=== PATIENT | female | born 1980 | race Caucasian/White ===

== ENCOUNTER → 2017-10-12 10:27 | Outpatient (CLI) | payer BC, SELFPAY ==
[2017-10-12 12:49] LABS: Hematocrit 32.7 % (37-47); Hemoglobin 10.9 g/dl (12.0-15.0); Mean Corp Hgb Conc 33.3 g/gl (32-36); Mean Corpuscular Hgb 30.9 pg (27.0-32.0); Mean Corpuscular Volume 92.6 fL (81-99); Mean Platelet Vol. 9.4 fl (6.2-12.0); Platelet Count 295 K/mm3 (150-450); RBC Distribution Width CV 12.6 % (11.6-14.6); RBC Distribution Width SD 42.6 fl (35.1-43.9); Red Blood Count 3.53 M/mm3 (4.2-5.4); White Blood Count 10.9 K/mm3 (4.4-11.0)
[2017-10-12 12:52] LABS: Glucose Challenge Gest 1H 50g 160 mg/dL (70-140); Scan Indicated on CBC? Y/N NO
== END ==
PROVIDERS: Family Provider Internal Medicine; PCP Internal Medicine; Visit Provider Obstetrics & Gynecology
DX: Z34.82 Encounter for supervision of other normal pregnancy, second trimester (principal)
CPT/HCPCS: 36415; 82950; 85027

== ENCOUNTER → 2017-10-19 07:07 | Outpatient (CLI) | payer BC, SELFPAY ==
[2017-10-19 08:14] LABS: Glucose GTT-Gestation. Fasting 89 mg/dL (<105)
[2017-10-19 09:41] LABS: Glucose GTT-Gestational 2 Hr 153 mg/dL (<165)
[2017-10-19 09:44] LABS: Glucose GTT-Gestational 1 Hr 179 mg/dL (<190)
[2017-10-19 11:38] LABS: Glucose GTT-Gestational 3 Hr 99 L (<145)
== END ==
PROVIDERS: Family Provider Internal Medicine; PCP Internal Medicine; Visit Provider Obstetrics & Gynecology
DX: R73.09 Other abnormal glucose (principal)
CPT/HCPCS: 36415; 82951; 82952

== ENCOUNTER → 2017-11-21 09:54 | Outpatient (CLI) | payer BC, SELFPAY ==
[2017-11-21 10:54] LABS: Hematocrit 35.9 % (37-47); Mean Corp Hgb Conc 33.4 g/gl (32-36); Mean Corpuscular Hgb 31.2 pg (27.0-32.0); Mean Corpuscular Volume 93.2 fL (81-99); Mean Platelet Vol. 10.1 fl (6.2-12.0); Platelet Count 225 K/mm3 (150-450); RBC Distribution Width CV 14.2 % (11.6-14.6); RBC Distribution Width SD 48.1 fl (35.1-43.9); Red Blood Count 3.85 M/mm3 (4.2-5.4); White Blood Count 9.2 K/mm3 (4.4-11.0)
[2017-11-21 10:55] LABS: Scan Indicated on CBC? Y/N NO
[2017-11-21 11:01] LABS: Partial Thromboplast Time 29.5 Seconds (24.1-36.2)
[2017-11-21 11:06] LABS: Prothrombin Time (Protime)PT. 13.2 SECONDS (11.7-14.9)
[2017-11-21 11:27] LABS: AST(SGOT) 23 U/L (15-37); Alanine Aminotransfer ALT/SGPT 22 U/L (13-56); Creatinine, Serum 0.85 mg/dL (0.55-1.02); EST Glomerular Filtration Rate 80 mL/min (>60); Est Glom Filt Rate - Afr Amer 96 mL/min (>60); Uric Acid 5.6 mg/dL (2.6-6.0)
== END ==
PROVIDERS: Visit Provider Obstetrics & Gynecology
DX: Z34.83 Encounter for supervision of other normal pregnancy, third trimester (principal); O26.893 Other specified pregnancy related conditions, third trimester; O16.3 Unspecified maternal hypertension, third trimester; Z3A.00 Weeks of gestation of pregnancy not specified
CPT/HCPCS: 36415; 82565; 84450; 84460; 84550; 85027; 85610; 85730

== ENCOUNTER → 2017-11-22 11:28 | Outpatient (CLI) | payer BC, SELFPAY ==
[2017-11-22 11:52] LABS: 24 Hour Urine Protein 396.6 mg/24HR (<150 MG/24HR); 24HR. UA Prot. Total Volume 1925 mL; Urine Protein (24 Hour) 20.6 mg/dL (<11.9)
== END ==
PROVIDERS: Visit Provider Obstetrics & Gynecology
DX: Z34.83 Encounter for supervision of other normal pregnancy, third trimester (principal); O26.893 Other specified pregnancy related conditions, third trimester; O16.3 Unspecified maternal hypertension, third trimester; Z3A.00 Weeks of gestation of pregnancy not specified
CPT/HCPCS: 84156

== ENCOUNTER 2017-11-28 16:08 | Outpatient (CLI) | payer BC, SELFPAY ==
[2017-11-28 17:03] VITALS: BMI 37.2
[2017-11-28] MEDS: Betamethasone/Betamethasone 30 MG/5 ML Vial 12 MG IM (17:13)
[2017-11-28 17:29] LABS: AST(SGOT) 25 U/L (15-37); Alanine Aminotransfer ALT/SGPT 25 U/L (13-56); EST Glomerular Filtration Rate 85 mL/min (>60); Est Glom Filt Rate - Afr Amer 103 mL/min (>60); Estimated Creatinine Clearance 82.33 ml/min; Uric Acid 4.8 mg/dL (2.6-6.0)
[2017-11-28 17:55] LABS: Hematocrit 37.3 % (37-47); Hemoglobin 12.7 g/dl (12.0-15.0); International Normalized Ratio 0.9; Mean Corpuscular Hgb 31.7 pg (27.0-32.0); Mean Platelet Vol. 10.6 fl (6.2-12.0); Platelet Count 250 K/mm3 (150-450); Prothrombin Time (Protime)PT. 12.5 SECONDS (11.7-14.9); RBC Distribution Width CV 13.8 % (11.6-14.6); RBC Distribution Width SD 45.8 fl (35.1-43.9); Red Blood Count 4.01 M/mm3 (4.2-5.4); White Blood Count 11.1 K/mm3 (4.4-11.0)
[2017-11-28 17:56] LABS: Partial Thromboplast Time 27.5 Seconds (24.1-36.2)
[2017-11-28 18:01] LABS: Scan Indicated on CBC? Y/N NO
--- NOTE | 2017-11-30 13:39 | OB.TRI.NOTE ---
History of Present Illness Date of Service: 11/29/17 Was patient seen by the physician?: Yes Reason For Visit: PIH Date of Service: 11/29/17 Final ARIANA: 01/06/18 Gestational age: 34 Weeks and 5 Days History of Present Illness: 37 yo [id number] female with known preeclampsia, on bedrest at home but not strict re this. Brought in for overnight observation and sequential BP checks to help determine severity of current BPs. S/P Betamethasone on 11/28 and 11/29 x two doses Denies any PETTIT, RUQ pain. 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 No UCs. + FM. No vaginal bleeding or ROM. Home Medications Medication Instructions Recorded Hydrocodone Bitart/Apap 5-325 1 - 2 tablet PO Q4H PRN PRN #10 06/11/16 [[place] 5MG-325MG] tablet Vits [Prenatabs FA] 1 tablet PO DAILY 06/11/16 Aspirin 11/29/17 Allergies No Known Allergies Allergy (Verified 11/29/17 18:08) Physical Exam General: Alert, Oriented x3, Cooperative, No apparent distress Abdomen: Soft, Non Tender, Gravid Estimated gestational size: Appropriate for gestational size Presentation: Cephalic Cervix Dilation (cm): 0 - VTX Station: -3 Effacement (%): 0 NST - FHR Rate Baby A Baseline: 130-140 avg variability. Accels Variability:: Moderate Accelerations:: 15 x 15 Decelerations:: None NST Reactive:: Yes, Appropriate for gestational age FHR Category:: Category I Uterine Activity:: irregular UCs noted Impression/Plan 34 5/7 wk [id number] female. Preeclampsia. Bedrest and outpt overnight observation planned to assess BPs If BPs severe PIH range, deliver If mild continue bedrest and will sent home after observation.
--- NOTE | 2017-11-30 13:45 | OB.TRI.HP_ITS ---
History of Present Illness Date of Service: 11/29/17 Was patient seen by the physician?: Yes Reason For Visit: PIH Date of Service: 11/29/17 Final ARIANA: 01/06/18 Gestational age: 34 Weeks and 5 Days History of Present Illness: 37 yo [id number] female with known preeclampsia, on bedrest at home but not strict re this. Brought in for overnight observation and sequential BP checks to help determine severity of current BPs. S/P Betamethasone on 11/28 and 11/29 x two doses Denies any PETTIT, RUQ pain. 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 No UCs. + FM. No vaginal bleeding or ROM. Home Medications Medication Instructions Recorded Hydrocodone Bitart/Apap 5-325 1 - 2 tablet PO Q4H PRN PRN #10 06/11/16 [[place] 5MG-325MG] tablet Vits [Prenatabs FA] 1 tablet PO DAILY 06/11/16 Aspirin 11/29/17 Allergies No Known Allergies Allergy (Verified 11/29/17 18:08) Physical Exam General: Alert, Oriented x3, Cooperative, No apparent distress Abdomen: Soft, Non Tender, Gravid Estimated gestational size: Appropriate for gestational size Presentation: Cephalic Cervix Dilation (cm): 0 - VTX Station: -3 Effacement (%): 0 NST - FHR Rate Baby A Baseline: 130-140 avg variability. Accels Variability:: Moderate Accelerations:: 15 x 15 Decelerations:: None NST Reactive:: Yes, Appropriate for gestational age FHR Category:: Category I Uterine Activity:: irregular UCs noted Impression/Plan 34 5/7 wk [id number] female. Preeclampsia. Bedrest and outpt overnight observation planned to assess BPs If BPs severe PIH range, deliver If mild continue bedrest and will sent home after observation.
== END 2017-11-28 17:20 | disposition home or self-care (01) ==
LOC: LAB 16:10 → WPOUT 16:50 → WP 16:50
PROVIDERS: Visit Provider Obstetrics & Gynecology
DX: O14.93 Unspecified pre-eclampsia, third trimester (principal); Z3A.34 34 weeks gestation of pregnancy
CPT/HCPCS: 36415; 82565; 84450; 84460; 84550; 85027; 85610; 85730; 96372; 99218; G0378; J0702

== ENCOUNTER → 2017-11-29 17:23 | Outpatient (CLI) | payer BC, SELFPAY ==
[2017-11-29 19:19] LABS: 24 Hour Urine Protein 784.8 mg/24HR (<150 MG/24HR); 24HR. UA Prot. Total Volume 3600 mL; Urine Protein (24 Hour) 21.8 mg/dL (<11.9)
== END ==
PROVIDERS: Visit Provider Obstetrics & Gynecology
DX: O13.9 Gestational [pregnancy-induced] hypertension without significant proteinuria, unspecified trimester (principal); Z3A.00 Weeks of gestation of pregnancy not specified
CPT/HCPCS: 81050; 84156

== ENCOUNTER 2017-11-29 17:38 | Outpatient (CLI) | payer BC, SELFPAY ==
[2017-11-29] MEDS: Betamethasone/Betamethasone 30 MG/5 ML Vial 12 MG IM (18:04)
--- NOTE | 2017-11-29 22:08 | PCM.PROGNOTE ---
Subjective: Discussed plan of care with patient. Plan for bedrest with monitoring of BPs. GBS done Cervix: L/Th/Cl/ high A/P: 34 5/7 wk with preeclampsia. Watch BPs and will assess re delivery options prn. discuss with MFM prior to final decision re delivery , unless severe by BP criteria on bedrest. - Physical Exam General: Alert, Oriented x3, Cooperative, No apparent distress HEENT: Atraumatic Neck: Supple Abdomen: Soft, Non Tender - VTX, Gravid Extremities: Edema - tr edema. Neurological: Cranial nerves II-XII grossly intact Psych/Mental Status: Normal Affect Medical Necessity - Tobacco Use Smoking Status: Never smoker Assessment/Plan 34 57 wk preeclampsia. Observe BPs overnight, bedrest with BRP S/P Betamethasone earlier today, and yesterday. Plan of care reviewed with pt and spouse. Consult with MFM prior to final decision re earlier than 37 wk delivery unless indicated by persistent severe BP / worsening preeclampsia.
[2017-11-29 22:28] VITALS: BMI 37.0
[2017-11-29 23:36] LABS: Group B Strep DNA By PCR Negative (Negative); Internal Control PASS; Probe Check PASS; Specimen Processing Control PASS
--- NOTE | 2017-11-30 07:34 | OB.TRI.PN ---
Progress Notes Date of Service: 11/30/17 Progress Note: PROGRESS NOTE. HD#2 Little sleep overnight, but no PETTIT and no PIH sx. AFEB. BPs initially 173/99 166/93 159 / 98 Then with pt at rest, lying in bed (BR with BRP): BPs mostly in 130-140 / 67-87 EFM: category I tracing. 130-140s avg variability. Accels. UCs noted last pm, irregular A/P: 34 wk EGA . PIH, mild preeclampsia Appears stable with bedrest. Advised to continue bedrest. Will f/u closely in ofc. return if PETTIT, RUQ pain, inc edema, malaise. Goal to deliver / induce by 37 wks. S/P Betamethasone 12 mg IM on 11/28 and 11/29. D/C home.
--- NOTE | 2017-11-30 07:39 | OB.TRI.PN_ITS ---
Progress Notes Date of Service: 11/30/17 Progress Note: PROGRESS NOTE. HD#2 Little sleep overnight, but no PETTIT and no PIH sx. AFEB. BPs initially 173/99 166/93 159 / 98 Then with pt at rest, lying in bed (BR with BRP): BPs mostly in 130-140 / 67- 87 EFM: category I tracing. 130-140s avg variability. Accels. UCs noted last pm , irregular A/P: 34 wk EGA . PIH, mild preeclampsia Appears stable with bedrest. Advised to continue bedrest. Will f/u closely in ofc. return if PETTIT , RUQ pain, inc edema, malaise. Goal to deliver / induce by 37 wks. S/P Betamethasone 12 mg IM on 11/28 and 11/29. D/C home.
== END 2017-11-30 07:50 | disposition home or self-care (01) ==
LOC: WPOUT 17:40 → WP 17:42
PROVIDERS: Visit Provider Obstetrics & Gynecology
DX: O14.03 Mild to moderate pre-eclampsia, third trimester (principal); Z3A.34 34 weeks gestation of pregnancy
CPT/HCPCS: 59025; 59050; 87081; 87653; 96372; 99218; G0378; J0702

== ENCOUNTER 2017-12-02 01:45 | Inpatient (IN) | payer BC, SELFPAY ==
[2017-12-02] MEDS: Lactated Ringers 1,000 ML 50 ML IV ×2 (02:31→21:45)
[2017-12-02 02:54] VITALS: BMI 36.8
[2017-12-02 03:05] LABS: Hematocrit 35.6 % (37-47); Hemoglobin 11.8 g/dl (12.0-15.0); Mean Corp Hgb Conc 33.1 g/gl (32-36); Mean Corpuscular Volume 93.4 fL (81-99); Mean Platelet Vol. 10.5 fl (6.2-12.0); Platelet Count 252 K/mm3 (150-450); RBC Distribution Width CV 14.5 % (11.6-14.6); RBC Distribution Width SD 48.9 fl (35.1-43.9); Red Blood Count 3.81 M/mm3 (4.2-5.4); White Blood Count 11.1 K/mm3 (4.4-11.0)
[2017-12-02 03:07] LABS: Scan Indicated on CBC? Y/N NO
[2017-12-02 03:37] LABS: ALB/GLOB Ratio 0.5 RATIO (0.9-2.4); AST(SGOT) 24 U/L (15-37); Alanine Aminotransfer ALT/SGPT 26 U/L (13-56); Albumin, Serum 2.3 g/dL (3.2-5.0); Alkaline Phosphatase 144 U/L (45-117); Anion Gap 10 (5-15); BUN 21 mg/dL (7-18); BUN/Creat Ratio 22.9 RATIO (10-20); Chloride 110 mmol/L (98-107); Creatinine, Serum 0.92 mg/dL (0.55-1.02); EST Glomerular Filtration Rate 73 mL/min (>60); Est Glom Filt Rate - Afr Amer 88 mL/min (>60); Globulin 4.2 g/dL (2.2-4.2); Glucose 75 mg/dL (74-106); Potassium 4.3 mmol/L (3.5-5.1); Protein, Total 6.5 g/dL (6.4-8.2); Sodium Level 142 mmol/L (136-145); Total Bilirubin < 0.10 mg/dL (0.20-1.00); Uric Acid 5.8 mg/dL (2.6-6.0)
[2017-12-02] MEDS: miSOPROStol 25 MCG TABLET PO ×3 (03:38→11:24)
[2017-12-02] MEDS: Labetalol 100 MG/20 ML Vial 10 MG IV ×2 (04:04→04:36)
[2017-12-02] MEDS: Labetalol 200 MG Tablet PO ×2 (04:21→13:15)
[2017-12-02] MEDS: Magnesium Sulfate 20 GM/500 ML BAG IV ×2 (04:58→15:01)
--- NOTE | 2017-12-02 07:45 | PCM.PN.BLA ---
Progress Note LABOR PROGRESS NOTE Preeclampsia. On Magnesium Sulfate for labor. Cytotec induction. On labetolol 200 mg po bid Presented with SROM at 12:45 am. Feeling tightening only. Denies PETTIT, RUQ pain. No PIH sx. Afeb BPs labile, inc with movement. Improved with rest. EFM: 130-140s avg variability. accels Category I Irregular UCs with UCs at times q 5-6 mins CX: deferred. Was dimple, thick, high at initial check with SROM A/P: 35 1/7 wk preeclampsia. SROM On magnesium sulfate. Fluid restriction to 100 cc / hr (in addition to antibiotics and Magnesium) Second dose of cytotec being given. Continue labor. GBS negative. -- reg diet for breakfast and will change to clears with onset of more active labor. -- del toro planned if urine output dec (retention 2/2 magnesium sulfate possible) or with placement of epidural -- Labetolol 200 mg po bid to continue for now. Watch BPs closely.
--- NOTE | 2017-12-02 12:57 | PCM.PN.BLA ---
Progress Note LABOR PROGRESS NOTE Multiple visitors in room and all eating lunch. Denies PIH sx. No PETTIT, No RUQ pain. notes some tightening, nothing very painful on Cytotec for induction of labor after SROM 12:45 am. Afeb. BPs trending up. EFM 130-140s avg variability. Category I tracing, with accels UCs very irreg q 3-9+ mins CX: deferred 2/2 SROM A/P: preeclampsia 35 1/7 wk EGA. Induction after SROM at 12:45 this am. Cytotec. D/C Cytotec and begin pitocin induction as next step. Watch progress. Plts Ok for epidural if requested BPs trending up. Suspect due to visitors, excitement though at BR with BRP. Inc labetolol to 200 mg PO tid, dose due in approx 1 hr. continue induction
[2017-12-02] MEDS: Oxytocin 30 units/NS 500 ml 30 UNITS/500 ML IV.SOLN IV (15:20)
--- NOTE | 2017-12-02 17:43 | PCM.PN.BLA ---
Progress Note NOTHING IN THIS NOTE [employer] NOT WORKING AT THE TIME
--- NOTE | 2017-12-02 18:04 | PN_ITS ---
Progress Note NOTHING IN THIS NOTE [employer] NOT WORKING AT THE TIME
--- NOTE | 2017-12-02 20:06 | PCM.PN.BLA ---
Progress Note LABOR PROGRESS NOTE LATE ENTRY D/T [employer] not working at 1715 Feeling a little more cramping and pressure, but not painful enough that she wants an epidural. Concerned about getting epidural too soon. Advised ok to wait May chose at any point. Afeb BPs remain labile Occasional in 160's/ 90's most in 130-140 / 80-90s EFM 130-140 avg variability and accels. reassuring. Category I tracing UCs irregular CX; /mod consistency / -3 VTX A/P: 35 08/21 wk SROM at 12:45 this am. continued clear fluid leaking. continued prodromal . induction of labor cytotec to pitocin. Continue pitocin with inc per protocol. Watch continued progress. Preeclampsia: continue Magnesium sulfate. Labetolol 200 mg po tid. watch I/O. del toro to be placed if dec UC noted, suspect urinary retention, or with placement of epidural.
--- NOTE | 2017-12-02 20:10 | PN_ITS ---
Progress Note LABOR PROGRESS NOTE LATE ENTRY D/T [employer] not working at 1715 Feeling a little more cramping and pressure, but not painful enough that she wants an epidural. Concerned about getting epidural too soon. Advised ok to wait May chose at any point. Afeb BPs remain labile Occasional in 160's/ 90's most in 130-140 / 80-90s EFM 130-140 avg variability and accels. reassuring. Category I tracing UCs irregular CX; /mod consistency / -3 VTX A/P: 35 08/21 wk SROM at 12:45 this am. continued clear fluid leaking. continued prodromal . induction of labor cytotec to pitocin. Continue pitocin with inc per protocol. Watch continued progress. Preeclampsia: continue Magnesium sulfate. Labetolol 200 mg po tid. watch I/ O. del toro to be placed if dec UC noted, suspect urinary retention, or with placement of epidural.
--- NOTE | 2017-12-02 20:27 | PCM.PN.BLA ---
Progress Note LABOR PROGRESS NOTE Considering epidural More painful UCs now. AVSS Pitocin at 16 mIu/min BPs in 130-140/80-90 for most part. Occasional higher CX: FT/80/-2 Vtx with sl descent EFM reassuring Category I tracing UCs approx q 3 mins. A/P: 35 1/7 wk Preeclampsia. SROM . Induction of labor Cytotec to Pitocin. Continue pitocin. OK for epidural when desired. Ampicillin for GBS prophylaxis delivery, and for prolonged SROM. Labetolol po to continue for now. May discontinue as epidural takes effect, prn as BPs improve. Will plan to continue magnesium sulfate until 24 hr post delivery.
[2017-12-02] MEDS: fentaNYL-bupivacaine (epidural) 100 ML BAG EPIDURAL (21:11)
[2017-12-03] VITALS (9 sets, daily range): BP systolic 111–153; BP diastolic 62–85; PULSE 82–88; RESP 16–18; TEMP 36.9–37.7; O2SAT 95–100
--- NOTE | 2017-12-03 00:22 | PCM.PN.BLA ---
Progress Note LABOR PROGRESS NOTE Epidural in place Pitocin at 20 mIU/min AFEB BPs much lower in 105/53 to 120/59 EFM 130-140s periods of dec variability, then with small accels and avg variability. Occasional late UC by IUPC q 4-7 mins CX /-1 at approx 0001 RN check A/P: 35 1/7 wk preeclampsia, on Magnesium sulfate. Cytotec to Pitocin induction after SROM at 00:45 yesterday am. Ampicillin prophylaxis for and prolonged SROM Continue labor induction and watch for tolerance of continued labor as well as continued progress. -- D/C'd labetalol tid 2/2 BPs low -- turn down Magnesium sulfate to 1 gm IV / hr.
[2017-12-03] MEDS: Magnesium Sulfate 20 GM/500 ML BAG IV ×3 (04:05→21:04)
[2017-12-03] MEDS: fentaNYL-bupivacaine (epidural) 100 ML BAG EPIDURAL (04:07)
[2017-12-03] MEDS: Labetalol 200 MG Tablet PO ×2 (05:49→15:20)
--- NOTE | 2017-12-03 06:10 | PCM.PN.BLA ---
Progress Note LABOR PROGRESS NOTE Epidural in place. Per RN , pt feeling a little more Afeb BPs 140's - 150's / 70-80 Pitocin at 20 mIU/min. Magnesium at 1 gm IV/hr Labetolol held (but will give am dose) EFM 130-140 category I tracing. Accels. UCs irregular: q 2-5 mostly. Some q 7 mins CX: 6 cm per RN last check A/P: 35 2/7 wk SROM on 12/02/17 at 0045. Cytotec induction to pitocin induction. Ampicillin IV for GBS prophylaxis, prolonged SROM. Preeclampsia. On magnesium sulfate at 1 g/hr . Repeat PIH labs this am. If worsening noted, inc magnesium sulfate. Assessing need for UCs and tolerance of labor, vs potential need for increased Magnesium. Labetolol 200 mg to be given this am for BP. Re pain: may need to inc epidural to cover which would dec BP also. Continue induction. May consider inc of pitocin beyond 20 mIU/min Pt at higher risk of hemorrhage given magnesium, high dose pitocin, prolonged ROM. Plan to have prophylactic meds in room for immediate dosing after delivery. Cytotec 1000 mcg, and / or hemabate
[2017-12-03 06:48] LABS: Absolute Lymphocyte Count 1.07 X10^3/ul (0.83-4.51); Absolute Neutrophil Count 13.5 X10^3/uL (2.0-7.7); Basophil# 0.01 X10^3/uL; Basophil% 0.1 % (0-1); Eosinophil# 0.04 X10^3/uL; Eosinophils% 0.3 % (0-5); Hematocrit 35.4 % (37-47); Lymphocyte # 1.07 X10^3/ul (4.0); Lymphocyte % 6.9 % (19-41); Mean Corp Hgb Conc 33.9 g/gl (32-36); Mean Corpuscular Hgb 31.7 pg (27.0-32.0); Mean Corpuscular Volume 93.4 fL (81-99); Mean Platelet Vol. 10.1 fl (6.2-12.0); Monocyte# 0.87 X10^3/uL; Monocyte% 5.6 % (0-10); Neutrophil # 13.46 X10^3/uL (2.7-7.7); Neutrophil % 86.8 % (47-70); Platelet Count 263 K/mm3 (150-450); RBC Distribution Width CV 14.7 % (11.6-14.6); Red Blood Count 3.79 M/mm3 (4.2-5.4); White Blood Count 15.5 K/mm3 (4.4-11.0)
[2017-12-03 06:49] LABS: POSITIVE COUNT NO; POSITIVE DIFFERENTIAL NO; POSITIVE MORPHOLOGY NO
[2017-12-03 07:13] LABS: ALB/GLOB Ratio 0.5 RATIO (0.9-2.4); AST(SGOT) 22 U/L (15-37); Alanine Aminotransfer ALT/SGPT 22 U/L (13-56); Albumin, Serum 2.2 g/dL (3.2-5.0); Alkaline Phosphatase 148 U/L (45-117); Anion Gap 11 (5-15); BUN 20 mg/dL (7-18); BUN/Creat Ratio 20.9 RATIO (10-20); Chloride 103 mmol/L (98-107); Creatinine, Serum 0.96 mg/dL (0.55-1.02); EST Glomerular Filtration Rate 69 mL/min (>60); Est Glom Filt Rate - Afr Amer 84 mL/min (>60); Estimated Creatinine Clearance 68.61 ml/min; Globulin 4.2 g/dL (2.2-4.2); Glucose 84 mg/dL (74-106); Potassium 3.9 mmol/L (3.5-5.1); Protein, Total 6.4 g/dL (6.4-8.2); Sodium Level 134 mmol/L (136-145)
--- NOTE | 2017-12-03 08:25 | PCM.PN.BLA ---
Progress Note INDUCTION OF LABOR 35 2/7 wk SROM at 0045 12/02/17 Preeclampsia Comfortable. Epidural redosed Afeb. BPs low , NL after epidural inc. Also received Labetalol . Pitocin 20 mIU/min. Ampicillin for GBS prophylaxis and for prolonged SROM. EFM: 130-140s avg variability and accels Category I tracing UCs very irregular CX: 8 cm / 90 / -1 A/P: 35 2/7 wk induction after SROM. Pitocin at 20 mIU/min. Will inc to up to 30 mIU/min per protocol to bring UCs a little closer together. BPs. WNL at present and EFM category I tracing. Repeat PIH labs stable. Cr sl inc but plts stable. CMP stable. Magnesium at 1 gm/hr at present. Continue induction of labor. Cytotec 1000 mcg VT after delivery as prophylactic measure against hemorrhage d/t multiple risk factors present. (Magnesium SO4, prolonged SROM, High dose Pitocin for induction) Continue care.
[2017-12-03] MEDS: Ondansetron 4 MG/2 ML Vial IV (08:30)
--- NOTE | 2017-12-03 08:31 | PN_ITS ---
Progress Note INDUCTION OF LABOR 35 2/7 wk SROM at 0045 12/02/17 Preeclampsia Comfortable. Epidural redosed Afeb. BPs low , NL after epidural inc. Also received Labetalol . Pitocin 20 mIU/min. Ampicillin for GBS prophylaxis and for prolonged SROM. EFM: 130-140s avg variability and accels Category I tracing UCs very irregular CX: 8 cm / 90 / -1 A/P: 35 2/7 wk induction after SROM. Pitocin at 20 mIU/min. Will inc to up to 30 mIU/min per protocol to bring UCs a little closer together. BPs. WNL at present and EFM category I tracing. Repeat PIH labs stable. Cr sl inc but plts stable. CMP stable. Magnesium at 1 gm/hr at present. Continue induction of labor. Cytotec 1000 mcg AR after delivery as prophylactic measure against hemorrhage d/t multiple risk factors present. (Magnesium SO4, prolonged SROM, High dose Pitocin for induction) Continue care.
[2017-12-03] MEDS: Lactated Ringers 1,000 ML 50 ML IV (09:20)
[2017-12-03] MEDS: Oxytocin 30 units/NS 500 ml 30 UNITS/500 ML IV.SOLN 334 UNITS IV (12:29)
[2017-12-03] MEDS: miSOPROStol 200 MCG Tablet 1000 MCG RECTAL (12:38)
--- NOTE | 2017-12-03 12:45 | PCM.OB.VAG ---
Vaginal Delivery Maternal Presentation: Medically Indicated Induction 35 1/2 wk SROM, unfavorable cervix. Preeclampsia Method of Induction: Pitocin, Cytotec Medical Reason for Induction: Preeclampsia, eclampsia Amniotic Membrane Rupture Type: Spontaneous at home Rupture of Membrane time: 4412/02/17 Amniotic Fluid Description: Clear Final ARIANA: 01/05/18 Final ARIANA Source: US <20 weeks Gestational age: 35 Weeks and 1 Days [place] doctor who attended delivery (if requested by OB): Azeb Anderson Date of Procedure: 12/03/17 Pre-Operative Diagnosis: 35 1/7 wk EGA Post-Operative Diagnosis: 35 2/7 wk EGA Surgery/ Procedure Performed: Spontaneous Vaginal Delivery Anesthesiologist: Nicole Owens Type of Anesthesia: Epidural Description of Procedure: of a ramsey viable male over intact perineum to lacerations. Head [id number] OA. OP and nares bulb suctioned after delivery of shoulders. Infant to maternal abdomen. Spont cry and vigorous, good tone. Delayed cord clamping, Cord clamped x two and cut. Routine cord gases collected and sent. Dr. Anderson present for delivery and tending to baby along with nursery nurse Ap 04/23. Weight pending. PP exam: Bilateral anterior labial lacerations, hemostatic. Arias cath intact 2nd deg posterior perineal to vaginal laceration at midline. Repaired this to hemostatic and intact with 3-0 Vicryl under epidural] Placenta delivered by spont expulsion, expression. 3V cord, normal appearing and intact with trailing membranes EBL 400 cc Prophylactic dose of Cytotec 1000 mcg MS x one given due to pt with multiple risk factors for hemorrhage. Pt and tolerated delivery well. to recovery , stable condition [employer] counts correct x two. Presentation: Vertex, OFE Placental Delivery Description: Spontaneous, Expressed Placenta Disposition: [facility] Cord Vessel Description: 3 Vessels Cord Gases drawn per routine: ABG, VBG Cord Entanglement: None Drain: Arias to straight drain Estimated Blood Loss: 400 Infant A gender: Male (1 minute): 9 (5 minute): 9 Episiotomy Description: None Laceration: Midline, Perineal Extension/lac, Vaginal Extension/lac, 2nd degree - and bilateral anterior labial first degree lacerations Medications given after delivery: IV Pitocin, - - Cytotec 1000 mcg MS x one given prophylactically Complications: None
--- NOTE | 2017-12-03 12:52 | OP.PCM_ITS ---
Vaginal Delivery Maternal Presentation: Medically Indicated Induction 35 1/2 wk SROM, unfavorable cervix. Preeclampsia Method of Induction: Pitocin, Cytotec Medical Reason for Induction: Preeclampsia, eclampsia Amniotic Membrane Rupture Type: Spontaneous at home Rupture of Membrane time: 4412/02/17 Amniotic Fluid Description: Clear Final ARIANA: 01/05/18 Final ARIANA Source: US <20 weeks Gestational age: 35 Weeks and 1 Days [place] doctor who attended delivery (if requested by OB): Azeb Anderson Date of Procedure: 12/03/17 Pre-Operative Diagnosis: 35 1/7 wk EGA Post-Operative Diagnosis: 35 2/7 wk EGA Surgery/ Procedure Performed: Spontaneous Vaginal Delivery Anesthesiologist: Nicole Owens Type of Anesthesia: Epidural Description of Procedure: of a ramsey viable male over intact perineum to lacerations. Head [id number] OA. OP and nares bulb suctioned after delivery of shoulders. Infant to maternal abdomen. Spont cry and vigorous, good tone. Delayed cord clamping, Cord clamped x two and cut. Routine cord gases collected and sent. Dr. Anderson present for delivery and tending to baby along with nursery nurse Ap 04/23. Weight pending. PP exam: Bilateral anterior labial lacerations, hemostatic. Arias cath intact 2nd deg posterior perineal to vaginal laceration at midline. Repaired this to hemostatic and intact with 3-0 Vicryl under epidural] Placenta delivered by spont expulsion, expression. 3V cord, normal appearing and intact with trailing membranes EBL 400 cc Prophylactic dose of Cytotec 1000 mcg MD x one given due to pt with multiple risk factors for hemorrhage. Pt and tolerated delivery well. to recovery , stable condition [employer] counts correct x two. Presentation: Vertex, OFE Placental Delivery Description: Spontaneous, Expressed Placenta Disposition: [facility] Cord Vessel Description: 3 Vessels Cord Gases drawn per routine: ABG, VBG Cord Entanglement: None Drain: Arias to straight drain Estimated Blood Loss: 400 Infant A gender: Male (1 minute): 9 (5 minute): 9 Episiotomy Description: None Laceration: Midline, Perineal Extension/lac, Vaginal Extension/lac, 2nd degree - and bilateral anterior labial first degree lacerations Medications given after delivery: IV Pitocin, - - Cytotec 1000 mcg MD x one given prophylactically Complications: None
--- NOTE | 2017-12-03 13:00 | PCM.DCVAG ---
Discharge Diet: No Restrictions Discharge Activity: May Shower, May Take a Tub Bath Return to work on:: 01/16/18 May resume sexual activity in: 4-6 weeks Additional Activity Instructions:: Nothing in the vagina for 4-6 weeks. You may return to work/school in 6 weeks. Additional Instructions: If you experience any of the following, contact your healthcare provider. Bleeding that soaks a pad every hour for 2 hours Fever 100.4 or higher Unrelieved abdominal pain Problems urinating (including inability to urinate or burning while urinating). Visual changes Severe headache Flu-like symptoms Pain or redness in one of both of your breasts Pain, warmth, tenderness or swelling in your legs, especially the calf area Frequent nausea and vomiting Symptoms of depression or anxiety If you experience any of the following, call 911 or go to the nearest Emergency Room. Chest pain Problems breathing Seizure activity Partial or complete paralysis of a body part, slurred speech, weakness or drooping of the face, or a sudden inability to walk or hold your balance Allergies/Adverse Reactions: Allergies No Known Allergies Allergy (Verified 11/29/17 18:08) Medications to take at Discharge Vits [Prenatabs FA ] 1 tablet PO DAILY 06/11/16 Calcium/Magnesium/Vitamin D3 [Manpreet-Mag Complex 300-150 mg Tab] 1 each PO DAILY 12/02/17 Acetaminophen [Tylenol Tablet] 325 - 650 mg PO Q4H PRN PRN tablet 12/03/17 Labetalol [Trandate (Beta Jalil)] 200 mg PO TID #90 tab 12/03/17 The following prescriptions were given: Labetalol [Trandate (Beta Jalil)] 200 mg PO TID #90 tab Orders to be completed after discharge: Electric breast pump Time Frame: 1 Year, Location: None Selected Please Follow Up With: Esther Lopez MD - [phone] When: Call to make an appointment with your doctor in 6 weeks. You will need to be seen in 1 week for follow up blood pressure. Primary Care Physician: Care Physician,No Primary [Primary Care Provider] - Proposed Discharge Date: 12/05/17
--- NOTE | 2017-12-03 13:03 | DCINST_ITS ---
Discharge Diet: No Restrictions Discharge Activity: May Shower, May Take a Tub Bath Return to work on:: 01/16/18 May resume sexual activity in: 4-6 weeks Additional Activity Instructions:: Nothing in the vagina for 4-6 weeks. You may return to work/school in 6 weeks. Additional Instructions: If you experience any of the following, contact your healthcare provider. * Bleeding that soaks a pad every hour for 2 hours * Fever 100.4 or higher * Unrelieved abdominal pain * Problems urinating (including inability to urinate or burning while urinating) . * Visual changes * Severe headache * Flu-like symptoms * Pain or redness in one of both of your breasts * Pain, warmth, tenderness or swelling in your legs, especially the calf area * Frequent nausea and vomiting * Symptoms of depression or anxiety If you experience any of the following, call 911 or go to the nearest Emergency Room. * Chest pain * Problems breathing * Seizure activity * Partial or complete paralysis of a body part, slurred speech, weakness or drooping of the face, or a sudden inability to walk or hold your balance Allergies/Adverse Reactions: Allergies No Known Allergies Allergy (Verified 11/29/17 18:08) Medications to take at Discharge Vits [Prenatabs FA ] 1 tablet PO DAILY 06/11/16 Calcium/Magnesium/Vitamin D3 [Manpreet-Mag Complex 300-150 mg Tab] 1 each PO DAILY Acetaminophen [Tylenol Tablet] 325 - 650 mg PO Q4H PRN PRN tablet 12/03/17 Labetalol [Trandate (Beta Jalil)] 200 mg PO TID #90 tab 12/03/17 The following prescriptions were given: Labetalol [Trandate (Beta Jalil)] 200 mg PO TID #90 tab Orders to be completed after discharge: Electric breast pump Time Frame: 1 Year, Location: None Selected Please Follow Up With: Esther Lopez MD - [phone] When: Call to make an appointment with your doctor in 6 weeks. You will need to be seen in 1 week for follow up blood pressure. Primary Care Physician: Care Physician,No Primary [Primary Care Provider] - Proposed Discharge Date: 12/05/17
[2017-12-03] MEDS: Lactated Ringers 1,000 ML 75 ML IV ×2 (14:00→22:14)
[2017-12-03] MEDS: Oxytocin 30 units/NS 500 ml 30 UNITS/500 ML IV.SOLN 167 UNITS IV (14:00)
[2017-12-03] MEDS: Naproxen 250 MG Tablet PO (20:05)
--- NOTE | 2017-12-03 21:54 | NURSING ---
bp 116/69, updated regarding this bp and the order to give trandate 200mg po at 2200, she stated to hold this med for now.
[2017-12-03] MEDS: Acetaminophen 500 MG Tablet 1000 MG PO (23:15)
[2017-12-04] VITALS (17 sets, daily range): BP systolic 130–169; BP diastolic 68–94; PULSE 71–95; RESP 16–20; TEMP 36.3–37.4; O2SAT 95–98
[2017-12-04] MEDS: Naproxen 250 MG Tablet PO ×2 (05:07→13:09)
[2017-12-04 07:18] LABS: Hematocrit 31.5 % (37-47); Hemoglobin 10.5 g/dl (12.0-15.0); Mean Corp Hgb Conc 33.3 g/gl (32-36); Mean Corpuscular Hgb 31.3 pg (27.0-32.0); Mean Platelet Vol. 9.8 fl (6.2-12.0); Platelet Count 242 K/mm3 (150-450); RBC Distribution Width CV 14.8 % (11.6-14.6); Red Blood Count 3.35 M/mm3 (4.2-5.4); White Blood Count 18.5 K/mm3 (4.4-11.0)
--- NOTE | 2017-12-04 07:32 | PCM.PN.OB ---
Subjective: PPD#1 Preeclampsia, 35 2/7 wk SROM induction doing well. Nursing , Baby is sleepy. Slight cramping with nursing but is taking NSAID prn for this and effective. cannot wait to get off Magnesium sulfate as makes her feel funny / drunk. Objective: Sitting up in bed, holding baby. [place] with clear, pale yellow urine. - Physical Exam General: Alert, Oriented x3, Cooperative, No apparent distress Neck: Supple Abdomen: Soft, Non Tender Extremities: Edema - minimal . SCDs on Neurological: Cranial nerves II-XII grossly intact Psych/Mental Status: Normal Affect Vital Signs Temp Pulse Resp BP Pulse Ox 98.6 F 80 16 148/84 H 96 12/04/17 06:30 12/04/17 06:30 12/04/17 06:30 12/04/17 06:30 12/04/17 06:30 Oxygen Delivery Method Room Air Weight: 97.5 kg Body Mass Index (BMI) 36.8 Intake and Output for Last 24 Hours 12/02/17 12/03/17 12/04/17 23:59 23:59 23:59 Intake Total 834.4 / 834.4 6911 / 6911 2105 / 2105 Output Total 1575 / 1575 5378 / 5378 1400 / 1400 Balance -740.6 / -740.6 1533 / 1533 705 / 705 Microbiology Past 72 Hours 12/02/17 03:00 Group B Streptococcus Culture - Preliminary Genital vaginal Laboratory Tests Past 24 Hrs 12/04/17 07:00 WBC Pending RBC Pending Hgb Pending Hct Pending MCV Pending MCH Pending MCHC Pending RDW Pending RDW Differential Pending Plt Count Pending Medical Necessity - Tobacco Use Smoking Status: Former smoker Assessment/Plan PPD#1 35 2/7 wk SROM induction. Preeclampsia Stable post delivery. BPs slightly labile, but most in 130-140 / 70-80s. Continue Labetolol 100 mg po bid ordered for now with inc prn Magnesium sulfate and del [place]o catheter to continue until approx 24 hr post delivery Continue care.
[2017-12-04 07:36] LABS: Scan Indicated on CBC? Y/N NO
[2017-12-04] MEDS: Magnesium Sulfate 20 GM/500 ML BAG IV (07:59)
[2017-12-04] MEDS: Labetalol 100 MG Tablet PO ×2 (09:42→22:40)
[2017-12-04] MEDS: Prenatal Vits Tablet 1 TABLET PO (12:24)
[2017-12-04] MEDS: 0.9% Saline Lock 10 ML Syringe IV (12:25)
[2017-12-05 01:45] VITALS: BP 149/65; PULSE 81; RESP 18; TEMP 36.7; O2SAT 96
--- NOTE | 2017-12-05 07:51 | PCM.PN.OB ---
Subjective: PPD#2 Preeclampsia, s/p magnesium sulfate Feeling much better. Ready to go home. Breast feeding. Baby doing well. Objective: Moving around room well. NAD - Physical Exam General: Alert, Oriented x3, Cooperative, No apparent distress HEENT: Atraumatic Neck: Supple Abdomen: Soft - Fundus firm NT at 2 cm inferior to umblicus Extremities: Edema - tr edema Psych/Mental Status: Normal Affect Vital Signs Temp Pulse Resp BP Pulse Ox 98.0 F 81 18 149/65 H 96 12/05/17 01:45 12/05/17 01:45 12/05/17 01:45 12/05/17 01:45 12/05/17 01:45 Oxygen Delivery Method Room Air Weight: 97.5 kg Body Mass Index (BMI) 36.8 Intake and Output for Last 24 Hours 12/03/17 12/04/17 12/05/17 23:59 23:59 23:59 Intake Total 6911 / 6911 4747.9 / 4747.9 Output Total 5378 / 5378 4350 / 4350 Balance 1533 / 1533 397.9 / 397.9 Microbiology Past 72 Hours 12/02/17 03:00 Group B Streptococcus Culture - Preliminary Genital vaginal Group B Beta Streptococcus is not isolated. Medical Necessity - Tobacco Use Smoking Status: Former smoker Assessment/Plan PPD#2 35 2/7 wk SROM induction. Preeclampsia Stable post delivery. BPs improving. most in 130-140 / 70-80s. Continue Labetolol 100 mg po bid for now with inc prn D/C home today. RTO in 2 wk for BP check.
--- NOTE | 2017-12-05 07:54 | PCM.DC.SUM ---
Discharge Date and Diagnosis Date of Admission: 12/02/17 - preeclampsia. 35 1/7 wk SROM Date of Discharge: 12/05/17 - Induction. [facility] Hospital Course and Treatment Operations: - - Induction of labor. Spont vaginal delivery. Summary of Care Provided: The patient is a 37 year old AB 2 female with known dx of preeclampsia, on bedrest at home and s/p two doses of betmethasone given earlier in the week . Present with SROM. Confirmed by ROM + testing. Admitted with unfavorable cervix for induction of labor. Cytotec to pitocin , resulted in eventual vaginal delivery. Pt on Magnesium sulfate throughout labor and for approx 24 hr after delivery. On Labetalol throughout labor also for HTN. Also on ampicillin during labor for GBS prophylaxis, ... and for prolonged SROM course uneventful. BPs improved but still slightly labile. remains on Labetalol 100 mg po bid Dischg home on PPD#2 to f/u in ofc in 2 wk for BP check, prn sooner. Discharge Diet: No Restrictions Discharge Activity: May Shower, May Take a Tub Bath Return to work on:: 01/16/18 May resume sexual activity in: 4-6 weeks Additional Activity Instructions:: Nothing in the vagina for 4-6 weeks. You may return to work/school in 6 weeks. Home Medications: Medications to take at Discharge Vits [Prenatabs FA ] 1 tablet PO DAILY 06/11/16 Calcium/Magnesium/Vitamin D3 [Manpreet-Mag Complex 300-150 mg Tab] 1 each PO DAILY 12/02/17 Acetaminophen [Tylenol Tablet] 325 - 650 mg PO Q4H PRN PRN tablet 12/03/17 Labetalol [Trandate (Beta Jalil)] 200 mg PO TID #90 tab 12/03/17 Labetalol [Trandate (Beta Jalil)] 100 mg PO BID #60 tab 12/05/17 Following Prescrptions Were Given to Patient: Labetalol [Trandate (Beta Jalil)] 100 mg PO BID #60 tab Labetalol [Trandate (Beta Jalil)] 200 mg PO TID #90 tab Other Amb Orders: Electric breast pump Time Frame: 1 Year, Location: None Selected Primary Care Physician: Care Physician,No Primary [Primary Care Provider] - Please Follow Up With: Esther Lopez MD - [phone] Medical Necessity - Tobacco Use Smoking Status: Former smoker Meaningful Use Info Meaningful Use Diagnoses (Choose all that apply): None applicable
--- NOTE | 2017-12-05 07:59 | DS.PCM_ITS ---
Discharge Date and Diagnosis Date of Admission: 12/02/17 - preeclampsia. 35 1/7 wk SROM Date of Discharge: 12/05/17 - Induction. [facility] Hospital Course and Treatment Operations: - - Induction of labor. Spont vaginal delivery. Summary of Care Provided: The patient is a 37 year old AB 2 female with known dx of preeclampsia, on bedrest at home and s/p two doses of betmethasone given earlier in the week . Present with SROM. Confirmed by ROM + testing. Admitted with unfavorable cervix for induction of labor. Cytotec to pitocin , resulted in eventual vaginal delivery. Pt on Magnesium sulfate throughout labor and for approx 24 hr after delivery. On Labetalol throughout labor also for HTN. Also on ampicillin during labor for GBS prophylaxis, ... and for prolonged SROM course uneventful. BPs improved but still slightly labile. remains on Labetalol 100 mg po bid Dischg home on PPD#2 to f/u in ofc in 2 wk for BP check, prn sooner. Discharge Diet: No Restrictions Discharge Activity: May Shower, May Take a Tub Bath Return to work on:: 01/16/18 May resume sexual activity in: 4-6 weeks Additional Activity Instructions:: Nothing in the vagina for 4-6 weeks. You may return to work/school in 6 weeks. Home Medications: Medications to take at Discharge Vits [Prenatabs FA ] 1 tablet PO DAILY 06/11/16 Calcium/Magnesium/Vitamin D3 [Manpreet-Mag Complex 300-150 mg Tab] 1 each PO DAILY Acetaminophen [Tylenol Tablet] 325 - 650 mg PO Q4H PRN PRN tablet 12/03/17 Labetalol [Trandate (Beta Jalil)] 200 mg PO TID #90 tab 12/03/17 Labetalol [Trandate (Beta Jalil)] 100 mg PO BID #60 tab 12/05/17 Following Prescrptions Were Given to Patient: Labetalol [Trandate (Beta Jalil)] 100 mg PO BID #60 tab Labetalol [Trandate (Beta Jalil)] 200 mg PO TID #90 tab Other Amb Orders: Electric breast pump Time Frame: 1 Year, Location: None Selected Primary Care Physician: Care Physician,No Primary [Primary Care Provider] - Please Follow Up With: Esther Lopez MD - [phone] Medical Necessity - Tobacco Use Smoking Status: Former smoker Meaningful Use Info Meaningful Use Diagnoses (Choose all that apply): None applicable
[2017-12-05 08:25] VITALS: BP 137/68; PULSE 77; RESP 18; TEMP 37.1; O2SAT 97
[2017-12-05] MEDS: Prenatal Vits Tablet 1 TABLET PO (09:25)
[2017-12-05] MEDS: Labetalol 100 MG Tablet PO (09:28)
[2017-12-05 13:50] VITALS: BP 150/75; PULSE 80; RESP 18; TEMP 36.7; O2SAT 97
[2017-12-05 15:00] VITALS: BP 144/77
== END 2017-12-05 17:40 | disposition home or self-care (01) | DRG 775 ==
PROVIDERS: Obstetrics & Gynecology; Admitting Provider Obstetrics & Gynecology; Visit Provider Obstetrics & Gynecology
DX: O14.14 Severe pre-eclampsia complicating childbirth (principal); Z37.0 Single live birth; Z3A.35 35 weeks gestation of pregnancy; O70.0 First degree perineal laceration during delivery; O99.824 Streptococcus B carrier state complicating childbirth; Z87.891 Personal history of nicotine dependence; O70.1 Second degree perineal laceration during delivery
CPT/HCPCS: 59025; 59050; 76815; 80053; 84550; 85025; 85027; 86850; 86900; 87081; 99218; J7120; A4216; G0378; J0290; J2405

== ENCOUNTER 2017-12-23 19:50 | Emergency (ER) | payer BC, SELFPAY ==
[2017-12-23 19:52] VITALS: BP 154/105; PULSE 87; RESP 20; TEMP 36.9; O2SAT 100; BMI 32.8
[2017-12-23 20:48] LABS: Absolute Lymphocyte Count 1.18 X10^3/ul (0.83-4.51); Absolute Neutrophil Count 10.6 X10^3/uL (2.0-7.7); Basophil# 0.01 X10^3/uL; Basophil% 0.1 % (0-1); Eosinophil# 0.21 X10^3/uL; Eosinophils% 1.7 % (0-5); Hematocrit 37.2 % (37-47); Hemoglobin 12.1 g/dl (12.0-15.0); Lymphocyte # 1.18 X10^3/ul (4.0); Lymphocyte % 9.5 % (19-41); Mean Corp Hgb Conc 32.5 g/gl (32-36); Mean Corpuscular Hgb 30.6 pg (27.0-32.0); Mean Corpuscular Volume 94.2 fL (81-99); Mean Platelet Vol. 8.7 fl (6.2-12.0); Monocyte# 0.45 X10^3/uL; Monocyte% 3.6 % (0-10); Neutrophil # 10.59 X10^3/uL (2.7-7.7); Neutrophil % 84.8 % (47-70); Platelet Count 388 K/mm3 (150-450); RBC Distribution Width CV 13.6 % (11.6-14.6); RBC Distribution Width SD 45.6 fl (35.1-43.9); Red Blood Count 3.95 M/mm3 (4.2-5.4); White Blood Count 12.5 K/mm3 (4.4-11.0)
[2017-12-23 20:58] LABS: POSITIVE COUNT NO; POSITIVE DIFFERENTIAL NO; POSITIVE MORPHOLOGY NO
[2017-12-23 21:16] LABS: AST(SGOT) 37 U/L (15-37); Alanine Aminotransfer ALT/SGPT 37 U/L (13-56); Albumin, Serum 3.3 g/dL (3.2-5.0); Alkaline Phosphatase 150 U/L (45-117); Anion Gap 11 (5-15); BUN 24 mg/dL (7-18); BUN/Creat Ratio 24.9 RATIO (10-20); Bilirubin, Direct 0.09 mg/dL (0.00-0.30); Calcium,Total 9.1 mg/dL (8.5-10.1); Chloride 109 mmol/L (98-107); Creatinine, Serum 0.96 mg/dL (0.55-1.02); EST Glomerular Filtration Rate 69 mL/min (>60); Est Glom Filt Rate - Afr Amer 83 mL/min (>60); Estimated Creatinine Clearance 68.61 ml/min; Globulin 4.1 g/dL (2.2-4.2); Glucose 97 mg/dL (74-106); Lipase 222 U/L (73-393); Potassium 4.4 mmol/L (3.5-5.1); Protein, Total 7.4 g/dL (6.4-8.2); Sodium Level 143 mmol/L (136-145)
--- NOTE | 2017-12-23 21:25 | US_ITS ---
STUDY: ABDOMINAL ULTRASOUND - RIGHT UPPER QUADRANT REASON FOR VISIT: Female, 37 years old. Right upper quadrant pain TECHNIQUE: Ultrasound evaluation of the right upper quadrant was performed with real-time and static madison-scale imaging. TECHNICAL QUALITY: Adequate. COMPARISON: None. FINDINGS: Liver: The liver measures 14.1 cm. There is normal echogenicity of the liver. The bile ducts are within normal limits. There is hepatic color flow. The direction of portal flow is hepatopetal. There is no demonstrated mass lesion. Gallbladder: Diffusely distended gallbladder. The gallbladder wall measures 3 mm. There is a positive sonographic Fraser's sign. There is no pericholecystic fluid. There are multiple gallstones. Common Bile Duct (C.B.D.): The common bile duct measures 6 mm. Pancreas: Normal size of the head, body and tail of the pancreas. There is normal echogenicity of the pancreas. There is no demonstrated pancreatic mass or cyst. Right Kidney: Normal size of the right kidney. The right kidney measures 11.4 x 5.3 x 4.1 cm. Normal renal cortex. The right cortex measures 1.5 cm. There is no demonstrated renal mass or cyst. There is no right hydronephrosis. US/Gallbladder IMPRESSION: Diffusely distended gallbladder with stones and positive Fraser's sign which may be consistent with acute cholecystitis. HIDA scan would be helpful for further evaluation if clinically warranted Common bile duct within upper limits normal in size without definitive evidence for intraductal stone Electronically Signed: Rivas Hernandez MD at 22:19 EDT , Service support ,
[2017-12-23] MEDS: Ondansetron 4 MG/2 ML Vial IV (21:32)
[2017-12-23] MEDS: 0.9% Normal Saline 1,000 ML 1000 ML IV (21:32)
[2017-12-23] MEDS: morphine 8 MG/ML Syringe 6 MG IV (21:32)
--- NOTE | 2017-12-23 21:50 | RAD_ITS ---
STUDY: X-RAY CHEST REASON FOR EXAM: Female, 37 years old. Upper abdominal pain TECHNIQUE: PA COMPARISON: None. FINDINGS: The lungs are clear and expanded. There is no demonstrated pleural abnormality. Normal size heart. Normal mediastinum and mary jo. Normal visualized pulmonary arteries. Normal visualized aortic arch and descending thoracic aorta. Normal visualized thoracic spine. Normal visualized ribs, clavicles, and shoulders. There is no demonstrated abnormality of the visualized soft tissue structures of the upper abdomen. RAD/Chest 1 View (Portable) IMPRESSION: Normal x-ray examination of the chest. Electronically Signed: Rivas Hernandez MD at 22:31 EDT , Service support ,
--- NOTE | 2017-12-23 22:33 | ED.VISSUMM ---
- ER Visit Summary Date of Service: 12/23/17 Chief Complaint: Epigastric and right upper quadrant abdominal pain History of Present Illness: The patient is a 37 F status post 20 days ago. Patient states around 5 PM she had epigastric right upper quadrant abdominal pain radiating her back. Associated nausea vomiting. No diarrhea. No fever. No hematemesis. No melena. No prior history. No prior abdominal surgeries. She did have -induced hypertension. Currently is on labetalol for blood pressure. Physical Examination: Blood pressure 154/105 otherwise vital signs stable afebrile pulse ox are percent on room air no signs of hypoxia. H EENT exam unremarkable. Neck nontender no JVD no lymphadenopathy. Lungs clear to auscultation bilaterally. Heart regular rhythm rate about 90 no murmur. Abdomen soft epigastric right upper quadrant tenderness. No rebound. Nondistended normal bowel sounds no peritoneal signs. No hernias or masses. No signs of obstruction. Moving all 4 extremities. Calves nontender. Neurologically she is awake and alert. Test Results: CBC shows a white count 12.5. H&H normal. BMP unremarkable. Gap of 11. Normal creatinine. Liver enzymes normal other than alk phos of 150. Lipase normal. Ultrasound right upper quadrant shows multiple gallstones distended gallbladder. Common bile duct upper limits of normal at 6 mm but no common bile duct stone. This x-ray shows no acute abnormality and a normal cardiac silhouette and mediastinum. This was done due to her back and her having -induced hypertension. Emergency Department Course and Treatment: Repeat exam patient is feeling much better after dose of Zofran and morphine. She also received IV fluids. Currently her abdomen is benign. She is holding her on her chest. She denied discussed all of her test results with her at bedside. Treatment Plan: She feels comfortable and clinically looks well be discharged home. She will follow-up with either Dr. Ramírez or Dr. Burgess for further evaluation of possible cholecystectomy secondary to gallstones. Her and her know to return if she has increasing pain, intractable vomiting or fever. Disposition: Discharge Impression: Acute abdominal pain secondary to biliary colic. Gallstones on ultrasound. Status This note was generated with [employer] dictation software. It may contain incorrect words, spelling, and punctuation that were not noted in review of the chart prior to signing ED Disposition - Plan for ED Patient: Chief Complaint: Abd Pain Referrals: Care Physician,No Primary [Primary Care Provider] -
--- NOTE | 2017-12-23 22:38 | ED.DEP ---
ED Disposition - Plan for ED Patient: Disposition: Home or Assisted Living Chief Complaint: Abd Pain Instructions: ED Abdominal Pain Gallstone Poss Prescriptions: Ondansetron [Zofran Odt] 4 mg PO Q4H PRN PRN #10 tab.rapdis PRN Reason: Nausea Referrals: Bob Burgess MD [STAFF PHYSICIAN] - As soon as possible Additional Instructions: Abdominal pain secondary to gallstones. [place] diet and increase as tolerated. Tylenol and/or Motrin for pain. Call and follow-up with Dr. Burgess or Dr. Contreras for further evaluation to have your gallbladder removed.
--- NOTE | 2017-12-23 22:41 | DCINST.ED_ITS ---
ED Disposition - Plan for ED Patient: Disposition: Home or Assisted Living Chief Complaint: Abd Pain Instructions: ED Abdominal Pain Gallstone Poss Prescriptions: Ondansetron [Zofran Odt] 4 mg PO Q4H PRN PRN #10 tab.rapdis PRN Reason: Nausea Referrals: Bob Burgess MD [STAFF PHYSICIAN] - As soon as possible Additional Instructions: Abdominal pain secondary to gallstones. Fate diet and increase as tolerated. Tylenol and/or Motrin for pain. Call and follow-up with Dr. Burgess or Dr. Contreras for further evaluation to have your gallbladder removed.
[2017-12-23 22:56] VITALS: BP 131/89; PULSE 98; RESP 18; O2SAT 95
== END 2017-12-23 22:56 | disposition home or self-care (01) ==
PROVIDERS: Emergency Provider Emergency Medicine
DX: O99.63 Diseases of the digestive system complicating the puerperium (principal); K80.50 Calculus of bile duct without cholangitis or cholecystitis without obstruction; R10.13 Epigastric pain; O13.5 Gestational [pregnancy-induced] hypertension without significant proteinuria, complicating the puerperium; Z79.82 Long term (current) use of aspirin; Z79.899 Other long term (current) drug therapy
CPT/HCPCS: 71045; 76705; 80048; 80076; 83690; 85025; 96361; 96374; 96375; 99282; A4216; J2405

== ENCOUNTER 2017-12-28 16:46 | Observation (INO) | payer BC, SELFPAY ==
[2017-12-28 15:58] LABS: Hematocrit 37.7 % (37-47); Hemoglobin 12.2 g/dl (12.0-15.0); Mean Corp Hgb Conc 32.4 g/gl (32-36); Mean Corpuscular Hgb 29.8 pg (27.0-32.0); Mean Platelet Vol. 8.7 fl (6.2-12.0); Platelet Count 371 K/mm3 (150-450); RBC Distribution Width CV 13.8 % (11.6-14.6); RBC Distribution Width SD 46.6 fl (35.1-43.9); White Blood Count 12.1 K/mm3 (4.4-11.0)
[2017-12-28 16:02] LABS: Scan Indicated on CBC? Y/N NO
[2017-12-28 16:41] LABS: ALB/GLOB Ratio 0.7 RATIO (0.9-2.4); AST(SGOT) 78 U/L (15-37); Alanine Aminotransfer ALT/SGPT 56 U/L (13-56); Albumin, Serum 3.3 g/dL (3.2-5.0); Alkaline Phosphatase 198 U/L (45-117); Amylase 25 U/L (25-115); Anion Gap 10 (5-15); BUN 21 mg/dL (7-18); BUN/Creat Ratio 23.1 RATIO (10-20); Calcium,Total 8.6 mg/dL (8.5-10.1); Chloride 107 mmol/L (98-107); Creatinine, Serum 0.91 mg/dL (0.55-1.02); EST Glomerular Filtration Rate 73 mL/min (>60); Est Glom Filt Rate - Afr Amer 89 mL/min (>60); Globulin 4.5 g/dL (2.2-4.2); Glucose 85 mg/dL (74-106); Lipase 260 U/L (73-393); Potassium 4.1 mmol/L (3.5-5.1); Protein, Total 7.8 g/dL (6.4-8.2); Sodium Level 138 mmol/L (136-145)
[2017-12-28 17:11] VITALS: BP 140/85; PULSE 92; RESP 18; TEMP 36.9; O2SAT 98
[2017-12-28 17:13] VITALS: BMI 32.5
[2017-12-28 17:19] VITALS: BMI 32.5
[2017-12-28] MEDS: Dextrose 5%-Lactated Ringers 1,000 ML 70 ML IV (18:34)
[2017-12-28 20:05] VITALS: BP 145/86; PULSE 94; RESP 18; TEMP 36.7; O2SAT 98
--- NOTE | 2017-12-28 20:18 | NURSING ---
This RN called and spoke with Lisa in pharmacy about the patient being on Zosyn and breast feeding. Lisa stated there were no contraindications that she could find to still breast feeding and being on Zosyn, but did not feel comfortable with saying it was for sure OK. This RN then spoke with the patient and she agreed to pump and dump and stated she had some breast milk already bottled up that she could use for her baby.
[2017-12-28 23:29] VITALS: BP 136/96; PULSE 70; RESP 16; TEMP 36.4; O2SAT 100
[2017-12-28] MEDS: Piperacil/Tazobactam 3.375 GM/50 ML ML IV (23:40)
[2017-12-28] MEDS: 0.9% NaCl Peripheral Flush Adult/Peds IV (23:40)
[2017-12-28] MEDS: Labetalol 100 MG Tablet PO (23:40)
[2017-12-29] VITALS (13 sets, daily range): BP systolic 118–184; BP diastolic 61–103; PULSE 61–89; RESP 16; TEMP 36.6–37.1; O2SAT 94–100; BMI 32.4
--- NOTE | 2017-12-29 | GALL_PTH ---
PATIENT: JESSE WESTON LOC: MS2 U#:[id number] AGE/SX: 37/F [place] [facility] [place] RE12/28/[address]: Dr. Bob Burgess MD : [id number] BED: 1 DIS: 12/30/2017 SPEC #: [id number] RECD: 12/29/17 14:59 STATUS: DERIC PETROS #: [id number] JORDAN: 12/29/17 00:[address]: Bob Burgess DEPT: SURGICAL PATHOLOGY RECD BY: Regino Contreras ENTERED: 12/29/17 14:59 SP TYPE: NEYDA WALLS DR: No Primary Care Phys Tissues: Gallbladder, NOS Procedures: Surgery Specimen Level III HEADER OPERATION: Laparoscopic cholecystectomy PRE-OP DIAGNOSIS: Calculus of gallbladder with acute cholecystitis without obstruction TISSUE SUBMITTED: Gallbladder and contents MICROSCOPIC DIAGNOSIS Gallbladder and contents: Chronic cholecystitis, cholelithiasis and cholesterolosis. SJ:chintan 5/18/18 MICROSCOPIC DESCRIPTION Slides are reviewed. GROSS DESCRIPTION Received is one container labeled with the patient's name and designated gallbladder. The specimen consists of a gallbladder measuring 8 cm in length and 3.5 cm in diameter. The external surface is pink-lazo, smooth and glistening for the most part. Focally it is granular, hemorrhagic and contains cautery artifact. The gallbladder contains green-yellow mucoid bile and multiple yellow mulberry stones measuring in aggregate 1 x 1 x 0.4 cm and 0.2 to 0.4 cm in greatest dimension. The mucosa is bile-stained and without any mass lesions. The gallbladder wall measures 0.2 cm in thickness. The mucosa also shows several yellowish streaks consistent with cholesterolosis. Jr. Systems Administrator sections from the gallbladder and the cystic duct are submitted in one cassette. / SJ:chintan 12/29/17 TC:5 CPT: 50422
--- NOTE | 2017-12-29 04:19 | EKG12_ITS ---
Test Reason : AM EKG Blood Pressure : / mmHG Vent. Rate : 080 BPM Atrial Rate : 080 BPM P-R Int : 170 ms QRS Dur : 080 ms QT Int : 390 ms P-R-T Axes : 033 019 024 degrees QTc Int : 449 ms Normal sinus rhythm Normal ECG Confirmed by FARNAZ ADORNO, DIANE ([id number]), editor book JOAQUIN GARDNER ([id number]) on 01/11/2018 3:25:10 PM Referred By: Bob Burgess Confirmed By:DIANE OSEI MD
[2017-12-29] MEDS: Piperacil/Tazobactam 3.375 GM/50 ML ML IV ×3 (06:08→22:09)
[2017-12-29] MEDS: Labetalol 100 MG Tablet PO ×2 (08:14→22:09)
[2017-12-29] MEDS: Dextrose 5%-Lactated Ringers 1,000 ML 70 ML IV (08:15)
[2017-12-29] MEDS: Bupivacaine Mpf 0.5% 30 ML VIAL (12:21)
--- NOTE | 2017-12-29 13:05 | OP.PCM_ITS ---
Problem List (1) Acute calculous cholecystitis Status: Acute Report of Operation Date of Procedure: 12/29/17 Pre-Operative Diagnosis: Acute cholecystitis Post-Operative Diagnosis: Same Surgery/Procedure Performed:: Laparoscopic cholecystectomy Type of Anesthesia:: General - Anesthesia who is Anesthesiologist: Nicole Owens Description of Procedure: Patient was brought into the operating room and placed in the supine position. Under excellent general endotracheal intubation the abdomen was sterilely prepped and draped in the usual fashion. Local was injected infraumbilically curvilinear incision was made dissection was carried down to the fascia the fascia grasped with a Meherrin. Varies needle was placed inside the abdomen the abdomen was insufflated 15 torr. A 10/12 trocar was placed without difficulty. A subxiphoid #5 trocar was placed, another #5 trocar was placed inferior to this, and laterally a #5 trocar was placed. All of these under direct visualization without injury to underlying structures. Patient was noted to have acute cholecystitis with a distended gallbladder. I aspirated out the fluid it was more of a hydrops color. I grab the fundus of the gallbladder and retracted in a cephalad direction I dissected down grab the infundibulum and retracted it laterally. Patient had an extremely short cystic duct was going to try to shoot a cholangiogram but I was just all the way down near the hepatic duct and I did not feel that it was appropriate for fear of injuring the hepatic duct so I opted to put hemoclips proximally and a Hemoclip distally and ligated the duct identified the cystic artery place hemoclips proximally distally ligated the artery deliver the gallbladder from the gallbladder bed with use of electrocautery had excellent hemostasis. A specimen specimen bag delivered through the umbilical port without difficulty. I reinspected the right upper quadrant I am concerned that the common bile duct seems to be a little bit dilated. I am going to keep her tonight obtain liver function tests in the morning to make sure that we do not have a retained stone if this is negative then I will let her go then. Remove the trochars under direct visitation good hemostasis was noted. Close the fascia the umbilical port with a figure 8 stitch of 0 Vicryl making sure not to incorporate any intestine underneath. Skin incisions were closed with subcu stitches of 4-0 Monocryl. Steri-Strips were applied. Sterile dressings were applied. The patient tolerated the procedure well. - Admit VTE Documentation VTE Present on Admission: No VTE Mechan Device Prophylaxis: SCD's VTE Pharm Prophylaxis ordered?: No Reason prophylaxis not ordered:: Treatment Not Indicated
--- NOTE | 2017-12-29 13:06 | PCA ---
pt off floor
--- NOTE | 2017-12-29 15:29 | PCA ---
pt off floor
[2017-12-29] MEDS: Ibuprofen 400 MG Tablet 800 MG PO (16:12)
[2017-12-30] MEDS: Ibuprofen 400 MG Tablet 800 MG PO ×2 (00:23→08:16)
[2017-12-30 02:40] VITALS: BP 138/78; PULSE 80; RESP 16; TEMP 36.6; O2SAT 97
[2017-12-30] MEDS: Dextrose 5%-Lactated Ringers 1,000 ML 70 ML IV (02:49)
[2017-12-30] MEDS: Piperacil/Tazobactam 3.375 GM/50 ML ML IV (05:06)
[2017-12-30 06:16] LABS: ALB/GLOB Ratio 0.8 RATIO (0.9-2.4); AST(SGOT) 51 U/L (15-37); Alanine Aminotransfer ALT/SGPT 94 U/L (13-56); Alkaline Phosphatase 180 U/L (45-117); Anion Gap 8 (5-15); BUN 10 mg/dL (7-18); BUN/Creat Ratio 10.5 RATIO (10-20); Calcium,Total 8.4 mg/dL (8.5-10.1); Chloride 109 mmol/L (98-107); Creatinine, Serum 0.95 mg/dL (0.55-1.02); EST Glomerular Filtration Rate 70 mL/min (>60); Est Glom Filt Rate - Afr Amer 84 mL/min (>60); Estimated Creatinine Clearance 69.33 ml/min; Globulin 3.9 g/dL (2.2-4.2); Glucose 116 mg/dL (74-106); Potassium 4.1 mmol/L (3.5-5.1); Protein, Total 6.9 g/dL (6.4-8.2); Sodium Level 141 mmol/L (136-145)
--- NOTE | 2017-12-30 06:32 | DCINST_ITS ---
Discharge Diet: Light diet - advance as tolerated Discharge Activity: May Not Drive - for 2-3 days or while taking narcotic pain medications., - - Do not drive, work heavy equipment or sign legal documents for 24 hours. May shower in (days): 1 - with the bandage in place. Additional Activity Instructions:: Pain medication may cause nausea. You should typically eat light foods as you take your pain medications. Pain medication may also cause constipation. If this is a problem for you, please discuss with your doctor. Call your doctor if your incision/area has: Continuous Slow Oozing, Sudden Increased Bleeding, Increased Pain/ Swelling, Increased Redness, Foul Smelling Discharge Call your doctor if you observe: Fever of 101 or Higher Suture Line Care: Avoid Pulling/Pushing, Avoid Pinching/Bending Additional Dressing/Incision Instructions:: Leave operative bandaids on for 2 days. When you remove dressing, leave Steri-Strips on until your follow-up appointment, or until the Steri-Strips fall off on their own. Allergies/Adverse Reactions: Allergies No Known Allergies Allergy (Verified 12/28/17 15:56) Medications to take at Discharge Vits [Prenatabs FA ] 1 tab PO DAILY 06/11/16 Labetalol [Trandate (Beta Jalil)] 100 mg PO BID #60 tab 12/05/17 Aspirin [Aspirin, Baby] 81 mg PO DAILY@0800 12/23/17 Oxycodone HCl/Acetaminophen [Percocet 5/325] 1 - 2 tab PO Q4H PRN PRN 4 Days # 30 tab 12/29/17 The following prescriptions were given: Oxycodone HCl/Acetaminophen [Percocet 5/325] 1 - 2 tab PO Q4H PRN PRN 4 Days # 30 tab PRN Reason: Pain Primary Care Physician: Care Physician,No Primary [Primary Care Provider] - Please Follow Up With: Bob Burgess MD - Please call [phone] to schedule an appointment. When: 7 days after your surgery.
--- NOTE | 2017-12-30 06:32 | PCM.PN.SRG ---
Patient Problems: Active and Suspected Problems (Last Reviewed 12/28/17 @ 16:31 by Bob Burgess MD) Acute calculous cholecystitis (Acute) Subjective: elbert po well no n/v Objective: dressing dry abd soft - Physical Exam Vital Signs Temp Pulse Resp BP Pulse Ox 97.8 F 80 16 138/78 H 97 12/30/17 02:40 12/30/17 02:40 12/30/17 02:40 12/30/17 02:40 12/30/17 02:40 Oxygen Flow Rate (L/min) 2 Oxygen Delivery Method Room Air Weight: 189 lb 15.91 oz Body Mass Index (BMI) 32.4 Intake and Output for Last 24 Hours 12/28/17 12/29/17 12/30/17 23:59 23:59 23:59 Intake Total 2608.5 / 2608.5 1806 / 1806 Output Total 3725 / 3725 1100 / 1100 Balance -1116.5 / -1116.5 706 / 706 Laboratory Tests Past 24 Hrs 12/30/17 05:25 Sodium 141 Potassium 4.1 Chloride 109 H Carbon Dioxide 24.0 Anion Gap 8 BUN 10 Creatinine 0.95 Estim Creat Clear Calc 69.33 Est GFR (MDRD) Af Amer 84 Est GFR (MDRD) Non-Af 70 BUN/Creatinine Ratio 10.5 Glucose 116 H Calcium 8.4 L Total Bilirubin 0.30 AST 51 H ALT 94 H Alkaline Phosphatase 180 H Total Protein 6.9 Albumin 3.0 L Globulin 3.9 Albumin/Globulin Ratio 0.8 L Medical Necessity - Tobacco Use Smoking Status: Never smoker Assessment/Plan Active and Suspected Problems (Last Reviewed 12/28/17 @ 16:31 by Bob Burgess MD) Acute calculous cholecystitis (Acute) POD #1 ok to dc home
[2017-12-30 08:15] VITALS: BP 120/82; PULSE 71; RESP 18; TEMP 36.9; O2SAT 100
[2017-12-30] MEDS: Labetalol 100 MG Tablet PO (08:16)
== END 2017-12-30 09:51 | disposition home or self-care (01) ==
LOC: MS2 16:47
PROVIDERS: Admitting Provider Surgery; Visit Provider Surgery
PROC: (CPT 47562; principal; 2017-12-29 12:50)
DX: K80.12 Calculus of gallbladder with acute and chronic cholecystitis without obstruction (principal); Z79.82 Long term (current) use of aspirin; Z87.891 Personal history of nicotine dependence
CPT/HCPCS: 47562; 36415; 80053; 82150; 83690; 85027; 88304; 93005; 96365; 96366; 99218; A4216; G0378; G0379

== ENCOUNTER 2018-01-03 18:30 | Outpatient (CLI) | payer BC, SELFPAY | END 2018-01-03 19:30 | disposition home or self-care (01) | LOC: WPOUT 18:35 → WP 18:36 | PROVIDERS: Visit Provider Obstetrics & Gynecology | DX: Z39.1 Encounter for care and examination of lactating mother (principal) | CPT/HCPCS: 96152 ==

== ENCOUNTER → 2018-07-12 15:28 | Outpatient (CLI) | payer BC, SELFPAY ==
[2018-07-17 14:47] LABS: HPV Reflexed? NOT INDICATED
--- OUTSIDE RECORDS SUMMARY | 2018-09-07 01:48 | XMS RPT_ITS ---
:1980 Author Organization OHIP Support Name Relationship Address Phone [employer] Unavailable [address] + [place] [address] EVELIA WESTON Unavailable [address] + [place] [address] [employer] Unavailable [address] + [place] [address] EVELIA WESTON Unavailable [address] + [place] [address] [employer] Unavailable [address] + [place] [address] EVELIA WESTON Unavailable [address] + [place] [address] [employer] Unavailable [address] + [place] [address] EVELIA WESTON Unavailable [address] + [place] [address] [employer] Unavailable [address] + [place] [address] EVELIA WESTON Unavailable [address] + [place] [address] [employer] Unavailable [address] + [place] [address] EVELIA WESTON Unavailable [address] + [place] [address] [employer] Unavailable [address] + [place] [address] EVELIA WESTON Unavailable [address] + [place] [address] [employer] Unavailable [address] + [place] [address] EVELIA WESTON Unavailable [address] + [place] [address] [employer] Unavailable [address] + [place] [address] EVELIA WESTON Unavailable [address] + [place] [address] [employer] Unavailable [address] + [place] [address] EVELIA WESTON Unavailable [address] + [place] [address] [employer] Unavailable [address] + [place] [address] EVELIA WESTON Unavailable [address] + [place] [address] [employer] Unavailable [address] + [place] [address] EVELIA WESTON Unavailable [address] + [place] [address] [employer] Unavailable [address] + [place] [address] EVELIA WESTON Unavailable [address] + [place] [address] [employer] Unavailable [address] + [place] [address] EVELIA WESTON Unavailable [address] + [place] [address] [employer] Unavailable [address] + [place] [address] EVELIA WESTON Unavailable [address] + [place] [address] [employer] Unavailable [address] + [place] [address] EVELIA WESTON Unavailable [address] + [place] [address] [employer] Unavailable [address] + [place] [address] EVELIA WESTON Unavailable [address] + [place] [address] [employer] Unavailable [address] + [place] [address] EVELIA WESTON Unavailable [address] + [place] [address] Care Team Providers Name Role Phone Benekos, Esther Attending Unavailable Mamie, Viry Primary Care Unavailable Benekos, Esther Attending Unavailable Benekos, Esther Referring Unavailable Mamie, Viry Primary Care Unavailable Benekos, Esther Attending Unavailable Benekos, Esther Attending Unavailable Benekos, Esther Attending Unavailable Benekos, Esther Referring Unavailable Primay Care Physicia, No Primary Care Unavailable Benekos, Esther Admitting Unavailable Benekos, Esther Attending Unavailable Benekos, Esther Referring Unavailable Primay Care Physicia, No Primary Care Unavailable Benekos, Esther Attending Unavailable Primay Care Physicia, No Primary Care Unavailable Benekos, Esther Attending Unavailable Benekos, Esther Referring Unavailable Primay Care Physicia, No Primary Care Unavailable Primay Care Physicia, No Primary Care Unavailable Andrew Birchrey Attending Unavailable Aditya, Bob Attending Unavailable Eyal Rivas Referring Unavailable Primay Care Physicia, No Primary Care Unavailable Aditya, Bob Attending Unavailable Aditya, Bob Referring Unavailable Primay Care Physicia, No Primary Care Unavailable Aditya, Bob Admitting Unavailable Aditya, Bob Attending Unavailable Primay Care Physicia, No Referring Unavailable Primay Care Physicia, No Primary Care Unavailable Aditya, Bob Attending Unavailable Primay Care Physicia, No Primary Care Unavailable Aditya, Bob Admitting Unavailable Aditya, Bob Attending Unavailable Adiyta, Bob Referring Unavailable Primay Care Physicia, No Primary Care Unavailable [place]ville, Bob Consulting Unavailable Benekos, Esther Attending Unavailable Primay Care Physicia, No Primary Care Unavailable Laurie DESOUZA-C, Payton Attending Unavailable Primay Care Physicia, No Referring Unavailable Primay Care Physicia, No Primary Care Unavailable Misha Osei Attending Unavailable Aditya, Bob Referring Unavailable Benekos, Esther Attending Unavailable Benekos, Esther Referring Unavailable Primay Care Physicia, No Primary Care Unavailable PROBLEMS PROBLEMS DATE TYPE CONDITION / CODE ATTENDING STATUS SOURCE 07/12/2018 Unknown Z12.4 - Encounter Esther Lopez Active [facility] for screening for Community malignant neoplasm [facility] / Repository Z12.4(ICD-10) 01/05/2018 Unknown K80.00 - Calculus of Laurie PA-C, Active [facility] gallbladder with Payton [facility] acute cholecystitis [facility] without obstruction Repository / K80.00(ICD-10) 02/17/2018 Unknown Z01.810 - Encounter Misha Osei Active [facility] for preprocedural [facility] Hospital examination / Repository Z01.810(ICD-10) 12/30/2017 Unknown R10.9 - Unspecified Bob Burgess Active [facility] abdominal pain / Community R10.9(ICD-10) Hospital Repository 12/30/2017 Unknown K80.01 - Calculus of Bob Burgess Active [facility] gallbladder with [facility] acute cholecystitis Hospital with obstruction / Repository K80.01(ICD-10) 11/22/2017 Unknown Z34.83 - Encounter Esther Lopez Active [facility] for supervision of [facility] other normal Hospital , third Repository trimester / Z34.83(ICD-10) 11/22/2017 Unknown O26.899 - Other Esther Lopez Active [facility] specified Community related conditions, Hospital unspecified Repository trimester / O26.899(ICD-10) PROCEDURES PROCEDURES No Procedure Records FoundRESULTS RESULTS PAP I-G W/RFX HRHPV Collected: 07/12/2018 Status: F Source: [place] 10:30 AM [facility] REPOSITORY Order Comment: CYTOLOGY INFORMATION: - CLINICAL INFORMATION: - DATE LMP/MENOPAUSE: 06/29/18 LMP - COLLECTION VIAL: Thin Prep Vial - 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 of containers..01 ThinPrep Vial TYPE CODE TESTS RESULT OUT OF RANGE REFERENCE UNITS LAB L7400.0800 . Normal DIAGN Comment Result Comment: NEGATIVE FOR INTRAEPITHELIAL LESION AND MALIGNANCY. LAB L7400.0900 . Normal ADEQ Comment Result Comment: Satisfactory for evaluation. Endocervical and/or squamous metaplastic cells (endocervical component) are present. LAB L7400.1400 . Normal PERFORM Comment Result Comment: Shira Adair, Physical Therapist Clinic Director (ASCP) LAB L7400.2575 . Normal Test not TEST METHOD performed Result Comment: The [employer](R) Batterboard Setter was unable to read this specimen. Therefore a manual review was performed. LAB L7400.2600 . Normal . COMM LAB L7400.2700 . Normal PAPSMR Comment Result Comment: The Pap smear is a screening test designed to aid in the detection of premalignant and malignant conditions of the uterine cervix. It is not a diagnostic procedure and should not be used as the sole means of detecting cervical cancer. Both false-positive and false-negative reports do occur. LAB L7400.2800 . Normal HPV RFLX Comment Result Comment: The HPV DNA reflex criteria were not met with this specimen result therefore, no HPV testing was performed. Performed at: - [facility] [place], [place] [id number] Press Tender Incendiary Grenade: Daiana Aceves MD, Phone: [phone] Performed By: #### L7400.0350 #### [facility] (refer to report for specific site) refer to report for address and phone number 12 LEAD ELECTROCARDIOGRAM Observed: 01/11/2018 Status: F Source: [place] 3:25 PM [facility] REPOSITORY [facility] Cardiovascular Services [address] [place] [address] 12 Lead EKG 12/29/17517 MR#: [id number] Acct: [id number] Name: TANNA WESTON Rep #: [id number] : 1980 37 From: Misha Osei MD Attending Dr: Bob Burgess MD Status: DIS MAKENNA Ordering Dr: Jeffrey Gonzalez MD Date: 12/29/17 Location: [facility] Sex: F C Admitted: 12/28/17 Test Reason : AM EKG Blood Pressure : / mmHG Vent. Rate : 080 BPM Atrial Rate : 080 BPM P-R Int : 170 ms QRS Dur : 080 ms QT Int : 390 ms P-R-T Axes : 033 019 024 degrees QTc Int : 449 ms Normal sinus rhythm Normal ECG Confirmed by FARNAZ ADORNO, MISHA ([id number]), purchasing expeditor JOAQUIN GARDNER ([id number]) on 01/11/2018 3:25:10 PM Referred By: Bob Burgess Confirmed By:MISHA OSEI MD 01/11/18 1525 Date Misha Osei MD CC: No Primary Care Physician; Bob Burgess MD; Jeffrey Gonzalez MD Signed SURGERY VISIT REPORT Observed: 01/05/2018 Status: F Source: [place] 10:43 AM [facility] REPOSITORY [facility] [address] [place] [address] OFFICE VISIT Date of Service: 01/05/18 MR#: [id number] Acct: [id number] Name: TANNA WESTON Rep #: [id number] : 1980 Provider: Payton Sullivan PA-C Age/Sex: 37/F Location: [facility] Status: Signed Intake Intake Visit Reasons: F/U [place] SURGERY 12/29/2017 DP Chief Complaint: acute berlin Rheostat Assembler Required: No Is patient in pain?: No Allergies No Known Allergies Allergy (Verified 01/05/18 10:32) Medications Vits [Prenatabs FA ] 1 tab PO DAILY 06/11/16 [History Confirmed 01/05/18] Labetalol [Trandate (Beta Jalil)] 100 mg PO BID #60 tab 12/05/17 [Rx Confirmed 01/05/18] Aspirin [Aspirin, Baby] 81 mg PO DAILY@0800 12/23/17 [History Confirmed 01/05/18] PFSH Medical History Hemorrhoid (Acute) GERD (gastroesophageal reflux disease) (Acute) Anxiety (Acute) Surgical History S/P cholecystectomy (Acute) S/P dilation and curettage (Acute) S/P wisdom tooth extraction (Acute) Family History Mother Breast cancer Cancer skin Father Diabetes CAD (coronary artery disease) Hypertension Social History Smoking Status: Never smoker HPI HPI HPI: TANNA WESTON, is a 37 F I am following for acute cholecystitis. Dr. Burgess performed a laparoscopic cholecystectomy on 12/29/17. Patient tolerated the procedure well. Patient notes minimal amount of incisional discomfort. She denies nausea, vomiting. Pathology demonstrated chronic cholecystitis, cholelithiasis and cholesterolosis. Exam Const General: cooperative, healthy appearing, comfortable, no acute distress GI Inspection: normal to inspection, incision (c/d/i. No erythema or infection noted. Minimal amount of ecchymosis) Palpation: soft Auscultation: normal bowel sounds Assessment AND Plan Problems 1. Acute calculous cholecystitis K80.00 Plan - Follow-up as needed Coding Level of Care Code Global Post Op Diagnoses Acute calculous cholecystitis K80.00 01/05/18 1043 <Electronically signed by Payton Sullivan PA-C> Date Payton Sullivan PA-C Cosigner Signature: Date (if applicable) CC: OPERATIVE REPORT Observed: 12/30/2017 Status: F Source: [place] 1:57 PM [facility] REPOSITORY [facility] Medical Records Department [address] [place] [address] Operative Report 12/29/17 1303 MR#: [id number] Acct: [id number] Name: TANNA WESTON Rep #: [id number] : 1980 37 From: Bob Burgess MD PCP: Care Physician, No Primary Status: DIS MAKENNA Y Location: [place] [id number] Problem List (1) Acute calculous cholecystitis Status: Acute Report of Operation Date of Procedure: 12/29/17 Pre-Operative Diagnosis: Acute cholecystitis Post-Operative Diagnosis: Same Surgery/Procedure Performed:: Laparoscopic cholecystectomy Type of Anesthesia:: General - Anesthesia who is Anesthesiologist: Nicole Owens Description of Procedure: Patient was brought into the operating room and placed in the supine position. Under excellent general endotracheal intubation the abdomen was sterilely prepped and draped in the usual fashion. Local was injected infraumbilically curvilinear incision was made dissection was carried down to the fascia the fascia grasped with a [place]. Varies needle was placed inside the abdomen the abdomen was insufflated 15 torr. A 10/12 trocar was placed without difficulty. A subxiphoid #5 trocar was placed, another #5 trocar was placed inferior to this, and laterally a #5 trocar was placed. All of these under direct visualization without injury to underlying structures. Patient was noted to have acute cholecystitis with a distended gallbladder. I aspirated out the fluid it was more of a hydrops color. I grab the fundus of the gallbladder and retracted in a cephalad direction I dissected down grab the infundibulum and retracted it laterally. Patient had an extremely short cystic duct was going to try to shoot a cholangiogram but I was just all the way down near the hepatic duct and I did not feel that it was appropriate for fear of injuring the hepatic duct so I opted to put hemoclips proximally and a Hemoclip distally and ligated the duct identified the cystic artery place hemoclips proximally distally ligated the artery deliver the gallbladder from the gallbladder bed with use of electrocautery had excellent hemostasis. A specimen specimen bag delivered through the umbilical port without difficulty. I reinspected the right upper quadrant I am concerned that the common bile duct seems to be a little bit dilated. I am going to keep her tonight obtain liver function tests in the morning to make sure that we do not have a retained stone if this is negative then I will let her go then. Remove the trochars under direct visitation good hemostasis was noted. Close the fascia the umbilical port with a figure 8 stitch of 0 Vicryl making sure not to incorporate any intestine underneath. Skin incisions were closed with subcu stitches of 4-0 Monocryl. Steri-Strips were applied. Sterile dressings were applied. The patient tolerated the procedure well. - Admit VTE Documentation VTE Present on Admission: No VTE Mechan Device Prophylaxis: SCD's VTE Pharm Prophylaxis ordered?: No Reason prophylaxis not ordered:: Treatment Not Indicated 12/30/17 1357 <Electronically signed by Bob Burgess MD> Date Bob Burgess MD CC: No Primary Care Physician; Bob Burgess MD Signed SURGERY VISIT REPORT Observed: 12/30/2017 Status: F Source: [place] 9:[address] [facility] Surgical [place] [address] [place] [address] OFFICE VISIT Date of Service: 12/28/17 MR#: [id number] Acct: [id number] Name: TANNA WESTON Rep #: [id number] : 1980 Provider: Bob Burgess MD Age/Sex: 37/F Location: [facility] Status: Signed Intake Vital Signs12/28/17 Height 5 ft 4 in 12/28/17 Weight: 188 lb 2 oz 12/28/17 Body Mass Index (BMI) 32.3 12/28/17 Blood Pressure 133/84 Intake Visit Reasons: worsening abd pain Chief Complaint: worsening abd pain Rheostat Assembler Required: No Is patient in pain?: Yes Pain scale (1-10): 7 Allergies No Known Allergies Allergy (Verified 12/28/17 15:56) Medications Vits [Prenatabs FA ] 1 tab PO DAILY 06/11/16 [History Confirmed 12/28/17] Labetalol [Trandate (Beta Jalil)] 100 mg PO BID #60 tab 12/05/17 [Rx Confirmed 12/28/17] Aspirin [Aspirin, Baby] 81 mg PO DAILY@0800 12/23/17 [History Confirmed 12/28/17] Oxycodone HCl/Acetaminophen [Percocet 5/325] 1 - 2 tab PO Q4H PRN PRN 4 Days #30 tab 12/29/17 [Rx] Is last menstrual period known: No Post menopausal: No Patient : No PFSH Medical History Anxiety (Acute) GERD (gastroesophageal reflux disease) (Acute) Hemorrhoid (Acute) Surgical History S/P dilation and curettage (Acute) S/P wisdom tooth extraction (Acute) Family History Mother Breast cancer Cancer skin Father Diabetes CAD (coronary artery disease) Hypertension Social History Smoking Status: Never smoker HPI HPI HPI: TANNA WESTON, is a 37 F who presents to the office today for evaluation of symptomatic cholelithiasis. Patient was seen in the emergency department at [facility] on 12/23/2017. She was 20 days . She stated that around 5 PM she had epigastric pain that radiated into her back. There was associated nausea and vomiting. There is no diarrhea there was no fevers there is no hematemesis there is no signs of any melena. Her workup included a white count of 12.5 alkaline phosphatase which was slightly elevated 150 but otherwise liver function tests were normal. Lipase was normal. Ultrasound of the right upper quadrant showed multiple gallstones and a distended gallbladder. Common bile duct was at the upper limits of normal of 6 mm but no common bile duct stones were identified. Patient received IV fluids IV Zofran and morphine significantly improved. I saw her in the office on the of this month her pain was gone. She presents to my office today with worsening right upper quadrant abdominal pain that developed about 1:00 this afternoon doubled her over and pain going straight into her back she has not been having any fevers or chills she has had some nausea. I sent her to the lab but the labs are pending at this time. Her white count is back and it is above 12. ROS General General: No weight change, appetite, fatigue, colon cancer, breast cancer or weakness HEENT HEENT: No difficulty swallowing, eye injury, eye surgery, swollen glands or hoarseness Endo Endocrine: No thyroid disease, diabetes mellitus, thyroid cancer, Hair loss, heat intolerance or cold intolerance Cardio Cardiovascular: No murmur, pacemaker, heart disease, atrial fibrillation, high blood pressure, heart attack, heart stent, palpitations, shortness of breat with exertion or chest pain Resp Respiratory: No shortness of breath, No sleep apnea, No cough, No COPD, No asthma, No emphysema, No wheezing Gastro Gastrointestinal: No abdominal pain, No nausea or vomiting, No diarrhea, Yes constipation, No blood in stool, Yes acid reflux, Yes hemorrhoids, No ulcers, Yes gallbladder problem, No black,tarry stools Randy Hematologic: No blood thinners, No blood disorders, No bleeding, No anemia, No blood clots Neuro Neurologic: No weakness Exam Const General: well developed, no acute distress, well hydrated Orientation: oriented to person, oriented to place, oriented to time Other: Patient is hunched over complaining of abdominal pain in the right upper quadrant. [facility] Head: normocephalic, atraumatic Ears: external ears normal Mouth: moist mucous membranes Eyes Sclera: sclerae normal Pupils: normal by confrontation Neck Neck: no lymphadenopathy noted Neck mass: No Thyroid: symmetrical, thyroid normal Chest Chest palpation AND inspection: normal inspection of the chest Resp Effort AND Inspection: normal respiratory effort Auscultation: clear to auscultation bilaterally Percussion: percussion normal Cardio Rate: regular rate Rhythm: regular rhythm Heart Sounds: no murmurs GI Palpation: soft, tender in the RLQ, no masses, no hepatosplenomegaly Auscultation: normal bowel sounds Rectal Exam: other Other: Rectal exam deferred. Extrem General: no clubbing, cyanosis or edema, normal to inspection Assessment AND Plan Problems 1. Acute cholecystitis due to biliary calculus K80.00 Plan I believe the patient needs to be admitted to the hospital tonight and undergo a laparoscopic cholecystectomy tomorrow. I am going to have to wait until I get all of her labs back to see if she has a common duct stone. If the labs are suspicious for a common duct stone and I am going to recommend she undergo an ERCP prior to her laparoscopic cholecystectomy. Reviewed the anatomy with the patient and discussed the procedure: laparoscopic cholecystectomy with possible cholangiograms, possible open. Review risks including but not limited to bleeding, infection, hernia, bile leak, retained gallstones requiring another procedure ERCP- Endoscopic Retrograde Cholangiopancreatography, injury to another organ (bile ducts, common bile duct, small bowel, etc.) and conversion to an open procedure. All questions were answered. Coding Level of Care Code Off vis,est,level 3 Diagnoses Acute cholecystitis due to biliary calculus K80.00 12/30/17 0914 <Electronically signed by Bob Burgess MD> Date Bob Burgess MD Cosigner Signature: Date (if applicable) CC: DISCHARGE INSTRUCTION Observed: 12/30/2017 Status: F Source: [place] 6:32 AM [facility] REPOSITORY [facility] Medical Records Department [address] [place] [address] Instructions for Home/Discharge Instructions 12/30/17 0631 MR#: [id number] Acct: [id number] Name: TANNA WESTON Rep #: [id number] : 1980 37 From: Bob Burgess MD PCP: Care Physician, No Primary Status: ADM MAKENNA Discharge Diet: Light diet - advance as tolerated Discharge Activity: May Not Drive - for 2-3 days or while taking narcotic pain medications., - - Do not drive, work heavy equipment or sign legal documents for 24 hours. May shower in (days): 1 - with the bandage in place. Additional Activity Instructions:: Pain medication may cause nausea. You should typically eat light foods as you take your pain medications. Pain medication may also cause constipation. If this is a problem for you, please discuss with your doctor. Call your doctor if your incision/area has: Continuous Slow Oozing, Sudden Increased Bleeding, Increased Pain/ Swelling, Increased Redness, Foul Smelling Discharge Call your doctor if you observe: Fever of 101 or Higher Suture Line Care: Avoid Pulling/Pushing, Avoid Pinching/Bending Additional Dressing/Incision Instructions:: Leave operative bandaids on for 2 days. When you remove dressing, leave Steri-Strips on until your follow-up appointment, or until the Steri-Strips fall off on their own. Allergies/Adverse Reactions: Allergies No Known Allergies Allergy (Verified 12/28/17 15:56) Medications to take at Discharge Vits [Prenatabs FA ] 1 tab PO DAILY 06/11/16 Labetalol [Trandate (Beta Jalil)] 100 mg PO BID #60 tab 12/05/17 Aspirin [Aspirin, Baby] 81 mg PO DAILY@0800 12/23/17 Oxycodone HCl/Acetaminophen [Percocet 5/325] 1 - 2 tab PO Q4H PRN PRN 4 Days #30 tab 12/29/17 The following prescriptions were given: Oxycodone HCl/Acetaminophen [Percocet 5/325] 1 - 2 tab PO Q4H PRN PRN 4 Days #30 tab PRN Reason: Pain Primary Care Physician: Care Physician,No Primary [Primary Care Provider] - Please Follow Up With: Bob Burgess MD - Please call [phone] to schedule an appointment. When: 7 days after your surgery. 12/30/17 0632 <Electronically signed by Bob Burgess MD> Date Bob Burgess MD CC: No Primary Care Physician COMPREHENSIVE METABOLIC Collected: 12/30/2017 Status: F Source: [place] 5:25 AM [facility] REPOSITORY TYPE CODE TESTS RESULT OUT OF RANGE REFERENCE UNITS LAB L501.0100 74-106 mg/dL High GLU 116 Result Comment: Fasting Glucose result from 100 to 125 mg/dL suggests IMPAIRED HOMEOSTASIS per A.D.A. criteria. Please note revised GLUCOSE reference range effective 2017. LAB L501.1000 7-18 mg/dL Normal BUN 10 LAB L501.1100 0.55-1.02 mg/dL Normal CREAT,SERUM 0.95 Result Comment: The validity of the calculated GFR AND GFRAA in patients over 70 years has not been determined. Clinical correlation is essential. LAB L501.1110 >60 mL/min Normal EST GFR 70 Result Comment: Non- GFR Calc LAB L501.1115 >60 mL/min Normal EST GFR - AA 84 Result Comment: GFR Calc LAB L501.1255 ml/min Normal Estimated CRCL 69.33 LAB L501.1300 10-20 RATIO Normal BUN/CRE 10.5 LAB L501.1500 6.4-8. g/dL Normal 2 T PROT 6.9 LAB L501.1800 3.2-5. g/dL Low 0 ALB 3.0 LAB L501.1950 2.2-4. g/dL Normal 2 GLOB 3.9 LAB L501.2000 0.9-2. RATIO Low 4 A/G 0.8 LAB L501.2200 8.5-10 mg/dL Low .1 CA 8.4 LAB L501.4100 15-37 U/L High AST 51 LAB L501.4305 45-117 U/L High ALK P 180 LAB L501.4405 13-56 U/L High ALT 94 LAB L501.4600 0.20-1 mg/dL Normal .00 T BILI 0.30 LAB L501.5300 136-14 mmol/L Normal 5 NA 141 LAB L501.5600 3.5-5. mmol/L Normal 1 K 4.1 LAB L501.5900 98-107 mmol/L High CL 109 LAB L501.6100 21.0-3 mmol/L Normal 2.0 CO2 24.0 LAB L501.6200 5-15 Normal GAP 8 Performed By: #### L500.4050 #### [facility] [address] [place], [address] GALLBLADDER Observed: 12/29/2017 Status: F Source: [place] 12:00 AM [facility] REPOSITORY Patient: TANNA WESTON : 1980 (37/F) Acct Num: [id number] Phys: Aditya ADORNO,Bob Unit Num: [id number] Loc: MS2 LL831-7 Specimen: Received: 12/29/171458 Spec Type: GALLBLADDE TISSUES TISSUES: Gallbladder, NOS GROSS DESCRIPTION Received is one container labeled with the patient's name and designated gallbladder. The specimen consists of a gallbladder measuring 8 cm in length and 3.5 cm in diameter. The external surface is pink-lazo, smooth and glistening for the most part. Focally it is granular, hemorrhagic and contains cautery artifact. The gallbladder contains green-yellow mucoid bile and multiple yellow mulberry stones measuring in aggregate 1 x 1 x 0.4 cm and 0.2 to 0.4 cm in greatest dimension. The mucosa is bile-stained and without any mass lesions. The gallbladder wall measures 0.2 cm in thickness. The mucosa also shows several yellowish streaks consistent with cholesterolosis. Crm Manager sections from the gallbladder and the cystic duct are submitted in one cassette. / ANDRÉS:chintan 12/29/17 TC:5 CPT: 76993 HEADER OPERATION: Laparoscopic cholecystectomy PRE-OP DIAGNOSIS: Calculus of gallbladder with acute cholecystitis without obstruction TISSUE SUBMITTED: Gallbladder and contents MICROSCOPIC DESCRIPTION Slides are reviewed. MICROSCOPIC DIAGNOSIS Gallbladder and contents: Chronic cholecystitis, cholelithiasis and cholesterolosis. ANDRÉS:chintan 12/30/17 Signed Kurt Armstrong 12/30/17 <signature on file> Performed By: #### PGALL #### [facility] [address] [place], [place], [address] CBC-COMPLETE BLOOD CNT Collected: 12/28/2017 Status: F Source: [place] NO DIFF 3:29 PM [facility] REPOSITORY TYPE CODE TESTS RESULT OUT OF RANGE REFERENCE UNITS LAB L100.1000 4.4-11.0 K/mm3 High WBC 12.1 LAB L100.1200 4.2-5.4 M/mm3 Low RBC 4.10 LAB L100.1300 12.0-15.0 g/dl Normal HGB 12.2 LAB L100.1400 37-47 % Normal HCT 37.7 LAB L100.1500 81-99 fL Normal MCV 92.0 LAB L100.1600 27.0-32.0 pg Normal MCH 29.8 LAB L100.1700 32-36 g/gl Normal MCHC 32.4 LAB L100.1810 11.6-14.6 % Normal RDW CV 13.8 LAB L100.1820 35.1-43.9 fl High RDW SD 46.6 LAB L100.1900 150-450 K/mm3 Normal PLT 371 LAB L100.2000 6.2-12.0 fl Normal MPV 8.7 Performed By: #### L100.0500 #### [facility] [address] [place], [address] COMPREHENSIVE METABOLIC Collected: 12/28/2017 Status: F Source: [place] PROFIL 3:29 PM [facility] REPOSITORY TYPE CODE TESTS RESULT OUT OF RANGE REFERENCE UNITS LAB L501.0100 74-106 mg/dL Normal GLU 85 Result Comment: Please note revised GLUCOSE reference range effective 2017. LAB L501.1000 7-18 mg/dL High BUN 21 LAB L501.1100 0.55-1.02 mg/dL Normal CREAT,SERUM 0.91 Result Comment: The validity of the calculated GFR AND GFRAA in patients over 70 years has not been determined. Clinical correlation is essential. LAB L501.1110 >60 mL/min Normal EST GFR 73 Result Comment: Non- GFR Calc LAB L501.1115 >60 mL/min Normal EST GFR - AA 89 Result Comment: GFR Calc LAB L501.1300 10-20 RATIO High BUN/CRE 23.1 LAB L501.1500 6.4-8.2 g/dL T Normal PROT 7.8 LAB L501.1800 3.2-5.0 g/dL Normal ALB 3.3 LAB L501.1950 2.2-4.2 g/dL High GLOB 4.5 LAB L501.2000 0.9-2.4 RATIO Low A/G 0.7 LAB L501.2200 8.5-10.1 mg/dL CA Normal 8.6 LAB L501.4100 15-37 U/L High AST 78 LAB L501.4305 45-117 U/L High ALK P 198 LAB L501.4405 13-56 U/L Normal ALT 56 LAB L501.4600 0.20-1.00 mg/dL T Normal BILI 0.40 LAB L501.5300 136-145 mmol/L NA Normal 138 LAB L501.5600 3.5-5.1 mmol/L K Normal 4.1 LAB L501.5900 98-107 mmol/L CL Normal 107 LAB L501.6100 21.0-32.0 mmol/L Normal CO2 21.0 LAB L501.6200 5-15 Normal GAP 10 Performed By: #### L500.4050, L501.2400, L501.2450 #### [facility] [address] [facility] [place], [place], [id number] AMYLASE Collected: 12/28/2017 Status: F Source: [place] 3:29 PM [facility] REPOSITORY TYPE CODE TESTS RESULT OUT OF RANGE REFERENCE UNITS LAB L501.2400 25-115 U/L Normal COLIN 25 Performed By: #### L500.4050, L501.2400, L501.2450 #### [facility] [address] [place], [address] LIPASE Collected: 12/28/2017 Status: F Source: [place] 3:29 PM [facility] REPOSITORY TYPE CODE TESTS RESULT OUT OF RANGE REFERENCE UNITS LAB L501.2450 73-393 U/L Normal LIPASE 260 Performed By: #### L500.4050, L501.2400, L501.2450 #### [facility] [address] [place], [place], [id number] SURGERY VISIT REPORT Observed: 12/27/2017 Status: F Source: [place] 3:15 PM [facility] REPOSITORY [facility] [address] [place], [place] [address] OFFICE VISIT Date of Service: 12/27/17 MR#: [id number] Acct: [id number] Name: TANNA WESTON Rep #: [id number] : 1980 Provider: Bob Burgess MD Age/Sex: 37/F Location: [facility] Status: Signed Intake Vital Signs12/27/17 Height 5 ft 4 in 12/27/17 Weight: 188 lb 2 oz 12/27/17 Body Mass Index (BMI) 32.3 12/27/17 Blood Pressure 115/81 Intake Visit Reasons: [facility] ER FU 12/24 GALL STONES U/S Chief Complaint: ER f/u gallstones Rheostat Assembler Required: No Is patient in pain?: No Allergies No Known Allergies Allergy (Verified 12/27/17 14:06) Medications Vits [Prenatabs FA ] 1 tab PO DAILY 06/11/16 [History Confirmed 12/27/17] Labetalol [Trandate (Beta Jalil)] 100 mg PO BID #60 tab 12/05/17 [Rx Confirmed 12/27/17] Aspirin [Aspirin, Baby] 81 mg PO DAILY@0800 12/23/17 [History Confirmed 12/27/17] Is last menstrual period known: No Post menopausal: No Patient : No PFSH Medical History Anxiety (Acute) GERD (gastroesophageal reflux disease) (Acute) Hemorrhoid (Acute) Surgical History S/P dilation and curettage (Acute) S/P wisdom tooth extraction (Acute) Family History Mother Breast cancer Cancer skin Father Diabetes CAD (coronary artery disease) Hypertension Social History Smoking Status: Former smoker HPI HPI HPI: TANNA WESTON, is a 37 F who presents to the office today for evaluation of symptomatic cholelithiasis. Patient was seen in the emergency department at [facility] on 12/23/2017. She was 20 days . She stated that around 5 PM she had epigastric pain that radiated into her back. There was associated nausea and vomiting. There is no diarrhea there was no fevers there is no hematemesis there is no signs of any melena. Her workup included a white count of 12.5 alkaline phosphatase which was slightly elevated 150 but otherwise liver function tests were normal. Lipase was normal. Ultrasound of the right upper quadrant showed multiple gallstones and a distended gallbladder. Common bile duct was at the upper limits of normal of 6 mm but no common bile duct stones were identified. Patient received IV fluids IV Zofran and morphine significantly improved and subsequent he presented to my office today for further evaluation and treatment. ROS General General: No weight change, appetite, fatigue, colon cancer, breast cancer or weakness HEENT HEENT: No difficulty swallowing, eye injury, eye surgery, swollen glands or hoarseness Endo Endocrine: No thyroid disease, diabetes mellitus, thyroid cancer, Hair loss, heat intolerance or cold intolerance Skin Skin: No rash or changing moles Breast Breast: No left breast lump, right breast lump, nipple discharge, breast pain, abnormal mammogram, abnormal US or breast enlargement Musc Musculoskeletal: No back problems, arthritis, rheumatoid arthritis, gout or joint pain Cardio Cardiovascular: No murmur, pacemaker, heart disease, atrial fibrillation, high blood pressure, heart attack, heart stent, palpitations, shortness of breat with exertion or chest pain Psych Psychiatric: Yes anxiety; no depression or hearing voices Resp Respiratory: No shortness of breath, No sleep apnea, No cough, No COPD, No asthma, No emphysema, No wheezing Gastro Gastrointestinal: No abdominal pain, No nausea or vomiting, No diarrhea, Yes constipation, No blood in stool, Yes acid reflux, Yes hemorrhoids, No ulcers, Yes gallbladder problem, No black,tarry stools Randy Hematologic: No blood thinners, No blood disorders, No bleeding, No anemia, No blood clots Neuro Neurologic: No system reviewed and no additional complaints, except as docu, No as per HPI, No abnormal walking, No abnormal hearing, No abnormal movements, No abnormal speech, No behavioral changes, No burning sensations, No confusion, No seizure-like activity, No unsteadiness, No dizziness, No localized weakness, No frequent falls, No headache(s), No lack of coordination, No loss of vision, No memory loss, No numbness, No other visual disturbances, No radiating pain, No restless legs, No sensory deficit, No fainting, No tingling, No tremor(s), No weakness, No other Exam Const General: well developed, no acute distress, well hydrated Orientation: oriented to person, oriented to place, oriented to time [facility] Head: normocephalic, atraumatic Ears: external ears normal Mouth: moist mucous membranes Eyes Sclera: sclerae normal Pupils: normal by confrontation Neck Neck: no lymphadenopathy noted Neck mass: No Thyroid: symmetrical, thyroid normal Chest Chest palpation AND inspection: normal inspection of the chest Breast Palpation: No nipple discharge Resp Effort AND Inspection: normal respiratory effort Auscultation: clear to auscultation bilaterally Percussion: percussion normal Cardio Rate: regular rate Rhythm: regular rhythm Heart Sounds: no murmurs GI Palpation: soft, tender, no masses, no hepatosplenomegaly Auscultation: normal bowel sounds Rectal Exam: other Other: Rectal exam deferred. Extrem General: no clubbing, cyanosis or edema, normal to inspection Assessment AND Plan Problems 1. Calculus of gallbladder with acute cholecystitis without obstruction K80.00 Plan Reviewed the anatomy with the patient and discussed the procedure: laparoscopic cholecystectomy with possible cholangiograms, possible open. Review risks including but not limited to bleeding, infection, hernia, bile leak, retained gallstones requiring another procedure ERCP- Endoscopic Retrograde Cholangiopancreatography, injury to another organ (bile ducts, common bile duct, small bowel, etc.) and conversion to an open procedure. All questions were answered. Coding Level of Care Code Off vis,new,level 3 Diagnoses Calculus of gallbladder with acute cholecystitis without obstruction K80.00 Cholelithiasis location: gallbladder Cholecystitis acuity: acute 12/27/17 2735 <Electronically signed by Bob Burgess MD> Date Bob Burgess MD Cosigner Signature: Date (if applicable) CC: Rivas Birch MD EMERGENCY DEPARTMENT Observed: 12/24/2017 Status: F Source: [place] SUMMARY 12:12 AM [facility] REPOSITORY [facility] Medical Records Department [address] [place] [address] Emergency Department Summary 12/23/17 2233 MR#: [id number] Acct: [id number] Name: TANNA WESTON Rep #: [id number] : 1980 37 From: Rivas Birch MD PCP: Care Physician, No Primary Status: DEP ER - ER Visit Summary Date of Service: 12/23/17 Chief Complaint: Epigastric and right upper quadrant abdominal pain History of Present Illness: The patient is a 37 F status post 20 days ago. Patient states around 5 PM she had epigastric right upper quadrant abdominal pain radiating her back. Associated nausea vomiting. No diarrhea. No fever. No hematemesis. No melena. No prior history. No prior abdominal surgeries. She did have - induced hypertension. Currently is on labetalol for blood pressure. Physical Examination: Blood pressure 154/105 otherwise vital signs stable afebrile pulse ox are percent on room air no signs of hypoxia. H EENT exam unremarkable. Neck nontender no JVD no lymphadenopathy. Lungs clear to auscultation bilaterally. Heart regular rhythm rate about 90 no murmur. Abdomen soft epigastric right upper quadrant tenderness. No rebound. Nondistended normal bowel sounds no peritoneal signs. No hernias or masses. No signs of obstruction. Moving all 4 extremities. Calves nontender. Neurologically she is awake and alert. Test Results: CBC shows a white count 12.5. H AND H normal. BMP unremarkable. Gap of 11. Normal creatinine. Liver enzymes normal other than alk phos of 150. Lipase normal. Ultrasound right upper quadrant shows multiple gallstones distended gallbladder. Common bile duct upper limits of normal at 6 mm but no common bile duct stone. This x-ray shows no acute abnormality and a normal cardiac silhouette and mediastinum. This was done due to her back and her having -induced hypertension. Emergency Department Course and Treatment: Repeat exam patient is feeling much better after dose of Zofran and morphine. She also received IV fluids. Currently her abdomen is benign. She is holding her on her chest. She denied discussed all of her test results with her at bedside. Treatment Plan: She feels comfortable and clinically looks well be discharged home. She will follow-up with either Dr. Ramírez or Dr. Burgess for further evaluation of possible cholecystectomy secondary to gallstones. Her and her know to return if she has increasing pain, intractable vomiting or fever. Disposition: Discharge Impression: Acute abdominal pain secondary to biliary colic. Gallstones on ultrasound. Status This note was generated with Pyreos dictation software. It may contain incorrect words, spelling, and punctuation that were not noted in review of the chart prior to signing ED Disposition - Plan for ED Patient: Chief Complaint: Abd Pain Referrals: Care Physician,No Primary [Primary Care Provider] - What to do if you have Problems For any increased pain, shortness of breath, bleeding, nausea or vomiting, chest pain, or any unexpected problems, contact your Primary Care Provider. Call [employer] [facility] ([phone]) or report to the closest Emergency Room. Call 911 if necessary. 12/24/17 0012 <Electronically signed by Rivas Birch MD> Date Rivas Birch MD Cosigner Signature (If Indicated): Date CC: No Primary Care Physician DISCHARGE INSTRUCTION Observed: 12/24/2017 Status: F Source: [place] 12:12 AM [facility] REPOSITORY [facility] Medical Records Department [address] [place] [address] Discharge Instruction 12/23/17 2238 MR#: [id number] Acct: [id number] Name: TANNA WESTON Edwina Rep #: [id number] : 1980 37 From: Rivas Birch MD PCP: Care Physician, No Primary Status: DEP ER ED Disposition - Plan for ED Patient: Disposition: Home or Assisted Living Chief Complaint: Abd Pain Instructions: ED Abdominal Pain Gallstone Poss Prescriptions: Ondansetron [Zofran Odt] 4 mg PO Q4H PRN PRN #10 tab.rapdis PRN Reason: Nausea Referrals: Bob Burgess MD [STAFF PHYSICIAN] - As soon as possible Additional Instructions: Abdominal pain secondary to gallstones. Granby diet and increase as tolerated. Tylenol and/or Motrin for pain. Call and follow-up with Dr. Burgess or Dr. Contreras for further evaluation to have your gallbladder removed. What to do if you have Problems For any increased pain, shortness of breath, bleeding, nausea or vomiting, chest pain, or any unexpected problems, contact your Primary Care Provider. Call [facility] ([phone]) or report to the closest Emergency Room. Call 911 if necessary. 12/24/17 0012 <Electronically signed by Rivas Birch MD> Date Rivas Birch MD Cosigner Signature (If Indicated): Date CC: No Primary Care Physician GALLBLADDER Observed: 12/23/2017 Status: F Source: [place] 9:26 PM [facility] REPOSITORY [facility] Imaging Services [address] [place] [address] [place] [address] Gallbladder MR#: [id number] Acct: [id number] Name: ENRICOTANNA L Rep #: [id number] : 1980 F 37 From: Rivas Hernandez MD PCP: Care Physician, No Primary Status: REG ER Study: Gallbladder Date of Exam: 12/23/17 Exam# [id number] Ordering Dr: Rivas Birch MD STUDY: ABDOMINAL ULTRASOUND - RIGHT UPPER QUADRANT REASON FOR VISIT: Female, 37 years old. Right upper quadrant pain TECHNIQUE: Ultrasound evaluation of the right upper quadrant was performed with real-time and static madison-scale imaging. TECHNICAL QUALITY: Adequate. COMPARISON: None. FINDINGS: Liver: The liver measures 14.1 cm. There is normal echogenicity of the liver. The bile ducts are within normal limits. There is hepatic color flow. The direction of portal flow is hepatopetal. There is no demonstrated mass lesion. Gallbladder: Diffusely distended gallbladder. The gallbladder wall measures 3 mm. There is a positive sonographic Fraser's sign. There is no pericholecystic fluid. There are multiple gallstones. Common Bile Duct (C.B.D.): The common bile duct measures 6 mm. Pancreas: Normal size of the head, body and tail of the pancreas. There is normal echogenicity of the pancreas. There is no demonstrated pancreatic mass or cyst. Right Kidney: Normal size of the right kidney. The right kidney measures 11.4 x 5.3 x 4.1 cm. Normal renal cortex. The right cortex measures 1.5 cm. There is no demonstrated renal mass or cyst. There is no right hydronephrosis. US/Gallbladder IMPRESSION: Diffusely distended gallbladder with stones and positive Fraser's sign which may be consistent with acute cholecystitis. HIDA scan would be helpful for further evaluation if clinically warranted Common bile duct within upper limits normal in size without definitive evidence for intraductal stone Electronically Signed: Rivas Hernandez MD at 22:19 EDT , Service support , CC: No Primary Care Physician; Rivas Birch MD Cat Hooker: Signed CHEST 1 VIEW Observed: 12/23/2017 Status: F Source: [place] (PORTABLE) 9:26 PM [facility] REPOSITORY [facility] Imaging Services [address] [place] [address] Chest 1 View (Portable) MR#: [id number] Acct: [id number] Name: TANNA WESTON Rep #: [id number] : 1980 F 37 From: Rivas Hernandez MD PCP: Care Physician, No Primary Status: REG ER Study: Chest 1 View (Portable) Date of Exam: 12/23/17 Exam# [id number] Ordering Dr: Rivas Birch MD STUDY: X-RAY CHEST REASON FOR EXAM: Female, 37 years old. Upper abdominal pain TECHNIQUE: PA COMPARISON: None. FINDINGS: The lungs are clear and expanded. There is no demonstrated pleural abnormality. Normal size heart. Normal mediastinum and mary jo. Normal visualized pulmonary arteries. Normal visualized aortic arch and descending thoracic aorta. Normal visualized thoracic spine. Normal visualized ribs, clavicles, and shoulders. There is no demonstrated abnormality of the visualized soft tissue structures of the upper abdomen. RAD/Chest 1 View (Portable) IMPRESSION: Normal x-ray examination of the chest. Electronically Signed: Rivas Hernandez MD at 22:31 EDT , Service support , CC: No Primary Care Physician; Rivas Birch MD Cat Hooker: Signed CBC W/DIFF, AUTOMATED Collected: 12/23/2017 Status: F Source: [place] 8:21 PM [facility] REPOSITORY TYPE CODE TESTS RESULT OUT OF RANGE REFERENCE UNITS LAB L100.1000 4.4-11.0 K/mm3 High WBC 12.5 LAB L100.1200 4.2-5.4 M/mm3 Low RBC 3.95 LAB L100.1300 12.0-15.0 g/dl Normal HGB 12.1 LAB L100.1400 37-47 % Normal HCT 37.2 LAB L100.1500 81-99 fL Normal MCV 94.2 LAB L100.1600 27.0-32.0 pg Normal MCH 30.6 LAB L100.1700 32-36 g/gl Normal MCHC 32.5 LAB L100.1810 11.6-14.6 % Normal RDW CV 13.6 LAB L100.1820 35.1-43.9 fl High RDW SD 45.6 LAB L100.1900 150-450 K/mm3 Normal PLT 388 LAB L100.2000 6.2-12.0 fl Normal MPV 8.7 LAB L100.2100 47-70 % High NEUT% 84.8 LAB L100.2200 19-41 % Low LY% 9.5 LAB L100.2300 0-10 % Normal MONO% 3.6 LAB L100.2400 0-5 % Normal EO% 1.7 LAB L100.2500 0-1 % Normal BASO% 0.1 LAB L100.2550 0.0-0.9 % Normal IM GRAN % 0.300 Result Comment: IG% - Immature Granulocytes (promyelocytes, myelocytes and metamyelocytes) > 1% indicates that a LEFT SHIFT is Present. LAB L100.2620 2.0-7.7 X10 3/uL High Absolute Neut 10.6 LAB L100.2720 0.83-4.51 X10 3/ul Normal Absolute Lymph 1.18 Performed By: #### L100.0100 #### [facility] [address] [place], [address] BASIC METABOLIC Collected: 12/23/2017 Status: F Source: [place] PROFILE (BMP) 8:21 PM [facility] REPOSITORY TYPE CODE TESTS RESULT OUT OF RANGE REFERENCE UNITS LAB L501.0100 74-106 mg/dL Normal GLU 97 Result Comment: Please note revised GLUCOSE reference range effective 2017. LAB L501.1000 7-18 mg/dL High BUN 24 LAB L501.1100 0.55-1.02 mg/dL Normal CREAT,SERUM 0.96 Result Comment: The validity of the calculated GFR AND GFRAA in patients over 70 years has not been determined. Clinical correlation is essential. LAB L501.1110 >60 mL/min Normal EST GFR 69 Result Comment: Non- GFR Calc LAB L501.1115 >60 mL/min Normal EST GFR - AA 83 Result Comment: GFR Calc LAB L501.1255 ml/min Normal Estimated CRCL 68.61 LAB L501.1300 10-20 RATIO High BUN/CRE 24.9 LAB L501.2200 8.5-10 mg/dL Normal .1 CA 9.1 LAB L501.5300 136-14 mmol/L Normal 5 NA 143 LAB L501.5600 3.5-5. mmol/L Normal 1 K 4.4 LAB L501.5900 98-107 mmol/L High CL 109 LAB L501.6100 21.0-3 mmol/L Normal 2.0 CO2 23.0 LAB L501.6200 5-15 Normal GAP 11 Performed By: #### L500.2500, L500.3400, L501.2450 #### [facility] [address] [place], [address] LIVER PROFILE Collected: 12/23/2017 Status: F Source: [place] 8:21 PM [facility] REPOSITORY TYPE CODE TESTS RESULT OUT OF RANGE REFERENCE UNITS LAB L501.1500 6.4-8.2 g/dL Normal T PROT 7.4 LAB L501.1800 3.2-5.0 g/dL Normal ALB 3.3 LAB L501.1950 2.2-4.2 g/dL Normal GLOB 4.1 LAB L501.4100 15-37 U/L Normal AST 37 LAB L501.4305 45-117 U/L High ALK P 150 LAB L501.4405 13-56 U/L Normal ALT 37 LAB L501.4600 0.20-1.00 mg/dL Normal T BILI 0.20 LAB L501.4700 0.00-0.30 mg/dL Normal D BILI 0.09 Performed By: #### L500.2500, L500.3400, L501.2450 #### [facility] [address] [place], [address] LIPASE Collected: 12/23/2017 Status: F Source: [place] 8:21 PM [facility] REPOSITORY TYPE CODE TESTS RESULT OUT OF RANGE REFERENCE UNITS LAB L501.2450 73-393 U/L Normal LIPASE 222 Performed By: #### L500.2500, L500.3400, L501.2450 #### [facility] [address] [place], [address] DISCHARGE SUMMARY Observed: 12/05/2017 Status: F Source: [place] 7:59 AM [facility] REPOSITORY [facility] Medical Records Department [address] [place] [address] Discharge Summary 12/05/17 0754 MR#: [id number] Acct: [id number] Name: TANNA WESTON Rep #: [id number] : 1980 37 From: Esther Lopez MD PCP: Care Physician, No Primary Status: ADM IN Y Location: [place] [address]-1 Discharge Date and Diagnosis Date of Admission: 12/02/17 - preeclampsia. 35 1/7 wk SROM Date of Discharge: 12/05/17 - Induction. Hospital Course and Treatment Operations: - - Induction of labor. Spont vaginal delivery. Summary of Care Provided: The patient is a 37 year old AB 2 female with known dx of preeclampsia, on bedrest at home and s/p two doses of betmethasone given earlier in the week . Present with SROM. Confirmed by ROM + testing. Admitted with unfavorable cervix for induction of labor. Cytotec to pitocin , resulted in eventual vaginal delivery. Pt on Magnesium sulfate throughout labor and for approx 24 hr after delivery. On Labetalol throughout labor also for HTN. Also on ampicillin during labor for GBS prophylaxis, infant... and for prolonged SROM course uneventful. BPs improved but still slightly labile. remains on Labetalol 100 mg po bid Dischg home on PPD#2 to f/u in ofc in 2 wk for BP check, prn sooner. Discharge Diet: No Restrictions Discharge Activity: May Shower, May Take a Tub Bath Return to work on:: 01/16/18 May resume sexual activity in: 4-6 weeks Additional Activity Instructions:: Nothing in the vagina for 4-6 weeks. You may return to work/school in 6 weeks. Home Medications: Medications to take at Discharge Vits [Prenatabs FA ] 1 tablet PO DAILY 06/11/16 Calcium/Magnesium/Vitamin D3 [Manpreet-Mag Complex 300-150 mg Tab] 1 each PO DAILY 12/02/17 Acetaminophen [Tylenol Tablet] 325 - 650 mg PO Q4H PRN PRN tablet 12/03/17 Labetalol [Trandate (Beta Jalil)] 200 mg PO TID #90 tab 12/03/17 Labetalol [Trandate (Beta Jalil)] 100 mg PO BID #60 tab 12/05/17 Following Prescrptions Were Given to Patient: Labetalol [Trandate (Beta Jalil)] 100 mg PO BID #60 tab Labetalol [Trandate (Beta Jalil)] 200 mg PO TID #90 tab Other Amb Orders: Electric breast pump Time Frame: 1 Year, Location: None Selected Primary Care Physician: Care Physician,No Primary [Primary Care Provider] - Please Follow Up With: Esther Lopez MD - [phone] Medical Necessity - Tobacco Use Smoking Status: Former smoker Meaningful Use Info Meaningful Use Diagnoses (Choose all that apply): None applicable 12/05/17 0759 <Electronically signed by Esther Lopez MD> Date Esther Lopez MD Cosigner Signature (if applicable): Date CC: No Primary Care Physician; Esther Lopez MD Signed CBC-COMPLETE BLOOD CNT Collected: 12/04/2017 Status: F Source: LIN[facility] NO DIFF 7:00 AM [facility] REPOSITORY Order Comment: Reason for Laboratory Test Day #1 TYPE CODE TESTS RESULT OUT OF RANGE REFERENCE UNITS LAB L100.1000 4.4-11.0 K/mm3 High WBC 18.5 LAB L100.1200 4.2-5.4 M/mm3 Low RBC 3.35 LAB L100.1300 12.0-15.0 g/dl Low HGB 10.5 LAB L100.1400 37-47 % Low HCT 31.5 LAB L100.1500 81-99 fL Normal MCV 94.0 LAB L100.1600 27.0-32.0 pg Normal MCH 31.3 LAB L100.1700 32-36 g/gl Normal MCHC 33.3 LAB L100.1810 11.6-14.6 % High RDW CV 14.8 LAB L100.1820 35.1-43.9 fl High RDW SD 51.0 LAB L100.1900 150-450 K/mm3 Normal PLT 242 LAB L100.2000 6.2-12.0 fl Normal MPV 9.8 Performed By: #### L100.0500 #### [facility] [address] [place], [address] DISCHARGE INSTRUCTION Observed: 12/03/2017 Status: F Source: LINH 1:03 PM [facility] REPOSITORY [facility] Medical Records Department [address] [place] [address] Instructions for Home/Discharge Instructions 12/03/17 1300 MR#: [id number] Acct: [id number] Name: TANNA WESTON Rep #: [id number] : 1980 37 From: Esther Lopez MD PCP: Care Physician, No Primary Status: ADM IN Discharge Diet: No Restrictions Discharge Activity: May Shower, May Take a Tub Bath Return to work on:: 01/16/18 May resume sexual activity in: 4-6 weeks Additional Activity Instructions:: Nothing in the vagina for 4-6 weeks. You may return to work/school in 6 weeks. Additional Instructions: If you experience any of the following, contact your healthcare provider. * Bleeding that soaks a pad every hour for 2 hours * Fever 100.4 or higher * Unrelieved abdominal pain * Problems urinating (including inability to urinate or burning while urinating). * Visual changes * Severe headache * Flu-like symptoms * Pain or redness in one of both of your breasts * Pain, warmth, tenderness or swelling in your legs, especially the calf area * Frequent nausea and vomiting * Symptoms of depression or anxiety If you experience any of the following, call 911 or go to the nearest Emergency Room. * Chest pain * Problems breathing * Seizure activity * Partial or complete paralysis of a body part, slurred speech, weakness or drooping of the face, or a sudden inability to walk or hold your balance Allergies/Adverse Reactions: Allergies No Known Allergies Allergy (Verified 11/29/17 18:08) Medications to take at Discharge Vits [Prenatabs FA ] 1 tablet PO DAILY 06/11/16 Calcium/Magnesium/Vitamin D3 [Manpreet-Mag Complex 300-150 mg Tab] 1 each PO DAILY 12/02/17 Acetaminophen [Tylenol Tablet] 325 - 650 mg PO Q4H PRN PRN tablet 12/03/17 Labetalol [Trandate (Beta Jalil)] 200 mg PO TID #90 tab 12/03/17 The following prescriptions were given: Labetalol [Trandate (Beta Jalil)] 200 mg PO TID #90 tab Orders to be completed after discharge: Electric breast pump Time Frame: 1 Year, Location: None Selected Please Follow Up With: Esther Lopez MD - [phone] When: Call to make an appointment with your doctor in 6 weeks. You will need to be seen in 1 week for follow up blood pressure. Primary Care Physician: Care Physician,No Primary [Primary Care Provider] - Proposed Discharge Date: 12/05/17 12/03/17 1303 <Electronically signed by Esther Lopez MD> Date Esther Lopez MD CC: No Primary Care Physician OPERATIVE REPORT Observed: 12/03/2017 Status: F Source: [place] 12:52 PM [facility] REPOSITORY [facility] Medical Records Department [address] [place] [address] Operative Report 12/03/17 1245 MR#: [id number] Acct: [id number] Name: TANNA WESTON Rep #: [id number] : 1980 37 From: Esther Lopez MD PCP: [place] Physician, No Primary Status: ADM IN Location: [place] [address] Vaginal Delivery Maternal Presentation: Medically Indicated Induction 35 1/2 wk SROM, unfavorable cervix. Preeclampsia Method of Induction: Pitocin, Cytotec Medical Reason for Induction: Preeclampsia, eclampsia Amniotic Membrane Rupture Type: Spontaneous at home Rupture of Membrane time: 4412/02/17 Amniotic Fluid Description: Clear Final ARIANA: 01/05/18 Final ARIANA Source: US <20 weeks Gestational age: 35 Weeks and 1 Days doctor who attended delivery (if requested by OB): Azeb Anderson Date of Procedure: 12/03/17 Pre-Operative Diagnosis: 35 1/7 wk EGA Post-Operative Diagnosis: 35 2/7 wk EGA Surgery/ Procedure Performed: Spontaneous Vaginal Delivery Anesthesiologist: Nicole Owens Type of Anesthesia: Epidural Description of Procedure: of a ramsey viable male over intact perineum to lacerations. Head [id number] OA. OP and nares bulb suctioned after delivery of shoulders. Infant to maternal abdomen. Spont cry and vigorous, good tone. Delayed cord clamping, Cord clamped x two and cut. Routine cord gases collected and sent. Dr. Anderson present for delivery and tending to baby along with nursery nurse Ap 04/23. Weight pending. PP exam: Bilateral anterior labial lacerations, hemostatic. Arias cath intact 2nd deg posterior perineal to vaginal laceration at midline. Repaired this to hemostatic and intact with 3-0 Vicryl under epidural] Placenta delivered by spont expulsion, expression. 3V cord, normal appearing and intact with trailing membranes EBL 400 cc Prophylactic dose of Cytotec 1000 mcg LA x one given due to pt with multiple risk factors for hemorrhage. Pt and tolerated delivery well. to recovery , stable condition RayTec counts correct x two. Presentation: Vertex, OFE Placental Delivery Description: Spontaneous, Expressed Placenta Disposition: [facility] Cord Vessel Description: 3 Vessels Cord Gases drawn per routine: ABG, VBG Cord Entanglement: None Drain: Arias to straight drain Estimated Blood Loss: 400 A gender: Male (1 minute): 9 (5 minute): 9 Episiotomy Description: None Laceration: Midline, Perineal Extension/lac, Vaginal Extension/lac, 2nd degree - and bilateral anterior labial first degree lacerations Medications given after delivery: IV Pitocin, - - Cytotec 1000 mcg LA x one given prophylactically Complications: None 12/03/17 1252 <Electronically signed by Esther Lopez MD> Date Esther Lopez MD CC: No Primary Care Physician; Esther Lopez MD Signed CBC W/DIFF, AUTOMATED Collected: 12/03/2017 Status: F Source: [place] 6:30 AM [facility] REPOSITORY TYPE CODE TESTS RESULT OUT OF RANGE REFERENCE UNITS LAB L100.1000 4.4-11.0 K/mm3 High WBC 15.5 LAB L100.1200 4.2-5.4 M/mm3 Low RBC 3.79 LAB L100.1300 12.0-15.0 g/dl Normal HGB 12.0 LAB L100.1400 37-47 % Low HCT 35.4 LAB L100.1500 81-99 fL Normal MCV 93.4 LAB L100.1600 27.0-32.0 pg Normal MCH 31.7 LAB L100.1700 32-36 g/gl Normal MCHC 33.9 LAB L100.1810 11.6-14.6 % High RDW CV 14.7 LAB L100.1820 35.1-43.9 fl High RDW SD 50.0 LAB L100.1900 150-450 K/mm3 Normal PLT 263 LAB L100.2000 6.2-12.0 fl Normal MPV 10.1 LAB L100.2100 47-70 % High NEUT% 86.8 LAB L100.2200 19-41 % Low LY% 6.9 LAB L100.2300 0-10 % Normal MONO% 5.6 LAB L100.2400 0-5 % Normal EO% 0.3 LAB L100.2500 0-1 % Normal BASO% 0.1 LAB L100.2550 0.0-0.9 % Normal IM GRAN % 0.300 Result Comment: IG% - Immature Granulocytes (promyelocytes, myelocytes and metamyelocytes) > 1% indicates that a LEFT SHIFT is Present. LAB L100.2620 2.0-7.7 X10 3/uL High Absolute Neut 13.5 LAB L100.2720 0.83-4.51 X10 3/ul Normal Absolute Lymph 1.07 Performed By: #### L100.0100, L500.4050 #### [facility] [address] [place], [address] COMPREHENSIVE METABOLIC Collected: 12/03/2017 Status: F Source: [facility] 6:30 AM [facility] REPOSITORY TYPE CODE TESTS RESULT OUT OF RANGE REFERENCE UNITS LAB L501.0100 74-106 mg/dL Normal GLU 84 Result Comment: Please note revised GLUCOSE reference range effective 2017. LAB L501.1000 7-18 mg/dL High BUN 20 LAB L501.1100 0.55-1.02 mg/dL Normal CREAT,SERUM 0.96 Result Comment: The validity of the calculated GFR AND GFRAA in patients over 70 years has not been determined. Clinical correlation is essential. LAB L501.1110 >60 mL/min Normal EST GFR 69 Result Comment: Non- GFR Calc LAB L501.1115 >60 mL/min Normal EST GFR - AA 84 Result Comment: GFR Calc LAB L501.1255 ml/min Normal Estimated CRCL 68.61 LAB L501.1300 10-20 RATIO High BUN/CRE 20.9 LAB L501.1500 6.4-8. g/dL Normal 2 T PROT 6.4 LAB L501.1800 3.2-5. g/dL Low 0 ALB 2.2 LAB L501.1950 2.2-4. g/dL Normal 2 GLOB 4.2 LAB L501.2000 0.9-2. RATIO Low 4 A/G 0.5 LAB L501.2200 8.5-10 mg/dL Low .1 CA 7.0 LAB L501.4100 15-37 U/L Normal AST 22 LAB L501.4305 45-117 U/L High ALK P 148 LAB L501.4405 13-56 U/L Normal ALT 22 LAB L501.4600 0.20-1 mg/dL Normal .00 T BILI 0.50 LAB L501.5300 136-14 mmol/L Low 5 NA 134 LAB L501.5600 3.5-5. mmol/L Normal 1 K 3.9 LAB L501.5900 98-107 mmol/L Normal CL 103 LAB L501.6100 21.0-3 mmol/L Low 2.0 CO2 20.0 LAB L501.6200 5-15 Normal GAP 11 Performed By: #### L100.0100, L500.4050 #### [facility] [address] [facility] [place], [place], [address] Observed: 12/02/2017 Status: F Source: LINH CULTURE, GROUP B 3:00 AM [facility] STREPTOCOCCUS REPOSITORY ALEXANDRU Culture Group B Beta Streptococcus is not isolated. Performed By: #### M100.1800 #### [facility] [address] [facility] [place], [place], [address] CBC-COMPLETE BLOOD CNT Collected: 12/02/2017 Status: F Source: LIN[facility] NO DIFF 2:31 AM [facility] REPOSITORY TYPE CODE TESTS RESULT OUT OF RANGE REFERENCE UNITS LAB L100.1000 4.4-11.0 K/mm3 High WBC 11.1 LAB L100.1200 4.2-5.4 M/mm3 Low RBC 3.81 LAB L100.1300 12.0-15.0 g/dl Low HGB 11.8 LAB L100.1400 37-47 % Low HCT 35.6 LAB L100.1500 81-99 fL Normal MCV 93.4 LAB L100.1600 27.0-32.0 pg Normal MCH 31.0 LAB L100.1700 32-36 g/gl Normal MCHC 33.1 LAB L100.1810 11.6-14.6 % Normal RDW CV 14.5 LAB L100.1820 35.1-43.9 fl High RDW SD 48.9 LAB L100.1900 150-450 K/mm3 Normal PLT 252 LAB L100.2000 6.2-12.0 fl Normal MPV 10.5 Performed By: #### L100.0500 #### [facility] [address] [place], [address] COMPREHENSIVE METABOLIC Collected: 12/02/2017 Status: F Source: [facility] [place] 2:31 AM [facility] REPOSITORY TYPE CODE TESTS RESULT OUT OF RANGE REFERENCE UNITS LAB L501.0100 74-106 mg/dL Normal GLU 75 Result Comment: Please note revised GLUCOSE reference range effective 2017. LAB L501.1000 7-18 mg/dL High BUN 21 LAB L501.1100 0.55-1.02 mg/dL Normal CREAT,SERUM 0.92 Result Comment: The validity of the calculated GFR AND GFRAA in patients over 70 years has not been determined. Clinical correlation is essential. LAB L501.1110 >60 mL/min Normal EST GFR 73 Result Comment: Non- GFR Calc LAB L501.1115 >60 mL/min Normal EST GFR - AA 88 Result Comment: GFR Calc LAB L501.1255 ml/min Normal Estimated CRCL 71.60 LAB L501.1300 10-20 RATIO High BUN/CRE 22.9 LAB L501.1500 6.4-8. g/dL Normal 2 T PROT 6.5 LAB L501.1800 3.2-5. g/dL Low 0 ALB 2.3 LAB L501.1950 2.2-4. g/dL Normal 2 GLOB 4.2 LAB L501.2000 0.9-2. RATIO Low 4 A/G 0.5 LAB L501.2200 8.5-10 mg/dL Normal .1 CA 9.0 LAB L501.4100 15-37 U/L Normal AST 24 LAB L501.4305 45-117 U/L High ALK P 144 LAB L501.4405 13-56 U/L Normal ALT 26 LAB L501.4600 0.20-1 mg/dL Low .00 T BILI < 0.10 LAB L501.5300 136-14 mmol/L Normal 5 NA 142 LAB L501.5600 3.5-5. mmol/L Normal 1 K 4.3 LAB L501.5900 98-107 mmol/L High CL 110 LAB L501.6100 21.0-3 mmol/L Normal 2.0 CO2 22.0 LAB L501.6200 5-15 Normal GAP 10 Performed By: #### L500.4050, L501.1400 #### [facility] [address] [facility] [place], [place], [address] URIC ACID Collected: 12/02/2017 Status: F Source: [place] 2:31 AM [facility] REPOSITORY TYPE CODE TESTS RESULT OUT OF RANGE REFERENCE UNITS LAB L501.1400 2.6-6.0 mg/dL Normal URIC 5.8 Result Comment: The drugs N-Acetylcysteine and Metamizole may falsely depress this assay. Performed By: #### L500.4050, L501.1400 #### [facility] [address] [place], [place], [address] TYPE AND SCREEN Collected: 12/02/2017 Status: F Source: [place] 2:31 AM [facility] REPOSITORY Order Comment: Reason for Type AND Screen/Red Cells: TYPE CODE TESTS RESULT OUT OF RANGE REFERENCE UNITS LAB B10.0800 A Normal BLOOD TYPE GEL POSITIVE LAB B100.4000 Normal Antibody NEGATIVE Screen Performed By: #### B101.7450 #### [facility] [address] [facility] [place], [place], [address] GROUP B STREP DNA Collected: 11/29/2017 Status: F Source: LIN[facility] BY PCR 10:00 PM [facility] REPOSITORY Order Comment: Order Date: 11/29/17 Has pt arrived? Y Comments: GBS TYPE CODE TESTS RESULT OUT OF RANGE REFERENCE UNITS LAB L8200.0100 Negative Normal GBS TEST Negative RESULT Performed By: #### L8200.0000 #### [facility] [address] [place], [address] PROTEIN, URINE 24HR Collected: 11/29/2017 Status: F Source: [facility] 5:15 PM [facility] REPOSITORY TYPE CODE TESTS RESULT OUT OF RANGE REFERENCE UNITS LAB L501.1850 24.0 HOURS Normal UR COLLECT 24.0 TIME LAB L501.1875 mL Normal UR TOTAL 3600 VOLUME LAB L501.1900 <11.9 mg/dL High URINE PROTEIN 21.8 LAB L501.1925 <150 MG/24HR mg/24HR High 24hr UR 784.8 PROTEIN Performed By: #### L500.9000 #### [facility] [address] [place], [address] Observed: 11/29/2017 Status: F Source: [facility] CULTURE, GROUP B 12:00 AM [facility] STREPTOCOCCUS REPOSITORY ALEXANDRU Culture Group B Beta Streptococcus is not isolated. Performed By: #### M100.1800 #### [facility] [address] [place], [address] SERUM CREATININE AND Collected: 11/28/2017 Status: F Source: [facility] GFR 4:13 PM [facility] REPOSITORY TYPE CODE TESTS RESULT OUT OF RANGE REFERENCE UNITS LAB L501.1100 0.55-1.02 mg/dL Normal 0.80 CREAT,SERUM Result Comment: The validity of the calculated GFR AND GFRAA in patients over 70 years has not been determined. Clinical correlation is essential. LAB L501.1110 >60 mL/min Normal EST GFR 85 Result Comment: Non- GFR Calc LAB L501.1115 >60 mL/min Normal EST GFR - AA 103 Result Comment: GFR Calc LAB L501.1255 ml/min Normal Estimated CRCL 82.33 Performed By: #### L501.1105, L501.1400, L501.4100, L501.4405 #### [facility] [address] [place], [address] URIC ACID Collected: 11/28/2017 Status: F Source: [place] 4:13 PM [facility] REPOSITORY TYPE CODE TESTS RESULT OUT OF RANGE REFERENCE UNITS LAB L501.1400 2.6-6.0 mg/dL Normal URIC 4.8 Result Comment: The drugs N-Acetylcysteine and Metamizole may falsely depress this assay. Performed By: #### L501.1105, L501.1400, L501.4100, L501.4405 #### [facility] [address] [facility] [place], [address] AST(SGOT) Collected: 11/28/2017 Status: F Source: [facility] 4:13 PM [facility] REPOSITORY TYPE CODE TESTS RESULT OUT OF RANGE REFERENCE UNITS LAB L501.4100 15-37 U/L Normal AST 25 Performed By: #### L501.1105, L501.1400, L501.4100, L501.4405 #### [facility] [address] [place], [address] ALANINE AMINOTRANSFERAS Collected: 11/28/2017 Status: F Source: [facility] (SGPT) 4:13 PM [facility] REPOSITORY TYPE CODE TESTS RESULT OUT OF RANGE REFERENCE UNITS LAB L501.4405 13-56 U/L Normal ALT 25 Performed By: #### L501.1105, L501.1400, L501.4100, L501.4405 #### [facility] [address] [place], [address] CBC-COMPLETE BLOOD CNT Collected: 11/28/2017 Status: F Source: [place] NO DIFF 4:13 PM [facility] REPOSITORY TYPE CODE TESTS RESULT OUT OF RANGE REFERENCE UNITS LAB L100.1000 4.4-11.0 K/mm3 High WBC 11.1 LAB L100.1200 4.2-5.4 M/mm3 Low RBC 4.01 LAB L100.1300 12.0-15.0 g/dl Normal HGB 12.7 LAB L100.1400 37-47 % Normal HCT 37.3 LAB L100.1500 81-99 fL Normal MCV 93.0 LAB L100.1600 27.0-32.0 pg Normal MCH 31.7 LAB L100.1700 32-36 g/gl Normal MCHC 34.0 LAB L100.1810 11.6-14.6 % Normal RDW CV 13.8 LAB L100.1820 35.1-43.9 fl High RDW SD 45.8 LAB L100.1900 150-450 K/mm3 Normal PLT 250 LAB L100.2000 6.2-12.0 fl Normal MPV 10.6 Performed By: #### L100.0500 #### [facility] [address] [place], [address] PROTHROMBIN TIME W/INR Collected: 11/28/2017 Status: F Source: [place] 4:13 PM [facility] REPOSITORY TYPE CODE TESTS RESULT OUT OF RANGE REFERENCE UNITS LAB L300.4150 11.7-14.9 SECONDS Normal PROTIME 12.5 LAB L300.4200 Normal INR 0.9 Performed By: #### L300.3900, L300.4310 #### [facility] [address] [place], [address] PARTIAL THROMBOPLAST Collected: 11/28/2017 Status: F Source: [place] TIME 4:13 PM [facility] REPOSITORY TYPE CODE TESTS RESULT OUT OF RANGE REFERENCE UNITS LAB L300.4310 24.1-36.2 Seconds Normal PTT 27.5 Performed By: #### L300.3900, L300.4310 #### [facility] [address] [facility] [place], [address] PROTEIN, URINE 24HR Collected: 11/22/2017 Status: F Source: [facility] 11:00 AM [facility] REPOSITORY TYPE CODE TESTS RESULT OUT OF RANGE REFERENCE UNITS LAB L501.1850 24.0 HOURS Normal UR COLLECT 24.0 TIME LAB L501.1875 mL Normal UR TOTAL 1925 VOLUME LAB L501.1900 <11.9 mg/dL High URINE PROTEIN 20.6 LAB L501.1925 <150 MG/24HR mg/24HR High 24hr UR 396.6 PROTEIN Performed By: #### L500.9000 #### [facility] [address] [place], [place], [id number] CBC-COMPLETE BLOOD CNT Collected: 11/21/2017 Status: F Source: [facility] NO DIFF 10:12 AM [facility] REPOSITORY TYPE CODE TESTS RESULT OUT OF RANGE REFERENCE UNITS LAB L100.1000 4.4-11.0 K/mm3 Normal WBC 9.2 LAB L100.1200 4.2-5.4 M/mm3 Low RBC 3.85 LAB L100.1300 12.0-15.0 g/dl Normal HGB 12.0 LAB L100.1400 37-47 % Low HCT 35.9 LAB L100.1500 81-99 fL Normal MCV 93.2 LAB L100.1600 27.0-32.0 pg Normal MCH 31.2 LAB L100.1700 32-36 g/gl Normal MCHC 33.4 LAB L100.1810 11.6-14.6 % Normal RDW CV 14.2 LAB L100.1820 35.1-43.9 fl High RDW SD 48.1 LAB L100.1900 150-450 K/mm3 Normal PLT 225 LAB L100.2000 6.2-12.0 fl Normal MPV 10.1 Performed By: #### L100.0500 #### [facility] [place], [place], [id number] PROTHROMBIN TIME W/INR Collected: 11/21/2017 Status: F Source: [facility] 10:12 AM [facility] REPOSITORY TYPE CODE TESTS RESULT OUT OF RANGE REFERENCE UNITS LAB L300.4150 11.7-14.9 SECONDS Normal PROTIME 13.2 LAB L300.4200 Normal INR 1.0 Performed By: #### L300.3900, L300.4310 #### [facility] [place], [place], [id number] PARTIAL THROMBOPLAST Collected: 11/21/2017 Status: F Source: [facility] TIME 10:12 AM [facility] REPOSITORY TYPE CODE TESTS RESULT OUT OF RANGE REFERENCE UNITS LAB L300.4310 24.1-36.2 Seconds Normal PTT 29.5 Performed By: #### L300.3900, L300.4310 #### [facility] [address] [place], [address] SERUM CREATININE AND Collected: 11/21/2017 Status: F Source: [place] GFR 10:12 AM [facility] REPOSITORY TYPE CODE TESTS RESULT OUT OF RANGE REFERENCE UNITS LAB L501.1100 0.55-1.02 mg/dL Normal 0.85 CREAT,SERUM Result Comment: The validity of the calculated GFR AND GFRAA in patients over 70 years has not been determined. Clinical correlation is essential. LAB L501.1110 >60 mL/min Normal EST GFR 80 Result Comment: Non- GFR Calc LAB L501.1115 >60 mL/min Normal EST GFR - AA 96 Result Comment: GFR Calc Performed By: #### L501.1105, L501.1400, L501.4100, L501.4405 #### [facility] [address] [place], [address] URIC ACID Collected: 11/21/2017 Status: F Source: [place] 10:12 AM [facility] REPOSITORY TYPE CODE TESTS RESULT OUT OF RANGE REFERENCE UNITS LAB L501.1400 2.6-6.0 mg/dL Normal URIC 5.6 Result Comment: The drugs N-Acetylcysteine and Metamizole may falsely depress this assay. Performed By: #### L501.1105, L501.1400, L501.4100, L501.4405 #### [facility] [address] [place], [address] AST(SGOT) Collected: 11/21/2017 Status: F Source: [place] 10:12 AM [facility] REPOSITORY TYPE CODE TESTS RESULT OUT OF RANGE REFERENCE UNITS LAB L501.4100 15-37 U/L Normal AST 23 Performed By: #### L501.1105, L501.1400, L501.4100, L501.4405 #### [facility] [address] [place], [address] ALANINE AMINOTRANSFERAS Collected: 11/21/2017 Status: F Source: [facility] (SGPT) 10:12 AM [facility] REPOSITORY TYPE CODE TESTS RESULT OUT OF RANGE REFERENCE UNITS LAB L501.4405 13-56 U/L Normal ALT 22 Result Comment: Please note revised ALT reference range effective 2017. Performed By: #### L501.1105, L501.1400, L501.4100, L501.4405 #### [facility] [address] [place], [address] GESTATIONAL GTT 3HR Collected: 10/19/2017 Status: F Source: [facility] 100G 7:20 AM [facility] REPOSITORY Order Comment: Is Patient Fasting? Y TYPE CODE TESTS RESULT OUT OF RANGE REFERENCE UNITS LAB L501.0650 <105 mg/dL Normal GLU 89 GTT-FASTING Result Comment: GLUCOSE TOLERANCE TEST FOR Reference Interval GESTATIONAL DIABETES Fasting <105 mg/dL 1 hour <190 mg/dl 2 hour <165 mg/dl 3 hour <145 mg/dl LAB L501.0670 <165 mg/dL Normal GLU GTT- 2HR 153 LAB L501.0660 <190 mg/dL Normal GLU GTT- 1HR 179 LAB L501.0680 <145 L Normal GLU GTT- 3HR 99 Performed By: #### L500.4710 #### [facility] [address] [place], [address] GLUCOSE CHALLENGE GEST Collected: 10/12/2017 Status: F Source: LIN[facility] 1H 50G 10:18 AM [facility] REPOSITORY TYPE CODE TESTS RESULT OUT OF RANGE REFERENCE UNITS LAB L501.0250 70-140 mg/dL High GLU GEST 160 50g 1H Performed By: #### L501.0250 #### [facility] [address] [place], [address] CBC-COMPLETE BLOOD CNT Collected: 10/12/2017 Status: F Source: [facility] NO DIFF 10:18 AM [facility] REPOSITORY TYPE CODE TESTS RESULT OUT OF RANGE REFERENCE UNITS LAB L100.1000 4.4-11.0 K/mm3 Normal WBC 10.9 LAB L100.1200 4.2-5.4 M/mm3 Low RBC 3.53 LAB L100.1300 12.0-15.0 g/dl Low HGB 10.9 LAB L100.1400 37-47 % Low HCT 32.7 LAB L100.1500 81-99 fL Normal MCV 92.6 LAB L100.1600 27.0-32.0 pg Normal MCH 30.9 LAB L100.1700 32-36 g/gl Normal MCHC 33.3 LAB L100.1810 11.6-14.6 % Normal RDW CV 12.6 LAB L100.1820 35.1-43.9 fl Normal RDW SD 42.6 LAB L100.1900 150-450 K/mm3 Normal PLT 295 LAB L100.2000 6.2-12.0 fl Normal MPV 9.4 Performed By: #### L100.0500 #### [facility] [address] [place], [address] ALLERGIES ALLERGIES DATE TYPE / CODE NAME / CODE REACTION SEVERITY SOURCE 01/05/2018 Drug No Known Unknown [facility] Allergy/4160 Allergies/F00 Hospital 10535(SNOMED [id number](RXNOR Repository CT) M) ENCOUNTERS ENCOUNTERS ADMIT/DISCHARGE ACCOUNT ADMITTING ENCOUNTER LOCATION SOURCE NUMBER CLASS 07/12/2018 [id number] Ambulatory [facility] F[facility] 4 [facility] ing:LABSPEC Repository 01/05/2018/ [id number] Ambulatory BMSBuilding:B [facility] 8 1 [facility] Repository 01/03/2018/ [id number] Ambulatory [place] Lin[place] 8 4 [facility] ing:WPOUT Repository 12/29/2017 [id number] Ambulatory [place] Fost[facility] 9 [facility] ing:SDC Repository 12/29/2017/ [id number] Ambulatory BMSBuilding:W [place] 8 5 [facility] Repository 12/28/2017/ [id number] Aditya, Ambulatory Linh Linh 8 3 [facility] ing:TS4Tdzv: Repository HO270Snr: 1 12/28/2017 [id number] Aditya, Ambulatory BMSBuilding:B Linh 4 Bob MS.[facility] Repository 12/28/2017/05/16 [id number] Ambulatory BMSBuilding:B [place] 8 3 [facility] Repository 12/27/2017/ [id number] Ambulatory BMSBuilding:B Linh 8 7 [facility] Repository 12/23/2017/ [id number] Emergency Linh Fosters 8 7 [facility] ing:ED Repository 12/02/2017/ [id number] Jessica, Inpatient [facility] Fosters 8 2 Esther Encounter [facility] ing:WPRoom: Repository RI448Dyc: 1 11/29/2017/ [id number] Ambulatory Linh [place] 8 0 [facility] ing:WPOUTRoom Repository : WP011 11/29/2017 [id number] Ambulatory [facility] Fosters 7 [facility] ing:LABSPEC Repository 11/28/2017/ [id number] Ambulatory Linh [place] 8 4 [facility] ing:WPOUTRoom Repository : WP012 11/22/2017 [id number] Ambulatory [place] Linh 3 [facility] ing:LABSPEC Repository 11/21/2017 [id number] Ambulatory [place] [facility] 5 [facility] ing:WOBLAB Repository 10/19/2017 [id number] Ambulatory Linh Linh 5 [facility] ing:LAB Repository 10/12/2017 [id number] Ambulatory [place] Fost[place] 9 [facility] ing:WOBLAB Repository PAYERS PAYERS ENCOUNTER GUARANTOR PAYER SUBSCRIBER SOURCE 07/12/2018 TANNA GIBBSB: Linh [id number] [address] Insurance[id number] Number[place] [facility] [address]Nhr: (873) [id number] Repository [phone] () Date:6214-37-51ZS [address] [address]TL: 07/12/2018 Secondary NOT GIVENUNK Linh Insurance:SELF PAY [facility] Number: Effective Repository Date:2018-07-12 01/05/2018 TANNA WESTONDOB: Fosters [id number] [address] Insurance:ANTHEMPolic [id number] [place]: [facility] [address]Ddt: (330) [id number] Repository [phone] (HP) Date:6485-34-80TV [address]OZB, [place] [address]JG: 01/05/2018 Secondary NOT GIVENUNK Linh Insurance:SELF PAY [facility]: Effective Repository Date:2018-01-05 01/03/2018 TANNA Bland Primary EVELIA WESTONDOB: Fosters [id number] [address] Insurance:ANTHEMPolic [id number] [facility] [place] Number: [facility] [id number]: (330) [id number] Repository [phone] (HP) Date:7369-57-09VE [address]OFCD, [place] [address]XS: 01/03/2018 Secondary NOT GIVENUNK [place] Insurance:SELF PAY [facility] Number: Effective Repository Date:2018-01-03 12/29/2017 TANNA WESTONDOB: Fosters [id number] [address] Insurance:ANTHEMPolic [id number] [facility] [place] Number: Hospital [address]Zpp: (330) [id number] Repository [phone] (HP) Date:5133-76-41JK [address], [place] [address]VH: 12/29/2017 Secondary NOT GIVENUNK [place] Insurance:SELF PAY [facility] Number: Effective Repository Date:2017-12-27 12/29/2017 TANNA Bland Primary EVELIA WESTONDOB: Linh [id number] [address] Insurance:ANTHEMPolic [id number] [facility] [place] Number: [facility] [address]Dzk: (330) [id number] Repository [phone] (HP) Date:9445-05-58KU [address]TOBY[address], [place] [address]WC: 12/29/2017 Secondary NOT GIVENUNK [place] Insurance:SELF PAY [facility] Number: Effective Repository Date:2017-12-29 12/28/2017 TANNA WESTONDOB: Linh [id number] [address] Insurance:ANTHEMPolic [id number] [place]: Hospital [address]Dis: (330) [id number] Repository [phone] (HP) Date:6285-27-51WN [address]GCY[place] [address]AL: 12/28/2017 Secondary NOT GIVENUNK Linh Insurance:SELF PAY [facility] Number: Effective Repository Date:2017-12-28 12/28/2017 TANNA WESTONDOB: Linh [id number] [address] Insurance:ANTHEMPolic [id number] [facility] [place] Number: Hospital [address]Fng: (330) [id number] Repository [phone] (HP) Date:3018-59-89NR [address]EUAOMCQ, [place] [address]CU: 12/28/2017 Secondary NOT GIVENUNK Linh Insurance:SELF PAY [facility] Number: Effective Repository Date:2017-12-28 12/28/2017 TANNA WESTONDOB: Fosters [id number] [address] Insurance:ANTHEMPolic [id number] [facility] [place] Number: Hospital [address]Sau: (330) [id number] Repository [phone] (HP) Date:0629-03-19RI [address] [place] [address] [place] [address]DH: 12/28/2017 Secondary NOT GIVENUNK Linh Insurance:SELF PAY [facility] Number: Effective Repository Date:2017-12-28 12/27/2017 TANNA WESTONDOB: Linh [id number] [address] Insurance:ANTHEMPolic [id number] [facility] [place] Number: Hospital [address]Rfa: (330) [id number] Repository [phone] (HP) Date:5710-51-73EQ [address] [place] [address]ZG: 12/27/2017 Secondary NOT GIVENUNK Fosters Insurance:SELF PAY [facility] Number: Effective Repository Date:2017-12-26 12/23/2017 Tanna GIBBSB: Linh [id number] [address] Insurance:ANTHEMPolic [id number] [place] Hospital [address]Yvp: (330) [id number] Repository [phone] (HP) Date:1012-33-06SI [address] [place] [address]MI: 12/23/2017 Secondary NOT GIVENUNK [place] Insurance:SELF PAY [facility] Number: Effective Repository Date:2017-12-23 12/02/2017 Tanna GIBBSB: Fosters [id number] Insurance:ANTHEMPolic [id number] [facility] [place] Number: Hospital [address]Ljw: (330) [id number] Repository [phone] (HP) Date:5130-30-29BK [address] [place] [address]PA: 12/02/2017 Secondary NOT GIVENUNK [place] Insurance:SELF PAY [facility] Number: Effective Repository Date:2017-11-28 11/29/2017 Tanna BUTTS Linh [id number] [place] Hospital [address]Efx: (330) [id number] Repository [phone] (HP) Date:9441-33-74YO [address]LTKFDGV, [place] [address]RX: 11/29/2017 Secondary NOT GIVENUNK Linh Insurance:SELF PAY [facility] Number: Effective Repository Date:2017-11-29 11/29/2017 Tanna Mijaresoster [id number] [address] [place] Hospital [address]Bve: (330) [id number] Repository [phone] (HP) Date:4651-15-57ZU [address]BR, [place] [address]UF: 11/29/2017 Secondary NOT GIVENUNK Linh Insurance:SELF PAY [facility] Number: Effective Repository Date:2017-11-29 11/28/2017 Tanna Melton [id number] [address] [place] Hospital [address]Zrl: (330) [id number] Repository [phone] (HP) Date:9670-49-57QR [address], [place] [address]HI: 11/28/2017 Secondary NOT GIVENUNK Linh Insurance:SELF PAY [facility] Number: Effective Repository Date:2017-11-28 11/22/2017 Tanna Melton [id number] [address] [place] Hospital [address]Oky: (330) [id number] Repository [phone] () Date:0540-51-19YT [address]VRCTLPM, [place] [address]JX: 11/22/2017 Secondary NOT GIVENUNK Linh Insurance:SELF PAY [facility] Number: Effective Repository Date:2017-11-22 11/21/2017 Tanna Melton [id number] [address] [place] Hospital [address]Abf: (330) [id number] Repository [phone] (HP) Date:1453-43-75JD [address]OZEMQBP, [place] [address]HK: 11/21/2017 Secondary NOT GIVENUNK Linh Insurance:SELF PAY [facility] Number: Effective Repository Date:2017-11-21 10/19/2017 Tanna Mel[place] [id number] [address] [place] Hospital [address]Jcm: (330) [id number] Repository [phone] (HP) Date:8808-28-78WG [address]AUBHFRV, [place] [address]OX: 10/19/2017 Secondary NOT GIVENUNK Linh Insurance:SELF PAY [facility] Effective Repository Date:2017-10-12 10/12/2017 Tanna Bland Primary EVELIA BENJAMÍN [place] [id number] [address] Insurance:[facility] [place] Number: [facility] [id number]: ([phone]) [id number] Repository [phone] () Date:6385-11-36CM [address]JZFQKCX, [place] [address]YK: 10/12/2017 Secondary NOT GIVENUNK Linh Insurance:SELF PAY [facility] Number: Effective Repository Date:2017-10-12
== END ==
PROVIDERS: Referring Provider Obstetrics & Gynecology; Visit Provider Obstetrics & Gynecology
DX: Z12.4 Encounter for screening for malignant neoplasm of cervix (principal)
CPT/HCPCS: 88175; G0145

== ENCOUNTER → 2018-12-06 | Outpatient (CLI) | payer OTHER, SELFPAY ==
[2018-12-06 08:20] VITALS: BMI 30.5
== END | disposition home or self-care (01) ==
LOC: LABSPEC 09:20
PROVIDERS: Referring Provider Surgery; Visit Provider Surgery
DX: L02.412 Cutaneous abscess of left axilla (principal)
CPT/HCPCS: 87070; 87075; 87077; 87186; 87205

== ENCOUNTER → 2018-12-28 | Outpatient (CLI) | payer OTHER, SELFPAY ==
[2018-12-28 10:09] VITALS: BMI 30.5
== END | disposition home or self-care (01) ==
LOC: LABSPEC 14:23
PROVIDERS: Referring Provider Physician Assistant; Visit Provider Physician Assistant
DX: J02.9 Acute pharyngitis, unspecified (principal)
CPT/HCPCS: 87081

== ENCOUNTER → 2019-01-19 | Outpatient (CLI) | payer OTHER, SELFPAY ==
[2018-12-28 10:09] VITALS: BMI 30.5
== END | disposition home or self-care (01) ==
LOC: LAB 11:54
PROVIDERS: Referring Provider Internal Medicine Infectious Disease; Visit Provider Internal Medicine Infectious Disease
DX: R19.7 Diarrhea, unspecified (principal)
CPT/HCPCS: 87493

== ENCOUNTER → 2019-11-30 12:05 | Outpatient (CLI) | payer OTHER, SELFPAY ==
[2019-08-10 14:16] VITALS: BMI 30.5
[2019-11-30 12:58] LABS: Progesterone Level 4.39 ng/mL (See Comment)
[2019-12-03 16:56] LABS: Thyroid Stim Hormone (TSH) 1.64 uIU/mL (0.358-3.74)
== END ==
PROVIDERS: Referring Provider Obstetrics & Gynecology; Visit Provider Obstetrics & Gynecology
DX: N92.4 Excessive bleeding in the premenopausal period (principal); F43.22 Adjustment disorder with anxiety; N97.0 Female infertility associated with anovulation
CPT/HCPCS: 36415; 84144; 84443

== ENCOUNTER → 2019-12-24 11:34 | Outpatient (CLI) | payer OTHER, SELFPAY ==
[2019-08-10 14:16] VITALS: BMI 30.5
[2019-12-24 12:39] LABS: Progesterone Level 4.95 ng/mL (See Comment)
== END ==
PROVIDERS: Referring Provider Obstetrics & Gynecology; Visit Provider Obstetrics & Gynecology
DX: N97.0 Female infertility associated with anovulation (principal)
CPT/HCPCS: 36415; 84144

== ENCOUNTER → 2020-03-18 15:08 | Outpatient (CLI) | payer OTHER, SELFPAY ==
[2020-03-18 14:45] VITALS: BMI 30.5
[2020-03-18 17:01] LABS: Absolute Lymphocyte Count 2.33 X10^3/uL (0.83-4.51); Absolute Neutrophil Count 4.8 X10^3/uL (2.0-7.7); Basophil# 0.03 X10^3/uL; Basophil% 0.4 % (0-1); Eosinophil# 0.13 X10^3/uL; Eosinophils% 1.7 % (0-5); Hematocrit 40.5 % (37-47); Lymphocyte # 2.33 X10^3/ul (4.0); Lymphocyte % 30.3 % (19-41); Mean Corp Hgb Conc 32.1 g/dL (32-36); Mean Corpuscular Hgb 30.4 pg (27.0-32.0); Mean Corpuscular Volume 94.8 fL (81-99); Mean Platelet Vol. 9.4 fl (6.2-12.0); Monocyte# 0.38 X10^3/uL; Monocyte% 4.9 % (0-10); NRBC Flagged by Analyzer 0 % (0-5); Neutrophil # 4.79 X10^3/uL (2.7-7.7); Neutrophil % 62.4 % (47-70); Platelet Count 357 K/mm3 (150-450); RBC Distribution Width CV 12.2 % (11.6-14.6); RBC Distribution Width SD 42.2 fl (35.1-43.9); Red Blood Count 4.27 M/mm3 (4.2-5.4); White Blood Count 7.7 K/mm3 (4.4-11.0)
[2020-03-18 17:14] LABS: ALB/GLOB Ratio 0.9 RATIO (0.9-2.4); AST(SGOT) 14 U/L (15-37); Alanine Aminotransfer ALT/SGPT 26 U/L (13-56); Albumin, Serum 3.9 g/dL (3.2-5.0); Alkaline Phosphatase 92 U/L (45-117); Anion Gap 6 (5-15); BUN 10 mg/dL (7-18); BUN/Creat Ratio 12.4 RATIO (10-20); Chloride 107 mmol/L (98-107); Creatinine, Serum 0.81 mg/dL (0.55-1.02); EST Glomerular Filtration Rate 83 mL/min (>60); Est Glom Filt Rate - Afr Amer 101 mL/min (>60); Globulin 4.2 g/dL (2.2-4.2); Glucose 84 mg/dL (74-106); Potassium 3.8 mmol/L (3.5-5.1); Protein, Total 8.1 g/dL (6.4-8.2); Rheumatoid Factor < 10.0 IU/mL (<15); Sodium Level 139 mmol/L (136-145)
== END ==
PROVIDERS: PCP Internal Medicine; Referring Provider Internal Medicine; Visit Provider Internal Medicine
DX: F41.9 Anxiety disorder, unspecified (principal); M19.90 Unspecified osteoarthritis, unspecified site
CPT/HCPCS: 36415; 80053; 85025; 86431

== ENCOUNTER → 2020-06-16 08:45 | Outpatient (CLI) | payer OTHER, SELFPAY ==
[2020-04-23 09:41] VITALS: BMI 30.5
[2020-06-16 11:25] LABS: Progesterone Level 17.76 ng/mL (See Comment)
== END ==
PROVIDERS: PCP Internal Medicine; Visit Provider Student in an Organized Health Care Education/Training Program
DX: N97.0 Female infertility associated with anovulation (principal)
CPT/HCPCS: 36415; 84144

== ENCOUNTER → 2020-08-12 10:36 | Outpatient (CLI) | payer OTHER, SELFPAY | PROVIDERS: PCP Internal Medicine; Visit Provider Student in an Organized Health Care Education/Training Program | DX: N97.0 Female infertility associated with anovulation (principal) | CPT/HCPCS: 36415; 84144 ==

== ENCOUNTER → 2020-09-18 07:40 | Outpatient (CLI) | payer OTHER, SELFPAY ==
--- NOTE | 2020-09-18 07:08 | BI_ITS ---
MAMMOGRAPHY - BILATERAL SCREENING REASON FOR EXAM: Female, 40 years old. Routine annual screening examination. PERTINENT HISTORY: Mother with breast cancer. TECHNIQUE: Digital bilateral breast navarro (3D mammographic acquisition) in the CC and MLO projections. 2-D mediolateral oblique (MLO) and craniocaudad (CC) views of both breasts were obtained. CAD: Full Field Digital Mammography with Computer Added Detection was performed. COMPARISON: None. Baseline examination. FINDINGS: Breast Composition: The breasts are heterogeneously dense, which may obscure small masses. There are no dominant masses or suspicious calcifications. Benign-appearing bilateral axillary lymph nodes. No other significant abnormalities are identified. BI/SCRN MAMM (CAD)W/NAVARRO BILAT IMPRESSION: Negative screening mammogram. Yearly followup mammogram recommended. (A) ASSESSMENT CATEGORY: BIRADS Category 2: Benign. A letter regarding these results will be sent to the patient by the facility within 30 days. Approximately 10% of breast cancers are not detected by mammography. A normal mammogram should not delay biopsy of a clinically suspicious abnormality. [id number] Electronically Signed: Waldo Salinas MD at 8:32 EST , Service support ,
== END ==
PROVIDERS: PCP Internal Medicine; Referring Provider Student in an Organized Health Care Education/Training Program; Visit Provider Student in an Organized Health Care Education/Training Program
DX: Z12.31 Encounter for screening mammogram for malignant neoplasm of breast (principal)
CPT/HCPCS: 77063; 77067

== ENCOUNTER → 2020-10-02 09:20 | Outpatient (CLI) | payer OTHER, SELFPAY ==
[2020-10-02 14:14] LABS: Progesterone Level 20.75 ng/mL (See Comment)
== END ==
PROVIDERS: PCP Internal Medicine; Visit Provider Student in an Organized Health Care Education/Training Program
DX: N97.9 Female infertility, unspecified (principal)
CPT/HCPCS: 36415; 84144

== ENCOUNTER → 2020-11-28 13:07 | Outpatient (CLI) | payer OTHER, SELFPAY ==
[2020-11-28 15:14] LABS: Progesterone Level 19.96 ng/mL (See Comment)
== END ==
PROVIDERS: PCP Internal Medicine; Visit Provider Student in an Organized Health Care Education/Training Program
DX: N97.0 Female infertility associated with anovulation (principal)
CPT/HCPCS: 36415; 84144

== ENCOUNTER → 2020-12-15 10:43 | Outpatient (CLI) | payer OTHER, SELFPAY ==
--- NOTE | 2020-12-15 10:49 | RAD_ITS ---
STUDY: HYSTEROSALPINGOGRAM. REASON FOR EXAM: Female, 40 years old. INFERTILITY FLUOROSCOPY TIME (if supplied): ( 42 seconds ) minutes/seconds. 3 images were obtained. TECHNIQUE: A hysterosalpingogram was performed by the wind up operator. Imaging was submitted. COMPARISON: None. FINDINGS: The uterus is unremarkable. Both fallopian tubes are widely patent with bilateral spill. RAD/Salpingogram IMPRESSION: The fallopian tubes are patent. Electronically Signed: Waldo Salinas MD at 12:58 EDT , Service support ,
== END ==
PROVIDERS: PCP Internal Medicine; Referring Provider Student in an Organized Health Care Education/Training Program; Visit Provider Student in an Organized Health Care Education/Training Program
DX: N97.9 Female infertility, unspecified (principal)
CPT/HCPCS: 58340; 74740; Q9967

== ENCOUNTER → 2021-01-22 10:36 | Outpatient (CLI) | payer OTHER, SELFPAY ==
[2021-01-22 12:56] LABS: Progesterone Level 24.83 ng/mL (See Comment)
== END ==
PROVIDERS: PCP Internal Medicine; Visit Provider Student in an Organized Health Care Education/Training Program
DX: N97.0 Female infertility associated with anovulation (principal)
CPT/HCPCS: 36415; 84144

== ENCOUNTER → 2021-02-20 14:04 | Outpatient (CLI) | payer OTHER, SELFPAY ==
[2021-02-20 16:15] LABS: Progesterone Level 16.95 ng/mL (See Comment)
== END ==
PROVIDERS: PCP Internal Medicine; Visit Provider Student in an Organized Health Care Education/Training Program
DX: N97.0 Female infertility associated with anovulation (principal)
CPT/HCPCS: 36415; 84144

== ENCOUNTER 2021-03-15 16:53 | Emergency (ER) | payer OTHER, SELFPAY ==
[2021-03-15 16:54] VITALS: BP 152/102; PULSE 111; RESP 18; TEMP 36.9; O2SAT 98; BMI 32.5
[2021-03-15] MEDS: Amox/Clavulanate 875 MG Tablet PO (17:44)
--- NOTE | 2021-03-15 18:10 | RAD_ITS ---
STUDY: X-RAY - LEFT HAND, ATTENTION FIRST FINGER REASON FOR EXAM: Female, 40 years old. wound -- thumb TECHNIQUE: 3 view(s) of the finger were obtained. COMPARISON: None. FINDINGS: No visualized fracture or displaced bony fragment. Normal metacarpal head. Normal metacarpophalangeal joint. Normal proximal phalanx. Normal middle phalanx. Normal distal phalanx. Normal proximal interphalangeal joint. Normal distal interphalangeal joint. RAD/Finger(s) Min 2 Views IMPRESSION: Normal x-ray examination of the finger. Electronically Signed: Elia Yu MD at 19:10 EDT , Service support ,
--- NOTE | 2021-03-15 18:10 | RAD_ITS ---
STUDY: X-RAY - RIGHT RADIUS AND ULNA REASON FOR EXAM: Female, 40 years old. Wound TECHNIQUE: 2 view(s) of the forearm. COMPARISON: None. FINDINGS: Please see the impression. RAD/Forearm 2 Views IMPRESSION: No radiographic evidence of osteomyelitis in the left radius and ulna. MRI may be obtained if clinical suspicion is high. No acute fracture or dislocation. No soft tissue gas. No radiopaque foreign body. Electronically Signed: Rafa Huston MD at 19:15 EDT Tel , Service support ,
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
[2021-03-15 18:44] VITALS: BP 108/74; PULSE 62; RESP 15; O2SAT 99
== END 2021-03-15 18:45 | disposition home or self-care (01) ==
PROVIDERS: Emergency Provider Emergency Medicine; PCP Internal Medicine
DX: S60.372A Other superficial bite of left thumb, initial encounter (principal); S50.871A Other superficial bite of right forearm, initial encounter; W54.0XXA Bitten by dog, initial encounter; Y93.9 Activity, unspecified; Y92.9 Unspecified place or not applicable; F41.9 Anxiety disorder, unspecified; K21.9 Gastro-esophageal reflux disease without esophagitis; E55.9 Vitamin D deficiency, unspecified; M19.90 Unspecified osteoarthritis, unspecified site; Z86.2 Personal history of diseases of the blood and blood-forming organs and certain disorders involving the immune mechanism; Z87.19 Personal history of other diseases of the digestive system; Z87.440 Personal history of urinary (tract) infections; Z79.82 Long term (current) use of aspirin; Z79.899 Other long term (current) drug therapy
CPT/HCPCS: 73090; 73140; 99284

== ENCOUNTER → 2021-05-25 11:33 | Outpatient (CLI) | payer OTHER, SELFPAY | PROVIDERS: PCP Internal Medicine; Visit Provider Obstetrics & Gynecology | DX: O20.0 Threatened abortion (principal); N91.2 Amenorrhea, unspecified; Z3A.00 Weeks of gestation of pregnancy not specified | CPT/HCPCS: 36415; 84702 ==

== ENCOUNTER → 2021-05-28 10:29 | Outpatient (CLI) | payer OTHER, SELFPAY ==
[2021-05-28 11:14] LABS: Color, Urine Yellow (Yellow); Glucose, Dipstick Normal (Normal); Ketone-Dipstick Negative (Negative); Leukocyte Esterase-Dipstick Negative /ul (Negative); Nitrite-Dipstick Negative (Negative); Occult Blood-Urine 50 /ul (Negative); Protein-Dipstick Negative (Negative); Urine Bilirubin Dipstick Negative (Negative); Urine Clarity Clear (Clear); Urine Urobilinogen Normal (Normal)
[2021-05-28 11:15] LABS: Absolute Lymphocyte Count 2.01 X10^3/uL (0.83-4.51); Absolute Neutrophil Count 6.3 X10^3/uL (2.0-7.7); Basophil# 0.03 X10^3/uL; Basophil% 0.3 % (0-1); Eosinophil# 0.11 X10^3/uL; Eosinophils% 1.2 % (0-5); Hematocrit 39.4 % (37-47); Hemoglobin 13.4 g/dL (12.0-15.0); Lymphocyte # 2.01 X10^3/ul (0.83-4.51); Mean Corpuscular Hgb 30.9 pg (27.0-32.0); Mean Corpuscular Volume 90.8 fL (81-99); Mean Platelet Vol. 9.1 fl (6.2-12.0); Monocyte# 0.62 X10^3/uL; Monocyte% 6.8 % (0-10); NRBC Flagged by Analyzer 0 % (0-5); Neutrophil # 6.31 X10^3/uL (2.7-7.7); Neutrophil % 69.3 % (47-70); Platelet Count 324 K/mm3 (150-450); RBC Distribution Width CV 13.1 % (11.6-14.6); RBC Distribution Width SD 43.3 fl (35.1-43.9); Red Blood Count 4.34 M/mm3 (4.2-5.4); White Blood Count 9.1 K/mm3 (4.4-11.0)
[2021-05-28 11:44] LABS: Thyroid Stim Hormone (TSH) 0.99 uIU/mL (0.358-3.74)
[2021-05-28 12:29] LABS: HIV - WCH Non-Reactive (Nonreactive); Hepatitis B Surface Antigen Non-Reactive (Nonreactive); Hepatitis C Antibody Non-Reactive (Nonreactive); Rubella IgG Reactive (Nonreactive); Syphilis Antibodies Non-reactive
[2021-05-29 22:06] LABS: Chlamydia By Nucleic Acid AMP Negative (Negative)
[2021-05-29 22:46] LABS: Gonococcus By Nucleic Acid AMP Negative (Negative)
== END ==
PROVIDERS: PCP Internal Medicine; Visit Provider Obstetrics & Gynecology
DX: Z34.81 Encounter for supervision of other normal pregnancy, first trimester (principal); Z11.3 Encounter for screening for infections with a predominantly sexual mode of transmission
CPT/HCPCS: 36415; 81002; 84443; 85025; 86703; 86762; 86780; 86803; 87086; 87088; 87340; 87491; 87591

== ENCOUNTER 2021-10-01 09:52 | Outpatient (CLI) | payer OTHER, SELFPAY ==
[2021-10-01 11:34] LABS: Hematocrit 34.7 % (37-47); Mean Corp Hgb Conc 34.6 g/dL (32-36); Mean Corpuscular Hgb 32.4 pg (27.0-32.0); Mean Corpuscular Volume 93.8 fL (81-99); Mean Platelet Vol. 9.4 fl (6.2-12.0); Platelet Count 314 K/mm3 (150-450); RBC Distribution Width CV 12.2 % (11.6-14.6); RBC Distribution Width SD 42.4 fl (35.1-43.9); White Blood Count 9.2 K/mm3 (4.4-11.0)
[2021-10-01 11:40] LABS: Glucose Challenge Gest 1H 50g 132 mg/dL (70-140)
== END 2021-10-01 23:59 | disposition home or self-care (01) ==
LOC: WOBLAB 09:57
PROVIDERS: PCP Internal Medicine; Visit Provider Obstetrics & Gynecology
DX: Z34.82 Encounter for supervision of other normal pregnancy, second trimester (principal)
CPT/HCPCS: 36415; 82950; 85027

== ENCOUNTER 2021-11-02 15:06 | Outpatient (CLI) | payer OTHER, SELFPAY ==
[2021-11-02 16:54] LABS: Hematocrit 35.4 % (37-47); Hemoglobin 12.4 g/dL (12.0-15.0); Mean Corpuscular Hgb 32.2 pg (27.0-32.0); Mean Corpuscular Volume 91.9 fL (81-99); Mean Platelet Vol. 9.8 fl (6.2-12.0); Platelet Count 291 K/mm3 (150-450); RBC Distribution Width CV 12.8 % (11.6-14.6); RBC Distribution Width SD 42.2 fl (35.1-43.9); Red Blood Count 3.85 M/mm3 (4.2-5.4); White Blood Count 10.2 K/mm3 (4.4-11.0)
[2021-11-02 17:12] LABS: Protein, Urine (Random) 18.7 mg/dL (<11.9); Protein:Creat Ratio 412 mg/g CRE (0-200)
[2021-11-02 17:20] LABS: ALB/GLOB Ratio 0.6 RATIO (0.9-2.4); AST(SGOT) 18 U/L (15-37); Alanine Aminotransfer ALT/SGPT 17 U/L (13-56); Albumin, Serum 2.7 g/dL (3.2-5.0); Alkaline Phosphatase 120 U/L (45-117); Anion Gap 7 (5-15); BUN 16 mg/dL (7-18); BUN/Creat Ratio 19.4 RATIO (10-20); Calcium,Total 10.5 mg/dL (8.5-10.1); Chloride 107 mmol/L (98-107); Creatinine, Serum 0.82 mg/dL (0.55-1.02); EST Glomerular Filtration Rate 81 mL/min (>60); Est Glom Filt Rate - Afr Amer 98 mL/min (>60); Globulin 4.7 g/dL (2.2-4.2); Glucose 87 mg/dL (74-106); LDH 206 U/L (84-246); Protein, Total 7.4 g/dL (6.4-8.2); Sodium Level 135 mmol/L (136-145)
== END 2021-11-02 23:59 | disposition home or self-care (01) ==
LOC: WOBLAB 15:06
PROVIDERS: PCP Internal Medicine; Visit Provider Student in an Organized Health Care Education/Training Program
DX: O26.899 Other specified pregnancy related conditions, unspecified trimester (principal); R03.0 Elevated blood-pressure reading, without diagnosis of hypertension; Z3A.00 Weeks of gestation of pregnancy not specified
CPT/HCPCS: 36415; 80053; 82570; 83615; 84156; 85027; 87086; 87186

== ENCOUNTER 2021-11-12 14:09 | Outpatient (CLI) | payer OTHER, SELFPAY ==
[2021-11-12 15:31] LABS: Cholesterol 288 mg/dL (200); High Density Lipoprotein 57 mg/dL; Triglycerides 233 mg/dL; Very Low Density Lipoprotein 47 mg/dL (5-40)
== END 2021-11-12 23:59 | disposition home or self-care (01) ==
LOC: BIMLAB 14:09
PROVIDERS: PCP Internal Medicine; Referring Provider Physician Assistant; Visit Provider Physician Assistant
DX: Z13.6 Encounter for screening for cardiovascular disorders (principal); Z13.220 Encounter for screening for lipoid disorders
CPT/HCPCS: 36415; 80061

== ENCOUNTER 2021-12-03 10:55 | Outpatient (CLI) | payer OTHER, SELFPAY ==
[2021-12-03 12:08] LABS: Hematocrit 33.7 % (37-47); Hemoglobin 11.6 g/dL (12.0-15.0); Mean Corp Hgb Conc 34.4 g/dL (32-36); Mean Corpuscular Hgb 30.9 pg (27.0-32.0); Mean Corpuscular Volume 89.9 fL (81-99); Mean Platelet Vol. 10.9 fl (6.2-12.0); Platelet Count 241 K/mm3 (150-450); RBC Distribution Width CV 12.9 % (11.6-14.6); RBC Distribution Width SD 42.2 fl (35.1-43.9); Red Blood Count 3.75 M/mm3 (4.2-5.4); White Blood Count 8.7 K/mm3 (4.4-11.0)
[2021-12-03 12:13] LABS: AST(SGOT) 20 U/L (15-37); Alanine Aminotransfer ALT/SGPT 21 U/L (13-56); Uric Acid 5.9 mg/dL (2.6-6.0)
== END 2021-12-03 23:59 | disposition home or self-care (01) ==
LOC: WOBLAB 10:56
PROVIDERS: PCP Internal Medicine; Visit Provider Obstetrics & Gynecology
DX: O13.9 Gestational [pregnancy-induced] hypertension without significant proteinuria, unspecified trimester (principal); Z3A.00 Weeks of gestation of pregnancy not specified
CPT/HCPCS: 36415; 84450; 84460; 84550; 85027; 87081

== ENCOUNTER 2021-12-10 15:15 | Inpatient (IN) | payer OTHER, SELFPAY ==
[2021-12-10] VITALS (44 sets, daily range): BP systolic 112–183; BP diastolic 63–108; PULSE 85–111; RESP 16; TEMP 35.8–36.8; O2SAT 83–100; BMI 36.8
[2021-12-10] MEDS: Lactated Ringers 1,000 ML 50 ML IV (16:00)
[2021-12-10 16:12] LABS: Absolute Lymphocyte Count 1.88 X10^3/uL (0.83-4.51); Basophil# 0.03 X10^3/uL; Basophil% 0.3 % (0-1); Eosinophil# 0.04 X10^3/uL; Eosinophils% 0.4 % (0-5); Hematocrit 37.2 % (37-47); Hemoglobin 12.4 g/dL (12.0-15.0); Lymphocyte # 1.88 X10^3/ul (0.83-4.51); Lymphocyte % 19.5 % (19-41); Mean Corp Hgb Conc 33.3 g/dL (32-36); Mean Corpuscular Hgb 30.6 pg (27.0-32.0); Mean Corpuscular Volume 91.9 fL (81-99); Mean Platelet Vol. 10.7 fl (6.2-12.0); Monocyte# 0.64 X10^3/uL; Monocyte% 6.6 % (0-10); NRBC Flagged by Analyzer 0 % (0-5); Neutrophil # 6.98 X10^3/uL (2.7-7.7); Neutrophil % 72.4 % (47-70); Platelet Count 264 K/mm3 (150-450); RBC Distribution Width CV 13.2 % (11.6-14.6); RBC Distribution Width SD 43.8 fl (35.1-43.9); Red Blood Count 4.05 M/mm3 (4.2-5.4); White Blood Count 9.7 K/mm3 (4.4-11.0)
[2021-12-10] MEDS: Magnesium Sulfate 4gm/100mL 4 GM/100 ML IV.SOLN. IV (16:38)
[2021-12-10 16:41] LABS: AST(SGOT) 34 U/L (15-37); Alanine Aminotransfer ALT/SGPT 25 U/L (13-56); Creatinine, Serum 0.91 mg/dL (0.55-1.02); EST Glomerular Filtration Rate 72 mL/min (>60); Est Glom Filt Rate - Afr Amer 87 mL/min (>60); Estimated Creatinine Clearance 69.54 ml/min; Uric Acid 5.7 mg/dL (2.6-6.0)
[2021-12-10] MEDS: Labetalol (Prefilled) 20 MG/4 ML IV (16:42)
[2021-12-10] MEDS: Magnesium Sulfate 4gm/100mL 2 GM/50 ML IV.SOLN. IV (16:58)
[2021-12-10 17:03] LABS: Protein, Urine (Random) 44.2 mg/dL (<11.9); Protein:Creat Ratio 362 mg/g CRE (0-200)
[2021-12-10] MEDS: Magnesium Sulfate 20 GM/500 ML BAG IV (17:10)
[2021-12-10] MEDS: miSOPROStol 25 MCG TABLET PO ×2 (17:33→21:39)
[2021-12-10] MEDS: Labetalol 100 MG Tablet PO (19:32)
--- NOTE | 2021-12-10 19:52 | PCM.HP.BLA ---
History and Physical Date of Admission: 12/10/21 Chief complaint: Induction of labor preeclampsia with severe features History of present illness: 41-year-old at 37 weeks and 2 days with ARIANA 12/29/2021 by LMP arrives for induction of labor with preeclampsia with severe features based on severe range blood pressures. Denies headache, visual changes, chest pain, shortness of breath, nausea vomiting, right upper quadrant pain. Patient states good movement. is complicated by AMA negative NIPT Centric history: G1: SAB G2: SAB G3: 35-week male 11/2017 G4: Current Past medical history: None Medications: None Past surgical history: D&C, cystectomy, allergies: No known drug allergies none social history: Denies smoking, alcohol use, drug use Family history: Denies history of VTE or PE Review of systems: Besides above pertinent positives a full review of systems was performed and found to be negative Physical exam: Vital signs: Blood pressure 153/94 pulse 88 respiratory rate 16 SPO2 99% on room air General: Normal-appearing no acute distress none HEENT: Normocephalic atraumatic no cervical of adenopathy Cardiac/respiratory: Nasal accessory muscles, nonlabored breathing Abdomen: Soft, nontender, gravid Extremities: No peripheral edema normal peripheral pulses Psych: Normal affect normal demeanor nonpressured speech Labs: White blood cell count 9.7 hemoglobin 12.4 hematocrit 37.2% platelets 264. Creatinine 0.91. AST 34 ALT 25 Assessment plan: 41-year-old at 37 weeks and 2 days for induction of labor for preeclampsia with severe features Admit labor and delivery CEFM GBS negative Cytotec induction Preeclampsia with severe features based on blood pressures: Labetalol 20 mg IV given. Labetalol 100 mg twice daily started. We will continue to monitor symptoms. Magnesium started and will continue, for mag level to be drawn
[2021-12-11] VITALS (62 sets, daily range): BP systolic 102–161; BP diastolic 53–94; PULSE 76–117; RESP 15–18; TEMP 36.1–37.1; O2SAT 81–100
[2021-12-11] MEDS: miSOPROStol 25 MCG TABLET PO ×3 (01:19→10:05)
[2021-12-11] MEDS: Magnesium Sulfate 20 GM/500 ML BAG IV ×2 (03:15→13:31)
[2021-12-11 04:56] LABS: Magnesium 6.8 mg/dL (1.6-2.6)
--- NOTE | 2021-12-11 06:42 | PN.OBGYN_ITS ---
Subjective Subjective No complaints Objective Data Objective Data Vital Signs: Vital Signs Temp Pulse Resp BP Pulse Ox 97.0 F L 91 18 121/69 H 96 12/11/21 05:41 12/11/21 05:42 12/11/21 05:49 12/11/21 05:42 12/11/21 05:42 Oxygen Delivery Method Room Air Weight: 214 lb 15.211 oz Body Mass Index (BMI) 36.8 Intake & Output: Intake and Output for Last 24 Hours 12/09/21 12/10/21 12/11/21 23:59 23:59 23:59 Intake Total 662.5 / 662.5 1150.00 / 1150.00 Output Total 400 / 400 400 / 400 Balance 262.5 / 262.5 750.00 / 750.00 Lab / Micro Data Result Diagrams: 12/10/21 15:45 12/10/21 15:45 Labs: Laboratory Results - last 24 hr 12/10/21 15:45: WBC 9.7, RBC 4.05 L, Hgb 12.4, Hct 37.2, MCV 91.9, MCH 30.6, MCHC 33.3, RDW Std Deviation 43.8, RDW Coeff of Bety 13.2, Plt Count 264, MPV 10.7, Immature Gran % (Auto) 0.800, Neut % (Auto) 72.4 H, Lymph % (Auto) 19.5, [place] % (Auto) 6.6, Eos % (Auto) 0.4, Baso % (Auto) 0.3, Absolute Neuts (auto) 7.0, Absolute Lymphs (auto) 1.88, Nucleated RBC % 0 12/10/21 15:45: Blood Type A POSITIVE, Antibody Screen NEGATIVE 12/10/21 15:45: Creatinine 0.91, Estim Creat Clear Calc 69.54, Est GFR (MDRD) Af Amer 87, Est GFR (MDRD) Non-Af 72, Uric Acid 5.7, AST 34, ALT 25 12/10/21 16:40: U Random Total Protein 44.2 H, Urine Creatinine 122.00, Protein/Creatinin Ratio 362 H 12/10/21 22:15: Magnesium 6.0 H* 12/11/21 04:15: Magnesium 6.8 H* Micro: Microbiology 04/28/22 15:50 Nasal Secretion SARS-CoV-2 Antigen (Rapid) - Final Physical Exam Const alert, oriented x3, no apparent distress, average body habitus, healthy appearing and well nourished HEENT normocephalic and moist oral mucous membranes Head and Scalp: atraumatic Face and Sinus: normal facial exam Resp normal respiratory effort, no retractions and no use of accessory muscles Extremity normal to inspection and full ROM Psych mental status grossly normal, affect normal, speech normal and activity/motor behavior normal Assessment & Plan (1) : PLAN: Patient seen and examined. Asymptomatic. Blood pressures nonsevere range. Continue Cytotec induction will consider AROM. Continue magnesium
[2021-12-11] MEDS: Labetalol 100 MG Tablet PO ×2 (09:59→21:31)
[2021-12-11 11:19] LABS: Magnesium 7.8 mg/dL (1.6-2.6)
--- NOTE | 2021-12-11 12:29 | PN.OBGYN_ITS ---
Subjective Subjective No complaints Objective Data Objective Data Vital Signs: Vital Signs Temp Pulse Resp BP Pulse Ox 97.4 F L 86 15 147/93 H 100 12/11/21 12:09 12/11/21 12:09 12/11/21 07:15 12/11/21 12:09 12/11/21 12:09 Oxygen Delivery Method Room Air Weight: 214 lb 15.211 oz Body Mass Index (BMI) 36.8 Intake & Output: Intake and Output for Last 24 Hours 12/09/21 12/10/21 12/11/21 23:59 23:59 23:59 Intake Total 662.5 / 662.5 2175.00 / 2175.00 Output Total 400 / 400 1050 / 1050 Balance 262.5 / 262.5 1125.00 / 1125.00 Lab / Micro Data Result Diagrams: 12/10/21 15:45 12/10/21 15:45 Labs: Laboratory Results - last 24 hr 12/10/21 15:45: WBC 9.7, RBC 4.05 L, Hgb 12.4, Hct 37.2, MCV 91.9, MCH 30.6, MCHC 33.3, RDW Std Deviation 43.8, RDW Coeff of Bety 13.2, Plt Count 264, MPV 10.7, Immature Gran % (Auto) 0.800, Neut % (Auto) 72.4 H, Lymph % (Auto) 19.5, [place] % (Auto) 6.6, Eos % (Auto) 0.4, Baso % (Auto) 0.3, Absolute Neuts (auto) 7.0, Absolute Lymphs (auto) 1.88, Nucleated RBC % 0 12/10/21 15:45: Blood Type A POSITIVE, Antibody Screen NEGATIVE 12/10/21 15:45: Creatinine 0.91, Estim Creat Clear Calc 69.54, Est GFR (MDRD) Af Amer 87, Est GFR (MDRD) Non-Af 72, Uric Acid 5.7, AST 34, ALT 25 12/10/21 16:40: U Random Total Protein 44.2 H, Urine Creatinine 122.00, Protein/Creatinin Ratio 362 H 12/10/21 22:15: Magnesium 6.0 H* 12/11/21 04:15: Magnesium 6.8 H* 12/11/21 10:50: Magnesium 7.8 H* Micro: Microbiology 12/10/21 15:50 Nasal Secretion SARS-CoV-2 Antigen (Rapid) - Final Physical Exam Const alert, oriented x3, no apparent distress, average body habitus, healthy appearing and well nourished Exam Limitations: no limitations and altered mental status HEENT normocephalic Resp normal respiratory effort, no retractions and no use of accessory muscles Narrative: Cervical exam /. AROM clear fluid Extremity normal to inspection, full ROM and no clubbing, cyanosis or edema Psych mental status grossly normal, affect normal, speech normal and activity/motor behavior normal Assessment & Plan (1) : PLAN: Patient seen and examined. AROM clear fluid. Will switch to Pitocin induction
[2021-12-11] MEDS: Oxytocin 30 units/NS 500 ml 30 UNITS/500 ML IV.SOLN IV (15:00)
--- NOTE | 2021-12-11 17:07 | PCM.PN.OB ---
Subjective Subjective laying comfortably in bed Objective Data Objective Data Vital Signs: Vital Signs Temp Pulse Resp BP Pulse Ox 97.9 F 99 15 140/80 H 100 12/11/21 17:00 12/11/21 17:01 12/11/21 07:15 12/11/21 17:00 12/11/21 17:01 Oxygen Delivery Method Room Air Weight: 214 lb 15.211 oz Body Mass Index (BMI) 36.8 Intake & Output: Intake and Output for Last 24 Hours 12/09/21 12/10/21 12/11/21 23:59 23:59 23:59 Intake Total 662.5 / 662.5 3115.26 / 3115.26 Output Total 400 / 400 1150 / 1150 Balance 262.5 / 262.5 1965. / 1965. Lab / Micro Data Result Diagrams: 12/10/21 15:45 12/10/21 15:45 Labs: Laboratory Results - last 24 hr 12/10/21 15:45: Blood Type A POSITIVE, Antibody Screen NEGATIVE 12/10/21 22:15: Magnesium 6.0 H* 12/11/21 04:15: Magnesium 6.8 H* 12/11/21 10:50: Magnesium 7.8 H* Micro: Microbiology 12/10/21 15:50 Nasal Secretion SARS-CoV-2 Antigen (Rapid) - Final Physical Exam Const alert, oriented x3, no apparent distress, average body habitus, healthy appearing and well nourished HEENT normocephalic and moist oral mucous membranes Head and Scalp: atraumatic Face and Sinus: normal facial exam Neck full ROM Resp normal respiratory effort, no retractions and no use of accessory muscles Extremity normal to inspection, full ROM and no clubbing, cyanosis or edema Psych mental status grossly normal, affect normal, speech normal and activity/motor behavior normal Assessment & Plan (1) : PLAN: Pt seen and examined. To titrate pitocin
[2021-12-11 17:57] LABS: Magnesium 7.2 mg/dL (1.6-2.6)
[2021-12-11] MEDS: Lactated Ringers 500 ML 999 ML IV (21:30)
[2021-12-11] MEDS: fentaNYL-bupivacaine (epidural) 100 ML BAG EPIDURAL (22:31)
--- NOTE | 2021-12-11 23:28 | NURSING ---
pt epiduralized at this time
[2021-12-12] VITALS (54 sets, daily range): BP systolic 95–136; BP diastolic 52–75; PULSE 78–105; RESP 16–22; TEMP 36.5–37.3; O2SAT 94–100
[2021-12-12 00:51] LABS: Magnesium 6.2 mg/dL (1.6-2.6)
[2021-12-12] MEDS: Ondansetron 4 MG/2 ML Vial IV (01:39)
[2021-12-12] MEDS: Oxytocin 30 units/NS 500 ml 30 UNITS/500 ML IV.SOLN 334 UNITS IV (02:04)
[2021-12-12] MEDS: Carboprost Tromethamine 250 MCG/ML Ampul IM (02:08)
[2021-12-12] MEDS: miSOPROStol 200 MCG Tablet 1000 MCG RC (02:16)
[2021-12-12] MEDS: Lactated Ringers 1,000 ML 999 ML IV (02:26)
--- NOTE | 2021-12-12 02:28 | EX.PCM.OBRPT ---
Vaginal Delivery Findings Description of Procedure: Normal spontaneous vaginal delivery of a viable female , vertex RENETTA. Head and shoulders delivered with ease. Cord cut clamped. Baby handed off to patient. Cord avulsion, manual extraction of placenta. Second-degree midline perineal laceration noted and repaired in typical fashion. EBL 400 cc Apgars 7/8 prophylactic Cytotec 1000 g [place] and Hemabate 0.25 mg IM given
[2021-12-12] MEDS: Ibuprofen 600 MG Tablet PO ×2 (05:47→14:47)
[2021-12-12 06:59] LABS: Magnesium 6.6 mg/dL (1.6-2.6)
--- NOTE | 2021-12-12 07:15 | NURSING ---
bedside report given to Derrick Mcgrath RN who is assuming care of pt at this time
--- NOTE | 2021-12-12 07:43 | PCM.PN.OB ---
Subjective Subjective No complaints Objective Data Objective Data Vital Signs: Vital Signs Temp Pulse Resp BP Pulse Ox 98.9 F 94 20 H 118/69 95 12/12/21 06:24 12/12/21 06:25 12/12/21 06:24 12/12/21 06:25 12/12/21 06:24 Oxygen Delivery Method Room Air Weight: 214 lb 15.211 oz Body Mass Index (BMI) 36.8 Intake & Output: Intake and Output for Last 24 Hours 12/10/21 12/11/21 12/12/21 23:59 23:59 23:59 Intake Total 662.5 / 662.5 4565.85 / 4565.85 2104.34 / 2104.34 Output Total 400 / 400 1375 / 1375 650 / 650 Balance 262.5 / 262.5 3190.85 / 3190.85 1454.34 / 1454.34 Lab / Micro Data Result Diagrams: 12/10/21 15:45 12/10/21 15:45 Labs: Laboratory Results - last 24 hr 12/11/21 10:50: Magnesium 7.8 H* 12/11/21 17:30: Magnesium 7.2 H* 12/12/21 00:14: Magnesium 6.2 H* 12/12/21 06:30: Magnesium 6.6 H* Micro: Microbiology 12/10/21 15:50 Nasal Secretion SARS-CoV-2 Antigen (Rapid) - Final Physical Exam Const alert, oriented x3, no apparent distress, average body habitus, healthy appearing and well nourished HEENT normocephalic and moist oral mucous membranes Head and Scalp: atraumatic Face and Sinus: normal facial exam Neck full ROM Resp normal respiratory effort, no retractions and no use of accessory muscles Extremity normal to inspection, full ROM and no clubbing, cyanosis or edema Psych mental status grossly normal, affect normal, speech normal and activity/motor behavior normal Assessment & Plan (1) : PLAN: day 0. Breast-feeding. Preeclampsia with severe features based on severe range blood pressures on labetalol 100 mg twice daily. We will continue magnesium for 24 hours after delivery. Remains asymptomatic.
[2021-12-12] MEDS: Magnesium Sulfate 20 GM/500 ML BAG IV (08:38)
[2021-12-12] MEDS: Labetalol 100 MG Tablet PO (09:47)
[2021-12-12] MEDS: Acetaminophen 500 MG Tablet 1000 MG PO ×2 (09:55→22:21)
--- NOTE | 2021-12-12 10:21 | CASEMGMT ---
Social Work Assessment, brief Labor and Delivery Unit Date/Time of referral: 12/12/21, 5:15am Referred by: Dr. Alejandro Chand Deniz/Time of Intervention: 12/12/21, 10am Reason for referral: history of anxiety, takes Zoloft History obtained from: MOB and FOB Household composition: MOB, FOB, Son Andrae(age 4), and now daughter Kateryna. MOB and FOB have been together for 16 years Parent guardian status: MOB and FOB are guardians of both children Medical History: MOB: anxiety, pre-eclampsia, advanced maternal age. Baby: Baby Kateryna born 12/12/21 at 1:58am, Apgars 7 and 8 at one and 5 minutes, 3530 grams. Infant had decreased tone at delivery. Field Traffic Investigator: Dr. 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 supplies: They have all needed supplies including car seat, clothing, diapers, bassinet, crib. MOB plans to breast feed. Childcare/caregivers: MOB, FOB, and they will have a military equipment specialist when MOB returns to work. They will be working on getting a new military equipment specialist as their military equipment specialist is about to have a baby herself. Transportation: They have 2 vehicles Programs/Agencies involved: None Children's services/legal issues: None Behavioral Health history: FOB--none. MOB-- has anxiety. She states just started back on Zoloft last month. She always had some anxiety, it got worse after the of their first child. She started Zoloft at that time, stopped during , was able to start back one month ago. She has not been in counseling in the past. MOB explains she gets anxious about something happening to the children. Substance Abuse: no history. No drug screens for MOB or baby Family/Social Stressors: None reported Support Systems: Maternal and Paternal grandparents, aunts, and uncles Depression and anxiety/safe sleeping/shaken baby/Help Me Grow/list of counseling agencies/[facility] Resources: Information given on all topics and reviewed. SW did point out the 24 hour hotline with [facility] if needed. Assessment: MOB and FOB appropriate, answered all questions appropriately. SW did review warning signs of anxiety and depression with MOB and FOB, SW encouraged MOB to seek counseling should she have increased symptoms. MOB states the Zoloft really does help. She states after the of her first child she spoke to someone from her insurance a couple of times and that was helpful. states they have an EAP through his employer they could also use if needed. We reviewed grounding techniques and spoke about the importance of having good coping mechanisms. We also reviewed warning signs of anxiety should it get to be debilitating. MOB and FOB open to the idea of counseling if needed. MOB and FOB both state understanding. No additional social service concerns at this time. Plan: Baby Kateryna home with MOB and FOB when ready for discharge. OLIVIER Norman
[2021-12-12 12:53] LABS: Magnesium 6.4 mg/dL (1.6-2.6)
[2021-12-12 18:42] LABS: Magnesium 6.4 mg/dL (1.6-2.6)
[2021-12-12] MEDS: Sertraline 50 MG Tablet 25 MG PO (21:13)
[2021-12-13] VITALS (10 sets, daily range): BP systolic 113–128; BP diastolic 61–80; PULSE 81–102; RESP 16–21; TEMP 36.6–37.4; O2SAT 95–98
[2021-12-13] MEDS: Ibuprofen 600 MG Tablet PO ×2 (00:33→06:33)
[2021-12-13 01:13] LABS: Magnesium 5.9 mg/dL (1.6-2.6)
[2021-12-13] MEDS: 0.9% Saline Lock 10 ML Syringe IV (01:58)
[2021-12-13] MEDS: Acetaminophen 500 MG Tablet 1000 MG PO (06:33)
--- NOTE | 2021-12-13 07:20 | NURSING ---
bedside report given to Tyler Lozada RN who is assuming care of pt at this time
--- NOTE | 2021-12-13 08:36 | PCM.DC.BLA ---
Discharge Summary Date of Admission: 12/10/21 Date of Discharge: 12/13/21 Summary: Patient arrived on 12/10/2021 for induction of labor with preeclampsia with severe features based on severe range blood pressures given 20 mg IV labetalol. And started on labetalol 100 mg p.o. twice daily. Magnesium was started and ran for 24 hours after delivery. Patient subsequently delivered vaginally on 12/12/2021. Magnesium was continued for 24 hours. Patient remained asymptomatic and blood pressures remained well controlled. Labetalol 100 mg p.o. twice daily was continued. Patient's baby was shipped to [facility] for apneic episodes. Patient desired to be discharged based on baby's condition and location. Risk benefits alternatives were discussed including risk of stroke heart attack and with day 3 today for rise in blood pressures. Patient states will be reliable to take at home blood pressures and follow-up in 1 day for blood pressure check in office. Reasonable, patient discharged home on labetalol 100 mg twice daily p.o. on 12/13/2021 Meaningful Use Info Meaningful Use Diagnoses (Choose all that apply): None applicable Discharge Plan Admission Admit Date/Time: 12/10/21 15:15 Primary Reason for Your Visit: Induction of labor for preeclampsia with severe features Attending Provider: Alejandro Chand Primary Care Provider: Michelle Lombardo Instructions Additional Instructions / Restrictions: Okay for regular diet. Okay for showers. Do not drive for 1 week until blood pressure is well controlled. No intercourse for 4 to 6 weeks. Weightbearing as tolerated. Call if headache, visual changes, chest pain, shortness of breath, right upper quadrant pain, increased vaginal bleeding. Follow-up 1 day for blood pressure check Discharge Orders/Prescriptions Prescriptions: New labetalol 100 mg Tablet 100 mg PO BID Qty: 60 RF: 1 Continued calcium carb-D3-mag [id number] [phone] [id number]-mg tablet 1 tab PO DAILY RF: 0 aspirin 81 mg tablet,delayed release (DR/EC) 81 mg PO DAILY RF: 0 Prenatabs FA 29-1 mg Tablet 1 tab PO DAILY RF: 0 sertraline 25 mg tablet 25 mg PO DAILY RF: 0 Referrals / Follow Up: Michelle Lombardo MD [Primary Care Provider] - Disposition Disposition (needs filled in before D/C Order can be placed): Home, Self Care
--- NOTE | 2021-12-13 08:40 | PCM.PN.OB ---
Subjective Subjective No voiding complaints, denies headache, visual changes, chest pain, shortness of breath, nausea vomiting, right upper quadrant pain. Objective Data Objective Data Vital Signs: Vital Signs Temp Pulse Resp BP Pulse Ox 97.8 F 102 H 16 128/80 H 96 12/13/21 08:04 12/13/21 08:05 12/13/21 08:04 12/13/21 08:04 12/13/21 08:05 Oxygen Delivery Method Room Air Weight: 214 lb 15.211 oz Body Mass Index (BMI) 36.8 Intake & Output: Intake and Output for Last 24 Hours 12/11/21 12/12/21 12/13/21 23:59 23:59 23:59 Intake Total 4565.85 / 4565.85 4431.84 / 4431.84 778.33 / 778.33 Output Total 1375 / 1375 3250 / 3250 Balance 3190.85 / 3190.85 1181.84 / 1181.84 778.33 / 778.33 Lab / Micro Data Result Diagrams: 12/10/21 15:45 12/10/21 15:45 Labs: Laboratory Results - last 24 hr 12/12/21 12:20: Magnesium 6.4 H* 12/12/21 18:15: Magnesium 6.4 H* 12/13/21 00:26: Magnesium 5.9 H* Micro: Microbiology 12/10/21 15:50 Nasal Secretion SARS-CoV-2 Antigen (Rapid) - Final Physical Exam Const alert, oriented x3, no apparent distress, average body habitus, healthy appearing and well nourished HEENT normocephalic and moist oral mucous membranes Head and Scalp: atraumatic Face and Sinus: normal facial exam Eyes PERRL Neck full ROM Resp normal respiratory effort, no retractions and no use of accessory muscles GI GI Narrative: Soft, nontender, uterus firm and below umbilicus Extremity normal to inspection, full ROM and normal capillary refill Psych mental status grossly normal, thought process normal, cooperative and affect normal Assessment & Plan (1) : PLAN: day 1. Breast-feeding. Preeclampsia with severe features based on severe range blood pressures, status post magnesium 24 hours . Currently on labetalol 100 mg twice daily. Asymptomatic. Patient's baby was shipped to [facility] for apneic episodes. Patient desires to be discharged based on baby's condition and location. Risk benefits alternatives were discussed including risk of stroke heart attack and with day 3 today for rise in blood pressures. Understands my recommendation is to stay until day 3 or day for . Patient states understanding. Patient states will be reliable to take at home blood pressures and follow-up in 1 day for blood pressure check in office. Reasonable, patient to discharge home on labetalol 100 mg twice daily p.o. on 12/13/2021
--- NOTE | 2021-12-19 10:17 | NURSING ---
Follow up call done, mother reports they are home now (*D/c from NICU late evening) is going well. Reports having some shoulder problems she thinks from pushing or moving around in bed wrong and said it is getting better though, encouraged her to inform a Dr. Was very satisfied with her care and the care of her labornurse.
== END 2021-12-13 09:28 | disposition home or self-care (01) | DRG 807 ==
PROVIDERS: Obstetrics & Gynecology; Admitting Provider Obstetrics & Gynecology; PCP Internal Medicine; Visit Provider Obstetrics & Gynecology
DX: O14.14 Severe pre-eclampsia complicating childbirth (principal); Z37.0 Single live birth; O99.344 Other mental disorders complicating childbirth; F41.9 Anxiety disorder, unspecified; O70.1 Second degree perineal laceration during delivery; Z3A.37 37 weeks gestation of pregnancy; Z79.899 Other long term (current) drug therapy; Z79.82 Long term (current) use of aspirin; Z87.440 Personal history of urinary (tract) infections
CPT/HCPCS: 36415; 59025; 59050; 82565; 82570; 83735; 84156; 84450; 84460; 84550; 85025; 86850; 86900; 86901; 87426; 99218; J7120; A4216; G0378; J2405

== ENCOUNTER → 2021-12-21 | Outpatient (CLI) | payer OTHER, SELFPAY | END | disposition home or self-care (01) | LOC: LABSPEC 11:20 | PROVIDERS: PCP Internal Medicine; Referring Provider Obstetrics & Gynecology; Visit Provider Obstetrics & Gynecology | DX: R30.0 Dysuria (principal) | CPT/HCPCS: 87077; 87086; 87088; 87186 ==

== ENCOUNTER → 2022-01-21 | Outpatient (CLI) | payer OTHER, SELFPAY ==
[2022-01-25 20:04] LABS: HPV Reflexed? NOT INDICATED
== END | disposition home or self-care (01) ==
PROVIDERS: PCP Internal Medicine; Visit Provider Obstetrics & Gynecology
DX: Z12.4 Encounter for screening for malignant neoplasm of cervix (principal)
CPT/HCPCS: 88175; G0145

== ENCOUNTER 2022-02-03 10:00 | Outpatient (RCR) | payer OTHER, SELFPAY ==
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
--- NOTE | 2022-02-03 10:49 | HP.PTDCSUM_ITS ---
It has been my pleasure to treat JESSE WESTON referred by Dr. Harinder Johnson MD, with the diagnosis of RIGHT SHLD PAIN for a total of 11 visit(s). Discharge Date: 02/03/22 Please see the following information for a summary of their discharge status. Subjective: PATIENT REPORTS SHE IS DOING REALLY GOOD AND WOULD LIKE TO BE DISCHARGED DUE TO THE VERY HIGH GAS PRICES IF THAT IS OK. DENIES PAIN AND REPORTS IT JUST FEELS TIGHT WHEN SHE STRETCHES ALL THE WAY. RIGHT SHLD Pain Intensity (Out of 10): 0 % Improvement: 90 Objective/Function: PATIENT WAS SEEN TODAY FOR RE-ASSESSMENT OF PROGRESS TOWARD THE SET PT GOALS AND THE NEED FOR FURTHER PHYSICAL THERAPY VS READINESS FOR DI SCHARGE. PATIENT IS MAKING GOOD PROGRESS TOWARD ALL PT GOALS AND PATIENT IS APPROPRIATE FOR DISCHARGE. SHE STILL HAS END-RANGE TIGHTNESS INTO ER AND HAS APPROX 10% IR RESTRICTION COMPARED TO UNINVOLVED SIDE BUT THIS IMPROVES WITH STRETCHING. INSTRUCTED PATIENT TO ADD SLEEPER STRETCH TO HEP. ALSO INSTRUCTED IN DOORWAY ER STRETCHING FOR HEP. RIGHT SHLD STRENGTH 5/5 WITH MMT'ING TODAY WITHOUT C/O PAIN. Goal 1:: DECREASE C/O RIGHT UE PAIN Goal Progress: Goal Met Goal 2:: INCREASE RIGHT UE PAINFREE ACTIVE AND PASSIVE ROM TO FULL Goal Progress: Progressing Goal 3:: INCREASE RIGHT UE STRENGTH TO 5/5. Goal Progress: Progressing Goal 4:: PATIENT WILL BE INDEP WITH A HEP FOR CONTINUED IMPROVEMENT ONCE FORMAL PHYSICAL THERAPY CONCLUDES. Goal Progress: Goal Met Plan: D/C TO HEP. PATIENT AGREEABLE. If there are questions or concerns regarding this patient's physical therapy, please feel free to call me at [phone]. Thank you for the referral of this patient. Sincerely, Malorie Concepcion, PT, Cert MDT Balance/Gait/Functional tests - Balance/Special Test Scores Quick DASH Score: 13.6331
== END 2022-02-03 14:36 | disposition home or self-care (01) ==
LOC: PT 10:00
PROVIDERS: PCP Internal Medicine; Referring Provider Obstetrics & Gynecology; Visit Provider Obstetrics & Gynecology
DX: M25.511 Pain in right shoulder (principal)
CPT/HCPCS: 97110; 97161; 97164; 97530

== ENCOUNTER → 2022-12-23 | Outpatient (CLI) | payer OTHER, SELFPAY ==
[2022-12-23 12:21] LABS: Absolute Lymphocyte Count 2.27 X10^3/uL (0.83-4.51); Absolute Neutrophil Count 4.2 X10^3/uL (2.0-7.7); Basophil# 0.03 X10^3/uL; Basophil% 0.4 % (0-1); Eosinophil# 0.12 X10^3/uL; Eosinophils% 1.7 % (0-5); Hematocrit 41.9 % (37-47); Hemoglobin 13.6 g/dL (12.0-15.0); Lymphocyte # 2.27 X10^3/ul (0.83-4.51); Lymphocyte % 32.2 % (19-41); Mean Corp Hgb Conc 32.5 g/dL (32-36); Mean Corpuscular Hgb 29.8 pg (27.0-32.0); Mean Corpuscular Volume 91.9 fL (81-99); Mean Platelet Vol. 9.1 fl (6.2-12.0); Monocyte# 0.42 X10^3/uL; Monocyte% 5.9 % (0-10); NRBC Flagged by Analyzer 0 % (0-5); Neutrophil % 59.5 % (47-70); Platelet Count 348 K/mm3 (150-450); RBC Distribution Width CV 12.1 % (11.6-14.6); RBC Distribution Width SD 40.8 fl (35.1-43.9); Red Blood Count 4.56 M/mm3 (4.2-5.4); White Blood Count 7.1 K/mm3 (4.4-11.0)
[2022-12-23 12:57] LABS: ALB/GLOB Ratio 0.8 RATIO (0.9-2.4); AST(SGOT) 20 U/L (15-37); Alanine Aminotransfer ALT/SGPT 25 U/L (13-56); Albumin, Serum 3.6 g/dL (3.2-5.0); Alkaline Phosphatase 107 U/L (45-117); Anion Gap 7 (5-15); BUN 16 mg/dL (7-18); BUN/Creat Ratio 20.8 RATIO (10-20); Calcium,Total 9.1 mg/dL (8.5-10.1); Chloride 108 mmol/L (98-107); Cholesterol 170 mg/dL (200); Creatinine, Serum 0.77 mg/dL (0.55-1.02); EST Glomerular Filtration Rate 87 mL/min (>60); Est Glom Filt Rate - Afr Amer 105 mL/min (>60); Globulin 4.4 g/dL (2.2-4.2); Glucose 90 mg/dL (74-106); High Density Lipoprotein 59 mg/dL; Potassium 4.5 mmol/L (3.5-5.1); Sodium Level 136 mmol/L (136-145); Thyroid Stim Hormone (TSH) 1.41 uIU/mL (0.358-3.74); Triglycerides 65 mg/dL; Very Low Density Lipoprotein 13 mg/dL (5-40)
== END | disposition home or self-care (01) ==
LOC: BIMLAB 10:05
PROVIDERS: PCP Internal Medicine; Referring Provider Nurse Practitioner Family; Visit Provider Nurse Practitioner Family
DX: Z00.00 Encounter for general adult medical examination without abnormal findings (principal)
CPT/HCPCS: 36415; 80053; 80061; 84443; 85025

== ENCOUNTER → 2023-09-28 | Outpatient (CLI) | payer OTHER, SELFPAY ==
--- OUTSIDE RECORDS SUMMARY | 2023-09-28 12:29 | XMS RPT_ITS | CCD ---
Author Name Unknown Address [address] [place] [address] Organization [facility] Results Test Name Value Interpretation Reference Range Facil ity Summary Purpose Family History No Family History Records Found Advance Directives No Advanced Directives Records Found Additional Source Comments INFORMATION SOURCE (unrecogn ized section and content) FOR RECORDS PERTAINING TO PATIENTS WHO ARE OR HAVE BEEN ENROLLED IN A CHEMICAL DEPENDENCY/SUBSTANCEABUSE PROGRAM, SOME INFORMATION MAY BE OMITTED. This clinical summary was aggregated from multiple sources. Caution should be exercised in using it in the provision of clinical care. This summary normalizes information from multiple sources, and as a consequence, information in this document may materially change the coding, format and clinical context of patient data. In addition, data may be omitted in some cases. CLINICAL DECISIONS SHOULD BE BASED ON THE PRIMARY CLINICAL RECORDS. [employer] provides no warranty or guarantee of the accuracy or completeness of information in this document.
[2023-09-28 15:28] LABS: Absolute Lymphocyte Count 2.32 X10^3/uL (0.83-4.51); Absolute Neutrophil Count 3.9 X10^3/uL (2.0-7.7); Basophil# 0.04 X10^3/uL; Basophil% 0.6 % (0-1); Eosinophil# 0.22 X10^3/uL; Eosinophils% 3.2 % (0-5); Hematocrit 41.3 % (37-47); Hemoglobin 13.1 g/dL (12.0-15.0); Lymphocyte # 2.32 X10^3/ul (0.83-4.51); Lymphocyte % 33.3 % (19-41); Mean Corp Hgb Conc 31.7 g/dL (32-36); Mean Corpuscular Hgb 28.4 pg (27.0-32.0); Mean Corpuscular Volume 89.4 fL (81-99); Mean Platelet Vol. 9.5 fl (6.2-12.0); Monocyte# 0.51 X10^3/uL; Monocyte% 7.3 % (0-10); NRBC Flagged by Analyzer 0 % (0-5); Neutrophil # 3.85 X10^3/uL (2.7-7.7); Neutrophil % 55.3 % (47-70); Platelet Count 342 K/mm3 (150-450); RBC Distribution Width CV 13.2 % (11.6-14.6); RBC Distribution Width SD 43.6 fl (35.1-43.9); Red Blood Count 4.62 M/mm3 (4.2-5.4)
[2023-09-28 16:25] LABS: AST(SGOT) 20 U/L (15-37); Alanine Aminotransfer ALT/SGPT 25 U/L (13-56); Albumin, Serum 3.9 g/dL (3.2-5.0); Alkaline Phosphatase 96 U/L (45-117); Anion Gap 3 (5-15); BUN 14 mg/dL (7-18); BUN/Creat Ratio 20.4 RATIO (10-20); Calcium,Total 9.8 mg/dL (8.5-10.1); Chloride 105 mmol/L (98-107); Cholesterol 180 mg/dL (200); Creatinine, Serum 0.69 mg/dL (0.55-1.02); EST Glomerular Filtration Rate 99 mL/min (>60); Est Glom Filt Rate - Afr Amer 120 mL/min (>60); Globulin 3.9 g/dL (2.2-4.2); Glucose 89 mg/dL (74-106); High Density Lipoprotein 56 mg/dL; Potassium 4.6 mmol/L (3.5-5.1); Protein, Total 7.8 g/dL (6.4-8.2); Sodium Level 137 mmol/L (136-145); Triglycerides 93 mg/dL; Very Low Density Lipoprotein 19 mg/dL (5-40)
== END | disposition home or self-care (01) ==
LOC: BIMLAB 12:11
PROVIDERS: PCP Internal Medicine; Visit Provider Internal Medicine
DX: Z00.00 Encounter for general adult medical examination without abnormal findings (principal)
CPT/HCPCS: 36415; 80053; 80061; 85025

== ENCOUNTER → 2024-05-08 | Outpatient (CLI) | payer OTHER, SELFPAY ==
[2024-05-08 13:36] LABS: Vitamin B12 743 pg/mL (211-911); Vitamin D,25 Hydroxy 23.9 ng/mL
[2024-05-08 14:02] LABS: ALB/GLOB Ratio 0.8 RATIO (0.9-2.4); AST(SGOT) 14 U/L (15-37); Alanine Aminotransfer ALT/SGPT 24 U/L (13-56); Albumin, Serum 3.4 g/dL (3.2-5.0); Alkaline Phosphatase 86 U/L (45-117); Anion Gap 5 (5-15); BUN 18 mg/dL (7-18); BUN/Creat Ratio 24.5 RATIO (10-20); Calcium,Total 9.2 mg/dL (8.5-10.1); Chloride 108 mmol/L (98-107); Creatinine, Serum 0.74 mg/dL (0.55-1.02); EST Glomerular Filtration Rate 91 mL/min (>60); Est Glom Filt Rate - Afr Amer 110 mL/min (>60); Globulin 4.1 g/dL (2.2-4.2); Glucose 93 mg/dL (74-106); Potassium 3.9 mmol/L (3.5-5.1); Protein, Total 7.5 g/dL (6.4-8.2); Sodium Level 137 mmol/L (136-145); T4 Free Direct 0.99 ng/dL (0.76-1.46)
[2024-05-14 11:08] LABS: HPV APTIMA, High Risk Negative (Negative)
== END | disposition home or self-care (01) ==
PROVIDERS: PCP Internal Medicine; Referring Provider Nurse Practitioner Family; Visit Provider Nurse Practitioner Family
DX: N95.1 Menopausal and female climacteric states (principal); Z13.29 Encounter for screening for other suspected endocrine disorder; Z13.21 Encounter for screening for nutritional disorder
CPT/HCPCS: 36415; 80053; 82306; 82607; 84439; 84443; 87624; 88175; G0145

== ENCOUNTER → 2024-05-14 | Outpatient (CLI) | payer OTHER, SELFPAY ==
[2024-05-14 13:41] LABS: Mucous, Urine 0 SEEN /hpf (<or=2+)
[2024-05-14 15:06] LABS: Color, Urine Yellow (Yellow); Glucose, Dipstick Normal (Normal); Ketone-Dipstick Negative (Negative); Leukocyte Esterase-Dipstick 500 /ul (Negative); Nitrite-Dipstick Negative (Negative); Occult Blood-Urine 50 /ul (Negative); Protein-Dipstick Negative (Negative); Specific Gravity, Urine 1.015 (1.002-1.030); Urine Bilirubin Dipstick Negative (Negative); Urine Clarity Sl. Cloudy (Clear); Urine Urobilinogen Normal (Normal); Urine pH 6.5 (5.0 - 8.0)
[2024-05-14 15:15] LABS: Red Blood Cells-Urine 0-5 SEEN /hpf (0-5); Squamous Epithelial Cells - UA 5-10 SEEN /hpf (5-10); White Blood Cells 5-10 SEEN /hpf (0-5)
[2024-05-14 15:16] LABS: Transitional Epithelial - Ur 0-5 SEEN /hpf (0-5)
[2024-05-14 15:19] LABS: Bacteria 2+ /hpf (None Seen)
== END | disposition home or self-care (01) ==
LOC: LABSPEC 13:40
PROVIDERS: PCP Internal Medicine; Referring Provider Internal Medicine; Visit Provider Internal Medicine
DX: R82.90 Unspecified abnormal findings in urine (principal)
CPT/HCPCS: 81001; 87086; 87088

== ENCOUNTER 2024-07-09 08:37 | Day surgery (SDC) | payer OTHER, SELFPAY ==
--- NOTE | 2024-07-09 09:01 | HP.PCM_ITS ---
HPI - General General Date of Admission: 07/09/24 Date of Service: 07/09/24 Chief Complaint: Screening colonoscopy HPI Narrative JESSE WESTON, is a 44 F who presents today for surveillance colonoscopy. She had a colonoscopy 3 years ago. She is on a 3-year recall due to history of adenomatous polyps. She is not having abdominal pain, fever, chest pain or shortness of breath. Overall she is very good health. COUNT INCLUDES THE [facility] Medical History (Updated 07/05/24 @ 10:59 by Doug Yoder) Suprapubic discomfort Personal history of colon polyps, unspecified Abnormal urinalysis Colon cancer screening Preventative health care Encounter for preventative adult health care examination Right shoulder pain MRSA infection History of premature rupture of membranes (PPROM) History of pre-term labor Superficial varicosities Autoimmune disease Vitamin D deficiency GERD (gastroesophageal reflux disease) Hormone deficiency Preeclampsia Hx of migraine headaches History of gallstones H/O emotional problems History of UTI Seasonal allergies Seasonal allergies Incontinence Limb weakness Anemia Arthritis Hemorrhoid Anxiety Home Medications ?Medication ?Instructions ?Recorded ?Last Taken ?Type multivitamin 1 tab PO DAILY 09/28/23 Unknown History collagen powder 1 sc PO DAILY 05/14/24 Unknown History magnesium chloride 64 mg 64 mg PO DAILY 05/14/24 Unknown History (magnesium chloride) tablet omega-3 fatty acids 1,250 mg 1,250 mg PO QDAY 05/15/24 07/04/24 History capsule vitamin C 30 mg-zinc citrate 1.1 1 tab PO QDAY 05/15/24 Unknown History mg-elderberry 25 mg chewable tablet Allergy/AdvReac Type Severity Reaction Status Date / Time adhesive tape Allergy Mild blisters Verified 07/05/24 10:49 Family History Mother Breast cancer Cancer skin Arthritis Anxiety BLOOD TRANSFUSION Myocardial infarction Father Diabetes CAD (coronary artery disease) Hypertension Heart disease Anesthesia complication Myocardial infarction High cholesterol Sister Cancer Skin cancer Surgical History Hx of colonoscopy H/O removal of cyst S/P cholecystectomy S/P dilation and curettage S/P wisdom tooth extraction Social History adopted: No household members: family housing: house number of children: 2 current occupational status: employed current occupation: [employer] pets and animals: Yes pets and animals: cat(s) sexually active: Yes Smoking Status: Former smoker second hand exposure: No alcohol intake: current alcohol intake frequency: holidays/special occasions only substance use type: does not use well-balanced diet: daily or most days caffeine: Yes Type: coffee Number of servings: 10 eating out: 1-3 times/week what type of physical activity do you participate in: none frequency: does not exercise seatbelt use: always do you feel safe at home: Yes additional social history: - [place] - 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 [employer] ROS Review of Systems ROS Unobtainable: other Constitutional Constitutional: Denies fatigue, fever(s), poor appetite, weight gain or weight loss ENT HEENT: Denies mouth lesions Cardiovascular Cardiovascular: Denies abdominal bloating, abdominal edema or abdominal pain Respiratory/Chest Respiratory/Chest: Denies change in mental status, change in phlegm color, chest congestion or chest tightness Gastrointestinal Gastrointestinal: Denies belching, bloating, change in bowel habits, change in stool character, chewing difficulty, coffee ground emesis, constipation, cramping, diarrhea, dyspepsia, dysphagia, early satiety, excessive flatus, fecal incontinence, heartburn, hematemesis, hematochezia, hemorrhoids, loose stools, melena, nausea, odynophagia, rectal bleeding, tenesmus, vomiting or weight changes Genitourinary Genitourinary: Denies abdominal discomfort, burning urination or itching Musculoskeletal Musculoskeletal: Reports as per HPI; Denies muscle weakness or myalgias Integumentary Integumentary: Denies jaundice Neurologic Neurologic: Denies lack of coordination or weakness Psychiatric Psychiatric: Denies confusion, depression, memory loss, mood swings, paranoia or suicidal ideation Endocrine Endocrinology: Denies systems reviewed and no addt'l complaints, except as documented Hematologic/Lymphatic Hematologic/Lymphatic: Denies anemia, easy bleeding, easy bruising or lymphadenopathy Allergic/Immunologic Allergic/Immunologic: Denies systems reviewed and no addt'l complaints, except as documented Physical Exam Const alert, oriented x3, no apparent distress, average body habitus, healthy appearing and well nourished HEENT normocephalic and moist oral mucous membranes Head and Scalp: atraumatic Face and Sinus: normal facial exam Eyes PERRL Neck full ROM Resp normal respiratory effort, no retractions and no use of accessory muscles GI GI Narrative: Soft, nontender, uterus firm and below umbilicus Extremity normal to inspection, full ROM and normal capillary refill Psych mental status grossly normal, thought process normal, cooperative and affect normal Assessment & Plan Assessment/Plan (1) Colon cancer screening: PLAN: She will undergo surveillance colonoscopy. She was explained alternatives, risk, benefits include understanding bleeding, infection, sepsis, perforation, need for more surgery . She will have an ASA of 3.
--- NOTE | 2024-07-09 09:18 | PRE.ANES_ITS ---
ASA Classification* ASA Classification ASA Classification: 2 Assessment & Plan Anesthesia* Anesthesia Assessment Anesthesia Assessment: Discussed sedation and/or anesthesia options, risks, benefits, and alternatives with patient/parents/legal guardian/POA. Questions invited. The patient/parents/legal guardian/POA seems to understand and agrees to proceed with anesthesia plan. Reviewed the physical assessment, medical history, allergy history and patient home medications list prior to surgery/procedure/anesthetic and documented any changes. Performed airway and anesthesia risk assessments. Anesthesia Type Anesthesia Type: MAC Anesthesia Focused Assessment* Airway Assessment Mouth opens: >3 cm Mallampati Score: II Focused Labs Anesthesia Preop lab: CBC WBC 7.0 K/mm3 (4.4-11.0) 09/28/23 12:11 RBC 4.62 M/mm3 (4.2-5.4) 09/28/23 12:11 Hgb 13.1 g/dL (12.0-15.0) 09/28/23 12:11 Hct 41.3 % (37-47) 09/28/23 12:11 Plt Count 342 K/mm3 (150-450) 09/28/23 12:11 CHEMISTRY Potassium 3.9 mmol/L (3.5-5.1) 05/08/24 12:35 Sodium 137 mmol/L (136-145) 05/08/24 12:35 Magnesium 5.9 mg/dL (1.6-2.6) H* 12/13/21 00:26 BUN 18 mg/dL (7-18) 05/08/24 12:35 Creatinine 0.74 mg/dL (0.55-1.02) 05/08/24 12:35 Glucose 93 mg/dL (74-106) 05/08/24 12:35 TSH 1.910 uIU/mL (0.358-3.740) 05/08/24 12:35 COAG PT 12.5 SECONDS (11.7-14.9) 11/28/17 16:13 HCG, Quant 55818 mIU/mL (1-3) H 05/25/21 11:35 Urine Test Pending 07/09/24 07:11 Pre-Assessment Diagnosis/Proposed Procedure Planned Operative Procedure(s): COLONOSCOPY Anesthesia History Anesthesia History - legal consultant: Anesthesia History - legal consultant Hx Hospitalization No 07/05/24 10:51 Any Problems With Anesthesia No 07/05/24 10:51 Cholinesterase deficiency No 07/05/24 10:51 You/Your Family Experience No 07/05/24 10:51 fever (hyperthermia) with Relationship Recent Exposure to Contagious No 09/20/23 13:33 Disease Does patient have nerve No 07/05/24 10:51 stimulator Patient instructed to have device shut off --Does patient have Pacemaker or ICD? When Was Last Pacemaker Check QUESTION #4 FULL TEXT: You/Your Family Experience fever (hyperthermia) with Anesthesia Last Oral Intake Last Oral intake: Last Oral Intake NPO since Meds taken in AM with sips of water? Meds patient instructed to take am of surgery PONV PONV - legal consultant: PONV - legal consultant Female Yes 07/05/24 10:51 HX of Motion Sickness No 07/05/24 10:51 HX of N/V After Surgery No 07/05/24 10:51 Non-Smoker Yes 07/05/24 10:51 Duration of Surgery greater No 07/05/24 10:51 than 60 minutes Number of Risk Factors 2 07/05/24 10:51 PONV Score Moderate Risk 07/05/24 10:51 Height & Weight Height & Weight: Anesthesia: Height & Weight Height 5 ft 4.5 in 05/15/24 11:02 Respiratory Assessment Respiratory Assessment - legal consultant: Respiratory Tract Infection Hx - legal consultant Hx Respiratory Tract Infection No 07/05/24 10:51 STOP Sleep Apnea STOP Sleep Apnea - legal consultant: STOP Sleep Apnea - legal consultant Hx Hypertension No 07/05/24 10:51 Hx Sleep Apnea No 07/05/24 10:51 CPAP No 09/20/23 13:33 BIPAP No 09/20/23 13:33 Do you snore loudly (louder No 07/05/24 10:51 than talking or can be heard Do you often feel tired/ No 07/05/24 10:51 fatigued/ sleepy during daytime? Has anyone observed you stop No 07/05/24 10:51 breathing during sleep? STOP Results Negative 07/05/24 10:51 QUESTION #5 FULL TEXT : Do you snore loudly (louder than talking or can be heard through closed doors)? 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 Specify any problems Hx of Preganancy in last 3 No 07/05/24 10:51 Months Nurse Filling Out Transfusion [email or web address] 07/05/24 10:51 & Questions: Date: 07/05/24 07/05/24 10:51 Time: 10:55 07/05/24 10:51 Patient unable to answer at this time (ie. confused, unrespo /Reproduction History /Reproductive History - legal consultant: /Reproductive Hx- legal consultant Hx Now No 07/05/24 10:51 Gestational Age (in weeks): EDC: Hx Hx Para Hx Section SAB No 07/05/24 10:51 PFSH Medical History Suprapubic discomfort Personal history of colon polyps, unspecified Abnormal urinalysis Colon cancer screening Preventative health care Encounter for preventative adult health care examination Right shoulder pain MRSA infection History of premature rupture of membranes (PPROM) History of pre-term labor Superficial varicosities Autoimmune disease Vitamin D deficiency GERD (gastroesophageal reflux disease) Hormone deficiency Preeclampsia Hx of migraine headaches History of gallstones H/O emotional problems History of UTI Seasonal allergies Seasonal allergies Incontinence Limb weakness Anemia Arthritis Hemorrhoid Anxiety Home Medications ?Medication ?Instructions ?Recorded ?Last Taken ?Type multivitamin 1 tab PO DAILY 09/28/23 Unknown History collagen powder 1 sc PO DAILY 05/14/24 Unknown History magnesium chloride 64 mg 64 mg PO DAILY 05/14/24 Unknown History (magnesium chloride) tablet omega-3 fatty acids 1,250 mg 1,250 mg PO QDAY 05/15/24 07/04/24 History capsule vitamin C 30 mg-zinc citrate 1.1 1 tab PO QDAY 05/15/24 Unknown History mg-elderberry 25 mg chewable tablet Allergy/AdvReac Type Severity Reaction Status Date / Time adhesive tape Allergy Mild blisters Verified 07/05/24 10:49 Family History Mother Breast cancer Cancer skin Arthritis Anxiety BLOOD TRANSFUSION Myocardial infarction Father Diabetes CAD (coronary artery disease) Hypertension Heart disease Anesthesia complication Myocardial infarction High cholesterol Sister Cancer Skin cancer Surgical History Hx of colonoscopy H/O removal of cyst S/P cholecystectomy S/P dilation and curettage S/P wisdom tooth extraction Social History adopted: No household members: family housing: house number of children: 2 current occupational status: employed current occupation: [employer] pets and animals: Yes pets and animals: cat(s) sexually active: Yes Smoking Status: Former smoker second hand exposure: No alcohol intake: current alcohol intake frequency: holidays/special occasions only substance use type: does not use well-balanced diet: daily or most days caffeine: Yes Type: coffee Number of servings: 10 eating out: 1-3 times/week what type of physical activity do you participate in: none frequency: does not exercise seatbelt use: always do you feel safe at home: Yes 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
[2024-07-09 09:20] VITALS: BP 119/83; PULSE 75; RESP 18; TEMP 36.7; O2SAT 100; BMI 33.3
[2024-07-09 09:30] LABS: Internal QC Validated? YES +Cl - CLEAR BKGD; Pregnancy, Urine Negative Negative; Record Kit Lot#,Urine Preg 869294
--- NOTE | 2024-07-09 10:30 | COLBX_PTH ---
PATIENT: JESSE WESTON LOC: EN U#:[id number] AGE/SX: 44/F ROOM: RE07/09/[address]: Dr. Justin Neville DO : 1980 BED: DIS: 07/09/2024 SPEC #: [id number] RECD: 07/09/24 13:06 STATUS: DERIC PETROS #: [id number] JORDAN: 07/09/24 10:[address]: Justin Neville DEPT: SURGICAL PATHOLOGY RECD BY: Jo Diaz ENTERED: 07/09/24 13:45 SP TYPE: COLON BX TITI DR: Dr. Michelle Lombardo MD Tissues: Rectum, NOS Procedures: Surgery Specimen Level IV HEADER OPERATION: Colonoscopy PRE-OP DIAGNOSIS: Colon cancer screening TISSUE SUBMITTED: Rectum polyp biopsy MICROSCOPIC DIAGNOSIS Rectal polyp, biopsy: Hyperplastic polyp. AM.mr 07/10/2024 MICROSCOPIC DESCRIPTION Slides are reviewed. GROSS DESCRIPTION Received in fixative is one container labeled with the patient's name and designated Rectum polyp biopsy. The specimen consists of one irregular fragment of light lazo soft tissue that measures 0.3 x 0.2 x 0.1 cm. The specimen is totally submitted in one cassette. 07/09/2024 TC:5 CPT:86155
[2024-07-09 11:05] VITALS: BP 119/83; BP 123/77; PULSE 74; RESP 16; TEMP 36.3; O2SAT 97
--- NOTE | 2024-07-09 11:06 | OP.CCLET_ITS ---
07/09/2024 Michelle Lombardo MD [address] [place] [address] [place] [address] Re : Colonoscopy procedure for Tanna Frye Dear Dr. Lombardo This procedure was performed on Tuesday, July 09, 2024. My impressions and recommendations are as follows: Impressions : - One 5 mm polyp in the rectum, removed with a jumbo cold forceps. Resected and retrieved. - The examination was otherwise normal on direct and retroflexion views. Recommendations : - Discharge patient to home. - Resume previous diet. - Continue present medications. - Await pathology results. - Repeat colonoscopy in 5 years for surveillance. My findings are described in the full procedure note, which is enclosed. If I can be of further assistance, please feel free to contact me at . Sincerely, Justin Neville, 07/09/2024 11:05:36 AM This report has been signed electronically.
--- NOTE | 2024-07-09 11:06 | OP.COLON_ITS ---
Patient Name: Tanna Frye Procedure Date: 07/09/2024 10:32 AM Date of : 1980 Age: 44 Procedure: Colonoscopy Indications: Screening for colorectal malignant neoplasm Providers: Justin Neville DO Medicines: Monitored Anesthesia Care Patient Profile: This is a 44 year old female. Refer to note in patient chart for documentation of history and physical. Last Colonoscopy: none. The patient's first colonoscopy is today. Complications: No immediate complications. Procedure: Pre-Anesthesia Assessment: - Prior to the procedure, a History and Physical was performed, and patient medications and allergies were reviewed. The patient is competent. The risks and benefits of the procedure and the sedation options and risks were discussed with the patient. All questions were answered and informed consent was obtained. Patient identification and proposed procedure were verified by the physician in the pre-procedure area. Mental Status Examination: alert and oriented. Airway Examination: normal oropharyngeal airway and neck mobility. Respiratory Examination: clear to auscultation. CV Examination: normal. Prophylactic Antibiotics: The patient does not require prophylactic antibiotics. Prior Anticoagulants: The patient has taken no anticoagulant or antiplatelet agents except for NSAID medication. ASA Grade Assessment: II - A patient with mild systemic disease. After reviewing the risks and benefits, the patient was deemed in satisfactory condition to undergo the procedure. The anesthesia plan was to use monitored anesthesia care (MAC). Immediately prior to administration of medications, the patient was re-assessed for adequacy to receive sedatives. The heart rate, respiratory rate, oxygen saturations, blood pressure, adequacy of pulmonary ventilation, and response to care were monitored throughout the procedure. The physical status of the patient was re-assessed after the procedure. After I obtained informed consent, the scope was passed under direct vision. Throughout the procedure, the patient's blood pressure, pulse, and oxygen saturations were monitored continuously. The pediatric colonoscope was introduced through the anus and advanced to the cecum, identified by appendiceal orifice and ileocecal valve. The colonoscopy was performed without difficulty. The patient tolerated the procedure well. The quality of the bowel preparation was adequate. The ileocecal valve, appendiceal orifice, and rectum were photographed. Scope In: 10:43:33 AM Scope Withdrawal Time 0 hours 9 minutes 36 seconds Scope Out: 10:59:02 AM Total Procedure Duration Time 0 hours 15 minutes 29 seconds Findings: The perianal and digital rectal examinations were normal. A 5 mm polyp was found in the rectum. The polyp was sessile. The polyp was removed with a jumbo cold forceps. Resection and retrieval were complete. Verification of patient identification for the specimen was done. Estimated blood loss was minimal. The exam was otherwise without abnormality on direct and retroflexion views. Impression: - One 5 mm polyp in the rectum, removed with a jumbo cold forceps. Resected and retrieved. - The examination was otherwise normal on direct and retroflexion views. Recommendation: - Discharge patient to home. - Resume previous diet. - Continue present medications. - Await pathology results. - Repeat colonoscopy in 5 years for surveillance. Procedure Code(s): --- Professional --- 76839, Colonoscopy, flexible; with biopsy, single or multiple CPT copyright 2021 [employer]. All rights reserved. The codes documented in this report are preliminary and upon manufacturing maintenance technician review may be revised to meet current compliance requirements. Justin Neville DO 07/09/2024 11:05:36 AM This report has been signed electronically. Number of Addenda: 0 Note Initiated On: 07/09/2024 10:32 AM
--- NOTE | 2024-07-09 11:09 | PCM.POST.ANE ---
Anesthesia: Postop Eval I Current Vital Signs Temperature: 97.4 F Pulse Rate: 74 Blood Pressure: 123/77 Respiratory Rate: 16 Pulse Ox: 97 Oxygen Delivery Method: Room Air Assessment Airway patent: Yes Spontaneous unlabored respirations: Yes Mental status: Awake and Calm nausea: No Vomiting: No Anesthesia Complication: No Fluid Hydration Crystalloid volume administer (ml): 40 Total IV fluid infused: 40 Progress Note Anesthesia document: Postop Eval 1 completed: Yes
[2024-07-09 11:10] VITALS: BP 109/79; BP 119/83; BP 123/77; PULSE 72; PULSE 74; RESP 16; TEMP 36.3; O2SAT 97
[2024-07-09 11:15] VITALS: BP 112/77; BP 119/83; PULSE 66; RESP 16; TEMP 36.2; O2SAT 100
[2024-07-09 11:30] VITALS: BP 119/83
--- NOTE | 2024-07-09 11:43 | PCM.POSTANE2 ---
Anesthesia Postop Eval I Sum Postop Eval Completion status Anesthesia document: Postop Eval 1 completed: Yes Anesthesia Postop Eval I Summary Anesthesia Postop Eval I Summary: Anesthesia Postop Eval I: Assessment Summary Airway patent Yes 07/09/24 11:10 [email or web address] Spontaneous unlabored Yes 07/09/24 11:10 [email or web address] respirations Mental status Awake,Calm 07/09/24 11:10 [email or web address] nausea No 07/09/24 11:10 [email or web address] Vomiting No 07/09/24 11:10 [email or web address] Anesthesia Postop Eval I: Fluid Summary Crystalloid volume administer 40 07/09/24 11:10 [email or web address] (ml) Colloids volume administered ( ml) Blood Product volume administered (ml) Total IV fluid infused 40 07/09/24 11:10 [email or web address] Anesthesia Postop Eval I: Summary Notes Anesthesia Complication No 07/09/24 11:10 [email or web address] Anesthesia Complication Comment: Post-operative progress note Anesthesia: Postop Eval II Evaluation Mental status: Awake Pain Level: 0 nausea: No Vomiting: No
== END 2024-07-09 11:56 | disposition home or self-care (01) ==
LOC: EN 08:37 → AC 08:54
PROVIDERS: Anesthesiology; PCP Internal Medicine; Referring Provider Internal Medicine; Visit Provider Internal Medicine Gastroenterology
PROC: 0DJD8ZZ Inspection of Lower Intestinal Tract, Via Natural or Artificial Opening Endoscopic (ICD-10-PCS; CPT 45378; principal; 2024-07-09 10:25)
DX: Z12.11 Encounter for screening for malignant neoplasm of colon (principal); K62.1 Rectal polyp; Z86.0101 Personal history of adenomatous and serrated colon polyps; Z87.891 Personal history of nicotine dependence
CPT/HCPCS: 45380; 81025; 88305; J2405

== ENCOUNTER → 2024-08-13 | Outpatient (CLI) | payer OTHER, SELFPAY ==
--- NOTE | 2024-08-13 10:19 | RAD_ITS ---
STUDY: X-RAY CHEST REASON FOR EXAM: Female, 44 years old. Cough, Chest Pain TECHNIQUE: PA and lateral views of the chest. COMPARISON: 12/23/2017 FINDINGS: The lungs are clear and expanded. There is no demonstrated pleural abnormality. Normal size heart. Normal mediastinum and mary jo. Normal visualized pulmonary arteries. Normal visualized aortic arch and descending thoracic aorta. Normal visualized thoracic spine. Normal visualized ribs, clavicles, and shoulders. There is no demonstrated abnormality of the visualized soft tissue structures of the upper abdomen. RAD/Chest PA and Lateral IMPRESSION: Normal x-ray examination of the chest. Electronically Signed: Lenny Flowers MD at 10:09 [facility] ,
[2024-08-13 12:46] LABS: Absolute Lymphocyte Count 1.81 X10^3/uL (0.83-4.51); Absolute Neutrophil Count 4.7 X10^3/uL (2.0-7.7); Basophil# 0.05 X10^3/uL; Basophil% 0.7 % (0-1); Eosinophil# 0.34 X10^3/uL; Eosinophils% 4.6 % (0-5); Hematocrit 40.9 % (37-47); Hemoglobin 13.2 g/dL (12.0-15.0); Lymphocyte # 1.81 X10^3/ul (0.83-4.51); Lymphocyte % 24.4 % (19-41); Mean Corp Hgb Conc 32.3 g/dL (32-36); Mean Corpuscular Hgb 27.8 pg (27.0-32.0); Mean Corpuscular Volume 86.1 fL (81-99); Mean Platelet Vol. 9.7 fl (6.2-12.0); Monocyte% 6.7 % (0-10); NRBC Flagged by Analyzer 0 % (0-5); Neutrophil % 63.3 % (47-70); Platelet Count 289 K/mm3 (150-450); RBC Distribution Width CV 13.5 % (11.6-14.6); RBC Distribution Width SD 42.4 fl (35.1-43.9); Red Blood Count 4.75 M/mm3 (4.2-5.4); White Blood Count 7.4 K/mm3 (4.4-11.0)
== END | disposition home or self-care (01) ==
PROVIDERS: PCP Internal Medicine; Referring Provider Internal Medicine; Visit Provider Internal Medicine
DX: R05.9 Cough, unspecified (principal); R07.9 Chest pain, unspecified
CPT/HCPCS: 36415; 71046; 85025

== ENCOUNTER → 2025-01-18 | Outpatient (CLI) | payer OTHER, SELFPAY ==
[2025-01-18 12:24] LABS: Absolute Lymphocyte Count 2.01 X10^3/uL (0.83-4.51); Absolute Neutrophil Count 3.7 X10^3/uL (2.0-7.7); Basophil# 0.04 X10^3/uL; Basophil% 0.6 % (0-1); Eosinophils% 3.2 % (0-5); Hematocrit 39.4 % (37-47); Hemoglobin 12.7 g/dL (12.0-15.0); Lymphocyte # 2.01 X10^3/ul (0.83-4.51); Lymphocyte % 31.8 % (19-41); Mean Corp Hgb Conc 32.2 g/dL (32-36); Mean Corpuscular Hgb 28.6 pg (27.0-32.0); Mean Corpuscular Volume 88.7 fL (81-99); Mean Platelet Vol. 9.5 fl (6.2-12.0); Monocyte% 6.3 % (0-10); NRBC Flagged by Analyzer 0 % (0-5); Neutrophil # 3.65 X10^3/uL (2.7-7.7); Neutrophil % 57.6 % (47-70); Platelet Count 379 K/mm3 (150-450); RBC Distribution Width CV 13.8 % (11.6-14.6); RBC Distribution Width SD 44.6 fl (35.1-43.9); Red Blood Count 4.44 M/mm3 (4.2-5.4); White Blood Count 6.3 K/mm3 (4.4-11.0)
[2025-01-18 13:02] LABS: ALB/GLOB Ratio 1.1 RATIO (0.9-2.4); AST(SGOT) 17 U/L (<=31); Alanine Aminotransfer ALT/SGPT 16 U/L (<=34); Albumin, Serum 4.1 g/dL (3.5-5.0); Alkaline Phosphatase 84 U/L (35-104); Anion Gap 11 (5-15); BUN 14 mg/dL (4-19); BUN/Creat Ratio 18.7 RATIO (10-20); Calcium,Total 9.2 mg/dL (7.6-11.0); Carbon Dioxide 20.2 mmol/L (21.0-32.0); Chloride 105 mmol/L (98-108); Cholesterol 172 mg/dL (<=200); Creatinine, Serum 0.74 mg/dL (0.70-1.20); EST Glomerular Filtration Rate 102 (>60); Globulin 3.5 g/dL (2.2-4.2); Glucose 97 mg/dL (70-99); High Density Lipoprotein 51 mg/dL; Low Density Lipoprotein Calc. 106 mg/dL; Potassium 4.8 mmol/L (3.3-5.1); Protein, Total 7.6 g/dL (5.9-8.4); Sodium Level 137 mmol/L (133-145); Total Bilirubin 0.21 mg/dL (0.00-1.30); Triglycerides 77 mg/dL; Very Low Density Lipoprotein 15 mg/dL (5-40); cholesterol:hdl ratio screen 3.38
== END | disposition home or self-care (01) ==
LOC: BIMLAB 08:36
PROVIDERS: PCP Internal Medicine; Referring Provider Internal Medicine; Visit Provider Internal Medicine
DX: Z00.00 Encounter for general adult medical examination without abnormal findings (principal)
CPT/HCPCS: 36415; 80053; 80061; 85025

== ENCOUNTER 2025-07-25 06:41 | Emergency (ER) | payer OTHER, SELFPAY ==
[2025-07-25 06:41] VITALS: BP 174/98; PULSE 98; RESP 18; TEMP 36.7; O2SAT 100; BMI 34.9
--- NOTE | 2025-07-25 07:00 | VDLE_ITS ---
Reason For Study Reason For Study: Pain RIGHT LEFT GSV is normal. CFV is compressible, spontaneous, phasic, competent, CFV is compressible, spontaneous, phasic, competent and demonstrates normal augmentation. and demonstrates normal augmentation. FV is compressible, spontaneous, phasic, competent and demonstrates normal augmentation. POP V is compressible, spontaneous, phasic, competent and demonstrates normal augmentation. T/P Trunk is compressible. PTV is compressible. RT PerV is compressible. Procedure This is a venous duplex using B-mode, color flow and spectral Doppler. Exam performed portable in ED. A preliminary report was called and/or faxed to Iasi Allen DO. VL/Venous Duplex US, Unilateral Interpretation Summary Deep veins of the right lower extremity are patent and compressible segmentally . There is no evidence of right lower extremity deep vein thrombosis. The right great saphenous vein appears patent a nd compressible segmentally. Ordering Physician: Isai Allen Referring Physician: Michelle Lombardo Performed By: Abena Bonner RVT
--- NOTE | 2025-07-25 07:21 | EX.ED.DYSGE1 ---
HPI History of Present Illness Chief Complaint: Lower Extremity Injury Informant: patient Narrative Narrative: Patient is a 45-year-old female with history of varicose veins. She states she was sleeping and when she rolled over her left leg came down on top of her right and she awoke secondary to pain in the right calf. She states that she turned the light on to evaluate the cause of her pain and noticed that her right calf seem swollen compared to the left and there was a small area of redness. She denies any recent trauma to the area. She denies any previous history of DVT or PE. She states she is not on hormones but she does report that she had travel over 6 hours in the last 3 to 4 weeks. She denies any chest pain or pleuritic chest pain or shortness of breath associated with this. However she is concerned that she may have a blood clot secondary to her symptoms and presents for evaluation. [facility] Medical History Atypical chest pain Chest congestion Cough Suprapubic discomfort Personal history of colon polyps, unspecified Abnormal urinalysis Colon cancer screening Preventative health care Encounter for preventative adult health care examination Right shoulder pain MRSA infection History of premature rupture of membranes (PPROM) History of pre-term labor Superficial varicosities Autoimmune disease Vitamin D deficiency GERD (gastroesophageal reflux disease) Hormone deficiency Preeclampsia Hx of migraine headaches History of gallstones H/O emotional problems History of UTI Seasonal allergies Seasonal allergies Incontinence Limb weakness Anemia Arthritis Hemorrhoid Anxiety Home Medications ?Medication ?Instructions ?Recorded ?Last Taken ?Type multivitamin 1 tab PO DAILY 09/28/23 Unknown History collagen powder 1 sc PO DAILY 05/14/24 Unknown History omega-3 fatty acids 1,250 mg 1,250 mg PO QDAY 05/15/24 07/04/24 History capsule vitamin C 30 mg-zinc citrate 1.1 1 tab PO QDAY 05/15/24 Unknown History mg-elderberry 25 mg chewable tablet Allergy/AdvReac Type Severity Reaction Status Date / Time adhesive tape Allergy Mild blisters Verified 07/25/25 06:43 Family History Mother Breast cancer Cancer skin Arthritis Anxiety BLOOD TRANSFUSION Myocardial infarction Father Diabetes CAD (coronary artery disease) Hypertension Heart disease Anesthesia complication Myocardial infarction High cholesterol Sister Cancer Skin cancer Surgical History Hx of colonoscopy H/O removal of cyst S/P cholecystectomy S/P dilation and curettage S/P wisdom tooth extraction Social History adopted: No household members: family housing: house number of children: 2 current occupational status: employed current occupation: [employer] pets and animals: Yes pets and animals: cat(s) sexually active: Yes Smoking Status: Former smoker second hand exposure: No alcohol intake: current alcohol intake frequency: holidays/special occasions only substance use type: does not use well-balanced diet: daily or most days caffeine: Yes Type: coffee Number of servings: 10 eating out: 1-3 times/week what type of physical activity do you participate in: none frequency: does not exercise seatbelt use: always do you feel safe at home: Yes 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[employer] ROS ROS ED Constitutional Constitutional ED: Denies chills or fever(s) Cardiovascular Cardiovascular: Denies chest pain, palpitations or racing heartbeat Respiratory/Chest Respiratory/Chest: Denies cough or dyspnea Gastrointestinal Gastrointestinal: Denies abdominal pain, diarrhea, nausea or vomiting Musculoskeletal Musculoskeletal: Reports other Details: Positive right calf pain with edema Integumentary Reports other Details: Mild redness right calf Neurologic Neurologic: Denies headache(s) Psychiatric Psychiatric: Reports anxiety Hematologic/Lymphatic Hematologic/Lymphatic: Denies easy bleeding or easy bruising Allergic/Immunologic Allergic/Immunologic ED: Denies mouth swelling, tongue swelling or urticaria EXAM Physical Exam Const Vital Signs: 07/25/25 06:41 Temperature 98.1 F Temperature Source Oral Pulse Rate 98 Respiratory Rate 18 Blood Pressure 174/98 H Blood Pressure Mean 123 Pulse Ox 100 Oxygen Delivery Method Room Air Positive well nourished and well developed General Appearance ED: well developed; Negative for pallor HEENT HEENT Narrative: Normocephalic atraumatic No tongue or lip swelling no oral lesions no airway edema or compromise No secondary findings in the posterior pharynx to suggest infection Eyes PERRL and EOMs intact bilaterally General Eye ED: Negative for scleral icterus Neck supple Resp normal respiratory effort and clear to auscultation bilaterally Cardio regular rate and regular rhythm Rate: other Other Details: Heart is regular rate and rhythm without murmurs rubs or gallop Radial and carotid pulses are equal and symmetric Extremity Extremity Narrative: Bilateral lower extremities are neurovascularly intact There is slight asymmetric swelling of the right calf compared to the left There is a small roughly 1 x 1 cm area of faint erythema and warmth along the middle third and medial aspect of her right calf that is tender to palpate. This appears to be more superficial thrombophlebitis. I do not feel this is early cellulitis or abscess formation No lymphangitic streaking or crepitance noted No sign of long bone injury such as bony deformity or joint effusion All compartments are soft and compressible going against compartment syndrome Neuro oriented x3, CN's II-XII intact bilaterally and no sensory deficits noted Sensorium / Orientation: alert Motor Exam: strength 5/5 throughout Psych mental status grossly normal Skin Skin Narrative: Soft tissue changes to the right calf as documented above General Skin Exam: Negative for jaundice or pallor MDM MDM MDM Narrative Medical decision making narrative: Patient arrived to the ER hypertensive but otherwise with stable vitals and is in pain so the hypertension was expected. She reports recent travel over 4 hours but otherwise has no significant risk factors for PE/DVT. In order to assess for superficial thrombophlebitis versus DVT a venous duplex will be obtained. By physical exam her symptoms do not correlate with cellulitis or abscess formation and therefore I feel no need for laboratory studies or incision and drainage. The patient also does not have chest pain or pleuritic chest pain so my concern for PE is low and there is no need for a D-dimer or CTA. The patient's venous duplex report is still pending and therefore the day physician Dr. Lopez. I do feel that even if the venous duplex displays a DVT as she is hemodynamically stable without findings of infection or compartment syndrome, that should be safe for discharge with anticoagulation. History & Record Review Discussion w/independent historian: Patient Discharge Plan Triage Chief Complaint: Lower Extremity Injury ED Provider: Isai Allen Dx/Rx/DC Orders Prescriptions: No Action multivitamin Tablet 1 tab PO DAILY collagen powder 1 sc PO DAILY Rx Instructions: powder that is mixed into drink per pt vit C-zinc citrate-elderberry 30-1.1-25 mg tablet,chewable 1 tab PO QDAY omega-3 fatty acids 1,250 mg capsule 1,250 mg PO QDAY Primary Care Provider: Michelle Lombardo Referrals: Michelle Lombardo MD [Primary Care Provider, Internal Medicine] Print Language: Albanian
--- OUTSIDE RECORDS SUMMARY | 2025-07-25 07:32 | XMS RPT_ITS | CCD ---
Author Organization [facility] Care Team Providers Care Platform Supervisor Name Role Phone Dr. Michelle Lombardo Primary Care Provider [phone] Dr. Michelle Lombardo Referring Provider [phone] Dr. Tony Carreon Attending Provider LYLY Mullen Attending Provider Unavailab Dr. Michelle Martin Primary Care Provider [phone] Dr. Michelle Lombardo Referring Provider [phone] Dr. Michelle Lombardo Primary Care Provider [phone] Dr. Michelle Lombardo Attending Provider [phone] Dr. Michelle Lombardo Referring Provider [phone] Unavailable Primary Care Provider UnavailSHEAN Arango Attending Unavailable RANDALL MACHUCA Referring Unavailable RANDALL MACHUCA Attending Unavailable Dr. Michelle Lombardo MD Primary Care Provider Dr. Michelle Lombardo MD Referring Provider [phone] Ken Wilkerson Attending Provider Dr. Michelle Lombardo MD Attending Provider [phone] Munira Eflivongeverardo Primary Care Unavailable Oleghe, Efewongbe Attending Unavailable Oleghe, Efewongbe Referring Unavailable Friend, Justin Attending Unavailable Oleghe, Efewongbe Referring Unavailable Oleghe, Efewongbe Primary Care Unavailable Oleghe, Efewongbe Attending Unavailable Oleghe, Efewongbe Referring Unavailable Oleghe, Efewongbe Primary Care Unavailable Oleghe, Efewongbe Primary Care Unavailable Oleghe, Efewongbe Attending Unavailable Oleghe, Efewongbe Referring Unavailable Oleghe, Efewongbe Primary Care Unavailable Lucina Astudillo Attending Unavailable Lucina Astudillo Referring Unavailable Oleghe, Efewongbe Attending Unavailable Oleghe, Efewongbe Referring Unavailable Oleghe, Efewongbe Primary Care Unavailable Oleghe, Efewongbe Primary Care Unavailable Lucina Astudillo Attending Unavailable Oleghe, Efewongbe Referring Unavailable Oleghe, Efewongbe Primary Care Unavailable Oleghe, Efewongbe Attending Unavailable Oleghe, Efewongbe Referring Unavailable Iraida Hamilton Attending Unavailable Oleghe, Efewongbe Primary Care Unavailable FriendJustin Consulting Unavailable FriendJustin Attending Unavailable Oleghe, Efewongbe Referring Unavailable Oleghe, Efewongbe Primary Care Unavailable Oleghe, Efewongbe Primary Care Unavailable Oleghe, Efewongbe Attending Unavailable Oleghe, Efewongbe Referring Unavailable Oleghe, Efewongbe Primary Care Unavailable Ken Wilkerson Attending Unavailable Oleghe, Efewongbe Referring Unavailable Oleghe, Efewongbe Attending Unavailable Oleghe, Efewongbe Referring Unavailable Oleghe, Efewongbe Primary Care Unavailable SVEN, RANDALL Referring Unavailable JENKINSSHENA L Referring Unavailable SVEN, RANDALL Referring Unavailable SVEN, RANDALL Referring Unavailable SVEN, RANDALL Referring Unavailable SVEN, RANDALL Referring Unavailable Allergies Allergy Classification Reported Allergen(s) Allergy Type Date of Onset Reaction(s) Facility (11 sources) Adhesive Tape; Translations: [adhesive tape] Allergy to substance 1 isters [facility] (9 sources) Dust; Translations: [DUST] Allergy to substance 5 Other: See Comments [facility] (9 sources) Pollen; Translations: [POLLEN] Propensity to adverse reactions 5 [facility] Work Phone: Medications Current Medications Medication Drug Class(es) Dates Sig (Normalized) Sig (Original) benzonatate 200 mg oral capsule (4 sources) Non-narcotic Antitussive Start: 10-23-2024 take 1 capsule by mouth three times daily as needed for cough Benzonatate 200 mg capsule Active 200 mg PO THREE TIMES A DAY as needed for cough October 23, 2024 12:00am Start: 08-13-2024 End: 10-23-2024 Benzonatate 100 mg capsule D iscontinued 100 mg PO 2 to 3 times per day as needed for cough August 13, 2024 1:00am October 23, 2024 2:06pm Collagen (2 sources) Start: 05-14-2024 collagen powder Active 1 sc PO DAILY May 14, 2024 12:00am powder that is mixed into drink per pt dexamethasone 6 mg oral tablet (2 sources) Corticosteroid Start: 10-23-2024 take 1 tablet by mouth once daily Dexamethasone 6 mg tablet Active 6 mg PO DAILY October 23, 2024 12:00am 21 day ethinyl estradiol 0.869484 mg/hr / etonogestrel 0.005 mg/hr vaginal system (7 sources) Progestin, Estrogen Start: 10-09-2024 Etonogestrel-Ethiny l Estradiol (NUVARING) 0.12-0.015 mg/24 hr vaginal ring Indications: Perimenopausal symptoms 1 Each as directed. INSERT ONE(1) RING VAGINALLY AND LEAVE IN PLACE FOR THREE WEEKS, THEN REMOVE FOR 1 WEEK. 1 Each 10/09/2024 Active Start: 12-25-2008 End: 09-05-2024 etonogestrel/ethinyl estradi ol(NUVARING 0.12 MG -0.015 MG/24 HR VAGINAL) Insert one(1) ring vaginally and leave in place for three weeks, then remove for 1 week. 0 12/25/2008 09/05/2024 Discontinued (Course of therapy completed) Magnesium Chloride (1 source) Start: 09-28-2023 Magnesium Chlo ride Active MG PO September 28, 2023 12:00am Magnesium Chloride 64 mg magnesium tablet (4 sources) Start: 05-14-2024 take 1 tablet by mouth once daily Magnesium Chloride 64 mg magnesium tablet Active 64 mg PO DAILY May 14, 2024 1:01pm powder that dissolves in drink per pt Start: 09-28-2023 End: 05-14-2024 Magnesium Chloride 64 mg mag nesium tablet Discontinued mg PO September 28, 2023 1:00am May 14, 2024 1:03pm Multivitamin preparation (7 sources) Start: 09-28-2023 take 1 tablet by mouth once daily Multivitamin Active 1 TABLET PO DAILY September 28, 2023 12:00am multivitamin (MU LTIPLE VITAMINS DAILY ORAL) Take by mouth. Active Multivitamin tablet (2 sources) Start: 09-28-2023 Multivitamin t ablet Active 1 {tbl} PO DAILY September 28, 2023 1:00am Draper-3 Fatty Acids (2 sources) Start: 05-15-2024 take 1 capsule by mouth once daily Draper-3 Fatty Acids 1,250 mg capsule Active 1250 mg PO daily May 15, 2024 12:00am Vit,Pzfj83-Ctpu-Vpjkc (Prenatabs Fa) 29-1 mg Tablet (7 sources) Start: 12-10-2021 take 1 tablet by mouth once daily Vit,Tzsy21-Ciqw-Lqafe (Prenatabs Fa) 29-1 mg Tablet Active 1 TABLET PO DAILY December 10, 2021 3:57pm Start: 12-10-2021 End: 12-23-2022 Vit,Lxfv55-Ucyj-Qsy ic (Prenatabs Fa) 29-1 mg Tablet Discontinued 1 {tbl} PO DAILY December 10, 2021 12:00am December 23, 2022 9:27am Start: 12-10-2021 End: 12-23-2022 take 1 tablet by mouth once daily Vit,Llpt24-Rzqc-Jjrgx (Prenatab s Fa) 29-1 mg Tablet Discontinued 1 TABLET PO DAILY December 09, 2021 11:00pm December 23, 2022 8:27am Start: 12-10-2021 take 1 tablet by steve th once daily Vit,Yhmm61-Zipt-Ljedn (Prenatab s Fa) 29-1 mg Tablet Active 1 TABLET PO DAILY December 10, 2021 12:00am vit,calc78/iron/fol ic (PRENATABS FA ORAL) (7 sources) Start: 06-11-2016 vit,c alc78/iron/folic (PRENATABS FA ORAL) DAILY 06/11/2016 Active replenex (3 sources) Start: 03-18-2020 replenex Activ e PO March 18, 2020 2:29pm Vit C-Zinc Citrate-Elderberr y 30-1.1-25 mg tablet,chewable (2 sources) Start: 05-15-2024 Vit C-Zinc Cit rate-Elderberry 30-1.1-25 mg tablet,chewable Active 1 {tbl} PO daily May 15, 2024 12:00am Completed/Discontinued Medications Medication Drug Class(es) Dates Sig (Normalized) Sig (Original) acetaminophen 325 mg / oxyCODONE hydrochloride 5 mg oral tablet (10 sources) Opioid Agonist Start: 12-29-2017 End: 01-05-2018 Oxycodone-Acetamino phen 1 TABLET tablet Discontinued 1 - 2 {tbl} PO EVERY 4 HOURS NEEDED as needed for Pain 12 12December 29, 2017 12:00am January 05, 2018 10:32am Start: 12-29-2017 End: 01-05-2018 take 1 tablet by mouth every four hours as needed Oxycodone-Acetaminophen Discontinued 1 - 2 TABLET PO EVERY 4 HOURS NEEDED 12 12December 28, 2017 11:00pm January 05, 2018 9:32am amoxicillin 500 mg oral capsule (2 sources) Penicillin-class Antibacterial Start: 10-11-2023 End: 05-07-2024 take 1 capsule by mouth every twelve hours Amoxicillin 500 mg capsule Discontinued 500 mg PO Q12H October 11, 2023 1:00am May 07, 2024 9:15am amoxicillin 875 mg / clavulanate 125 mg oral tablet (20 sources) Penicillin-class Antibacterial Start: 03-15-2021 End: 11-12-2021 Amoxicillin-Pot Clavulanate (Augmentin) 875-125 mg tablet Discontinued 1 {tbl} PO TWICE A DAY March 15, 2021 12:00am November 12, 2021 1:39pm Start: 08-10-2019 End: 08-20-2019 Amoxicillin-Pot Clavulanate (Augmentin) 875-125 mg tablet Discontinued 1 {tbl} PO Q12H 03 06August 10, 2019 1:00am August 19, 2019 1:00am August 20, 2019 1:08am aspirin 81 mg delayed release oral tablet (20 sources) Platelet Aggregation Inhibitor, Nonsteroidal Anti-inflammatory Drug Start: 01-11-2019 End: 09-28-2023 take 1 tablet by mouth once daily Aspirin 81 mg tablet,delayed release (DR/EC) Discontinued 81 mg PO DAILY January 11, 2019 12:00am September 28, 2023 12:02pm Start: 12-23-2017 End: 12-06-2018 take 1 tablet by mouth once daily Aspirin 81 MG tablet,chewable Discontinued 81 mg PO DAILY@0800 December 23, 2017 12:00am December 06, 2018 8:21am Start: 11-29-2017 End: 12-03-2017 Aspirin 81 MG Tab.Chew Disco ntinued November 29, 2017 12:00am December 03, 2017 1:02pm Start: 11-29-2017 End: 12-03-2017 Aspirin Discontinued November 132017 11:00pm December 03, 2017 12:02pm Calcium (16 sources) Phosphate Binder, Calcium Start: 03-18-2020 End: 09-28-2023 take 1 tablet by mouth once daily Calcium Carb-D3-Mag Tjs70-Sjps Discontinued 1 TABLET PO DAILY March 18, 2020 1:29pm September 28, 2023 11:02am Start: 03-18-2020 take 1 tablet by steve th once daily Calcium Carb-D3-Mag Qme09-Xkmg Active 1 TABLET PO DAILY March 18, 2020 2:29pm Start: 12-06-2018 End: 03-18-2020 take 3 tablets by mouth once daily Calcium Carb-D3-Mag Giv84-Chvg Discontinued 3 TABLET PO DAILY December 06, 2018 8:23am March 18, 2020 2:31pm Start: 12-06-2018 End: 03-18-2020 take 3 tablets by mouth once daily Calcium Carb-D3-Mag Wpa34-Moes Discontinued 3 TABLET PO DAILY December 05, 2018 11:00pm March 18, 2020 1:31pm Start: 12-06-2018 End: 03-18-2020 take 3 tablets by mouth once daily Calcium Carb-D3-Mag Ria11-Fpmu Discontinued 3 TABLET PO DAILY December 06, 2018 12:00am March 18, 2020 2:31pm Calcium Carb-D3-Mag Lcu76-Lh nc [phone] wx-lljk-tx-mg tablet (4 sources) Start: 03-18-2020 End: 09-28-2023 Calcium Carb-D3-Mag Wwx11-Rz nc [phone] fe-qxit-km-mg tablet Discontinued 1 {tbl} PO DAILY March 18, 2020 2:29pm September 28, 2023 12:02pm Start: 12-06-2018 End: 03-18-2020 Calcium Carb-D3-Mag Yvl36-Eq nc [phone] rv-zwie-yj-mg tablet Discontinued 3 {tbl} PO DAILY December 06, 2018 12:00am March 18, 2020 2:31pm calcium carbonate 1500 mg oral tablet (3 sources) Start: 09-28-2023 End: 07-05-2024 take 1 tablet by mouth once daily Calcium Carbonate (Calcium 600) 600 mg calcium (1,500 mg) tablet Discontinued 600 mg PO DAILY September 28, 2023 1:00am July 05, 2024 11:49am calcium polycarbophil 625 mg oral tablet (3 sources) Start: 09-28-2023 End: 05-14-2024 Calcium Polycarbophil (Fiber (Calcium Polycarbophil)) 625 mg tablet Discontinued 1250 mg PO DAILY September 28, 2023 1:00am May 14, 2024 1:01pm cholecalciferol 0.025 mg oral capsule (10 sources) Vitamin D Start: 12-06-2018 End: 12-28-2018 take 1 capsule by mouth once daily Cholecalciferol (Vitamin D3) 1,000 unit capsule Discontinued 1000 U PO DAILY December 06, 2018 12:00am December 28, 2018 10:04am docusate sodium 100 mg oral capsule (10 sources) Start: 12-23-2017 End: 12-27-2017 take 1 capsule by mouth once daily Docusate Sodium 100 MG capsule Discontinued 100 mg PO DAILY December 23, 2017 12:00am December 27, 2017 2:06pm labetalol hydrochloride 100 mg oral tablet (17 sources) beta-Adrenerg ic Jalil Start: 12-13-2021 End: 12-23-2022 take 1 tablet by mouth twice daily Labetalol 100 mg Tablet Discontinued 100 mg PO TWICE A DAY 60 December 13, 2021 12:00am December 23, 2022 9:27am Start: 12-05-2017 End: 12-06-2018 take 1 tablet by mouth twice daily Labetalol 100 MG tablet Discontinued 100 mg PO TWICE A DAY 60 December 05, 2017 12:00am December 06, 2018 8:21am Lactobacillus Combination No.4 (Probiotic) 3 billion cell capsule (10 sources) Start: 12-06-2018 End: 12-28-2018 take 3 capsules by mouth once daily Lactobacillus Combination No.4 (Probiotic) 3 billion cell capsule Discontinued 3000 MMU CELLS PO DAILY December 06, 2018 8:24am December 28, 2018 10:04am Start: 12-06-2018 End: 12-28-2018 take 3 capsules by mouth once daily Lactobacillus Combination No.4 (Probiotic) 3 billion cell capsule Discontinued 3000 NMA PO DAILY December 06, 2018 12:00am December 28, 2018 10:04am Start: 12-06-2018 End: 12-28-2018 take 3 capsules by mouth once daily Lactobacillus Combination No.4 (Probiotic) 3 billion cell capsule Discontinued 3000 MMU CELLS PO DAILY December 05, 2018 11:00pm December 28, 2018 9:04am Start: 12-06-2018 End: 12-28-2018 take 3 capsules by mouth once daily Lactobacillus Combination No.4 (Probiotic) 3 billion cell capsule Discontinued 3000 MMU CELLS PO DAILY December 06, 2018 12:00am December 28, 2018 10:04am letrozole 2.5 mg oral tablet (10 sources) Aromatase Inhibitor Start: 07-16-2020 End: 11-12-2021 take 5 tablets by mouth once daily Letrozole (Femara) 2.5 mg tablet Discontinued 2.5 mg PO DAILY July 16, 2020 1:00am November 12, 2021 2:01pm 5 tabs daily x 5 days of menstral cycle methylPREDNISolone 4 mg oral tablet (10 sources) Corticosteroid Start: 01-14-2020 End: 01-19-2020 take 1 tablet by mouth once Methylprednisolone (Medrol (Chris)) 4 mg tablets,dose pack Discontinued 4 mg PO per package directions 02 01January 14, 2020 12:00am January 18, 2020 12:00am January 19, 2020 12:02am ondansetron 4 mg disintegrating oral tablet (10 sources) Serotonin-3 Receptor Antagonist Start: 12-23-2017 End: 12-27-2017 take 1 tablet by mouth every four hours as needed for nausea Ondansetron 4 MG tablet,disintegrating Discontinued 4 mg PO EVERY 4 HOURS NEEDED as needed for Nausea December 23, 2017 10:40pm December 27, 2017 2:06pm sertraline 25 mg oral tablet (20 sources) Serotonin Reuptake Inhibitor Start: 03-18-2020 End: 12-23-2022 take 1 tablet by mouth once daily Sertraline 25 mg tablet Discontinued 25 mg PO DAILY December 10, 2021 3:59pm December 23, 2022 9:27am Start: 12-06-2018 End: 08-10-2019 take 1 tablet by mouth once daily Sertraline 25 mg tablet Discontinued 25 mg PO DAILY December 06, 2018 12:00am August 10, 2019 3:14pm Problems Active Problems Problem Classification Problem Date Documented Date Episodic/Chronic Abdominal pain (9 sources) Epigastric pain; Translations: [Epigastric pain] Onset: 10-09-2014 10-09-2014 Episodic Anxiety disorders (17 sources) Anxiety; Translations: [Anxiety disorder, unspecified] Chronic Biliary tract disease (10 sources) Acute cholecystitis due to biliary calculus; Translations: [Calculus of gallbladder with acute cholecystitis without obstruction] 12-29-2017 Episodic Disorders of teeth and jaw (10 sources) History of surgical procedure on mouth; Translations: [Other dental procedure status] 01-05-2018 Episodic E Codes: Natural/environment (10 sources) Dog bite - wound; Translations: [Bitten by dog, initial encounter] 03-15-2021 Episodic Esophageal disorders (10 sources) Gastroesophageal reflux disease; Translations: [Gastro-esophageal reflux disease without esophagitis] 03-15-2021 Chronic Essential hypertension (18 sources) Hypertensive disorder; Translations: [Essential (primary) hypertension] Onset: 05-15-2024 Chronic Genitourinary symptoms and ill-defined conditions (12 sources) Female stress incontinence; Translations: [Stress incontinence (female) (male)] Onset: 10-15-2024 09-05-2024 Chronic Headache; including migraine (1 source) Headache; including migraine; Translations: [Headache, unspecified] Onset: 10-23-2024 Hemorrhoids (10 sources) Hemorrhoids; Translations: [Unspecified hemorrhoids] 01-05-2018 Episodic Menopausal disorders (8 sources) Menopause finding; Translations: [Menopausal and female climacteric states] Onset: 05-30-2024 09-05-2024 Chronic Menstrual disorders (3 sources) Menometrorrhagia; Translations: [Excessive and frequent menstruation with irregular cycle] Onset: 10-15-2024 10-09-2024 Chronic Nonspecific chest pain (2 sources) Atypical chest pain; Translations: [Other chest pain] 08-13-2024 Episodic Osteoarthritis (20 sources) Arthritis of joint of toe; Translations: [Primary osteoarthritis, unspecified ankle and foot] 01-14-2020 Chronic Other circulatory disease (2 sources) Pulmonary congestion ; Translations: [Other specified symptoms and signs involving the circulatory and respiratory systems] 08-13-2024 Episodic Other diseases of bladder and urethra (7 sources) Overactive bladder; Translations: [Overactive bladder] Onset: 10-15-2024 09-05-2024 Chronic Other diseases of bladder and urethra (1 source) Overactive bladder; Translations: [OAB (overactive bladder)] Onset: 10-15-2024 Chronic Other lower respiratory disease (2 sources) Cough; Translations: [Cough] 08-13-2024 Episodic Other nervous system disorders (1 source) Impaired cognition; Translations: [Other symptoms and signs involving cognitive functions and awareness] 10-09-2024 Episodic Other non-traumatic joint disorders (3 sources) Pain in right shoulder; Translations: [Right shoulder pain] 12-23-2022 Episodic Other and delivery including normal (11 sources) ; Translations: [Encounter for supervision of normal , unspecified, unspecified trimester] Episodic Other upper respiratory infections (20 sources) Acute sinusitis; Translations: [Acute sinusitis, unspecified] 08-10-2019 Episodic Residual codes; unclassified (10 sources) History of colonoscopy; Translations: [Other specified postprocedural states] 12-06-2018 Episodic Comment on above: polyps q5 y earsDr. Friend Skin and subcutaneous tissue infections (10 sources) Abscess; Translations: [Cutaneous abscess, unspecified] 03-15-2021 Episodic Unclassified (1 source) Cough, unspecified; Translations: [Cough, unspecified] Onset: 09-25-2024 Past or Other Problems Problem Classification Problem Date Documented Da te Episodic/Chronic Genitourinary symptoms and ill-defined conditions (4 sources) Microscopic hematuria; Translations: [Other microscopic hematuria] Onset: 06-06-2024 09-05-2024 Episodic Immunizations and screening for infectious disease (5 sources) Exposure to Streptococcus; Translations: [Contact with and (suspected) exposure to other bacterial communicable diseases] Onset: 10-23-2024 10-11-2023 Episodic Malaise and fatigue (20 sources) Fatigue; Translations: [Other fatigue] Onset: 10-15-2024 03-15-2021 Episodic Mood disorders (2 sources) Disturbance in mood; Translations: [Emotional lability] Onset: 10-15-2024 10-09-2024 Episodic Other gastrointestinal disorders (7 sources) Altered bowel function; Translations: [Change in bowel habit] Onset: 10-09-2014 10-09-2014 Episodic Other nervous system disorders (1 source) Other symptoms and signs involving cognitive functions and awareness; Translations: [Brain fog] Onset: 10-15-2024 Episodic Other screening for suspected conditions (not mental disorders or infectious disease) (6 sources) Patient encounter status; Translations: [Encounter for screening for malignant neoplasm of colon] Onset: 08-05-2024 09-28-2023 Episodic Results Test Name Value Interpretation Reference Range Facility Absolute lymphocyte countOrd ered By: Michelle Lombardo on 01-18-2025 Lymphocytes Auto (Unsp spec) [#/Vol] 2.01 10*3/uL 0.83-4.51 [facility] Absolute neutrophil countOrd ered By: Michelle Lombardo on 01-18-2025 Neutrophils (Bld) [#/Vol] 3.7 10*3/uL 2.0-7.7 [facility] Anion gap in Serum or Plasma Ordered By: Michelle Lombardo on 01-18-2025 Anion gap [Moles/Vol] 11 mmol/L 5-15 [facility] Automated lymphocyte count a s percentage of total leukocytesOrdered By: Michelle Lombardo on 01-18-2025 Lymphocytes/100 WBC Auto (Unsp spec) 31.8 % 19-41 [facility] BUN/creatinine ratioOrdered By: Michelle Lombardo on 01-18-2025 Urea nitrogen/Creatinine [Mass ratio] 18.7 mg/mg 10-20 [facility] Basophil percentageOrdered B y: Michelle Lombardo on 01-18-2025 Basophils/100 WBC (Bld) 0.6 % 0-1 [facility] Bilirubin, totalOrdered By: Michelle Lombardo on 01-18-2025 Bilirubin [Mass/Vol] 0.21 mg/dL 0.00-1.30 [facility] CBC W/Diff, Automatedon 06-0 6-2025 Absolute Lymph 2.01 X10 3/uL Normal 0.83-4.51 [facility] Comment on above: Performed By: #### L 500.4100, L100.0100, L500.4050 ####[facility] [address] [place], [address] Absolute Neut 3.7 X10 3/uL Normal 2.0-7.7 [facility] Comment on above: Performed By: #### L 500.4100, L100.0100, [id number] ####[facility] [address] [place], [address] Basophils/100 WBC (Bld) 0.6 % Normal 0-1 [facility] Comment on above: Performed By: #### L 500.4100, L100.0100, [id number] ####[facility] [address] [place], [address] Eosinophils/100 WBC (Bld) 3.2 % Normal 0-5 [facility] Comment on above: Performed By: #### L 500.4100, L100.0100, [id number] ####[facility] [address] [place], [address] Erythrocyte distribution width (RBC) [Ratio] 13.8 % Normal 11.6-14.6 [facility] Comment on above: Performed By: #### L 500.4100, L100.0100, [id number] ####[facility] [address] [place], [address] Hematocrit (Bld) [Volume fraction] 39.4 % Normal 37-47 [facility] Comment on above: Performed By: #### L 500.4100, L100.0100, [id number] ####[facility] [address] [place], [address] Hemoglobin (Bld) [Mass/Vol] 12.7 g/dL Normal 12.0-15.0 [facility] Comment on above: Performed By: #### L 500.4100, L100.0100, [id number] ####[facility] [address] [place], [address] IG% 0.500 Normal 0.0-0.9 [facility] Comment on above: Result Comment: IG% - Immature Granulocytes (promyelocytes, myelocytes and metamyelocytes) > 1% indicates that a LEFT SHIFT is Present. Performed By: #### L 500.4100, L100.0100, [id number] ####[facility] [address] [place], [address] Lymphocytes/100 WBC (Bld) 31.8 % Normal 19-41 [facility] Comment on above: Performed By: #### L 500.4100, L100.0100, [id number] ####[facility] [address] [place], [address] MCH (RBC) [Entitic mass] 28.6 pg Normal 27.0-32.0 [facility] Comment on above: Performed By: #### L 500.4100, L100.0100, [id number] ####[facility] [address] [place], [address] MCHC (RBC) [Mass/Vol] 32.2 g/dL Normal 32-36 [facility] Comment on above: Performed By: #### L 500.4100, L100.0100, [id number] ####[facility] [address] [place], [address] MCV (RBC) [Entitic vol] 88.7 fL Normal 81-99 [facility] Comment on above: Performed By: #### L 500.4100, L100.0100, [id number] ####[facility] [address] [place], [address] Monocytes/100 WBC (Bld) 6.3 % Normal 0-10 [facility] Comment on above: Performed By: #### L 500.4100, L100.0100, [id number] ####[facility] [address] [place], [address] Neutrophils/100 WBC (Bld) 57.6 % Normal 47-70 [facility] Comment on above: Performed By: #### L 500.4100, L100.0100, [id number] ####[facility] [address] [place], [address] Nucleated RBC (Bld) [#/Vol] 0 10*3/uL Normal 0-5 [facility] Comment on above: Performed By: #### L 500.4100, L100.0100, [id number] ####[facility] [address] [place], [address] Platelet mean volume (Bld) [Entitic vol] 9.5 fL Normal 6.2-12.0 [facility] Comment on above: Performed By: #### L 500.4100, L100.0100, [id number] ####[facility] [address] [place], [address] Platelets (Bld) [#/Vol] 379 10*3/uL Normal 150-450 [facility] Comment on above: Performed By: #### L 500.4100, L100.0100, [id number] ####[facility] [address] [place], [address] RBC (Bld) [#/Vol] 4.44 10*6/uL Normal 4.2-5.4 [facility] Comment on above: Performed By: #### L 500.4100, L100.0100, [id number] ####[facility] [address] [place], [address] RDW SD 44.6 fl High 35.1-43.9 [facility] Comment on above: Performed By: #### L 500.4100, L100.0100, [id number] ####[facility] [address] [place], [address] WBC (Bld) [#/Vol] 6.3 10*3/uL Normal 4.4-11.0 [facility] Comment on above: Performed By: #### L 500.4100, L100.0100, [id number] ####[facility] [address] [place], [address] Calculated very low density lipoprotein (VLDL) cholesterol measurementOrdered By: Michelle Lombardo on 01-18-2025 Calculated very low density lipoprotein (VLDL) cholesterol measurement 15 mg/dL 5-40 [facility] Carbon dioxide, total [Moles /volume] in Central venous bloodOrdered By: Michelle Lombardo on 01-18-2025 CO2 [Moles/Vol] 20.2 mmol/L Low 21.0-32.0 [facility] Chloride assayOrdered By: Elina Lombardo on 01-18-2025 Chloride [Moles/Vol] 105 mmol/L 98-108 [facility] Comprehensive Metabolic Prof ilon 01-18-2025 Albumin [Mass/Vol] 4.1 g/dL Normal 3.5-5.0 [facility] Comment on above: Performed By: #### L 500.4100, L100.0100, L500.4050 ####[facility] [address] [place], [address] Albumin/Globulin [Mass ratio] 1.1 {ratio} Normal 0.9-2.4 [facility] Comment on above: Performed By: #### L 500.4100, L100.0100, L500.4050 ####[facility] [address] [place], [address] ALK PHOS 84 U/L Normal 35-104 [facility] Comment on above: Performed By: #### L 500.4100, L100.0100, L500.4050 ####[facility] [address] [place], [address] ALT [Catalytic activity/Vol] 16 U/L Normal <=34 [facility] Comment on above: Performed By: #### L 500.4100, L100.0100, L500.4050 ####[facility] [address] [place], [address] AST [Catalytic activity/Vol] 17 U/L Normal <=31 [facility] Comment on above: Performed By: #### L 500.4100, L100.0100, L500.4050 ####[facility] [address] [place], [address] Bilirubin [Mass/Vol] 0.21 mg/dL Normal 0.00-1.30 [facility] Comment on above: Performed By: #### L 500.4100, L100.0100, L500.4050 ####[facility] [address] [place], [address] BUN/CRE 18.7 RATIO Normal 10-20 [facility] Comment on above: Performed By: #### L 500.4100, L100.0100, L500.4050 ####[facility] [address] [place], [address] Calcium [Mass/Vol] 9.2 mg/dL Normal 7.6-11.0 [facility] Comment on above: Performed By: #### L 500.4100, L100.0100, L500.4050 ####[facility] [address] [place], [address] Chloride [Moles/Vol] 105 mmol/L Normal 98-108 [facility] Comment on above: Performed By: #### L 500.4100, L100.0100, L500.4050 ####[facility] [address] [place], [address] CO2 [Moles/Vol] 20.2 mmol/L Low 21.0-32.0 [facility] Comment on above: Performed By: #### L 500.4100, L100.0100, L500.4050 ####[facility] [address] [place], [address] Creatinine [Mass/Vol] 0.74 mg/dL Normal 0.70-1.20 [facility] Comment on above: Performed By: #### L 500.4100, L100.0100, L500.4050 ####[facility] [address] [place], [address] GAP 11 Normal 5-15 [facility] Comment on above: Performed By: #### L 500.4100, L100.0100, L500.4050 ####[facility] [address] [place], [address] GFR/1.73 sq M.predicted among non-blacks MDRD (S/P/Bld) [Vol rate/Area] 102 mL/min/{1.73_m2} Normal >60 [facility] Comment on above: Result Comment: mL/m in/1.73m2 CKD-EPI Creatinine Equation (2020) Performed By: #### L 500.4100, L100.0100, L500.4050 ####[facility] [address] [place], [address] Globulin (S) [Mass/Vol] 3.5 g/dL Normal 2.2-4.2 [facility] Comment on above: Performed By: #### L 500.4100, L100.0100, L500.4050 ####[facility] [address] [place], [address] Glucose [Mass/Vol] 97 mg/dL Normal 70-99 [facility] Comment on above: Performed By: #### L 500.4100, L100.0100, L500.4050 ####[facility] [address] [place], [address] Potassium [Moles/Vol] 4.8 mmol/L Normal 3.3-5.1 [facility] Comment on above: Performed By: #### L 500.4100, L100.0100, L500.4050 ####[facility] [address] [place], [address] Sodium [Moles/Vol] 137 mmol/L Normal 133-145 [facility] Comment on above: Performed By: #### L 500.4100, L100.0100, L500.4050 ####[facility] [address] [place], [address] T PROT 7.6 g/dL Normal 5.9-8.4 [facility] Comment on above: Performed By: #### L 500.4100, L100.0100, L500.4050 ####[facility] [address] [place], [address] Urea nitrogen [Mass/Vol] 14 mg/dL Normal 4-19 [facility] Comment on above: Performed By: #### L 500.4100, L100.0100, L500.4050 ####[facility] [address] [place], [address] Eosinophil percentageOrdered By: Michelle Lombardo on 01-18-2025 Eosinophils/100 WBC (Bld) 3.2 % 0-5 [facility] Erythrocyte distribution wid th ratioOrdered By: Michelle Lombardo on 01-18-2025 Erythrocyte distribution width (RBC) [Ratio] 13.8 % 11.6-14.6 [facility] Erythrocyte distribution wid th standard deviationOrdered By: Michelle Lombardo on 01-18-2025 Erythrocyte distribution width (RBC) [Ratio] 44.6 fl High 35.1-43.9 [facility] Glomerular filtration rate ( GFR) estimation/1.73 sq m using serum, plasma, or whole bOrdered By: Michelle Lombardo on 01-18-2025 GFR/1.73 sq M.predicted among non-blacks MDRD (S/P/Bld) [Vol rate/Area] 102 mL/min/{1.73_m2} >60 [facility] Comment on above: mL/min/1.73m2 CKD-EP I Creatinine Equation (2020) Hematocrit Auto (Bld) [Volum e fraction]Ordered By: Michelle Lombardo on 01-18-2025 Hematocrit (Bld) [Volume fraction] 39.4 % 37-47 [facility] Hemoglobin measurementOrdere d By: Michelle Lombardo on 01-18-2025 Hemoglobin (Bld) [Mass/Vol] 12.7 g/dL 12.0-15.0 [facility] Immature granulocytes/100 WB C Auto (Bld)Ordered By: Michelle Lombardo on 01-18-2025 Immature granulocytes/100 WBC (Bld) 0.500 % 0.0-0.9 [facility] Comment on above: IG% - Immature Granu locytes (promyelocytes, myelocytes and metamyelocytes) > 1% indicates that a LEFT SHIFT is Present. LDL calc ser/plasOrdered By: Michelle Lombardo on 01-18-2025 Cholesterol in LDL [Mass/Vol] 106 mg/dL [facility] Comment on above: Fyhwhvrjsw=954-525 m g/dL & Higher Xcqf=250 mg/dL or greater Laboratory - Chemistry and C hemistry - challengeOrdered By: Michelle Lombardo on 01-18-2025 AST [Catalytic activity/Vol] 17 U/L <32 [facility] Lipid Profileon 01-18-2025 CHOL:HDL 3.38 Normal [facility] Comment on above: Performed By: #### L 500.4100, L100.0100, L500.4050 ####[facility] [address] [place], [address] Cholesterol [Mass/Vol] 172 mg/dL Normal <=200 [facility] Comment on above: Result Comment: Chol esterol level, Desirable <200 mg/dL Borderline high cholesterol 200-239 mg/dL High cholesterol >=240 mg/dL Recommendations of the NCEP Adult Treatment Panel for the following risk-cutoff thresholds for the [place] population. Performed By: #### L 500.4100, L100.0100, L500.4050 ####[facility] [address] [place], [address] Cholesterol in HDL [Mass/Vol] 51 mg/dL Normal [facility] Comment on above: Result Comment: [place] onal Cholesterol Education Program (NCEP) guidelines: <40 mg/dL: Low HDL-cholesterol (major risk factor for CHD) >= 60 mg/dL: High HDL-cholesterol (negative risk factor for CHD) HDL-cholesterol is affected by a number of factors, e.g. smoking, exercise, hormones, sex and age. Performed By: #### L 500.4100, L100.0100, L500.4050 ####[facility] [address] [place], [address] Cholesterol in LDL [Mass/Vol] 106 mg/dL Normal [facility] Comment on above: Result Comment: Bord iqnyyp=271-204 mg/dL Higher Ydyz=985 mg/dL or greater Performed By: #### L 500.4100, L100.0100, L500.4050 ####[facility] [address] [place], [address] Cholesterol in VLDL [Mass/Vol] 15 mg/dL Normal 5-40 [facility] Comment on above: Performed By: #### L 500.4100, L100.0100, L500.4050 ####[facility] [address] [place], [address] Triglyceride [Mass/Vol] 77 mg/dL Normal [facility] Comment on above: Result Comment: The drugs N-Acetylcysteine and Metamizole may falsely depress this assay. Normal range: <150 mg/dL Borderline High: 150-199 mg/dL High: 200-499 mg/dL Very High: >500 mg/dL Performed By: #### L 500.4100, L100.0100, L500.4050 ####[facility] [address] [place], [place], [address] MCV (mean corpuscular volume ) determinationOrdered By: Michelle Lombardo on 01-18-2025 MCV (RBC) [Entitic vol] 88.7 fL 81-99 [facility] Mean corpuscular hemoglobin (MCH) determinationOrdered By: Nellyhatcheverardo Lombardo on 01-18-2025 MCH (RBC) [Entitic mass] 28.6 pg 27.0-32.0 [facility] Mean corpuscular hemoglobin concentration (MCHC) determinationOrdered By: elo Lombardo on 01-18-2025 MCHC (RBC) [Mass/Vol] 32.2 g/dL 32-36 [facility] Mean platelet volume determi nationOrdered By: Michelle Lombardo on 01-18-2025 Platelet mean volume (Bld) [Entitic vol] 9.5 fL 6.2-12.0 [facility] Monocyte percentageOrdered B y: Michelle Lombardo on 01-18-2025 Monocytes/100 WBC (Bld) 6.3 % 0-10 [facility] Neutrophil percentageOrdered By: [facility] Lombardo on 01-18-2025 Neutrophils/100 WBC (Bld) 57.6 % 47-70 [facility] Nucleated red blood cell per centageOrdered By: Michelle Lombardo on 01-18-2025 Nucleated RBC/100 WBC (Bld) [Ratio] 0 % 0-5 [facility] Platelet countOrdered By: Elina Lombardo on 01-18-2025 Platelets (Bld) [#/Vol] 379 10*3/uL 150-450 [facility] Potassium measurement (mass/ volume)Ordered By: Michelle Lombardo on 01-18-2025 Potassium (Unsp spec) [Mass/Vol] 4.8 mmol/L 3.3-5.1 [facility] RBC Auto (Bld) [#/Vol]Ordere d By: Michelle Lombardo on 01-18-2025 RBC (Bld) [#/Vol] 4.44 10*6/uL 4.2-5.4 [facility] Screening total cholesterol/ high density lipoprotein (HDL) cholesterol ratioOrdered By: Michelle Lombardo on 01-18-2025 Cholesterol.total/Cholest kiesha in HDL [Mass ratio] 3.38 {ratio} [facility] Serum creatinine measurement (mass/volume)Ordered By: Michelle Lombardo on 01-18-2025 Creatinine [Mass/Vol] 0.74 mg/dL 0.70-1.20 [facility] Serum globulin measurementOr dered By: Michelle Lombardo on 01-18-2025 Globulin (S) [Mass/Vol] 3.5 g/dL 2.2-4.2 [facility] Serum glucose measurement (m ass/volume)Ordered By: Michelle Lombardo on 01-18-2025 Glucose [Mass/Vol] 97 mg/dL 70-99 [facility] Serum or plasma alanine piña otransferase (ALT) measurementOrdered By: Michelle Lmobardo on 01-18-2025 ALT [Catalytic activity/Vol] 16 U/L <35 [facility] Serum or plasma albumin robin urement (mass/volume)Ordered By: Michelle Lombardo on 01-18-2025 Albumin [Mass/Vol] 4.1 g/dL 3.5-5.0 [facility] Serum or plasma albumin/glob ulin mass ratioOrdered By: Michelle Lombardo on 01-18-2025 Albumin/Globulin [Mass ratio] 1.1 {ratio} 0.9-2.4 [facility] Serum or plasma alkaline garry sphatase measurementOrdered By: Michelle Lombardo on 01-18-2025 ALP [Catalytic activity/Vol] 84 U/L 35-104 [facility] Serum or plasma calcium robin urement (mass/volume)Ordered By: Michelle Lombardo on 01-18-2025 Calcium [Mass/Vol] 9.2 mg/dL 7.6-11.0 [facility] Serum or plasma cholesterol in HDL measurement (mass/volume)Ordered By: Michelle Lombardo on 01-18-2025 Cholesterol in HDL [Mass/Vol] 51 mg/dL >40 [facility] Comment on above: National Cholesterol Education Program (NCEP) guidelines:<40 mg/dL: Low HDL-cholesterol (major risk factor for CHD)>= 60 mg/dL: High HDL-cholesterol (negative risk factor for CHD)HDL-cholesterol is affected by a number of factors, e.g. smoking, exercise, hormones, sex and age. Serum or plasma cholesterol measurement (mass/volume)Ordered By: Michelle Lombardo on 01-18-2025 Cholesterol [Mass/Vol] 172 mg/dL <201 [facility] Comment on above: Cholesterol level, D esirable <200 mg/dLBorderline high cholesterol 200-239 mg/dLHigh cholesterol >=240 mg/dLRecommendations of the NCEP Adult Treatment Panel for the following risk-cutoff thresholds for the [place] population. Serum or plasma urea nitroge n measurement (mass/volume)Ordered By: Michelle Lombardo on 01-18-2025 Urea nitrogen [Mass/Vol] 14 mg/dL 4-19 [facility] Sodium levelOrdered By: Nelly Lombardo on 01-18-2025 Sodium [Moles/Vol] 137 mmol/L 133-145 [facility] Total proteinOrdered By: Azael Lombardo on 01-18-2025 Protein [Mass/Vol] 7.6 g/dL 5.9-8.4 [facility] Triglycerides measurementOrd ered By: Michelle Lombardo on 01-18-2025 Triglyceride [Mass/Vol] 77 mg/dL <199 [facility] Comment on above: The drugs N-Acetylcy steine and Metamizole may falsely depress this assay. Normal range: <150 mg/dLBorderline High: 150-199 mg/dLHigh: 200-499 mg/dLVery High: >500 mg/dL White blood cell (WBC) count Ordered By: Michelle Lombardo on 01-18-2025 WBC (Bld) [#/Vol] 6.3 10*3/uL 4.4-11.0 [facility] Internal Medicine Office Vis iton 01-16-2025 Internal Medicine Office Visit [facility] [address] [place] [address] [place] [address] OFFICE VISIT Date of Service: 01/16/25 MR#: [id number] Acct: [id number] Name: TANNA FRYE Rep #: [id number] : 1980 Provider: Dr. Michelle boggs MD Age/Sex: 44/F [place] [facility] Status: Signed Intake Vital Signs 07/16/24 08:48 08/13/24 09:35 01/16/25 15:01 Height 5 ft 4 in 5 ft 4 in 5 ft 4 in Weight: 197 lb 8 oz BMI 33.9 BP 114/78 Blood Pressure Location Lt brachial Position Sitting Respiration 16 Pulse 89 Pulse Source Monitor Temp 97 F L Temp Source Temporal Pulse Oximetry (%) 97 Oxygen Delivery Method room air Intake Visit Reasons: YEARLY Chief Complaint: Yearly/follow-up 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: No Accompanied by: Self Is patient in pain?: No Allergies adhesive tape Allergy (Mild, Verified 01/16/25 14:56) blisters Medications ???Medication ???Instructions ???Recorded ???Confirmed ???Type multivitamin 1 tab PO DAILY 09/28/23 01/16/25 H istory collagen powder 1 sc PO DAILY 05/14/24 01/16/25 Hi story magnesium chloride 64 mg 64 mg PO DAILY 05/14/24 01/16/25 H istory (magnesium chloride) tablet omega-3 fatty acids 1,250 mg 1,250 mg PO QDAY 05/15/24 01/16/25 History capsule vitamin C 30 mg-zinc citrate 1.1 1 tab PO QDAY 05/15/24 01/16/25 Hi story mg-elderberry 25 mg chewable tablet benzonatate 200 mg capsule 200 mg PO TID PRN cough #20 caps 0 10/23/24 01/16/25 Rx dexamethasone 6 mg tablet 6 mg PO DAILY #5 tabs 10/23/2412/07 Rx Have you fallen in the past year?: No PFSH Medical History Atypical chest pain Chest congestion Cough Suprapubic discomfort Personal history of colon polyps, unspecified Abnormal urinalysis Colon cancer screening Preventative health care Encounter for preventative adult health care examination Right shoulder pain MRSA infection History of premature rupture of membranes (PPROM) History of pre-term labor Superficial varicosities Autoimmune disease Vitamin D deficiency GERD (gastroesophageal reflux disease) Hormone deficiency Preeclampsia Hx of migraine headaches History of gallstones H/O emotional problems History of UTI Seasonal allergies Seasonal allergies Incontinence Limb weakness Anemia Arthritis Hemorrhoid Anxiety Surgical History Hx of colonoscopy H/O removal of cyst S/P cholecystectomy S/P dilation and curettage S/P wisdom tooth extraction Family History Mother Breast cancer Cancer skin Arthritis Anxiety BLOOD TRANSFUSION Myocardial infarction Father Diabetes CAD (coronary artery disease) Hypertension Heart disease Anesthesia complication Myocardial infarction High cholesterol Sister Cancer Skin cancer Social History adopted: No household members: family housing: house number of children: 2 current occupational status: employed current occupation: [employer] pets and animals: Yes pets and animals: cat(s) sexually active: Yes Smoking Status: Former smoker second hand exposure: No alcohol intake: current alcohol intake frequency: holidays/special occasions only substance use type: does not use well-balanced diet: daily or most days caffeine: Yes Type: coffee Number of servings: 10 eating out: 1-3 times/week what type of physical activity do you participate in: none frequency: does not exercise seatbelt use: always do you feel safe at home: Yes additional social history: - 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 No acute concerns at this time. No significant personal or family history changes since her last visit. Blood pressure is optimal, history of hypertension. Follows up with [employer]PERATOR. Had a colonoscopy last year. No tobacco or alcohol abuse. Feels well. Stays active. ROS Const Constitutional: No body ache, excessive sweating, fatigue, fever(s), frequent falls, headache(s), snoring, weakness, weight change, sleep problems or change in appetite Eyes Eyes: No blurry vision, change in vision, bulging eyes, floaters, eye pain or Light sensitivity ENT ENT: No abnormal hearing, ear or mastoid pain, tinnitus, balance problems, nosebleed/epistaxis , nasal congestion, headache(s), neck pain or sore throat Resp Respiratory: No cough, excessive phlegm production, hemoptysis, pain on inspiration, shortness of breath, snoring or wheezing Cardio Cardiology: No chest pain at rest, chest pain with exertion, excessive sweati (more content not included)... Normal [facility] CNTHERAPYon 12-17-2024 CNTHERAPY OT/PT/Speech Visit ([facility]) ---- TANNA FRYE ([id number]) 1980 F Date Time Provider Department 12/17/24 1:30 PM KEMAL KOCH [facility] Date Time Provider Department [place] 12/17/2024 1:30 PM [id number], MICHEL*[facility] M Reason for Visit: Physical Therapy [503] PT Discharge [752] Primary Visit Diagnosis:Weakness [R53.1] Other Visit Diagnosis:CHARITO (stress urinary incontinence, female) [N39.3] Allergies As of Date: 12/17/2024 Noted Allergy Reaction DUST 06/03/2015 14 - Other: See Comments POLLEN 07/19/2005 Date Reviewed: 10/09/2024 Reviewed by: Leana Ray MA - Fully Assessed Prescriptions as of 02/25/2025 - multivitamin (MULTIPLE VITAMINS DAILY ORAL) Take by mouth. - Etonogestrel-Ethiny l Estradiol (NUVARING) 0.12-0.015 mg/24 hr vaginal ring 1 Each as directed. INSERT ONE(1) RING VAGINALLY AND LEAVE IN PLACE FOR THREE WEEKS, THEN REMOVE FOR 1 WEEK. - vit,calc78/iron/fol ic (PRENATABS FA ORAL) DAILY Lighting Designer: Addendum Therapy (PT/OT/Speech/Resp) ID: [id number] 12/17/2024 2:11 PM Author: KEMAL KOCH Signed by KEMAL KOCH PT, DPT on 12/17/2024 at 2:11 PM * * * This document replaces document [id number] * * * Document text: Program_ID:[id number] Access Code: [email or web address] URL: [email or web address] m/ Date: 12-17-2024 Prepared By: Kemal Koch Program Notes Exercises - Standing Single Leg Heel Raise - x daily - 2 x weekly - 2 sets - 10 reps - Single Leg Bridge - x daily - 2 x weekly - 2 sets - 10 reps - Single Leg Sit to Stand with Arms Crossed - x daily - 2 x weekly - 2 sets - 10 reps - Sidelying Hip Abduction - x daily - 2 x weekly - 2 sets - 10 reps - Single Leg Stance - x daily - 2 x weekly - 1 sets - 2 reps - Supine ITB Stretch with Strap - x daily - 4 x weekly - 1 sets - 2 reps [facility] THERAPY NTon 12-17-2024 THERAPY NT HNO ID: [id number] Author: KEMAL KOCH, PT, DPT Service: ? Author Type: Physical Therapist Type: Therapy (PT/OT/Speech/Resp) Filed: 12/17/2024 14:11 Note Text: Program_ID:[id number] Access Code: [email or web address] URL: [email or web address] m/ Date: 12-17-2024 Prepared By: Kemal Koch Program Notes Exercises - Standing Single Leg Heel Raise - x daily - 2 x weekly - 2 sets - 10 reps - Single Leg Bridge - x daily - 2 x weekly - 2 sets - 10 reps - Single Leg Sit to Stand with Arms Crossed - x daily - 2 x weekly - 2 sets - 10 reps - Sidelying Hip Abduction - x daily - 2 x weekly - 2 sets - 10 reps - Single Leg Stance - x daily - 2 x weekly - 1 sets - 2 reps - Supine ITB Stretch with Strap - x daily - 4 x weekly - 1 sets - 2 reps [facility] CNTHERAPYon 11-26-2024 CNTHERAPY OT/PT/Speech Visit ([facility]) ---- TANNA FRYE ([id number]) 1980 F Date Time Provider Department 11/26/24 11:00 AM KEMAL KOCH [facility] Date Time Provider Department Center 11/26/2024 11:00 AM [id number], MICHEL*[facility] M Reason for Visit: Physical Therapy [503] Primary Visit Diagnosis:Weakness [R53.1] Other Visit Diagnosis:CHARITO (stress urinary incontinence, female) [N39.3] Allergies As of Date: 11/26/2024 Noted Allergy Reaction DUST 06/03/2015 14 - Other: See Comments POLLEN 07/19/2005 Date Reviewed: 10/09/2024 Reviewed by: Leana Ray MA - Fully Assessed Prescriptions as of 11/26/2024 - multivitamin (MULTIPLE VITAMINS DAILY ORAL) Take by mouth. - Etonogestrel-Ethiny l Estradiol (NUVARING) 0.12-0.015 mg/24 hr vaginal ring 1 Each as directed. INSERT ONE(1) RING VAGINALLY AND LEAVE IN PLACE FOR THREE WEEKS, THEN REMOVE FOR 1 WEEK. - vit,calc78/iron/fol ic (PRENATABS FA ORAL) DAILY Lighting Designer: Therapy (PT/OT/Speech/Resp) ID: [id number] 11/26/2024 11:29 AM Author: KEMAL KOCH Signed by KEMAL KOCH PT, DPT on 11/26/2024 at 11:29 AM Document text: Program_ID:[id number] Access Code: [email or web address] URL: [email or web address] m/ Date: 11-26-2024 Prepared By: Kemal Koch Program Notes Exercises - Supine Figure 4 Piriformis Stretch - x daily - 4 x weekly - 1 sets - 2 reps - Supine Hip Internal and External Rotation - x daily - 4 x weekly - 1 sets - 10 reps - Supine Bridge - x daily - 2 x weekly - 2 sets - 10 reps - Clam with Resistance - x daily - 2 x weekly - 2 sets - 10 reps Patient Education - cc Pelvic Floor - Diaphragmatic Breathing [facility] THERAPY NTon 11-26-2024 THERAPY NT HNO ID: [id number] Author: KEMAL KOCH, PT, DPT Service: ? Author Type: Physical Therapist Type: Therapy (PT/OT/Speech/Resp) Filed: 11/26/2024 11:29 Note Text: Program_ID:[id number] Access Code: [email or web address] URL: [email or web address] m/ Date: 11-26-2024 Prepared By: Kemal Koch Program Notes Exercises - Supine Figure 4 Piriformis Stretch - x daily - 4 x weekly - 1 sets - 2 reps - Supine Hip Internal and External Rotation - x daily - 4 x weekly - 1 sets - 10 reps - Supine Bridge - x daily - 2 x weekly - 2 sets - 10 reps - Clam with Resistance - x daily - 2 x weekly - 2 sets - 10 reps Patient Education - cc Pelvic Floor - Diaphragmatic Breathing Normal [facility] CNTHERAPYon 11-19-2024 CNTHERAPY OT/PT/Speech Visit ([facility]) ---- TANNA FRYE ([id number]) 1980 F Date Time Provider Department 11/19/24 11:00 AM KEMAL KOCH [facility] Date Time Provider Department Center 11/19/2024 11:00 AM [id number], MICHEL*[facility] M Reason for Visit: Physical Therapy [503] Primary Visit Diagnosis:Weakness [R53.1] Other Visit Diagnosis:CHARITO (stress urinary incontinence, female) [N39.3] Allergies As of Date: 11/19/2024 Noted Allergy Reaction DUST 06/03/2015 14 - Other: See Comments POLLEN 07/19/2005 Date Reviewed: 10/09/2024 Reviewed by: Leana Ray MA - Fully Assessed Prescriptions as of 11/19/2024 - multivitamin (MULTIPLE VITAMINS DAILY ORAL) Take by mouth. - Etonogestrel-Ethiny l Estradiol (NUVARING) 0.12-0.015 mg/24 hr vaginal ring 1 Each as directed. INSERT ONE(1) RING VAGINALLY AND LEAVE IN PLACE FOR THREE WEEKS, THEN REMOVE FOR 1 WEEK. - vit,calc78/iron/fol ic (PRENATABS FA ORAL) DAILY Lighting Designer: Addendum Therapy (PT/OT/Speech/Resp) ID: [id number] 11/19/2024 11:56 AM Author: KEMAL KOCH Signed by KEMAL KOCH PT, DPT on 11/19/2024 at 11:56 AM * * * This document replaces document [id number] * * * Document text: Program_ID:[id number] Access Code: [email or web address] URL: [email or web address] m/ Date: 11-19-2024 Prepared By: Kemal Koch Program Notes Exercises - Supine Transversus Abdominis Bracing - Hands on Stomach - 1 x daily - 7 x weekly - 2 sets - 10 reps - Bent Knee Fallouts - x daily - 2 x weekly - 2 sets - 10 reps - Supine March - x daily - 2 x weekly - 2 sets - 10 reps Patient Education - cc Pelvic Floor - Diaphragmatic Breathing [facility] THERAPY NTon 11-19-2024 THERAPY NT HNO ID: [id number] Author: KEMAL KOCH, PT, DPT Service: ? Author Type: Physical Therapist Type: Therapy (PT/OT/Speech/Resp) Filed: 11/19/2024 11:56 Note Text: Program_ID:[id number] Access Code: [email or web address] URL: [email or web address] m/ Date: 11-19-2024 Prepared By: Kemal Koch Program Notes Exercises - Supine Transversus Abdominis Bracing - Hands on Stomach - 1 x daily - 7 x weekly - 2 sets - 10 reps - Bent Knee Fallouts - x daily - 2 x weekly - 2 sets - 10 reps - Supine March - x daily - 2 x weekly - 2 sets - 10 reps Patient Education - cc Pelvic Floor - Diaphragmatic Breathing Normal [facility] CNTHERAPYon 11-12-2024 CNTHERAPY OT/PT/Speech Visit ([facility]) ---- TANNA FRYE ([id number]) 1980 F Date Time Provider Department 11/12/24 11:00 AM KEMAL KOCH [facility] Date Time Provider Department Center 11/12/2024 11:00 AM [id number], MICHEL*[facility] M Reason for Visit: Physical Therapy [503] Primary Visit Diagnosis:Weakness [R53.1] Other Visit Diagnosis:CHARITO (stress urinary incontinence, female) [N39.3] Allergies As of Date: 11/12/2024 Noted Allergy Reaction DUST 06/03/2015 14 - Other: See Comments POLLEN 07/19/2005 Date Reviewed: 10/09/2024 Reviewed by: Leana Ray MA - Fully Assessed Prescriptions as of 11/12/2024 - multivitamin (MULTIPLE VITAMINS DAILY ORAL) Take by mouth. - Etonogestrel-Ethiny l Estradiol (NUVARING) 0.12-0.015 mg/24 hr vaginal ring 1 Each as directed. INSERT ONE(1) RING VAGINALLY AND LEAVE IN PLACE FOR THREE WEEKS, THEN REMOVE FOR 1 WEEK. - vit,calc78/iron/fol ic (PRENATABS FA ORAL) DAILY Normal [facility] Laboratory - Microbiology an d Antimicrobial susceptibilityOrdered By: Ken Key on 10-23-2024 SARS-CoV-2 (COVID-19) RNA ANIVAL+probe Ql (Unsp spec) Detected [facility] No Panel InformationOrdered By: Ken Key on 10-23-2024 Influenza Types A,B Rapid (Clinic) Negative [facility] POC SARS CoV-2 Antigen Positive [facility] Visit Reporton 0 10-23-2024 Urgent Care Visit Report [facility] [address], [address] [place] [address] OFFICE VISIT Date of Service: 10/23/24 MR#: [id number] Acct: [id number] Name: TANNA FRYE Rep #: [id number] : 1980 Provider: LYLY Rubalcava Age/Sex: 44/F Location[facility] Status: Signed Intake Vital Signs 08/13/24 09:35 10/23/24 14:05 Height 5 ft 4 in Weight: 196 lb BMI 33.6 BP 124/78 H Blood Pressure Location Lt brachial Position Sitting Sitting Respiration 16 17 Pulse 107 H 104 H Pulse Source Monitor NIBP Temp 97.1 F L 100.8 F H Temp Source Temporal Oral Pulse Oximetry (%) 97 97 Oxygen Delivery Method room air room air Intake Visit Reasons: COUGH, CONGESTION, FEVER Chief Complaint: PETTIT, BA, joint pain, fever, congestion 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: No Is patient in pain?: Yes Allergies adhesive tape Allergy (Mild, Verified 10/23/24 14:06) blisters Medications ???Medication ???Instructions ???Recorded ???Confirmed ???Type multivitamin 1 tab PO DAILY 09/28/23 08/13/24 H istory collagen powder 1 sc PO DAILY 05/14/24 08/13/24 Hi story magnesium chloride 64 mg 64 mg PO DAILY 05/14/24 08/13/24 H istory (magnesium chloride) tablet omega-3 fatty acids 1,250 mg 1,250 mg PO QDAY 05/15/24 08/13/24 History capsule vitamin C 30 mg-zinc citrate 1.1 1 tab PO QDAY 05/15/24 08/13/24 Hi story mg-elderberry 25 mg chewable tablet benzonatate 200 mg capsule 200 mg PO TID PRN cough #20 caps 0 10/23/24 10/23/24 Rx dexamethasone 6 mg tablet 6 mg PO DAILY #5 tabs 10/23/2407/09 Rx Is last menstrual period known: No Post menopausal: No Patient : No Have you fallen in the past year?: No Nurse's Note: PETTIT, BA, joint pain, fever, congestion x 4-5 hours today. [facility] Medical History (Updated 08/13/24 @ 12:[address] Michelle Lombardo MD) Atypical chest pain Chest congestion Cough Suprapubic discomfort Personal history of colon polyps, unspecified Abnormal urinalysis Colon cancer screening Preventative health care Encounter for preventative adult health care examination Right shoulder pain MRSA infection History of premature rupture of membranes (PPROM) History of pre-term labor Superficial varicosities Autoimmune disease Vitamin D deficiency GERD (gastroesophageal reflux disease) Hormone deficiency Preeclampsia Hx of migraine headaches History of gallstones H/O emotional problems History of UTI Seasonal allergies Seasonal allergies Incontinence Limb weakness Anemia Arthritis Hemorrhoid Anxiety Surgical History Hx of colonoscopy H/O removal of cyst S/P cholecystectomy S/P dilation and curettage S/P wisdom tooth extraction Family History Mother Breast cancer Cancer skin Arthritis Anxiety BLOOD TRANSFUSION Myocardial infarction Father Diabetes CAD (coronary artery disease) Hypertension Heart disease Anesthesia complication Myocardial infarction High cholesterol Sister Cancer Skin cancer Social History adopted: No household members: family housing: house number of children: 2 current occupational status: employed current occupation: [employer] pets and animals: Yes pets and animals: cat(s) sexually active: Yes Smoking Status: Former smoker second hand exposure: No alcohol intake: current alcohol intake frequency: holidays/special occasions only substance use type: does not use well-balanced diet: daily or most days caffeine: Yes Type: coffee Number of servings: 10 eating out: 1-3 times/week what type of physical activity do you participate in: none frequency: does not exercise seatbelt use: always do you feel safe at home: Yes additional social history: - 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 No complaints of chest pain or shortness of breath or dyspnea on exertion. No jozl-rlu-qrxnayk products taken to assist. Several close contacts with similar URI complaints, including son and daughter. No other associated symptoms and no alleviating/aggrava ting factors. ROS Const Constitutional: No other (as above) Exam Const General: cooperative, healthy appearing and no acute distress Nutritional Appearance: average body habitus Orientation: alert, awake and oriented x3 HENMT Head: normal to inspection Ears: heari (more content not included)... Normal [facility] 25(OH)D3 SerPl-ncon 2024 25-hydroxyvitamin D3 [Mass/Vol] 30.2 ng/mL Normal 30.0-100.0 [facility] Comment on above: Order Comment: Sohail vázquez Type: BLOOD SPECIMEN Ordering Facility: [facility] Address: [address] [place] [address] Result Comment: Defi ciency\X09\Less than 20 ng/mL Insufficiency\X09\20 - Less than 30 ng/mL Sufficiency\X09\30 - 100 ng/mL Performed By: #### 1 989-3 #### [facility] CLIA [id number] [address] [place] [address] [place] CBC panel Auto (Bld)on 10-15 Erythrocyte distribution width (RBC) [Ratio] 13.6 % Normal 11.5-15.0 [facility] Comment on above: Order Comment: Sohail vázquez Type: BLOOD SPECIMEN Ordering Facility: [facility] Address: [address] [place] [address] Performed By: #### 5 8410-2 #### [facility] CLIA [id number] [address] [place], [place] [address] [place] Hematocrit (Bld) [Volume fraction] 39.3 % Normal 36.0-46.0 [facility] Comment on above: Order Comment: Sohail vázquez Type: BLOOD SPECIMEN Ordering Facility: [facility] Address: [address] [place] [address] Performed By: #### 5 8410-2 #### [facility] CLIA [id number] Critical access hospital[address] [place] [id number] [place] Hemoglobin (Bld) [Mass/Vol] 13.4 g/dL Normal 11.5-15.5 [facility] Comment on above: Order Comment: Speci men Type: BLOOD SPECIMEN Ordering Facility: [facility] Address: [address] [place] [address] Performed By: #### 5 8410-2 #### [facility] CLIA [id number] [address] [place] [address] [place] MCH (RBC) [Entitic mass] 29.1 pg Normal 26.0-34.0 [facility] Comment on above: Order Comment: Speci men Type: BLOOD SPECIMEN Ordering Facility: [facility] Address: [address] [place] [address] Performed By: #### 5 8410-2 #### [facility] CLIA [id number] [address] [place] [address] [place] MCHC (RBC) [Mass/Vol] 34.1 g/dL Normal 30.5-36.0 [facility] Comment on above: Order Comment: Speci men Type: BLOOD SPECIMEN Ordering Facility: [facility] Address: [address] [place] [address] Performed By: #### 5 8410-2 #### [facility] CLIA [id number] [address] [place] [address] [place] MCV (RBC) [Entitic vol] 85.2 fL Normal 80.0-100.0 [facility] Comment on above: Order Comment: Speci men Type: BLOOD SPECIMEN Ordering Facility: [facility] Address: [address] [place] [address] Performed By: #### 5 8410-2 #### [facility] CLIA [id number] [address] [place] [address] [place] Platelet mean volume (Bld) [Entitic vol] 8.7 fL Low 9.0-12.7 [facility] Comment on above: Order Comment: Speci men Type: BLOOD SPECIMEN Ordering Facility: [facility] Address: [address] [place] [address] Performed By: #### 5 8410-2 #### [facility] CLIA [id number] [address] Platelets (Bld) [#/Vol] 374 10*3/uL Normal 150-400 [facility] Comment on above: Order Comment: Speci men Type: BLOOD SPECIMEN Ordering Facility: [facility] Address: [address] [place] [address] Performed By: #### 5 8410-2 #### [facility] CLIA [id number] [address] [place] RBC (Bld) [#/Vol] 4.61 10*6/uL Normal 3.90-5.20 [facility] Comment on above: Order Comment: Speci men Type: BLOOD SPECIMEN Ordering Facility: [facility] Address: [address] [place] [address] Performed By: #### 5 8410-2 #### [facility] CLIA [id number] [address] OF [facility] WBC (Bld) [#/Vol] 8.75 10*3/uL Normal 3.70-11.00 [facility] Comment on above: Order Comment: Speci men Type: BLOOD SPECIMEN Ordering Facility: [facility] Address: [address] [place] [address] Performed By: #### 5 8410-2 #### [facility] CLIA [id number] [address] CNTHERAPYon 10-15-2024 CNTHERAPY OT/PT/Speech Visit ([facility]) ---- TANNA FRYE ([id number]) 1980 F Date Time Provider Department 10/15/24 11:45 AM VONRAMIROMISHELKEMAL [facility] Date Time Provider Department [place] 10/15/2024 11:45 AM [id number], MICHEL*[facility] M Reason for Visit: PT Eval [747] Primary Visit Diagnosis:Weakness [R53.1] Other Visit Diagnoses:CHARITO (stress urinary incontinence, female) [N39.3] OAB (overactive bladder) [N32.81] Allergies As of Date: 10/15/2024 Noted Allergy Reaction DUST 06/03/2015 14 - Other: See Comments POLLEN 07/19/2005 Date Reviewed: 10/09/2024 Reviewed by: Leana Ray MA - Fully Assessed Prescriptions as of 10/15/2024 - multivitamin (MULTIPLE VITAMINS DAILY ORAL) Take by mouth. - Etonogestrel-Ethiny l Estradiol (NUVARING) 0.12-0.015 mg/24 hr vaginal ring 1 Each as directed. INSERT ONE(1) RING VAGINALLY AND LEAVE IN PLACE FOR THREE WEEKS, THEN REMOVE FOR 1 WEEK. - vit,calc78/iron/fol ic (PRENATABS FA ORAL) DAILY Lighting Designer: Addendum Therapy (PT/OT/Speech/Resp) ID: [id number] 10/15/2024 12:26 PM Author: KEMAL KOCH Signed by KEMAL KOCH PT, DPT on 10/15/2024 at 12:26 PM * * * This document replaces document [id number] * * * Document text: Program_ID:[id number] Access Code: [email or web address] URL: [email or web address] Date: 10-15-2024 Prepared By: Kemal Koch Program Notes Exercises - Long Sitting Plantar Fascia Stretch with Towel - 1 x daily - 7 x weekly - 2 sets - 30 reps - Long Sitting Calf Stretch with Strap - 1 x daily - 7 x weekly - 2 sets - 30 reps - Soleus Stretch on Wall - 1 x daily - 7 x weekly - 2 sets - 30 reps Normal [facility] THERAPY NTon 10-15-2024 THERAPY NT HNO ID: [id number] Author: KEMAL KCOH, PT, DPT Service: ? Author Type: Physical Therapist Type: Therapy (PT/OT/Speech/Resp) Filed: 10/15/2024 12:26 Note Text: Program_ID:[id number] Access Code: [email or web address] URL: [email or web address] Date: 10-15-2024 Prepared By: Kemal Koch Program Notes Exercises - Long Sitting Plantar Fascia Stretch with Towel - 1 x daily - 7 x weekly - 2 sets - 30 reps - Long Sitting Calf Stretch with Strap - 1 x daily - 7 x weekly - 2 sets - 30 reps - Soleus Stretch on Wall - 1 x daily - 7 x weekly - 2 sets - 30 reps Normal [facility] TSH SerPl-aCncon 10-15-2024 TSH Qn 1.581 m[IU]/L Normal 0.358-3.740 [facility] Comment on above: Order Comment: Speci men Type: BLOOD SPECIMEN Ordering Facility: [facility] Address: [address] [place], [place] [id number] Result Comment: 3rd generation ultra sensitive TSH. Performed By: #### 2 132-9, 3016-3 #### [facility] CLIA [id number] [address] [place], [place] [address] [place] VITAMIN B6/PYRIDOXINon 10-15 VITAMIN B6 117.8 nmol/L Normal 20.0-125.0 [facility] Comment on above: Order Comment: Speci men Type: BLOOD SPECIMEN Ordering Facility: [facility] Address: [address] [place] [address] Result Comment: INTE RPRETIVE INFORMATION: Vitamin B6 (Pyridoxal 5-Phosphate) Pyridoxal 5'-phosphate measured in a specimen collected following an 8-hour or overnight fast accurately indicates vitamin B6 nutritional status. Non-fasting specimen concentration reflects recent vitamin intake. This test was developed and its performance characteristics determined by [facility] ([facility] It has not been cleared or approved by the US Food and Drug Administration. This test was performed in a CLIA certified laboratory and is intended for clinical purposes. Performed By: [facility]) [address] [place] [address] Cloth Sponger: Casimiro Lara MD, PhD CLIA Number: [id number] Performed By: #### V ITB6 #### [facility] CLIA [id number] [address] [place] [address] Vit B12 [facility] 025 Cobalamin (Vitamin B12) [Mass/Vol] 756 pg/mL Normal 193-986 [facility] Comment on above: Order Comment: Speci men Type: BLOOD SPECIMEN Ordering Facility: [facility] Address: [address] [place] [address] Performed By: #### 2 132-9, 3016-3 #### [facility] CLIA [id number] [address] [place] [address] OF [place] CNOVon 10-09-2024 CNOV Office Visit (GYURWP) ---- TANNA FRYE ([id number]) 1980 F Date Time Provider Department 10/09/24 9:30 AM SHENA JENKINS During your visit today, we recorded the following information about you: Blood pressure Weight Height Last Period 124/78 89.4 kg 1.626 m 09/28/24 Shena Jenkins, PERFORATOR OPERATOR OIL WELL.SAMPLE STEAMER 10/09/2024 10:04 AM Signed OGI MENOPAUSE CONSULT Tanna Frye is an 44 year old here to discuss debo-menopause. HPI: States mom went through menopause early as well as sisters. Menses every 2-3 weeks, heavy flow, clotting. Lasting 4-8 days, using pads, changing every 1-2 hours on heavy days. 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 No control. Sexually active. Reports brain fog is horrible. C/o rage and son has been telling her she is yelling a lot lately. C/o headaches as well and has had menstrual headaches in the past. Still nursing 3 year old daughter but it is infrequent and just for daughter's comfort. Last pap: 04/2024- normal per patient Last mammo:07/2022-loni l per patient HORMONAL HEALTH QUESTIONNAIRE SYMPTOMS Any sxs (even if mild): VMS; mood concerns; sexual concerns; alopecia; weight gain; new or change of PETTIT; AUB; UI; urinary frequency; Brain fog/memory concerns Bothersome sxs: weight gain; new or change of PETTIT; AUB; UI; Brain fog/memory concerns Symptom duration: <1 yr Sexual health hx: dyspareunia; decreased libido Are sexual symptoms bothersome? A little Sexual symptom duration: >5 yrs Potential contributing factors: dyspareunia; depression or anxiety; relationship with partner; life stress; fatigue; menopausal symptoms Sxs improve on vacation? No Previously tried/offered: vitamins and supplements HORMONAL HISTORY Uterus in situ? Yes Cervix in situ? Yes Ovaries in situ? Yes LMP: Within the last year, about once monthly; 09/28/24 Regular menses in past? Yes Age of menarche: [age] G 5 P 2 FLB: Yes; Age: 37 Infertility hx or tx? Yes Current hormone use: No Past hormone use: Yes; transdermal cream/gel Duration of exogenous hormone use: 1-5 years Tolerated? Well Unintended acceptable? No Chance of unintended : No RISK ASSESSMENT (see link for full ROS) Relevant PMH: active gallbladder problems; HTN Relevant Fam Hx: [place]; breast cancer; dementia Prior BMD: Never Prior breast biopsy: No Current tobacco use: No Alcohol use per week: Doesn't drink Substance use: Denies use of narcotics, cannabis, or illicit drugs Other hormonal concerns? Perimenopause *NOTE - Questionnaire responses within the last 30 days are represented in black ink; Responses between 31-365 days are represented in blue ink. The ASCVD Risk score (Ana FUNES, et al., 2019) failed to calculate for the following reasons: Cannot find a previous HDL lab Cannot find a previous total cholesterol lab Last 14 BP Last 14 Encounter BP Readings: Date: BP: 09/05/2024 126/78 02/22/2016 122/78 06/03/2015 132/98 10/10/2014 128/78 10/03/2014 128/90 07/30/2013 118/80 07/19/2013 120/78 11/08/2012 120/96 01/16/2012 122/80 08/31/2011 128/80 12/25/2008 114/84 07/22/2006 84/56 PAST MEDICAL HISTORY Diagnosis Date Generalized anxiety disorder PP NEGATIVE MEDICAL HISTORY PAST SURGICAL HISTORY Procedure Laterality Date COLONOSCOPY FLX DX W/COLLJ SPEC WHEN PFRMD 10/30/2014 repeat in 3 years EGD TRANSORAL BIOPSY SINGLE/MULTIPLE 10/30/2014 REMOVAL GALLBLADDER Review of Systems: Urinary: No burning with urination, blood in urine or incontinence and No change in vaginal discharge, burning, dryness or itching Bowel: No blood in stool, pain with BM, tarry stool, persistent diarrhea or constipation Breast: No breast lumps, nipple d/c, overlying skin changes, redness or skin retraction OBJECTIVE: General Appearance:pleasant , alert, and in no acute distress. Skin: Normal color Neck: Full range of motion Lungs:Unlabored on RA ASSESSMENT: 1. Perimenopausal symptoms (Primary) - Discussed menopause vs debo-menopause. - Discussed treatment/managemen t options for symptoms, including CHC vs SSRI/SNRI. - Etonogestrel-Ethiny l Estradiol (NUVARING) 0.12-0.015 mg/24 hr vaginal ring; 1 Each as directed. INSERT ONE(1) RING VAGINALLY AND LEAVE IN PLACE FOR THREE WEEKS, THEN REMOVE FOR 1 WEEK. Dispense: 1 Each; Refill: 11 2. Menometrorrhagia - Discussed possible causes of abnormal bleeding. - Recommend pelvic ultrasound to further evaluate. - US FEMALE PELVIS TRANSVAG; Future - THYROID STIMULATING HORMONE; Future - COMPLETE BLOOD COUNT; Future 3. Brain fog - VITAMIN D 25 HYDROXY; Future - VITAMIN B6/PYRIDOXIN; Future - VITAMIN B12; Future 4. Mood changes - VITAMIN D 25 HYDROXY; Future - VITAMIN B6/PYRIDOXIN; Future - VITAMIN B12; Future I spent a total of 30 minutes on the date of the service which included preparing to see the patient, jermaine (more content not included)... Normal [facility] CNOVon 09-05-2024 CNOV Office Visit (GYURWP) ---- TANNA FRYE ([id number]) 1980 F Date Time Provider Department 09/05/24 10:30 AM RANDALL MACHUCA During your visit today, we recorded the following information about you: Blood pressure Weight Height Last Period 126/78 89.4 kg 1.626 m 09/04/24 Randall Machuca APRN.SAMPLE STEAMER 09/05/2024 11:26 AM Addendum Female Pelvic Medicine AND Reconstructive Surgery Consult CHIEF COMPLAINT: Tanna Frye is a 44 year old female who presents for consultation requested by Dr. wilkinson for an opinion regarding Hematuria. HISTORY OF PRESENT ILLNESS: Pt has concerns with hematuria. Pt also has concerns with urge and stress incontinence. Patient presents today with symptoms of stress urinary incontinence. Patient reports she leaks with exercise when she lifts something heavy. cough laugh sneeze. She has not had a sling procedure in the past. She has done kegels exercises for this problem. She does wear pads for this problem. Her symptoms have been going on since the of her children.. She is here for an evaluation and to discuss her options. Her pcp just mentioned it to her she's had it for 7 years. She works at a [email or web address]. Getting worse. Leaks cough, laugh, sneeze running picking up heavy things. She also reports frequency, at least every hour. Also feel she doesn't fully empty doesn't always feel relieved Leaks with urge sometimes She is up 1 to 2-3 times at night. Stress urinary incontinence is way more bothersome than the urinary frequency, urgency. She states she has always has overactive bladder symptoms her whole life. Has 2 young kids; drinks caffeine several cups of coffee daily. She also expresses interest in discussing perimenopause with a provider. She is starting to have symptoms. States her mother and sister went through menopause early. Patient presents with microscopic hematuria. Her risk factors are as follows: >35 years of age? Yes History of smoking? No Prior gross Hematuria? Yes Occupational exposure to benzenes? No Occupational exposure to aromatic amines? No History of heavy non-narcotic analgesic use? No History of urologic disease (I.e. kidney disease)? No History of recurrent uti? No History of pelvic radiation? No Prior use of alkylating agents ex. Cyclophosphamide? No Prior use of aristolochoic acid (ex. Herbal medicines)? No History of indwelling foreign body ex. Arias? 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 LMP: 09/04/2024; Menopause no: Menstrual history: Spotting/bleeding between periods; Deliveries: normal vaginal History of third or fourth degree laceration: No Weight of largest baby: 7lbs 12oz Sexual function Sexually active: Sexual dysfunction: pain PFDI-20 Do you: Usually experience pressure in the lower abdomen? Yes, somewhat bothersome (2) Usually experience heaviness or dullness in the pelvic area? Yes, somewhat bothersome (2) Usually have a bulge or something falling out that you can see or feel in your vaginal area? No (0) Ever have to push on the vagina or around the rectum to have or complete a bowel movement? Yes, not at all bothersome (1) Usually experience a feeling of incomplete bladder emptying? Yes, moderately bothersome (3) Ever have to push up on a bulge in the vaginal area with your fingers to start or complete urination? No (0) Feel you need to strain too hard to have a bowel movement? Yes, somewhat bothersome (2) Feel you have not completely emptied your bowels at the end of a bowel movement? Yes, not at all bothersome (1) Usually lose stool beyond your control if your stool is well formed? No (0) Usually lose stool beyond your control if your stool is loose? No (0) Usually lose gas from the rectum beyond your control? Yes, somewhat bothersome (2) Usually have pain when you pass your stool? Yes, somewhat bothersome (2) Experience a strong sense of urgency and have to martinez to the bathroom to have a bowel movement? Yes, somewhat bothersome (2) Does part of your bowel ever pass through the rectum and bulge outside during or after a bowel movement? No (0) Usually experience frequent urination? Yes, quite a bit bothersome (4) Usually experience urine leakage associated with a feeling of urgency, that is, a strong sensation of needing to go to the bathroom? Yes, quite a bit bothersome (4) Usually experience urine leakage related to coughing, sneezing or laughing? Yes, quite a bit bothersome (4) Usually experience small amounts of urine leakage (that is, drops)? Yes, quite a bit bothersome (4) Usually experience difficulty emptying your bladder? Yes, quite a bit bothersome (4) Usually experience pain or discomfort in the lower abdomen or genital region? Yes, not at all bothersome (1) (more content not included)... Normal [facility] UA DIP, URINE (POC)on 2024 BILIRUBIN UA (POCT) Negative Negative Matt [facility] CLARITY UA (POCT) Clear [facility] COLOR UA (POCT) Yellow [facility] GLUCOSE UA (POCT) Negative Negative mg/dL [facility] Hemoglobin Ql (U) Large Abnormal Negative [facility] Interpretation and review of laboratory results Abnormal [facility] KETONE UA (POCT) Negative Negative mg/dL [facility] LEUKOCYTES UA (POCT) Negative Negative [facility] NITRITE UA (POCT) Negative Negative [facility] PH UA (POCT) 7.0 4.5 - 8.0 [facility] Protein Ql (U) Negative Negative mg/dL [facility] SPECIFIC GRAVITY UA (POCT) 1.015 1.005 - 1.030 [facility] UROBILINOGEN UA (POCT) 0.2 Loni l E.U./dL [facility] Location:[facility] UROGYNECOLOGY, [address], [place], [address] [facility] POINT OF CARE [facility] Urinalysis complete panel (U )on 09-05-2024 Bacteria LM.HPF (Urine sed) [#/Area] Negative Normal Negative [facility] Comment on above: Order Comment: Speci men Type: URINE SPECIMEN Ordering Facility: [facility] Address: [address] [place] [address] Performed By: #### 2 4356-8 #### [facility] CLIA [id number] [address] [place] [address] [place] Bilirubin Ql (U) Negative Normal Negative [facility] Comment on above: Order Comment: Speci men Type: URINE SPECIMEN Ordering Facility: [facility] Address: [address] [place] [address] Performed By: #### 2 4356-8 #### [facility] CLIA [id number] [address] [place] [address] [place] Clarity (Unsp spec) Clear Normal Clear [facility] Comment on above: Order Comment: Speci men Type: URINE SPECIMEN Ordering Facility: [facility] Address: [address] [place] [address] Performed By: #### 2 4356-8 #### [facility] CLIA [id number] [address] [place] [address] [place] Color (U) Yellow Normal Yellow [facility] Comment on above: Order Comment: Speci men Type: URINE SPECIMEN Ordering Facility: [facility] Address: [address] [place] [address] Performed By: #### 2 4356-8 #### [facility] CLIA [id number] [address] [place] [address] [place] Epithelial cells LM.HPF (Urine sed) [#/Area] None Seen Normal [facility] Comment on above: Order Comment: Speci men Type: URINE SPECIMEN Ordering Facility: [facility] Address: [address] [place] [address] Performed By: #### 2 4356-8 #### [facility] CLIA [id number] [address] [place] [address] [place] Glucose Test strip (U) [Mass/Vol] Negative Normal Negative [facility] Comment on above: Order Comment: Speci men Type: URINE SPECIMEN Ordering Facility: [facility] Address: [address] [place] [address] Performed By: #### 2 4356-8 #### [facility] CLIA [id number] [address] [place] [address] [place] Hemoglobin Ql (U) Negative Normal Negative [facility] Comment on above: Order Comment: Speci men Type: URINE SPECIMEN Ordering Facility: [facility] Address: [address] [place] [address] Performed By: #### 2 4356-8 #### [facility] CLIA [id number] [address] [place] [address] [place] Hyaline casts (Urine sed) [#/Area] 0 /[LPF] Normal 0 /LPF [facility] Comment on above: Order Comment: Speci men Type: URINE SPECIMEN Ordering Facility: [facility] Address: [address] [place] [address] Performed By: #### 2 4356-8 #### [facility] CLIA [id number] [address] [place] [address] [place] Ketones Ql (U) Negative Normal Negative [facility] Comment on above: Order Comment: Speci men Type: URINE SPECIMEN Ordering Facility: [facility] Address: [address] [place] [address] Performed By: #### 2 4356-8 #### [facility] CLIA [id number] [address] [place] [address] [place] Leukocyte esterase Test strip Ql (U) Negative Normal Negative [facility] Comment on above: Order Comment: Speci men Type: URINE SPECIMEN Ordering Facility: [facility] Address: [address] [place] [address] Performed By: #### 2 4356-8 #### [facility] CLIA [id number] [address] [place] [address] [place] Nitrite Ql (U) Negative Normal Negative [facility] Comment on above: Order Comment: Speci men Type: URINE SPECIMEN Ordering Facility: [facility] Address: [address] [place] [address] Performed By: #### 2 4356-8 #### [facility] CLIA [id number] [address] [place] [address] [place] pH (U) 6.5 [pH] Normal <8.5 [facility] Comment on above: Order Comment: Speci men Type: URINE SPECIMEN Ordering Facility: [facility] Address: [address] [place] [address] Performed By: #### 2 4356-8 #### [facility] CLIA [id number] [address] [place] [address] [place] Protein (U) [Mass/Vol] Negative Normal Negative [facility] Comment on above: Order Comment: Speci men Type: URINE SPECIMEN Ordering Facility: [facility] Address: [address] [place] [address] Performed By: #### 2 4356-8 #### [facility] CLIA [id number] [address] [place] [address] [place] RBC LM.HPF (Urine sed) [#/Area] 0-2 /HPF Normal 0-2 /HPF [facility] Comment on above: Order Comment: Speci men Type: URINE SPECIMEN Ordering Facility: [facility] Address: [address] [place] [address] Performed By: #### 2 4356-8 #### [facility] CLIA [id number] [address] [place] [address] [place] Specific gravity (U) [Rel density] 1.009 Normal 1.005-1.030 [facility] Comment on above: Order Comment: Speci men Type: URINE SPECIMEN Ordering Facility: [facility] Address: [address] [place] [address] Performed By: #### 2 4356-8 #### [facility] CLIA [id number] [address] [place] [address] [place] Urobilinogen Ql (U) 0.2 EU/dL Normal 0.2-1.0 EU/dL [facility] Comment on above: Order Comment: Speci men Type: URINE SPECIMEN Ordering Facility: [facility] Address: [address] [place] [address] Performed By: #### 2 4356-8 #### [facility] CLIA [id number] [address] [place] [address] [place] WBC LM.HPF (Urine sed) [#/Area] 0-5 /HPF Normal 0-5 /HPF [facility] Comment on above: Order Comment: Speci men Type: URINE SPECIMEN Ordering Facility: [facility] Address: [address] [place] [address] Performed By: #### 2 4356-8 #### [facility] CLIA [id number] [address] [place] [address] [place] CBC W/Diff, Automatedon 12-3 0-2024 Absolute Lymph 1.81 X10 3/uL Normal 0.83-4.51 [facility] Comment on above: Performed By: #### L 100.0100 #### [facility] [address] [place], [address] Absolute Neut 4.7 X10 3/uL Normal 2.0-7.7 [facility] Comment on above: Performed By: #### L 100.0100 #### [facility] [address] [place], [address] Basophils/100 WBC (Bld) 0.7 % Normal 0-1 [facility] Comment on above: Performed By: #### L 100.0100 #### [facility] [address] [place], [address] Eosinophils/100 WBC (Bld) 4.6 % Normal 0-5 [facility] Comment on above: Performed By: #### L 100.0100 #### [facility] [address] [place], [address] Erythrocyte distribution width (RBC) [Ratio] 13.5 % Normal 11.6-14.6 [facility] Comment on above: Performed By: #### L 100.0100 #### [facility] [address] [place], [address] Hematocrit (Bld) [Volume fraction] 40.9 % Normal 37-47 [facility] Comment on above: Performed By: #### L 100.0100 #### [facility] [address] [place], [address] Hemoglobin (Bld) [Mass/Vol] 13.2 g/dL Normal 12.0-15.0 [facility] Comment on above: Performed By: #### L 100.0100 #### [facility] [address] [place], [address] IG% 0.300 Normal 0.0-0.9 [facility] Comment on above: Result Comment: IG% - Immature Granulocytes (promyelocytes, myelocytes and metamyelocytes) > 1% indicates that a LEFT SHIFT is Present. Performed By: #### L 100.0100 #### [facility] [address] [place], [address] Lymphocytes/100 WBC (Bld) 24.4 % Normal 19-41 [facility] Comment on above: Performed By: #### L 100.0100 #### [facility] [address] [place], [address] MCH (RBC) [Entitic mass] 27.8 pg Normal 27.0-32.0 [facility] Comment on above: Performed By: #### L 100.0100 #### [facility] [address] [place], [address] MCHC (RBC) [Mass/Vol] 32.3 g/dL Normal 32-36 [facility] Comment on above: Performed By: #### L 100.0100 #### [facility] [address] [place], [address] MCV (RBC) [Entitic vol] 86.1 fL Normal 81-99 [facility] Comment on above: Performed By: #### L 100.0100 #### [facility] [address] [place], [address] Monocytes/100 WBC (Bld) 6.7 % Normal 0-10 [facility] Comment on above: Performed By: #### L 100.0100 #### [facility] [address] [place], [address] Neutrophils/100 WBC (Bld) 63.3 % Normal 47-70 [facility] Comment on above: Performed By: #### L 100.0100 #### [facility] [address] [place], [address] Nucleated RBC (Bld) [#/Vol] 0 10*3/uL Normal 0-5 [facility] Comment on above: Performed By: #### L 100.0100 #### [facility] [address] [place], [address] Platelet mean volume (Bld) [Entitic vol] 9.7 fL Normal 6.2-12.0 [facility] Comment on above: Performed By: #### L 100.0100 #### [facility] [address] [place], [address] Platelets (Bld) [#/Vol] 289 10*3/uL Normal 150-450 [facility] Comment on above: Performed By: #### L 100.0100 #### [facility] [address] [place], [address] RBC (Bld) [#/Vol] 4.75 10*6/uL Normal 4.2-5.4 [facility] Comment on above: Performed By: #### L 100.0100 #### [facility] [address] [place], [address] RDW SD 42.4 fl Normal 35.1-43.9 [facility] Comment on above: Performed By: #### L 100.0100 #### [facility] [address] [place], [address] WBC (Bld) [#/Vol] 7.4 10*3/uL Normal 4.4-11.0 [facility] Comment on above: Performed By: #### L 100.0100 #### [facility] [address] [place], [address] Chest PA and Lateralon 08-13 Chest PA and Lateral [facility] Imaging Services [address] [place] [address] Chest PA and Lateral MR#: [id number] Acct: [id number] Name: TANNA FRYE Rep #: [id number] : 1980 F 44 From: Lenny Flowers MD PCP: [facility] Michelle Lombardo [facility] and Lateral Date of Exam: 08/13/24 Exam# [id number] Ordering Dr: Michelle Lombardo MD -[id number] STUDY: X-RAY CHEST REASON FOR EXAM: Female, 44 years old. Cough, Chest Pain TECHNIQUE: PA and lateral views of the chest. COMPARISON: 12/23/2017 FINDINGS: The lungs are clear and expanded. There is no demonstrated pleural abnormality. Normal size heart. Normal mediastinum and mary jo. Normal visualized pulmonary arteries. Normal visualized aortic arch and descending thoracic aorta. Normal visualized thoracic spine. Normal visualized ribs, clavicles, and shoulders. There is no demonstrated abnormality of the visualized soft tissue structures of the upper abdomen. RAD/Chest PA and Lateral IMPRESSION: Normal x-ray examination of the chest. Electronically Signed: Lenny Flowers MD at 10:09 EST , CC: Dr. Michelle Lombardo MD [employer]: Signed Normal [facility] Internal Medicine Office Vis [facility] 08-13-2024 Internal Medicine Office Visit [facility] [address] [place] [address] [place] [address] OFFICE VISIT Date of Service: 08/13/24 MR#: [id number] Acct: [id number] Name: TANNA FRYE Rep #: [id number] : 1980 Provider: Dr. 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 Accompanied by: Self Is patient in pain?: No Allergies adhesive tape Allergy (Mild, Verified 08/13/24 09:30) blisters Medications ???Medication ???Instructions ???Recorded ???Confirmed ???Type multivitamin 1 tab PO DAILY 09/28/23 08/13/24 History collagen powder 1 sc PO DAILY 05/14/24 08/13/24 History magnesium chloride 64 mg 64 mg PO DAILY 05/14/24 08/13/24 History (magnesium chloride) tablet omega-3 fatty acids 1,250 mg 1,250 mg PO QDAY 05/15/24 08/13/24 History capsule vitamin C 30 mg-zinc citrate 1.1 1 tab PO QDAY 05/15/24 08/13/24 History mg-elderberry 25 mg chewable tablet benzonatate 100 mg capsule 100 mg PO BID-TID PRN cough #90 08/13/24 08/13/24 Rx caps Nurse's Note: pt states x 3-4 days having sx of productive cough, sinus pressure, Sore throat, lung burning. [facility] Medical History (Updated 08/13/24 @ 12:[address] Michelle Lombardo MD) Atypical chest pain Chest congestion Cough Suprapubic discomfort Personal history of colon polyps, unspecified Abnormal urinalysis Colon cancer screening Preventative health care Encounter for preventative adult health care examination Right shoulder pain MRSA infection History of premature rupture of membranes (PPROM) History of pre-term labor Superficial varicosities Autoimmune disease Vitamin D deficiency GERD (gastroesophageal reflux disease) Hormone deficiency Preeclampsia Hx of migraine headaches History of gallstones H/O emotional problems History of UTI Seasonal allergies Seasonal allergies Incontinence Limb weakness Anemia Arthritis Hemorrhoid Anxiety Surgical History Hx of colonoscopy H/O removal of cyst S/P cholecystectomy S/P dilation and curettage S/P wisdom tooth extraction Family History Mother Breast cancer Cancer skin Arthritis Anxiety BLOOD TRANSFUSION Myocardial infarction Father Diabetes CAD (coronary artery disease) Hypertension Heart disease Anesthesia complication Myocardial infarction High cholesterol Sister Cancer Skin cancer Social History adopted: No household members: family housing: house number of children: 2 current occupational status: employed current occupation: [employer] pets and animals: Yes pets and animals: cat(s) sexually active: Yes Smoking Status: Former smoker second hand exposure: No alcohol intake: current alcohol intake frequency: holidays/special occasions only substance use type: does not use well-balanced diet: daily or most days caffeine: Yes Type: coffee Number of servings: 10 eating out: 1-3 times/week what type of physical activity do you participate in: none frequency: does not exercise seatbelt use: always do you feel safe at home: Yes 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 Reports cough, chest pain and congestion which has been ongoing for 3 to 4 days. History of sick contacts. No chills or recorded fever. Also denies any change in bowel habit, nausea or vomiting. No home testing has been done by the patient or sick contacts. ROS Const Constitutional: Positive for fatigue and headache(s); No body ache, chills, excessive sweating, fever(s), frequent falls, snoring, weakness or change in appetite Eyes Eyes: No blurry vision, change in vision, bulging eyes, floaters, visual disturbances, eye pain or Light sensitivity ENT ENT: Positive for nasal congestion, headache(s) and sore throat; No abnormal hearing, ear or mastoid pain, tinnitus, balance problems, nosebleed/epistaxis or neck pain Resp Respiratory: Positive for cough, change in phlegm color, chest congestion, excessive phlegm production, shortness of breath and pain with cough; (more content not included)... Normal [facility] Internal Medicine Office Vis ezio 07-16-2024 Internal Medicine Office Visit [facility] [address] [place] [address] [place] [address] OFFICE VISIT Date of Service: 07/16/24 MR#: [id number] Acct: [id number] Name: TANNA FRYE Rep #: [id number] : 1980 Provider: Dr. 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 Is patient in pain?: No Allergies adhesive tape Allergy (Mild, Verified 07/16/24 08:42) blisters Medications ???Medication ???Instructions ???Recorded ???Confirmed ???Type multivitamin 1 tab PO DAILY 09/28/23 07/16/24 History collagen powder 1 sc PO DAILY 05/14/24 07/16/24 History magnesium chloride 64 mg 64 mg PO DAILY 05/14/24 07/16/24 History (magnesium chloride) tablet omega-3 fatty acids 1,250 mg 1,250 mg PO QDAY 05/15/24 07/16/24 History capsule vitamin C 30 mg-zinc citrate 1.1 1 tab PO QDAY 05/15/24 07/16/24 History mg-elderberry 25 mg chewable tablet Nurse's Note: Flu vaccine declined. [facility] Medical History Suprapubic discomfort Personal history of colon polyps, unspecified Abnormal urinalysis Colon cancer screening Preventative health care Encounter for preventative adult health care examination Right shoulder pain MRSA infection History of premature rupture of membranes (PPROM) History of pre-term labor Superficial varicosities Autoimmune disease Vitamin D deficiency GERD (gastroesophageal reflux disease) Hormone deficiency Preeclampsia Hx of migraine headaches History of gallstones H/O emotional problems History of UTI Seasonal allergies Seasonal allergies Incontinence Limb weakness Anemia Arthritis Hemorrhoid Anxiety Surgical History (Updated 07/16/24 @ 08:47 by Caroline Griffin MA) Hx of colonoscopy H/O removal of cyst S/P cholecystectomy S/P dilation and curettage S/P wisdom tooth extraction Family History Mother Breast cancer Cancer skin Arthritis Anxiety BLOOD TRANSFUSION Myocardial infarction Father Diabetes CAD (coronary artery disease) Hypertension Heart disease Anesthesia complication Myocardial infarction High cholesterol Sister Cancer Skin cancer Social History adopted: No household members: family housing: house number of children: 2 current occupational status: employed current occupation: [employer] pets and animals: Yes pets and animals: cat(s) sexually active: Yes Smoking Status: Former smoker second hand exposure: No alcohol intake: current alcohol intake frequency: holidays/special occasions only substance use type: does not use well-balanced diet: daily or most days caffeine: Yes Type: coffee Number of servings: 10 eating out: 1-3 times/week what type of physical activity do you participate in: none frequency: does not exercise seatbelt use: always do you feel safe at home: Yes 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 Also has some concerns. Blood pressure today at 124/82. She reports mostly similar readings at home stating that her systolic is never higher than 130 and diastolic on average in the 80s. A few readings in the 90s but on recheck, this typically drops. Currently not on any medication. No chest pain, palpitation or shortness of breath. She also reports a history of anxiety. Over the holiday season, has noted intermittent episodes of. In the past, had been on Zoloft and did well on it. She does not think she needs it now but anticipates that she may need something through the holiday season. ROS Const Constitutional: No body ache, chills, excessive sweating, fatigue, fever(s), frequent falls, headache(s), snoring, weakness, sleep problems or change in appetite Eyes Eyes: No blurry vision, change in vision, bulging eyes, floaters, visual disturbances, eye pain or Light sensitivity ENT ENT: No abnormal hearing, ear or mastoid pain, tinnitus, balance problems, nosebleed/epistaxis , nasal congestion, headache(s), neck pain or sore throat Resp Respiratory: No cough, excessive phlegm productio (more content not included)... Normal [facility] Colonoscopy Reporton 024 Colonoscopy Report [facility] Medical Records Department [address] [place] [address] Colonoscopy Report MR#: [id number] Acct: [id number] Name: TANNA FRYE Rep #: [id number] : 1980 44 From: Justin Neville DO PCP: Dr. Michelle Lombardo MD [place] [place] Name: Tanna Frye Procedure Date: 07/09/2024 10:32 AM Date of : 1980 Age: 44 Procedure: Colonoscopy Indications: Screening for colorectal malignant neoplasm Providers: Justin Neville DO Medicines: Monitored Anesthesia Care Patient Profile: This is a 44 year old female. Refer to note in patient chart for documentation of history and physical. Last Colonoscopy: none. The patient's first colonoscopy is today. Complications: No immediate complications. Procedure: Pre-Anesthesia Assessment: - Prior to the procedure, a History and Physical was performed, and patient medications and allergies were reviewed. The patient is competent. The risks and benefits of the procedure and the sedation options and risks were discussed with the patient. All questions were answered and informed consent was obtained. Patient identification and proposed procedure were verified by the physician in the pre-procedure area. Mental Status Examination: alert and oriented. Airway Examination: normal oropharyngeal airway and neck mobility. Respiratory Examination: clear to auscultation. CV Examination: normal. Prophylactic Antibiotics: The patient does not require prophylactic antibiotics. Prior Anticoagulants: The patient has taken no anticoagulant or antiplatelet agents except for NSAID medication. ASA Grade Assessment: II - A patient with mild systemic disease. After reviewing the risks and benefits, the patient was deemed in satisfactory condition to undergo the procedure. The anesthesia plan was to use monitored anesthesia care (MAC). Immediately prior to administration of medications, the patient was re-assessed for adequacy to receive sedatives. The heart rate, respiratory rate, oxygen saturations, blood pressure, adequacy of pulmonary ventilation, and response to care were monitored throughout the procedure. The physical status of the patient was re-assessed after the procedure. After I obtained informed consent, the scope was passed under direct vision. Throughout the procedure, the patient's blood pressure, pulse, and oxygen saturations were monitored continuously. The pediatric colonoscope was introduced through the anus and advanced to the cecum, identified by appendiceal orifice and ileocecal valve. The colonoscopy was performed without difficulty. The patient tolerated the procedure well. The quality of the bowel preparation was adequate. The ileocecal valve, appendiceal orifice, and rectum were photographed. Scope In: 10:43:33 AM Scope Withdrawal Time 0 hours 9 minutes 36 seconds Scope Out: 10:59:02 AM Total Procedure Duration Time 0 hours 15 minutes 29 seconds Findings: The perianal and digital rectal examinations were normal. A 5 mm polyp was found in the rectum. The polyp was sessile. The polyp was removed with a jumbo cold forceps. Resection and retrieval were complete. Verification of patient identification for the specimen was done. Estimated blood loss was minimal. The exam was otherwise without abnormality on direct and retroflexion views. Impression: - One 5 mm polyp in the rectum, removed with a jumbo cold forceps. Resected and retrieved. - The examination was otherwise normal on direct and retroflexion views. Recommendation: - Discharge patient to home. - Resume previous diet. - Continue present medications. - Await pathology results. - Repeat colonoscopy in 5 years for surveillance. Procedure Code(s): --- Professional --- 84901, Colonoscopy, flexible; with biopsy, single or multiple CPT copyright 2021 [employer] [place] [employer]. All rights reserved. The codes documented in this report are preliminary and upon janitorial maintenance worker review may be revised to meet current compliance requirements. Justin Neville DO 07/09/2024 11:05:36 AM This report has been signed electronically. Number of Addenda: 0 Note Initiated On: 07/09/2024 10:32 AM 07/09/24 1105 Date Justin Neville DO Cosigner Signature: Date (if indicated) CC: Dr. Michelle Lombardo MD; Justin Neville DO Date Dictated: 07/09/24 1032 Date Transcribed: Ore Miner Blasting: MELINA Signed [facility] MR/POSTOP.George 07-09-2024 MR/POSTOP.[facility] Medical Records Department [address] [place] [address] Anesthesia Postop Eval I 07/09/24 1109 MR#: [id number] Acct: [id number] Name: TANNA FRYE Rep #: [id number] : 1980 44 From: Tirso Riley PCP: Dr. Michelle Lombardo MD Status:REG SDC Y Race: C Location: [place] [address] Anesthesia: Postop Eval I Current Vital Signs Temperature: 97.4 F Pulse Rate: 74 Blood Pressure: 123/77 Respiratory Rate: 16 Pulse Ox: 97 Oxygen Delivery Method: Room Air Assessment Airway patent: Yes Spontaneous unlabored respirations: Yes Mental status: Awake and Calm nausea: No Vomiting: No Anesthesia Complication: No Fluid Hydration Crystalloid volume administer (ml): 40 Total IV fluid infused: 40 Progress Note Anesthesia document: Postop Eval 1 completed: Yes 07/09/24 1110 Date Tirso Oh Signature: Date CC: Signed [facility] [id number] 07-09-[address] Medical Records Department [facility] [place] [address] Anesthesia Postop Eval II 07/09/24 1143 MR#: [id number] Acct: [id number] Name: TANNA FRYE Rep #: [id number] : 1980 44 From: Prashanth Johnson MD PCP: Dr. Michelle Lombardo MD Status:REG SDC Y Race: C Location: [place] [address] Anesthesia Postop Eval I Sum Postop Eval Completion status Anesthesia document: Postop Eval 1 completed: Yes Anesthesia Postop Eval I Summary Anesthesia Postop Eval I Summary: Anesthesia Postop Eval I: Assessment Summary Airway patent Yes 07/09/24 11:10 [email or web address] Spontaneous unlabored Yes 07/09/24 11:10 [email or web address] respirations Mental status Awake,Calm 07/09/24 11:10 [email or web address] nausea No 07/09/24 11:10 [email or web address] Vomiting No 07/09/24 11:10 [email or web address] Anesthesia Postop Eval I: Fluid Summary Crystalloid volume administer 40 07/09/24 11:10 [email or web address] (ml) Colloids volume administered ( ml) Blood Product volume administered (ml) Total IV fluid infused 40 07/09/24 11:10 [email or web address] Anesthesia Postop Eval I: Summary Notes Anesthesia Complication No 07/09/24 11:10 [email or web address] Anesthesia Complication Comment: Post-operative progress note Anesthesia: Postop Eval II Evaluation Mental status: Awake Pain Level: 0 nausea: No Vomiting: No 07/09/24 1144 Date Prashanth Oh Signature: Date CC: Signed [facility] ,Urineon 07-09-2024 Beta HCG ( test) Ql (U) Negative [facility] Comment on above: Result Comment: Very dilute urine specimens, as indicated by a low specific gravity, may not contain entry level sales representative levels of hCG. If is still suspected, a first morning urine specimen should be collected 48 hours later and tested. Performed By: #### L 400.7600 ####[facility] [address] [place], [address] Surgery Specimen Level Klaudia 07-09-2024 Surgery Specimen Level IV ----- Patient Age/Sex Location Account Attending Physician TANNA FRYE 44/F EN [id number] Justin Neville DO Specimen: [id number] Received: 07/09/24 Status: DERIC Teresa Num: [id number] Spec Type: COLON BX Subm Dr: Justin Neville DO HEADER OPERATION: Colonoscopy PRE-OP DIAGNOSIS: Colon cancer screening TISSUE SUBMITTED: Rectum polyp biopsy MICROSCOPIC DIAGNOSIS Rectal polyp, biopsy: Hyperplastic polyp. AM.mr 07/10/2024 MICROSCOPIC DESCRIPTION Slides are reviewed. GROSS DESCRIPTION Received in fixative is one container labeled with the patient's name and designated Rectum polyp biopsy. The specimen consists of one irregular fragment of light lazo soft tissue that measures 0.3 x 0.2 x 0.1 cm. The specimen is totally submitted in one cassette. AM.mr 07/09/2024 TC:5 CPT:48991 Patient Age/Sex Location Account Attending Physician TANNA FRYE 44/F EN [id number] Justin Neville DO Signed (signatur e on file) Dr. Luis Armando Osorio DO 07/10/24 1404 [facility] Comment on above: Performed By: #### P SHARA ####[facility] [address] [place], [address] Urine Cultureon 05-16-2024 URC Below infection level. Mixed Gram Positive Organisms [place] Count <1000 MIXC Mixed contaminants. Submit a new specimen if indicated. [facility] Comment on above: Performed By: #### M 100.7232 ####[facility] [address] [place], [address] Internal Medicine Office Vis iton 05-14-2024 Internal Medicine Office Visit [facility] [address] [place] [address] [place] [address] OFFICE VISIT Date of Service: 05/14/24 MR#: [id number] Acct: [id number] Name: TANNA FRYE Rep #: [id number] : 1980 Provider: Dr. Michelle boggs MD Age/Sex: 43/F Location[place] [facility] [place] Status: Signed Intake Vital Signs 05/07/24 08:42 05/14/24 13:03 Height 5 ft 4 in 5 ft 4 in Weight: 196 lb 192 lb BMI 33.6 32.9 BP 122/87 H 140/82 H Blood Pressure Location Lt brachial Position Sitting Respiration 17 Pulse 90 Pulse Source Monitor Temp 97.1 F L Temp Source Temporal Pulse Oximetry (%) 98 Oxygen Delivery Method room air Intake Visit Reasons: FU ON LABS Chief Complaint: FU ON LABS Is patient in pain?: No Allergies adhesive tape Allergy (Mild, Verified 05/14/24 13:00) blisters Medications ???Medication ???Instructions ???Recorded ???Confirmed ???Type calcium carbonate (Calcium 600) 600 mg PO DAILY 09/28/23 05/14/24 History multivitamin 1 tab PO DAILY 09/28/23 05/14/24 History collagen powder PO 05/14/24 History magnesium chloride 64 mg mg PO 05/14/24 05/14/24 History (magnesium chloride) tablet PFSH Medical History (Updated 05/14/24 @ 13:[address] Michelle Lombardo MD) Abnormal urinalysis Colon cancer screening Preventative health care Encounter for preventative adult health care examination Right shoulder pain MRSA infection History of premature rupture of membranes (PPROM) History of pre-term labor Superficial varicosities Autoimmune disease Vitamin D deficiency GERD (gastroesophageal reflux disease) Hormone deficiency Preeclampsia Hx of migraine headaches History of gallstones H/O emotional problems History of UTI Seasonal allergies Seasonal allergies Incontinence Limb weakness Anemia Arthritis Hemorrhoid Anxiety Surgical History Hx of colonoscopy H/O removal of cyst S/P cholecystectomy S/P dilation and curettage S/P wisdom tooth extraction Family History Mother Breast cancer Cancer skin Arthritis Anxiety BLOOD TRANSFUSION Myocardial infarction Father Diabetes CAD (coronary artery disease) Hypertension Heart disease Anesthesia complication Myocardial infarction High cholesterol Sister Cancer Skin cancer Social History adopted: No household members: family housing: house number of children: 2 current occupational status: employed current occupation: [employer] pets and animals: Yes pets and animals: cat(s) sexually active: Yes Smoking Status: Former smoker second hand exposure: No alcohol intake: current alcohol intake frequency: holidays/special occasions only substance use type: does not use well-balanced diet: daily or most days caffeine: Yes Type: coffee Number of servings: 10 eating out: 1-3 times/week what type of physical activity do you participate in: none frequency: does not exercise seatbelt use: always do you feel safe at home: Yes 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 She had urinalysis done by her tool machine set up operator which showed trace of blood in her urine. Has noted some lower abdominal discomfort but otherwise, no significant urinary concerns reported. No chills, fever or feeling of unwell. Blood pressure today at 140/82 mmHg. She states that she has been monitoring her blood pressure at home and her readings have been elevated lately ranging from the 1 teens to 130s and diastolic from the 80s to 90s. She states that she continues to exercise about 2-3 times weekly. Cooks/preps her own meal for the most part. ROS Const Constitutional: No body ache, chills, excessive sweating, fatigue, fever(s), frequent falls, headache(s), snoring, weight change, sleep problems, abnormal sleep pattern or change in appetite Eyes Eyes: No blurry vision, change in vision, dry eyes, bulging eyes, floaters, eye pain or Light sensitivity ENT ENT: No abnormal hearing, ear or mastoid pain, tinnitus, balance problems, nosebleed/epistaxis , nasal congestion, headache(s), neck pain or sore throat Resp Respiratory: No cough, excessive phlegm production, pain on inspiration, shortness of breath, snoring or wheezing Cardio Cardiology: No chest pain at rest, chest pain with exertion, excessive sweating, shortness of breath, dyspnea on exertion, lightheadedness, orthopnea or palpitations Gastro GI: No abdominal pain, change in bowel habits, constipation, cramping, diarrhea, nausea/dyspepsia or vomiting (more content not included)... [facility] PAP IG HPV APTIMA 16/18,45on 05-14-2024 ADEQ Comment Normal . [facility] Comment on above: Order Comment: Sohail vázquez Comment: [id number] Comment: Source.............Cervix;EndocervixSpecimen Comment: LMP / Prev Treat...[id number] Comment: No. of containers..01 ThinPrep Vial Result Comment: Sati sfactory for evaluation. Endocervical and/or squamous metaplastic cells (endocervical component) are present. Performed By: #### L 7400.0280 ####[facility] [address] [facility] [place], [address] COMM . Normal . [facility] Comment on above: Order Comment: Sohail vázquez Comment: [id number] Comment: Source.............Cervix;EndocervixSpecimen Comment: LMP / Prev Treat...[id number] Comment: No. of containers..01 ThinPrep Vial Performed By: #### L 7400.0280 ####[facility] [address] [facility]. [place], [place], [address] COMMENT Comment Normal . [facility] Comment on above: Order Comment: Speci gurpreet Comment: [id number] Comment: Source.............Cervix;EndocervixSpecimen Comment: LMP / Prev Treat...[id number] Comment: No. of containers..01 ThinPrep Vial Result Comment: This liquid based ThinPrep(R) pap test was screened with the use of an image guided system. Performed By: #### L 7400.0280 ####[facility] [address] [place], [address] DIAG Comment Normal . [facility] Comment on above: Order Comment: Speci men Comment: [id number] Comment: Source.............Cervix;EndocervixSpecimen Comment: LMP / Prev Treat...[id number] Comment: No. of containers..01 ThinPrep Vial Result Comment: NEGA TIVE FOR INTRAEPITHELIAL LESION OR MALIGNANCY. Performed By: #### L 7400.0280 ####[facility] [address] [place], [address] HPV APTIMA, HR Negative Normal Negative [facility] Comment on above: Order Comment: Speci men Comment: [id number] Comment: Source.............Cervix;EndocervixSpecimen Comment: LMP / Prev Treat...[id number] Comment: No. of containers..01 ThinPrep Vial Result Comment: This nucleic acid amplification test detects fourteen high- risk HPV types (16,18,31,33,35,39,45,51,52,56,58,59,66,68) without differentiation. Performed By: #### L 7400.0280 ####[facility] [address] [place], [address] HPV Jacki Rfx Comment Normal . [facility] Comment on above: Order Comment: Speci men Comment: [id number] Comment: Source.............Cervix;EndocervixSpecimen Comment: LMP / Prev Treat...[id number] Comment: No. of containers..01 ThinPrep Vial Result Comment: Brennat catia not met, HPV Genotype not performed. Performed at: - [address] [id number] Energy Conservation Technician: Daiana Aceves MD, Phone: [phone] Performed at: = - [facility] [address] [id number] Energy Conservation Technician: Daiana Aceves MD, Phone: [phone] Performed By: #### L 7400.0280 ####[facility] [address] [facility] [place], [address] PAPSMR Comment Normal . [facility] Comment on above: Order Comment: Speci men Comment: [id number] Comment: Source.............Cervix;EndocervixSpecimen Comment: LMP / Prev Treat...[id number] Comment: No. of containers..01 ThinPrep Vial Result Comment: The Pap smear is a screening test designed to aid in the detection of premalignant and malignant conditions of the uterine cervix. It is not a diagnostic procedure and should not be used as the sole means of detecting cervical cancer. Both false-positive and false-negative reports do occur. Performed By: #### L 7400.0280 ####[facility] [address] [place], [address] PERFORM Comment Normal . [facility] Comment on above: Order Comment: Speci men Comment: [id number] Comment: Source.............Cervix;EndocervixSpecimen Comment: LMP / Prev Treat...[id number] Comment: No. of containers..01 ThinPrep Vial Result Comment: Rosa M Rivas Mortgage Loan Funder (ASCP) Performed By: #### L 7400.0280 ####[facility] [address] [place], [address] Urinalysis, Completeon 05-14 BACTERIA 2+ /hpf Normal None Seen [facility] Comment on above: Order Comment: COLLE CTOR TO SPECIFY Performed By: #### L 400.0001 ####[facility] [address] [place], [address] EPI,TRANSITION 0-5 SEEN Normal 0-5 [facility] Comment on above: Order Comment: COLLE CTOR TO SPECIFY Performed By: #### L 400.0001 ####[facility] [address] [place], [address] EPI,SQUAMOUS 5-10 SEEN Normal 5-10 [facility] Comment on above: Order Comment: TAMARA CTOR TO SPECIFY Performed By: #### L 400.0001 ####[facility] [address] [place], [address] RBC 0-5 SEEN Normal 0-5 [facility] Comment on above: Order Comment: [facility] CTOR TO SPECIFY Performed By: #### L 400.0001 ####[facility] [address] [place], [address] WBC 5-10 SEEN Normal 0-5 [facility] Comment on above: Order Comment: TAMARA CTOR TO SPECIFY Performed By: #### L 400.0001 ####[facility] [address] [place], [address] Mucus Ql (Urine sed) 0 SEEN Normal [facility] Comment on above: Order Comment: COLLE CTOR TO SPECIFY Performed By: #### L 400.0001 ####[facility] [address] [place], [address] Comprehensive Metabolic Prof ilon 05-08-2024 Albumin [Mass/Vol] 3.4 g/dL Normal 3.2-5.0 [facility] Comment on above: Performed By: #### L 506.1000, L500.4050, L501.9520, L503.0105, L506.0400 #### [facility] [address] [place], [address] Albumin/Globulin [Mass ratio] 0.8 {ratio} Low 0.9-2.4 [facility] Comment on above: Performed By: #### L 506.1000, L500.4050, L501.9520, L503.0105, L506.0400 #### [facility] [address] [place], [address] ALK P 86 U/L Normal 45-117 [facility] Comment on above: Performed By: #### L 506.1000, L500.4050, L501.9520, L503.0105, L506.0400 #### [facility] [address] [place], [address] ALT [Catalytic activity/Vol] 24 U/L Normal 13-56 [facility] Comment on above: Performed By: #### L 506.1000, L500.4050, L501.9520, L503.0105, L506.0400 #### [facility] [address] [place], [address] AST [Catalytic activity/Vol] 14 U/L Low 15-37 [facility] Comment on above: Performed By: #### L 506.1000, L500.4050, L501.9520, L503.0105, L506.0400 #### [facility] [address] [place], [address] Bilirubin [Mass/Vol] 0.20 mg/dL Normal 0.20-1.00 [facility] Comment on above: Result Comment: For patients on eltrombopag therapy, use of Dimension [place] TBIL is not recommended. Performed By: #### L 506.1000, L500.4050, L501.9520, L503.0105, L506.0400 #### [facility] [address] [place], [address] BUN/CRE 24.5 RATIO High 10-20 [facility] Comment on above: Performed By: #### L 506.1000, L500.4050, L501.9520, L503.0105, L506.0400 #### [facility] [address] [place], [address] CA,Total 9.2 mg/dL Normal 8.5-10.1 [facility] Comment on above: Performed By: #### L 506.1000, L500.4050, L501.9520, L503.0105, L506.0400 #### [facility] [address] [place], [address] Chloride [Moles/Vol] 108 mmol/L High 98-107 [facility] Comment on above: Performed By: #### L 506.1000, L500.4050, L501.9520, L503.0105, L506.0400 #### [facility] [address] [place], [address] CO2 [Moles/Vol] 24.0 mmol/L Normal 21.0-32.0 [facility] Comment on above: Performed By: #### L 506.1000, L500.4050, L501.9520, L503.0105, L506.0400 #### [facility] [address] [place], [address] Creatinine [Mass/Vol] 0.74 mg/dL Normal 0.55-1.02 [facility] Comment on above: Result Comment: The validity of the calculated GFR GFRAA in patients over 70 years has not been determined. Clinical correlation is essential. Performed By: #### L 506.1000, L500.4050, L501.9520, L503.0105, L506.0400 #### [facility] [address] [place], [address] EST GFR - AA 110 mL/min Normal >60 [facility] Comment on above: Result Comment: Afri can [place] GFR Calc Performed By: #### L 506.1000, L500.4050, L501.9520, L503.0105, L506.0400 #### [facility] [address] [place], [address] GAP 5 Normal 5-15 [facility] Comment on above: Performed By: #### L 506.1000, L500.4050, L501.9520, L503.0105, L506.0400 #### [facility] [address] [place], [address] GFR/1.73 sq M.predicted among non-blacks MDRD (S/P/Bld) [Vol rate/Area] 91 mL/min/{1.73_m2} Normal >60 [facility] Comment on above: Result Comment: Non- GFR Calc Performed By: #### L 506.1000, L500.4050, L501.9520, L503.0105, L506.0400 #### [facility] [address] [place], [address] Globulin (S) [Mass/Vol] 4.1 g/dL Normal 2.2-4.2 [facility] Comment on above: Performed By: #### L 506.1000, L500.4050, L501.9520, L503.0105, L506.0400 #### [facility] [address] [place], [address] Glucose [Mass/Vol] 93 mg/dL Normal 74-106 [facility] Comment on above: Performed By: #### L 506.1000, L500.4050, L501.9520, L503.0105, L506.0400 #### [facility] [address] [place], [address] Potassium [Moles/Vol] 3.9 mmol/L Normal 3.5-5.1 [facility] Comment on above: Performed By: #### L 506.1000, L500.4050, L501.9520, L503.0105, L506.0400 #### [facility] [address] [place], [address] Sodium [Moles/Vol] 137 mmol/L Normal 136-145 [facility] Comment on above: Performed By: #### L 506.1000, L500.4050, L501.9520, L503.0105, L506.0400 #### [facility] [address] [place], [address] T PROT 7.5 g/dL Normal 6.4-8.2 [facility] Comment on above: Performed By: #### L 506.1000, L500.4050, L501.9520, L503.0105, L506.0400 #### [facility] [address] [place], [address] Urea nitrogen [Mass/Vol] 18 mg/dL Normal 7-18 [facility] Comment on above: Performed By: #### L 506.1000, L500.4050, L501.9520, L503.0105, L506.0400 #### [facility] [address] [place], [address] T4 Free Directon 05-08-2024 T4 FREE DIRECT 0.99 ng/dL Normal 0.76-1.46 [facility] Comment on above: Performed By: #### L 506.1000, L500.4050, L501.9520, L503.0105, L506.0400 #### [facility] [address] [place], [address] Thyroid Stim Hormone (TSH)on 05-08-2024 TSH 1.910 uIU/mL Normal 0.358-3.740 [facility] Comment on above: Performed By: #### L 506.1000, L500.4050, L501.9520, L503.0105, L506.0400 #### [facility] [address] [place], [address] Vitamin B12on 05-08-2024 Cobalamin (Vitamin B12) [Mass/Vol] 743 pg/mL Normal 211-911 [facility] Comment on above: Performed By: #### L 506.1000, L500.4050, L501.9520, L503.0105, L506.0400 #### [facility] [address] [place], [address] Vitamin D,25 Hydroxyon 05-08 Vitamin D 25-OH 23.9 ng/mL Normal [facility] Comment on above: Result Comment: Augustina min D 25(OH) Status Range Deficiency <20 ng/mL (50nmol/L) Insufficiency 20 - 30 ng/mL (50 - 75 nmol/L) Sufficiency 30 - 100 ng/mL (75 - 250 nmol/L) Toxicity >100 ng/mL (>250 nmol/L) Performed By: #### L 506.1000, L500.4050, L501.9520, L503.0105, L506.0400 #### [facility] [address] [place], [address] Systems Operator Office Visit Reporton 05-07-2024 Systems Operator Office Visit Report [facility] [address], [address] [place] [address] OFFICE VISIT Date of Service: 05/07/24 MR#: [id number] Acct: [id number] Name: TANNA FRYE Rep #: [id number] : 1980 Provider: LUIS EDUARDO Washburn Age/Sex: 43/F Location: 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: No Is patient in pain?: No Allergies adhesive tape Allergy (Mild, Verified 05/07/24 09:15) blisters Medications ???Medication ???Instructions ???Recorded ???Confirmed ???Type calcium carbonate (Calcium 600) 600 mg PO DAILY 09/28/23 05/07/24 History calcium polycarbophil 625 mg 1,250 mg PO DAILY 09/28/23 05/07/24 History tablet (Fiber (calcium polycarbophil)) magnesium chloride 64 mg mg PO 09/28/23 05/07/24 History (magnesium chloride) tablet multivitamin 1 tab PO DAILY 09/28/23 05/07/24 History Is last menstrual period known: Yes Last Menstrual Period: 04/28/24 Post menopausal: No Patient : No : No Control Method: none PFSH Medical History Colon cancer screening Preventative health care Encounter for preventative adult health care examination Right shoulder pain MRSA infection History of premature rupture of membranes (PPROM) History of pre-term labor Superficial varicosities Autoimmune disease Vitamin D deficiency GERD (gastroesophageal reflux disease) Hormone deficiency Preeclampsia Hx of migraine headaches History of gallstones H/O emotional problems History of UTI Seasonal allergies Seasonal allergies Incontinence Limb weakness Anemia Arthritis Hemorrhoid Anxiety Surgical History Hx of colonoscopy H/O removal of cyst S/P cholecystectomy S/P dilation and curettage S/P wisdom tooth extraction Family History Mother Breast cancer Cancer skin Arthritis Anxiety BLOOD TRANSFUSION Myocardial infarction Father Diabetes CAD (coronary artery disease) Hypertension Heart disease Anesthesia complication Myocardial infarction High cholesterol Sister Cancer Skin cancer Social History (Updated 05/07/24 @ 09:20 by Samra Benitez) adopted: No household members: family housing: house number of children: 2 service: No current occupational status: employed current occupation: [employer] pets and animals: Yes pets and animals: cat(s) sexually active: Yes Smoking Status: Former smoker second hand exposure: No alcohol intake: current alcohol intake frequency: holidays/special occasions only substance use type: does not use well-balanced diet: daily or most days caffeine: Yes Type: coffee Number of servings: 10 eating out: 1-3 times/week what type of physical activity do you participate in: none frequency: does not exercise seatbelt use: always do you feel safe at home: Yes 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 Date Name GA/Weeks Outcome Route Bth Weight Gen Labor Lgth Anesthesia Del Locatn Provider FOB Unknown [place] live - Unknown [place] live - full term HPI Encounter for routine gynecological examination Details: TANNA FRYE is a 43 year old who presents for annual exam. She would like to discuss possible perimenopausal symptoms; She states she has noticed hot flashes, night sweats, irritability. Mother went to menopause in late 40's. She continues to breast feed her daughter. This will likely wean this year. Last PAP: 2021; normal, no HPV screening completed. History of abnormal PAP: None Last mammogram: 09/2020-normal History of abnormal mammogram: None Colon cancer screenin--negative; 06/2024. Other preventative health care screenings: PCP: Randall Chen CNP Female Reproductive History Last Menstrual Period: 04/28/24 Cycle Length: 21-35 Bleeding Duration: 8 Questions: metorrhagia: No, sexually active: Yes, dyspareunia: No and PCB: No ROS Const Constitutional: Denies chills, fatigue, fever(s), headache(s) or weight loss Eyes Eyes: Denies change in vision ENT ENT: Denies dizziness Resp Resp: Denies cough GI GI: Denies abdominal pain, constipation or nausea : Denies difficulty voiding, dysuria, hem (more content not included)... Normal [facility] Absolute lymphocyte countOrd ered By: Michelle Lombardo on 09-28-2023 Lymphocytes Auto (Unsp spec) [#/Vol] 2.32 10*3/uL 0.83-4.51 [facility] Automated lymphocyte count a s percentage of total leukocytesOrdered By: Michelle Lombardo on 09-28-2023 Lymphocytes/100 WBC Auto (Unsp spec) 33.3 % 19-41 [facility] Basophil percentageOrdered B y: Michelle Lombardo on 09-28-2023 Basophils/100 WBC (Bld) 0.6 % 0-1 [facility] Bilirubin [Mass/Vol] 0.20 mg/dL 0.20-1.00 [facility] Comment on above: For patients on eltr ombopag therapy, use of Dimension [place] TBIL is not recommended. Chloride [Moles/Vol] 105 mmol/L 98-107 [facility] Cholesterol [Mass/Vol] 180 mg/dL <200 [facility] Comment on above: <200 mg/dL Desirable 200-240 mg/dL Borderline >240 mg/dL High Risk Eosinophils/100 WBC (Bld) 3.2 % 0-5 [facility] Glucose [Mass/Vol] 89 mg/dL 74-106 [facility] Hemoglobin (Bld) [Mass/Vol] 13.1 g/dL 12.0-15.0 [facility] Monocytes/100 WBC (Bld) 7.3 % 0-10 [facility] Neutrophils (Bld) [#/Vol] 3.9 10*3/uL 2.0-7.7 [facility] Neutrophils/100 WBC (Bld) 55.3 % 47-70 [facility] Potassium [Moles/Vol] 4.6 mmol/L 3.5-5.1 [facility] Protein [Mass/Vol] 7.8 g/dL 6.4-8.2 [facility] Sodium [Moles/Vol] 137 mmol/L 136-145 [facility] Triglyceride [Mass/Vol] 93 mg/dL <199 [facility] Comment on above: The drugs N-Acetylcy steine and Metamizole may falsely depress this assay.Serum Triglycerides Reference Interval Normal <150 mg/dL Borderline high 150 - 199 mg/dL High 200 - 499 mg/dL Very High > or = 500 mg/dL WBC (Bld) [#/Vol] 7.0 10*3/uL 4.4-11.0 [facility] Determination of erythrocyte mean corpuscular volume (MCV)Ordered By: Michelle Lombardo on 09-28-2023 MCV (RBC) [Entitic vol] 89.4 fL 81-99 [facility] Erythrocyte distribution wid th ratioOrdered By: [facility]idal[facility] on 09-28-2023 Erythrocyte distribution width (RBC) [Ratio] 13.2 % 11.6-14.6 [facility] Erythrocyte distribution wid th standard deviationOrdered By: [facility] on 09-28-2023 Erythrocyte distribution width (RBC) [Entitic vol] 43.6 fL 35.1-43.9 [facility] Hematocrit Auto (Bld) [Volum e fraction]Ordered By: [facility] on 09-28-2023 Hematocrit (Bld) [Volume fraction] 41.3 % 37-47 [facility] Immature granulocytes/100 WB C Auto (Bld)Ordered By: [facility] 09-28-2023 Immature granulocytes/100 WBC (Bld) 0.300 % 0.0-0.9 [facility] Comment on above: IG% - Immature Granu locytes (promyelocytes, myelocytes and metamyelocytes) > 1% indicates that a LEFT SHIFT is Present. Laboratory - Chemistry and C hemistry - challengeOrdered By: [facility]idalgon[facility] on 09-28-2023 Albumin/Globulin [Mass ratio] 1.0 {ratio} 0.9-2.4 [facility] ALP [Catalytic activity/Vol] 96 U/L 45-117 [facility] ALT [Catalytic activity/Vol] 25 U/L 13-56 [facility] Cholesterol in HDL [Mass/Vol] 56 mg/dL >40 [facility] Comment on above: The drugs N-Acetylcy steine and Metamizole may falsely depress this assay. Reference Range HDL <40 mg/dL Low HDL Cholesterol HDL >or= 60 mg/dL High HDL Cholesterol Cholesterol in LDL [Mass/Vol] 105 mg/dL 0-130 [facility] CO2 [Moles/Vol] 29.0 mmol/L 21.0-32.0 [facility] Globulin (S) [Mass/Vol] 3.9 g/dL 2.2-4.2 [facility] Urea nitrogen/Creatinine [Mass ratio] 20.4 mg/mg 10-20 [facility] Laboratory - Hematology and Cell countsOrdered By: Michelle Lombardo on 09-28-2023 MCH (RBC) [Entitic mass] 28.4 pg 27.0-32.0 [facility] MCHC (RBC) [Mass/Vol] 31.7 g/dL 32-36 [facility] Nucleated RBC/100 WBC (Bld) [Ratio] 0 % 0-5 [facility] Platelet mean volume (Bld) [Entitic vol] 9.5 fL 6.2-12.0 [facility] Platelets (Bld) [#/Vol] 342 10*3/uL 150-450 [facility] No Panel InformationOrdered By: Michelle Lombardo on 09-28-2023 Estimated GFR (MDRD) Amer 120 mL/min >60 [facility] Comment on above: GFR Calc Estimated GFR (MDRD) Non-Af Amer 99 mL/min >60 [facility] Comment on above: Non- GFR Calc VLDL Cholesterol 19 mg/dL 5-40 [facility] RBC Auto (Bld) [#/Vol]Ordere d By: Michelle Lombardo on 09-28-2023 RBC (Bld) [#/Vol] 4.62 10*6/uL 4.2-5.4 [facility] Serum or plasma calcium robin urement (mass/volume)Ordered By: Michelle Lombardo on 09-28-2023 Calcium [Mass/Vol] 9.8 mg/dL 8.5-10.1 [facility] Serum or plasma creatinine m easurement (mass/volume)Ordered By: Michelle Lombardo on 09-28-2023 Creatinine [Mass/Vol] 0.69 mg/dL 0.55-1.02 [facility] Comment on above: The validity of the calculated GFR & GFRAA in patients over 70 years has not been determined. Clinical correlation is essential. Serum or plasma urea nitroge n measurement (mass/volume)Ordered By: Michelle Lombardo on 09-28-2023 Urea nitrogen [Mass/Vol] 14 mg/dL 7-18 [facility] Thin prep Papanicolaou smear with manual screeningOrdered By: Michelle Lombardo on 09-28-2023 Thin prep Papanicolaou smear with manual screening 3.9 g/dL 3.2-5.0 [facility] Thin prep Papanicolaou smear with manual screening 20 U/L 15-37 [facility] Thin prep Papanicolaou smear with manual screening 3 5-15 [facility] Cervical or vagninal specime n microscopic examination by cytology stain (reported ason 01-21-2022 Cytology report Cyto stain Doc (Cvx/Vag) Comment . [facility] Work Phone: Comment on above: The Pap smear is a s creening test designed to aid in thedetection of premalignant and malignant conditions of theuterine cervix. It is not a diagnostic procedure andshould not be used as the sole means of detecting cervicalcancer. Both false-positive and false-negative reports dooccur. Laboratory - Cytologyon Software Developer Manager Cyto stain Nom (Cvx/Vag) [ID] Comment . [facility] Work Phone: Comment on above: Jaida Marcano [employer] hnologist (ASCP) Laboratory - Miscellaneous t estson 01-21-2022 Service comment (Unsp spec) [Interp] Comment . [facility] Work Phone: Comment on above: This liquid based Th inPrep(R) pap test was screened withthe use of an image guided system. Service comment (Unsp spec) [Interp] . . [facility] Work Phone: No Panel Informationon 01-21 Human Papillomavirus Screen Comment . [facility] Work Phone: Comment on above: The HPV DNA reflex c kandy were not met with this specimenresult therefore, no HPV testing was performed.Performed at: [address] [id number] Director: Daiana Aceves MD, Phone: [phone] Pathology report final diagnosis Narrative Comment . [facility] Work Phone: Comment on above: NEGATIVE FOR INTRAEP ITHELIAL LESION OR MALIGNANCY. Culture, urineon 12-21-2021 Bacteria identified Cx Nom (U) Escherichia coli [facility] Work Phone: Bacteria identified Cx Nom (U) Positive [facility] Work Phone: Laboratory - Chemistry and C hemistry - challengeon 12-13-2021 Magnesium [Mass/Vol] 5.9 mg/dL 1.6-2.6 [facility] Work Phone: Comment on above: Critical Result(s) C alled at: 01:17:49 12/13/2021 by: NEVIN SCHROEDER to Netta Sigala RN WP. Results read back by same. Absolute lymphocyte counton 12-10-2021 Lymphocytes Auto (Unsp spec) [#/Vol] 1.88 10*3/uL 0.83-4.51 [facility] Work Phone: Basophil percentageon 2021 Basophils/100 WBC (Bld) 0.3 % 0-1 [facility] Work Phone: Eosinophils/100 WBC (Bld) 0.4 % 0-5 [facility] Work Phone: Neutrophils (Bld) [#/Vol] 7.0 10*3/uL 2.0-7.7 [facility] Work Phone: Neutrophils/100 WBC (Bld) 72.4 % 47-70 [facility] Work Phone: WBC (Bld) [#/Vol] 9.7 10*3/uL 4.4-11.0 [facility] Work Phone: Blood erythrocytes count (nu mber/volume)on 12-10-2021 RBC (Bld) [#/Vol] 4.05 10*6/uL 4.2-5.4 [facility] Work Phone: Blood hemoglobin measurement (mass/volume)on 12-10-2021 Hemoglobin (Bld) [Mass/Vol] 12.4 g/dL 12.0-15.0 [facility] Work Phone: Blood lymphocytes/100 leukoc yteson 12-10-2021 Lymphocytes/100 WBC (Bld) 19.5 % 19-41 [facility] Work Phone: Blood monocytes/100 leukocyt eson 12-10-2021 Monocytes/100 WBC (Bld) 6.6 % 0-10 [facility] Work Phone: Blood platelet mean volumeon 12-10-2021 Platelet mean volume (Bld) [Entitic vol] 10.7 fL 6.2-12.0 [facility] Work Phone: Determination of erythrocyte mean corpuscular volume (MCV)on 12-10-2021 MCV (RBC) [Entitic vol] 91.9 fL 81-99 [facility] Work Phone: Hematocrit Auto (Bld) [Volum e fraction]on 12-10-2021 Hematocrit (Bld) [Volume fraction] 37.2 % 37-47 [facility] Work Phone: Laboratory - Chemistry and C hemistry - challengeon 12-10-2021 ALT [Catalytic activity/Vol] 25 U/L 13-56 [facility] Work Phone: Laboratory - Hematology and Cell countson 12-10-2021 Erythrocyte distribution width (RBC) [Entitic vol] 43.8 fL 35.1-43.9 [facility] Work Phone: Erythrocyte distribution width (RBC) [Ratio] 13.2 % 11.6-14.6 [facility] Work Phone: Immature granulocytes/100 WBC (Bld) 0.800 % 0.0-0.9 [facility] Work Phone: Comment on above: IG% - Immature Granu locytes (promyelocytes, myelocytes and metamyelocytes) > 1% indicates that a LEFT SHIFT is Present. MCH (RBC) [Entitic mass] 30.6 pg 27.0-32.0 [facility] Work Phone: Nucleated RBC/100 WBC (Bld) [Ratio] 0 % 0-5 [facility] Work Phone: MCHC Auto (RBC) [Mass/Vol]on 12-10-2021 MCHC (RBC) [Mass/Vol] 33.3 g/dL 32-36 [facility] Work Phone: No Panel Informationon 12-10 Estimated Creatinine Clearance Calc 69.54 ml/min [facility] Work Phone: Estimated GFR (MDRD) Amer 87 mL/min >60 [facility] Work Phone: Comment on above: GFR Calc Estimated GFR (MDRD) Non-Af Amer 72 mL/min >60 [facility] Work Phone: Comment on above: Non- GFR Calc Platelets bldon 12-10-2021 Platelets (Bld) [#/Vol] 264 10*3/uL 150-450 [facility] Work Phone: Serum or plasma creatinine m easurement (mass/volume)on 12-10-2021 Creatinine [Mass/Vol] 0.91 mg/dL 0.55-1.02 [facility] Work Phone: Comment on above: The validity of the calculated GFR & GFRAA in patients over 70 years has not been determined. Clinical correlation is essential. Serum or plasma uric acid me asurement (mass/volume)on 12-10-2021 Urate [Mass/Vol] 5.7 mg/dL 2.6-6.0 [facility] Work Phone: Comment on above: The drugs N-Acetylcy steine and Metamizole may falsely depress this assay. Thin prep Papanicolaou smear with manual screeningon 12-10-2021 Thin prep Papanicolaou smear with manual screening 34 U/L 15-37 [facility] Work Phone: Comment on above: Moderate Hemolysis, Result may be falsely increased. Urine creatinine measurement (mass/volume)on 12-10-2021 Creatinine (U) [Mass/Vol] 122.00 mg/dL NO RANGE EST. [facility] Work Phone: Urine protein measurement (m ass/volume)on 12-10-2021 Protein (U) [Mass/Vol] 44.2 mg/dL 0.0-11.8 [facility] Work Phone: Urine protein/creatinine mas s ratioon 12-10-2021 Protein/Creatinine (U) [Mass ratio] 362 mg/g CRE 0-200 [facility] Work Phone: Basophil percentageon 2021 WBC (Bld) [#/Vol] 8.7 10*3/uL 4.4-11.0 [facility] Work Phone: Blood erythrocytes count (nu mber/volume)on 12-03-2021 RBC (Bld) [#/Vol] 3.75 10*6/uL 4.2-5.4 [facility] Work Phone: Blood hemoglobin measurement (mass/volume)on 12-03-2021 Hemoglobin (Bld) [Mass/Vol] 11.6 g/dL 12.0-15.0 [facility] Work Phone: Blood platelet mean volumeon 12-03-2021 Platelet mean volume (Bld) [Entitic vol] 10.9 fL 6.2-12.0 [facility] Work Phone: Determination of erythrocyte mean corpuscular volume (MCV)on 12-03-2021 MCV (RBC) [Entitic vol] 89.9 fL 81-99 [facility] Work Phone: Hematocrit Auto (Bld) [Volum e fraction]on 12-03-2021 Hematocrit (Bld) [Volume fraction] 33.7 % 37-47 [facility] Work Phone: Laboratory - Chemistry and C hemistry - challengeon 12-03-2021 ALT [Catalytic activity/Vol] 21 U/L 13-56 [facility] Work Phone: Laboratory - Hematology and Cell countson 12-03-2021 Erythrocyte distribution width (RBC) [Entitic vol] 42.2 fL 35.1-43.9 [facility] Work Phone: Erythrocyte distribution width (RBC) [Ratio] 12.9 % 11.6-14.6 [facility] Work Phone: MCH (RBC) [Entitic mass] 30.9 pg 27.0-32.0 [facility] Work Phone: MCHC Auto (RBC) [Mass/Vol]on 12-03-2021 MCHC (RBC) [Mass/Vol] 34.4 g/dL 32-36 [facility] Work Phone: No Panel Informationon 12-03 Group B Streptococcus Culture Group B Beta Streptococcus is not isolated. [facility] Work Phone: Platelets bldon 12-03-2021 Platelets (Bld) [#/Vol] 241 10*3/uL 150-450 [facility] Work Phone: Serum or plasma uric acid me asurement (mass/volume)on 12-03-2021 Urate [Mass/Vol] 5.9 mg/dL 2.6-6.0 [facility] Work Phone: Comment on above: The drugs N-Acetylcy steine and Metamizole may falsely depress this assay. Thin prep Papanicolaou smear with manual screeningon 12-03-2021 Thin prep Papanicolaou smear with manual screening 20 U/L 15-37 [facility] Work Phone: Basophil percentageon 2021 Cholesterol [Mass/Vol] 288 mg/dL <200 [facility] Work Phone: Comment on above: <200 mg/dL Desirable 200-240 mg/dL Borderline >240 mg/dL High Risk Triglyceride [Mass/Vol] 233 mg/dL <199 [facility] Work Phone: Comment on above: The drugs N-Acetylcy steine and Metamizole may falsely depress this assay.Serum Triglycerides Reference Interval Normal <150 mg/dL Borderline high 150 - 199 mg/dL High 200 - 499 mg/dL Very High > or = 500 mg/dL Serum or plasma cholesterol in HDL measurement (mass/volume)on 11-12-2021 Cholesterol in HDL [Mass/Vol] 57 mg/dL >40 [facility] Work Phone: Comment on above: The drugs N-Acetylcy steine and Metamizole may falsely depress this assay. Reference Range HDL <40 mg/dL Low HDL Cholesterol HDL >or= 60 mg/dL High HDL Cholesterol Serum or plasma cholesterol in VLDL measurement (mass/volume)on 11-12-2021 Cholesterol in VLDL [Mass/Vol] 47 mg/dL 5-40 [facility] Work Phone: Serum or plasma low density lipoprotein (LDL) cholesterol measurement (mass/volume)on 11-12-2021 Cholesterol in LDL [Mass/Vol] 184 mg/dL 0-130 [facility] Work Phone: Basophil percentageon 2021 Bilirubin [Mass/Vol] 0.20 mg/dL 0.20-1.00 [facility] Work Phone: Comment on above: For patients on eltr ombopag therapy, use of Dimension [place] TBIL is not recommended. Chloride [Moles/Vol] 107 mmol/L 98-107 [facility] Work Phone: Glucose [Mass/Vol] 87 mg/dL 74-106 [facility] Work Phone: Potassium [Moles/Vol] 4.0 mmol/L 3.5-5.1 [facility] Work Phone: Protein [Mass/Vol] 7.4 g/dL 6.4-8.2 [facility] Work Phone: Sodium [Moles/Vol] 135 mmol/L 136-145 [facility] Work Phone: WBC (Bld) [#/Vol] 10.2 10*3/uL 4.4-11.0 [facility] Work Phone: Blood erythrocytes count (nu mber/volume)on 11-02-2021 RBC (Bld) [#/Vol] 3.85 10*6/uL 4.2-5.4 [facility] Work Phone: Blood hemoglobin measurement (mass/volume)on 11-02-2021 Hemoglobin (Bld) [Mass/Vol] 12.4 g/dL 12.0-15.0 [facility] Work Phone: Blood platelet mean volumeon 11-02-2021 Platelet mean volume (Bld) [Entitic vol] 9.8 fL 6.2-12.0 [facility] Work Phone: Culture, urineon 11-02-2021 Bacteria identified Cx Nom (U) Streptococcus agalactiae (B) [facility] Work Phone: Bacteria identified Cx Nom (U) Mixed Gram Pos & Gram Neg Org [facility] Work Phone: Determination of erythrocyte mean corpuscular volume (MCV)on 11-02-2021 MCV (RBC) [Entitic vol] 91.9 fL 81-99 [facility] Work Phone: Hematocrit Auto (Bld) [Volum e fraction]on 11-02-2021 Hematocrit (Bld) [Volume fraction] 35.4 % 37-47 [facility] Work Phone: Laboratory - Chemistry and C hemistry - challengeon 11-02-2021 ALP [Catalytic activity/Vol] 120 U/L 45-117 [facility] Work Phone: ALT [Catalytic activity/Vol] 17 U/L 13-56 [facility] Work Phone: CO2 [Moles/Vol] 21.0 mmol/L 21.0-32.0 [facility] Work Phone: Globulin (S) [Mass/Vol] 4.7 g/dL 2.2-4.2 [facility] Work Phone: Urea nitrogen/Creatinine [Mass ratio] 19.4 mg/mg 10-20 [facility] Work Phone: Laboratory - Hematology and Cell countson 11-02-2021 Erythrocyte distribution width (RBC) [Entitic vol] 42.2 fL 35.1-43.9 [facility] Work Phone: Erythrocyte distribution width (RBC) [Ratio] 12.8 % 11.6-14.6 [facility] Work Phone: MCH (RBC) [Entitic mass] 32.2 pg 27.0-32.0 [facility] Work Phone: MCHC Auto (RBC) [Mass/Vol]on 11-02-2021 MCHC (RBC) [Mass/Vol] 35.0 g/dL 32-36 [facility] Work Phone: No Panel Informationon 11-02 Estimated GFR (MDRD) Amer 98 mL/min >60 [facility] Work Phone: Comment on above: GFR Calc Estimated GFR (MDRD) Non-Af Amer 81 mL/min >60 [facility] Work Phone: Comment on above: Non- GFR Calc Platelets bldon 11-02-2021 Platelets (Bld) [#/Vol] 291 10*3/uL 150-450 [facility] Work Phone: Serum or plasma albumin robin urement (mass/volume)on 11-02-2021 Albumin [Mass/Vol] 2.7 g/dL 3.2-5.0 [facility] Work Phone: Serum or plasma albumin/glob ulin mass ratioon 11-02-2021 Albumin/Globulin [Mass ratio] 0.6 {ratio} 0.9-2.4 [facility] Work Phone: Serum or plasma calcium robin urement (mass/volume)on 11-02-2021 Calcium [Mass/Vol] 10.5 mg/dL 8.5-10.1 [facility] Work Phone: Serum or plasma creatinine m easurement (mass/volume)on 11-02-2021 Creatinine [Mass/Vol] 0.82 mg/dL 0.55-1.02 [facility] Work Phone: Comment on above: The validity of the calculated GFR & GFRAA in patients over 70 years has not been determined. Clinical correlation is essential. Serum or plasma urea nitroge n measurement (mass/volume)on 11-02-2021 Urea nitrogen [Mass/Vol] 16 mg/dL 7-18 [facility] Work Phone: Thin prep Papanicolaou smear with manual screeningon 11-02-2021 Thin prep Papanicolaou smear with manual screening 18 U/L 15-37 [facility] Work Phone: Thin prep Papanicolaou smear with manual screening 7 5-15 [facility] Work Phone: Thin prep Papanicolaou smear with manual screening 206 U/L 84-246 [facility] Work Phone: Urine creatinine measurement (mass/volume)on 11-02-2021 Creatinine (U) [Mass/Vol] 45.40 mg/dL NO RANGE EST. [facility] Work Phone: Urine protein measurement (m ass/volume)on 11-02-2021 Protein (U) [Mass/Vol] 18.7 mg/dL 0.0-11.8 [facility] Work Phone: Urine protein/creatinine mas s ratioon 11-02-2021 Protein/Creatinine (U) [Mass ratio] 412 mg/g CRE 0-200 [facility] Work Phone: Basophil percentageon 2021 WBC (Bld) [#/Vol] 9.2 10*3/uL 4.4-11.0 [facility] Work Phone: Blood erythrocytes count (nu mber/volume)on 10-01-2021 RBC (Bld) [#/Vol] 3.70 10*6/uL 4.2-5.4 [facility] Work Phone: Blood hemoglobin measurement (mass/volume)on 10-01-2021 Hemoglobin (Bld) [Mass/Vol] 12.0 g/dL 12.0-15.0 [facility] Work Phone: Blood platelet mean volumeon 10-01-2021 Platelet mean volume (Bld) [Entitic vol] 9.4 fL 6.2-12.0 [facility] Work Phone: Determination of erythrocyte mean corpuscular volume (MCV)on 10-01-2021 MCV (RBC) [Entitic vol] 93.8 fL 81-99 [facility] Work Phone: Gestational diabetes screen 1-hour screen with 50g oral glucose loadon 10-01-2021 Glucose 1 Hr post 50 g glucose PO [Mass/Vol] 132 mg/dL 70-140 [facility] Work Phone: Hematocrit Auto (Bld) [Volum e fraction]on 10-01-2021 Hematocrit (Bld) [Volume fraction] 34.7 % 37-47 [facility] Work Phone: Laboratory - Hematology and Cell countson 10-01-2021 Erythrocyte distribution width (RBC) [Entitic vol] 42.4 fL 35.1-43.9 [facility] Work Phone: Erythrocyte distribution width (RBC) [Ratio] 12.2 % 11.6-14.6 [facility] Work Phone: MCH (RBC) [Entitic mass] 32.4 pg 27.0-32.0 [facility] Work Phone: MCHC Auto (RBC) [Mass/Vol]on 10-01-2021 MCHC (RBC) [Mass/Vol] 34.6 g/dL 32-36 [facility] Work Phone: Platelets bldon 10-01-2021 Platelets (Bld) [#/Vol] 314 10*3/uL 150-450 [facility] Work Phone: Serum or plasma severe acute respiratory syndrome coronavirus 2 (SARS-CoV-2) IgG antion 08-21-2021 SARS-CoV-2 (COVID-19) IgG IA Ql 4.02 INDEX 0.00-0.99 [facility] Work Phone: Comment on above: It is yet undetermin ed what level of antibody to SARS-CoV-2 spike protein correlates to immunity against developing symptomatic SARS-CoV-2 disease. Studies are underway to measure the quantitative levels of specific SARS-CoV-2 antibodies following vaccination. Such studies will provide valuable insights into the correlation between protection from vaccination and antibody levels. Interpretation: Negative < 1.0 Positive > or = 1.0Method: [employer] IM SARS SEMI-QUANT IGG ABS * This test has not been reviewed by the FDA* Use of this test is limited to laboratories that are certified under Clinical Laboratory Improvement Amendments of 1988 (CLIA) to perform high-complexity testing.* Negative results do not preclude acute SARS-CoV-2 infection. If acute infection is suspected, direct testing for SARS-CoV-2 is necessary.* Results from antibody testing should not be used to diagnose or exclude acute SARS-CoV-2 infection.* Positive results may be due to past or present infection with [id number] coronovirus strains, such as coronavirus HKU1, NL63, OC43, or 229E. Cris 12-05-2020 CNPN Telephone (SPPRAD) ---- TANNA FRYE ( ) 1980 F Date Time Provider Department 12/05/20 INDIGO PALENCIA During your visit today, we recorded the following information about you: Indigo Rojas 12/05/2020 4:25 PM Signed Recall colonoscopy (2nd call). Left a message for pt to call [phone] to schedule or call office at [phone] for questions. Allergies As of Date: 12/05/2020 Noted Allergy Reaction DUST 06/03/2015 14 - Other: See Comments POLLEN 07/19/2005 Date Reviewed: 02/22/2016 Reviewed by: Belkis Hdz Director Operating Room - Fully Assessed Reason for Visit: recall colonoscopy [Other] Prescriptions as of 12/05/2020 Sig: * NUVARING 0.12 MG-0.015 MG/24 * Insert one(1) ring vaginally * Problem List As Of Date 12/05/2020 Noted Resolved Epigastric pain [R10.13] 10/09/2014 Change in bowel habits [R19.4] 10/09/2014 Encounter Status:Closed by INDIGO PALENCIA on 01/23/21 [facility] 11-20-2020 CNPN Telephone (SPPRAD) ---- TANNA FRYE ( ) 1980 F Date Time Provider Department 11/20/20 INDIGO PALENCIA ([facility])SPPRAD During your visit today, we recorded the following information about you: Indigo Rojas APRN.SAMPLE STEAMER 11/20/2020 1:25 PM Addendum Recall colonoscopy (1st call). Left a message for pt to call [phone] to schedule or call office at [phone] for questions. My chart message also sent. Allergies As of Date: 11/20/2020 Noted Allergy Reaction DUST 06/03/2015 14 - Other: See Comments POLLEN 07/19/2005 Date Reviewed: 02/22/2016 Reviewed by: Belkis Hdz Director Operating Room - Fully Assessed Reason for Visit: recall colonoscopy [Other] Prescriptions as of 11/20/2020 Sig: * NUVARING 0.12 MG-0.015 MG/24 * Insert one(1) ring vaginally * Problem List As Of Date 11/20/2020 Noted Resolved Epigastric pain [R10.13] 10/09/2014 Change in bowel habits [R19.4] 10/09/2014 Encounter Status:Closed by INDIGO PALENCIA on 11/20/[address] [facility] Culture, urine Bacteria identified Cx Nom (U) Streptococcus agalactiae (B) [facility] Work Phone: Bacteria identified Cx Nom (U) Mixed Gram Pos & Gram Neg Org [facility] Work Phone: Bacteria identified Cx Nom (U) Escherichia coli [facility] Work Phone: Bacteria identified Cx Nom (U) Positive [facility] Work Phone: No Panel Information Group B Streptococcus Culture Group B Beta Streptococcus is not isolated. [facility] Work Phone: Vital Signs Date Time Vital Sign Value Performing Clinician Facility 01-16-2025 15:01-0400 Body height 162.[address] Michelle Lombardo MD Work Phone: [facility] 01-16-2025 15:01-0400 Body mass index (BMI) [Ratio] 33.9 kg/m2 Dr. Michelle Lombardo MD Work Phone: [facility] 01-16-2025 15:01-0400 Body temperature 97 [degF] Dr. Michelle Lombardo MD Work Phone: [facility] 01-16-2025 15:01-0400 Body weight 89.[address] Michelle Lombardo MD Work Phone: [facility] 01-16-2025 15:01-0400 Diastolic blood pressure 78 mm[Hg] Dr. Michelle Lombardo MD Work Phone: [facility] 01-16-2025 15:01-0400 Heart rate 89 /min Dr. Michelle Lombardo MD Work Phone: [facility] 01-16-2025 15:01-0400 Respiratory rate 16 /min Dr. Michelle Lombardo MD Work Phone: [facility] 01-16-2025 15:01-0400 SaO2% (BldA) [Mass fraction] 97 % Dr. Michelle Lombardo MD Work Phone: [facility] 01-16-2025 15:01-0400 Systolic blood pressure 114 mm[Hg] Dr. Michelle Lombardo MD Work Phone: [facility] 10-23-2024 14:05-0400 Body temperature 100.8 [degF] Dr. Michelle Lombardo MD Work Phone: [facility] 10-23-2024 14:05-0400 Heart rate 104 /min Dr. Michelle Lombardo MD Work Phone: [facility] 10-23-2024 14:05-0400 Respiratory rate 17 /min Dr. Michelle Lombardo MD Work Phone: [facility] 10-23-2024 14:05-0400 SaO2% (BldA) [Mass fraction] 97 % Dr. Michelle Lombardo MD Work Phone: [facility] 10-09-2024 09:26-0500 Body height 162.6 cm Shena Jenkins PERFORATOR OPERATOR OIL WELL.SAMPLE STEAMER Work Phone: [facility] 10-09-2024 09:26-0500 Body mass index (BMI) [Ratio] 33.81 kg/m2 Shena Jenkins PERFORATOR OPERATOR OIL WELL.SAMPLE STEAMER Work Phone: [facility] 10-09-2024 09:26-0500 Body weight 89.36 kg Shena Jenkins PERFORATOR OPERATOR [employer]IL WELL.SAMPLE STEAMER Work Phone: [facility] 10-09-2024 09:26-0500 Diastolic blood pressure 78 mm[Hg] Shena Jenkins PERFORATOR OPERATOR OIL WELL.SAMPLE STEAMER Work Phone: [facility] 10-09-2024 09:26-0500 Systolic blood pressure 124 mm[Hg] Shena Ejnkins PERFORATOR OPERATOR OIL WELL.SAMPLE STEAMER Work Phone: [facility] 09-05-2024 10:12-0500 Body height 162.6 cm Randall Machuca PERFORATOR OPERATOR OIL WELL.SAMPLE STEAMER Work Phone: [facility] 09-05-2024 10:12-0500 Body mass index (BMI) [Ratio] 33.81 kg/m2 Randall Machuca PERFORATOR OPERATOR OIL WELL.SAMPLE STEAMER Work Phone: [facility] 09-05-2024 10:12-0500 Body weight 89.36 kg Randall Machuca PERFORATOR OPERATOR OIL WELL.SAMPLE STEAMER Work Phone: [facility] 09-05-2024 10:12-0500 Diastolic blood pressure 78 mm[Hg] Randall Machuca PAULINE.SAMPLE STEAMER Work Phone: [facility] 09-05-2024 10:12-0500 Systolic blood pressure 126 mm[Hg] Randall Machuca SAMPLE STEAMER Work Phone: [facility] 09-28-2023 11:04-0500 Body height 162.[address] Michelle Lombardo Work Phone: [facility] 09-28-2023 11:04-0500 Body mass index (BMI) [Ratio] 33.6 kg/m2 Dr. Michelle Lombardo Work Phone: [facility] 09-28-2023 11:04-0500 Body temperature 97.8 [degF] Dr. Michelle Lombardo Work Phone: [facility] 09-28-2023 11:04-0500 Body weight 88.[address] Michelle Lombardo Work Phone: [facility] 09-28-2023 11:04-0500 Diastolic blood pressure 70 mm[Hg] Dr. Michelle Lombardo Work Phone: [facility] 09-28-2023 11:04-0500 Heart rate 74 /min Dr. Michelle Lombardo Work Phone: [facility] 09-28-2023 11:04-0500 Respiratory rate 14 /min Dr. Michelle Lombardo Work Phone: [facility] 09-28-2023 11:04-0500 SaO2% (BldA) [Mass fraction] 98 % Dr. Michelle Lombardo Work Phone: [facility] 09-28-2023 11:04-0500 Systolic blood pressure 122 mm[Hg] Dr. Michelle Lombardo Work Phone: [facility] 12-13-2021 08:05-0400 Heart rate 102 /min Dr. Michelle Lombardo Work Phone: [facility] Work Phone: 12-13-2021 08:05-0400 SaO2% (BldA) [Mass fraction] 96 % Dr. Michelle Lombardo Work Phone: [facility] Work Phone: 12-13-2021 08:04-0400 Body temperature 97.8 [degF] Dr. Michelle Lombardo Work Phone: [facility] Work Phone: 12-13-2021 08:04-0400 Diastolic blood pressure 80 mm[Hg] Dr. Michelle Lombardo Work Phone: [facility] Work Phone: 12-13-2021 08:04-0400 Respiratory rate 16 /min Dr. Michelle Lombardo Work Phone: [facility] Work Phone: 12-13-2021 08:04-0400 Systolic blood pressure 128 mm[Hg] Dr. Michelle Lombardo Work Phone: [facility] Work Phone: 12-10-2021 15:51-0400 Body height 162.[address] Michelle Lombadro Work Phone: [facility] Work Phone: 12-10-2021 15:51-0400 Body mass index (BMI) [Ratio] 36.8 kg/m2 Dr. Michelle Lombardo Work Phone: [facility] Work Phone: 12-10-2021 15:51-0400 Body weight 97.[address] Michelle Lombardo Work Phone: [facility] Work Phone: 11-12-2021 13:39-0400 Body mass index (BMI) [Ratio] 36.2 kg/m2 Dr. Michelle Lombardo Work Phone: [facility] Work Phone: 11-12-2021 13:39-0400 Body temperature 97.2 [degF] Dr. Michelle Lombardo Work Phone: [facility] Work Phone: 11-12-2021 13:39-0400 Body weight 95.[address] Michelle Lombardo Work Phone: [facility] Work Phone: 11-12-2021 13:39-0400 Diastolic blood pressure 82 mm[Hg] Dr. Michelle Lombardo Work Phone: [facility] Work Phone: 11-12-2021 13:39-0400 Heart rate 102 /min Dr. Michelle Lombardo Work Phone: [facility] Work Phone: 11-12-2021 13:39-0400 Respiratory rate 18 /min Dr. Michelle Lombardo Work Phone: [facility] Work Phone: 11-12-2021 13:39-0400 SaO2% (BldA) [Mass fraction] 98 % Dr. Michelle Lombardo Work Phone: [facility] Work Phone: 11-12-2021 13:39-0400 Systolic blood pressure 120 mm[Hg] Dr. Michelle Lombardo Work Phone: [facility] Work Phone: 11-12-2021 13:39-0400 Body height 162.[address] Michelle Lombardo Work Phone: [facility] Work Phone: 11-12-2021 13:39-0400 Body mass index (BMI) [Ratio] 36.2 kg/m2 Dr. Michelle Lombardo Work Phone: [facility] Work Phone: 11-12-2021 13:39-0400 Body temperature 97.2 [degF] Dr. Michelle Lombardo Work Phone: [facility] Work Phone: 11-12-2021 13:39-0400 Body weight 95.[address] Michelle Lombardo Work Phone: [facility] Work Phone: 11-12-2021 13:39-0400 Diastolic blood pressure 82 mm[Hg] Dr. Michelle Lombardo Work Phone: [facility] Work Phone: 11-12-2021 13:39-0400 Heart rate 102 /min Dr. Michelle Lombardo Work Phone: [facility] Work Phone: 11-12-2021 13:39-0400 Respiratory rate 18 /min Dr. Michelle Lombardo Work Phone: [facility] Work Phone: 11-12-2021 13:39-0400 SaO2% (BldA) [Mass fraction] 98 % Dr. Michelle Lombardo Work Phone: [facility] Work Phone: 11-12-2021 13:39-0400 Systolic blood pressure 120 mm[Hg] Dr. Michelle Lombardo Work Phone: [facility] Work Phone: 08-21-2021 11:30-0500 Body height 162.[address] Michelle Lombardo Work Phone: [facility] Work Phone: Encounters Encounter Date Encounter Type Care Provider Facility Start: 01-21-2025 Encounter for genera l adult medical examination without abnormal [facility] Start: 01-18-2025 End: 01-18-[address] Michelle Lombardo MD Work Phone: [facility] Work Phone: Start: 01-18-2025 End: 01-18-[address] Michelle Lombardo MD -[facility] Start: 01-18-2025 End: 01-18-2025 ambulatory Michelle Lombardo Facility:[facility] Start: 01-16-2025 End: 01-16-[address] Michelle Lombardo MD -[facility] Work Phone: Start: 01-16-2025 End: 01-16-[address] Michelle Lombardo MD [facility] Start: 01-16-2025 End: 01-16-[address] Michelle Lombardo MD Work Phone: [facility] Work Phone: Start: 12-17-2024 End: 12-17-2024 ambulatory Kemal Koch PT, DPT Work Phone: [place] Comment on above: Weakness (Primary Dx ); CHARITO (stress urinary incontinence, female) Start: 11-26-2024 End: 11-26-2024 ambulatory Kemal Koch PT, DPT Work Phone: [place] Comment on above: Weakness (Primary Dx ); CHARITO (stress urinary incontinence, female) Start: 11-19-2024 End: 11-19-2024 ambulatory Kemal Koch PT, DPT Work Phone: [place] Comment on above: Weakness (Primary Dx ); CHARITO (stress urinary incontinence, female) Start: 11-12-2024 End: 11-12-2024 ambulatory Kemal Koch PT, DPT Work Phone: [place] Comment on above: Weakness (Primary Dx ); CHARITO (stress urinary incontinence, female) Start: 10-23-2024 End: 10-23-2024 Patient encounter procedure Ken [facility] Work Phone: Start: 10-23-2024 End: 10-23-2024 ambulatory [facility] [place] Start: 10-15-2024 End: 10-15-2024 ambulatory Kemal Koch PT, DPT Work Phone: [facility] [place] Comment on above: Weakness (Primary Dx ); CHARITO (stress urinary incontinence, female); OAB (overactive bladder) Start: 10-09-2024 End: 10-09-2024 ambulatory SHENA JENKINS Facility:[facility] Start: 10-09-2024 End: 10-09-2024 Patient encounter procedure Shena Jenkins APRN.SAMPLE STEAMER Work Phone: [facility]RO[facility]Gynecology Comment on above: Perimenopausal sympt oms (Primary Dx); Menometrorrhagia; Brain fog; Mood changes Start: 09-05-2024 End: 09-05-2024 ambulatory RANDALL MACHUCA Facility:[facility] Start: 09-05-2024 End: 09-05-2024 Patient encounter procedure Randall Machuca APRN.SAMPLE STEAMER Work Phone: [facility]Gy[facility]cology Comment on above: Microscopic hematuri a (Primary Dx); CHARITO (stress urinary incontinence, female); OAB (overactive bladder); Perimenopausal symptoms; Encounter for urine test Start: 09-05-2024 End: 09-05-2024 Patient encounter status Randall Machuca APRN.SAMPLE STEAMER Work Phone: [facility] Start: 08-13-2024 End: 08-13-2024 ambulatory [facility] [place] Start: 08-13-2024 End: 08-13-2024 ambulatory [facility] Facility:[facility] Start: 08-05-2024 Encounter for other preprocedural examination Justin Neville [facility] Start: 07-16-2024 End: 07-16-2024 ambulatory [facility] Facility:[facility] Start: 07-09-2024 End: 07-09-2024 ambulatory Justin Neville Facility:[facility] Start: 05-15-2024 ambulatory Iraida Alfonso [facility] Start: 05-14-2024 End: 05-14-2024 ambulatory Michelle Lombardo Facility:[facility] Start: 05-14-2024 End: 05-14-20[facility] Start: 05-07-2024 End: 05-08-2024 ambulatory Michelle Lombardo Facility:[facility] Start: 09-28-2023 End: 09-28-[address] Michelle Lombardo Work Phone: [facility] Work Phone: Start: 09-28-2023 End: 09-28-[address] Michelle Lombardo Work Phone: [facility] Start: 09-28-[address] Netta Lombardo Work Phone: [facility] Start: 09-28-2023 End: 09-28-2023 Encounter for general adult medical examination without abnormal findings Dr. Michelle Lombardo Work Phone: [facility] Start: 09-28-2023 End: 09-28-[address] Michelle Lombardo Work Phone: [facility] Work Phone: Start: 12-23-[address] Netta Lombardo Work Phone: [facility] Start: 02-03-2022 End: 02-03-[address] Michelle Lombardo Work Phone: [facility] Start: 01-22-[address] Emil Lombardo Work Phone: [facility] Start: 01-21-2022 End: 01-21-[address] [facility] Start: 12-21-2021 End: 12-21-[address] [facility] Start: 12-10-2021 End: 12-13-2021 Evaluation and management of inpatient Dr. Michelle Lomb[facility] Start: 12-03-2021 End: 12-03-[address] [facility] [employer] Start: 11-12-2021 End: 11-12-2021 Encounter for general adult medical examination without abnormal findings Dr. Michelle Lombardo Work Phone: [facility] Start: 11-12-2021 End: 11-12-[address] [facility] Start: 11-02-2021 End: 11-02-[address] [facility] [employer] Start: 10-01-2021 End: 10-01-[address] [facility] [employer] [facility] [employer] Start: 08-21-[address] Dara [facility] Start: 08-21-2021 End: 08-21-[address] Michelle Lombardo Work Phone: [facility] Procedures Date Procedure Procedure Detail Performing Clinician Start: 01-22-2025 Urnls dip stick/tabl et rgnt auto w/o microscopy Randall Machuca PERFORATOR OPERATOR OIL WELL.SAMPLE STEAMER Work Phone: Start: 12-21-[address] Emil Lombardo Work Phone: Start: 12-10-2021 End: 12-10-[address] Michelle Lombardo Work Phone: Start: 12-03-2021 Group B Streptococcu s Culture Dr. Michelle Lombardo Work Phone: Start: 11-02-[address] Emil Lombardo Work Phone: Start: 10-30-2014 Colonoscopy Randall huizar PERFORATOR OPERATOR OIL WELL.SAMPLE STEAMER Work Phone: Start: 02-02-2012 Lipid 1996 panel - S morelia or Plasma Randall Machuca PERFORATOR OPERATOR OIL WELL.SAMPLE STEAMER Work Phone: [facility] Streptococcu s Culture Dr. Michelle Lombardo Work Phone: H/O: surgery H/O removal of cyst Dr. Nelly Lombardo Work Phone: Comment on above: Neck- Age2 H/O: surgery S/P dilation and curettage Dr. Michelle Lombardo Work Phone: History of cholecystectomy S/P cholecystectomy Dr. Michelle Lombardo Work Phone: Comment on above: 12/29/[address] Michelle Lombardo Work Phone: Viral antigen assay Dr. Nelly Lombardo Work Phone: Plan of Treatment Date Care Activity Detail Author Start: 02-21-2026 Urine microalbumin profile DTaP,Tdap,Td Vaccine (2 - Td or Tdap) [facility] Start: 04-15-2025 Influenza vaccination Influenz a Vaccine (Season Ended) [facility] Start: 02-08-2025 End: 02-08-2025 Follow-up encounter 02/08/2025 8:30 AM EDT [facility]Gynecology [address] [place] [address] Shena Jenkins APRN.SAMPLE STEAMER [address] [place] [address] 4 month follow up URO/Gynecology Comment on above: 4 month follow up Start: 01-09-2025 End: 01-09-2025 ambulatory 01/09/2025 8:45 AM EDT OT/PT/Speech Visit [facility] Physical [facility] [address] [place] [address] Kemal Koch, PT, DPT [address] [place] [address] CHARITO [facility] Physical [facility] Comment on above: CHARITO Start: 12-17-2024 End: 12-17-2024 ambulatory 12/17/2024 1:30 PM EDT OT/PT/Speech Visit [facility] [address] [place] [address] Kemal Koch, PT, DPT [address] [place] [address] charito [facility] Physical [facility] Comment on above: charito Start: 12-12-2024 End: 12-12-2024 ambulatory 12/12/2024 8:45 AM EDT OT/PT/Speech Visit [facility] Physical [facility] [address] [place] [address] Kemal Koch, PT, DPT [address] [place], [place] [id number] charito [facility] Physical [facility] Comment on above: charito Start: 11-28-2024 End: 11-28-2024 Patient encounter procedure 11/28/2024 9:30 AM EDT Office Visit URO/Gynecology [address] [place] [address] Randall Machuca, PERFORATOR OPERATOR OIL WELL.SAMPLE STEAMER [address] [place] [address] follow up URO/Gynecology Comment on above: follow up Start: 11-26-2024 End: 11-26-2024 ambulatory 11/26/2024 11:00 AM EDT OT/PT/Speech Visit [facility] [address] [place] [address] Kemal Koch, PT, DPT [address] [place] [address] charito [facility] Comment on above: charito Start: 11-19-2024 End: 11-19-2024 ambulatory 11/19/2024 11:00 AM EDT OT/PT/Speech Visit [facility] [address] [place] [address] Kemal Koch, PT, DPT [address] [place] [address] charito [facility] Physical [facility] Comment on above: charito Start: 11-12-2024 End: 11-12-2024 ambulatory 11/12/2024 11:00 AM EDT OT/PT/Speech Visit [facility] Physical [facility] [address] [place] [address] Kemal Koch, PT, DPT [address] [place] [address] charito [facility] Physical [facility] Comment on above: charito Start: 10-15-2024 End: 10-15-2024 ambulatory 10/15/2024 11:45 AM EST OT/PT/Speech Visit [facility] [address] [place] [address] Kemal Koch, PT, DPT [address] [place] [address] CHARITO (stress urinary incontinence, female) [N39.3] [facility] [place] Comment on above: CHARITO (stress urinary incontinence, female) [N39.3] Start: 10-09-2024 End: 01-08-2025 25-hydroxyvitamin D3 [Mass/volume] in Serum or Plasma VITAMIN D 25 HYDROXY Lab Routine Brain fog Mood changes Expected: 10/09/2024, Expires: 01/08/2025 [facility] Comment on above: Expected: 10/09/2024 , Expires: 01/08/2025 Start: 10-09-2024 End: 01-08-2025 CBC panel - Blood by Automated count COMPLETE BLOOD COUNT Lab Routine Menometrorrhagia Expected: 10/09/2024, Expires: 01/08/2025 [facility] Comment on above: Expected: 10/09/2024 , Expires: 01/08/2025 Start: 10-09-2024 End: 01-08-2025 Cobalamin (Vitamin B12) [Mass/volume] in Serum or Plasma VITAMIN B12 Lab Routine Brain fog Mood changes Expected: 10/09/2024, Expires: 01/08/2025 [facility] Comment on above: Expected: 10/09/2024 , Expires: 01/08/2025 Start: 10-09-2024 End: 01-08-2025 Pyridoxine [Mass/volume] in Serum or Plasma VITAMIN B6/PYRIDOXIN Lab Routine Brain fog Mood changes Expected: 10/09/2024, Expires: 01/08/2025 [facility] Comment on above: Expected: 10/09/2024 , Expires: 01/08/2025 Start: 10-09-2024 End: 01-08-2025 Thyrotropin [Units/volume] in Serum or Plasma THYROID STIMULATING HORMONE Lab Routine Menometrorrhagia Expected: 10/09/2024, Expires: 01/08/2025 [facility] Comment on above: Expected: 10/09/2024 , Expires: 01/08/2025 Start: 2024 Diabetes Screening Diabetes Screenin g [facility] Start: 2024 Lipid panel Lipid Screening [facility] Start: 2024 Screening for malign ant neoplasm of colon [facility] Start: 04-15-2024 Covid-19 Vaccine ( season) Covid-19 Vaccine () [facility] Start: 04-15-2024 Influenza vaccination Influenza Vacc ine (#1) [facility] Start: 09-28-2023 Patient referral [facility] Work Phone: Start: 12-13-2021 [facility] Start: 12-12-[address] [facility] Work Phone: Start: 12-12-2021 Administration of medication [facility] Work Phone: Start: 12-12-2021 Application of ice collar, cap or bag [facility] Work Phone: Start: 12-12-2021 Catheterization of vein [facility] Work Phone: Start: 12-12-2021 Introduction of urin gm catheter [facility] Work Phone: Start: 12-12-2021 Measuring intake and output [facility] Work Phone: Start: 12-12-2021 Notification of physician [facility] Work Phone: Start: 12-12-2021 Procedure discontinued [facility] Work Phone: Start: 12-12-2021 Provision of activit y privileges [facility] Work Phone: Start: 12-12-2021 Vital signs measurements [facility] Work Phone: Start: 12-12-[address] [facility] Work Phone: Start: 12-10-[address] [facility] Work Phone: Start: 2019 Screening for malign ant neoplasm of breast Mammogram Screening [facility] Start: 05-21-2019 Screening for malign ant neoplasm of cervix Cervical Cancer Screening [facility] Start: 10-30-2017 Screening for malign ant neoplasm of colon [facility] Start: 1998 Hepatitis B Vaccine (1 of 3 - 19+ 3-dose series) Hepatitis B Vaccine (1 of 3 - 19+ 3-dose series) [facility] Start: 1997 Anxiety Screening Anxiety Screening [facility] Start: 1997 Depression Screening Depression Scre ening [facility] Start: 1997 Hepatitis C screening Hepatitis C Sc reening [facility] Start: 1997 HIV screening HIV Screening [facility] CBC W Auto Different ial panel - Blood [facility] Comprehensive metabo lic 1999 panel - Serum or Plasma [facility] Lipid 1996 panel - S morelia or Plasma [facility] MG Breast - bilatera l Screening [facility] Patient Education After a Vagina l Understanding Preeclampsia [id number]: Holds : Latch On Steps : Consult [facility] Work Phone: Patient referral [facility] Work Phone: Urinalysis complete panel - Urine URINALYSIS, WITH MICROSCOPIC Lab Routine Microscopic hematuria 09/05/2024 11:08 AM EST [facility] Work Phone: End: 11-08-2025 US Pelvis transvaginal US FEMALE PELVIS TRANSVAG Radiology Routine Menometrorrhagia 1 Occurrences starting 10/09/2024 until 11/08/2025 [facility] Work Phone: Comment on above: 1 Occurrences starti ng 10/09/2024 until 11/08/2025 Immunizations Immunization Date Immunization Notes Care Provider Claudette henry 02-22-2016 tetanus toxoid, redu hazel diphtheria toxoid, and acellular pertussis vaccine, adsorbed Randall Machuca APRN.CNP Work Phone: [facility] Payers Date Payer Category Payer Private Health Insurance M[employer] SU[employer] PPO [id number] 2024 Unknown MMO M[employer] PPO [id number] 2024-Present [phone] [address] [place] [address] PPO [id number] 2024 Unknown [id number] 2023 Self-pay [id number] 2021 Private Health Insurance [id number] 2016 Unknown [id number] Unknown [id number]. 462 Unknown [id number]. 462 Unknown [id number] 2.840.1.270578.3.579.2. 462 Unknown [id number] [id number]. 462 Unknown [id number] [id number]. 462 Unknown [id number] [id number]. 462 Unknown [id number] [id number]. 462 Unknown [id number] [id number]. 462 Unknown [id number] 2.16.840.1.741119.3.579.2. 462 Unknown [id number] 2.16.840.1.755017.3.579.2. 462 Unknown [id number] 2.16.840.1.095796.3.579.2. 462 Unknown [id number] [id number]. 462 Unknown [id number]. 462 Social History Date Type Detail Facility Start: 08-21-2021 End: 09-28-2023 Tobacco smoking status [facility] Unknown if ever smoked [facility] Start: 1980 Sex Assigned At Female [facility] Start: 07-05-2024 End: 09-05-2024 Tobacco smoking status [facility] Ex-smoker [facility] End: 07-19-2004 History of tobacco use Current smoker [facility] End: 07-19-2004 History of tobacco use Cigarette Smoker [facility] Start: 09-05-2024 End: 10-09-2024 Alcoholic beverage intake Current drinker of alcohol (finding) [facility] Start: 08-20-2024 End: 09-05-2024 History of Social function [facility] Start: 08-20-2024 End: 09-05-2024 Tobacco use panel [facility] National Score (1-100), lower number is lower risk 56 [facility] Start: 10-30-2014 [facility] Start: 1980 Sex assigned at Not on file [facility] Goals Date Patient Goal Desired Activity /State Functional Status Date Assessment Result Facility 12-12-2021 Functional status Activity Abili ty Standby Assist [facility] Work Phone: 10-09-2014 Are you deaf, or do you have serious difficulty hearing No 10/09/2014 9:49 AM PARUL SkeltonArik [facility] 10-09-2014 Are you blind, or do you have serious difficulty seeing, even when wearing glasses No 10/09/2014 9:49 AM PARUL Skelton Arik Alondra [facility] 10-09-2014 Do you have serious difficulty walking or climbing stairs No 10/09/2014 9:49 AM PARUL Skelton Arik [facility] 10-09-2014 Do you have difficul ty dressing or bathing No 10/09/2014 9:49 AM PARUL Skelton Arik Alondra [facility] 10-09-2014 Because of a physica l, mental, or emotional condition, do you have difficulty doing errands alone such as visiting a physician's office or shopping No 10/09/2014 9:49 AM PARUL Skelton Arik Alondra [facility] Mental Status Date Assessment Result Facility 10-09-2014 Because of a physica l, mental, or emotional condition, do you have serious difficulty concentrating, remembering, or making decisions No 10/09/2014 9:49 AM Arik Salinas [facility] Clinical Notes 01-21-2022 to 02-25-2025 Kemal Koch PT, DPT - 12/17/2024 2:11 PM Kemal Galindo PT, DPT - 12/17/2024 1:33 PM Kemal Galindo PT, DPT - 11/26/2024 11:29 AM EDT Note Date & Type Note Facility 02-25-2025 Note HNO ID: [id number] Author: KEMAL KOCH PT, DPT Service: ? Author Type: Physical Therapist Type: Progress Notes Filed: 02/25/2025 14:20 Note Text: 02/25/[address] [facility] REHABILITATION AND SPORTS THERAPY PHYSICAL THERAPY DISCONTINUANCE OF CARE Plan of Care Period: Start of Care Date: 10/15/24 Last Visit Date: 12/17/2024 Therapy Program: The following is a summary of the interventions provided for this episode of care; Therapeutic exercise, Neuromuscular re-education, Manual therapy, and Self-group home management Assessment: The following is the goal status: Addressed 11/26/2024 Goals for Episode of Care: established 03/03/25 [place] in home exercise program. - Progressing Patient will demonstrate increase in bilateral gluteals strength to 4+/5 during manual muscle testing in order to improve function for prior functional tasks. - Progressing Patient will increase flexibility of bilateral JULIO to WNL to improve ability to maintain proper posture. - Progressing Patient to urinate every 2-4 hours total of 5-9x per day to demonstrate normalized bladder function. - Met Patient reports nocturia <1 times to demonstrate normalized bladder function. - Progressing Patient reports 90% less bladder leaks with urgency to avoid incontinent episodes. - 50% Progressing Patient reports 85% improvement in bladder leaks while coughing/sneezing, lifting, and exercise compared to evaluation in order to increase bladder and bowel function in activities of daily living. - 50% progressing Patient reports increased water intake to 66 ounces/day to promote bladder and bowel health. - Met Patient to limit bladder irritants to 32 ounces to promote bladder health and reduce urinary urge episodes. - Met Coordinate pelvic floor with thoracic diaphragm during Functional mobility and change in position to decreasing incontinence and/or pain. - Met Patient Goals: stop urinary leakage Based on the most recent progress report, patient was progressing as expected toward functional goals based on documented subjective information on progress. Reason for Discontinuation of Care: Patient has not returned to therapy or scheduled additional follow-up appointments. Kemal Koch, PT, DPT [facility] 12-17-2024 History of Presen t illness Narrative Program_ID:[id number] Access Code: [email or web address] URL: [email or web address] Date: 12-17-2024 Prepared By: Kemal Koch Program Notes Exercises - Standing Single Leg Heel Raise - x daily - 2 x weekly - 2 sets - 10 reps - Single Leg Bridge - x daily - 2 x weekly - 2 sets - 10 reps - Single Leg Sit to Stand with Arms Crossed - x daily - 2 x weekly - 2 sets - 10 reps - Sidelying Hip Abduction - x daily - 2 x weekly - 2 sets - 10 reps - Single Leg Stance - x daily - 2 x weekly - 1 sets - 2 reps - Supine ITB Stretch with Strap - x daily - 4 x weekly - 1 sets - 2 reps Episode Visit Count: 5 Therapist That Will Accept/Oversee The Plan Of Care: Kemal Koch PT, DPT Start of Care Date: 10/15/24 Patient Identified by Name and Date of : Yes REHABILITATION AND SPORTS THERAPY PHYSICAL THERAPY TREATMENT NOTE ASSESSMENT: Tanna Frye tolerated the session with expected muscle soreness. She demonstrated difficulty with single leg bridge, otherwise is able to complete all exercises for return to running. She was provided with patient education for the knack to squeeze before you sneeze. She was encouraged to use this with sneezing, coughing, and lifting. The patient will continue to benefit from ongoing skilled physical therapy to progress toward set goals. PLAN FOR NEXT VISIT: Internal assessment and running form SUBJECTIVE: The patient reports she had one good week without leakage, but then one week not so great. . Pain: Pain Pain Level: 0 OBJECTIVE MEASURES WITH LEVEL OF FUNCTION: Pelvic Floor Muscle Assessment Consent for pelvic assessment/testing and treatment: Patient was educated regarding pelvic floor physical therapy assessment/treatment which may include pelvic floor and girdle muscle assessment externally or internally (vaginal or rectal approach)., Patient verbalized consent for the above treatment approaches today. Patient understands they have control of the treatment and an opportunity to stop treatment at any time. LE Flexibility Flexibility: Tirso Test R Tirso Test: WNL L Tirso Test: WNL Special Tests - Hip and Spine Hip and Spine Special Tests: Chandana's Test Chandana's Test: Right Positive, Left Positive TREATMENT: Therapeutic Exercise: 1: * Sit to stand with pelvic floor contraction x 10 2: Multi hip extension 40# 2 x 15 each 3: Multi hip flexion 25# 2 x 15, each 4: Multi hip abduction 25# 2 x 15 each 5: *single leg heel raise x 20 each 6: * SLS x 20 seconds each 7: * SL bridge 2 x 10 alternating 8: * Sidelying hip abduction 2 x 10 each (alternating) 9: * Singe leg sit to stand 2 x 10 each (alternating) 10: * IT band stretch with strap 2 x 30 seconds each Skilled Intervention: Patient was educated in proper exercise technique and purpose for exercises. Reviewed and educated patient on additions/changes for home exercise program as above (*). Skilled judgment was used in selection of appropriate interventions. Correct performance of therapeutic exercises was facilitated with verbal and visual cuing. Neuromuscular Re-Education: 1: Knack: Patient education how to perform knack technique. Squeeze before you sneeze The pelvic floor muscles are important to many aspects of our lives. One of the most important involves protecting against incontinence or the unwanted loss of urine. The pelvic floor muscles contract to close the urethra to prevent any urine leakage. This becomes especially difficult for the pelvic floor muscles to do when there is increased pressure forced upon them during activities such as sneezing, coughing, laughing, getting up from a chair, etc. Handout provided Skilled Intervention: Patient education as noted. Billing Therapeutic Exercise Treatment Minutes: 35 Neuromuscular Re-Education Treatment Minutes: 3 Skilled Treatment Time Minutes (timed and untimed codes): 40 Total Session Time (minutes): 40 Session Start Time : 1333 Session Stop Time : 1413 Kemal Koch PT, DPT documented in this encounter [facility] 12-17-2024 Note HNO ID: [id number] Author: KEMAL KOCH PT, DPT Service: ? Author Type: Physical Therapist Type: Progress Notes Filed: 12/17/2024 14:25 Note Text: Episode Visit Count: 5 Therapist That Will Accept/Oversee The Plan Of Care: Kemal Koch PT, DPT Start of Care Date: 10/15/24 Patient Identified by Name and Date of : Yes REHABILITATION AND SPORTS THERAPY PHYSICAL THERAPY TREATMENT NOTE ASSESSMENT: Tanna Frye tolerated the session with expected muscle soreness. She demonstrated difficulty with single leg bridge, otherwise is able to complete all exercises for return to running. She was provided with patient education for the knack to squeeze before you sneeze. She was encouraged to use this with sneezing, coughing, and lifting. The patient will continue to benefit from ongoing skilled physical therapy to progress toward set goals. PLAN FOR NEXT VISIT: Internal assessment and running form SUBJECTIVE: The patient reports she had one good week without leakage, but then one week not so great. . Pain: Pain Pain Level: 0 OBJECTIVE MEASURES WITH LEVEL OF FUNCTION: Pelvic Floor Muscle Assessment Consent for pelvic assessment/testing and treatment: Patient was educated regarding pelvic floor physical therapy assessment/treatment which may include pelvic floor and girdle muscle assessment externally or internally (vaginal or rectal approach)., Patient verbalized consent for the above treatment approaches today. Patient understands they have control of the treatment and an opportunity to stop treatment at any time. LE Flexibility Flexibility: Tirso Test R Tirso Test: WNL L Tirso Test: WNL Special Tests - Hip and Spine Hip and Spine Special Tests: Chandana's Test Chandana's Test: Right Positive, Left Positive TREATMENT: Therapeutic Exercise: 1: * Sit to stand with pelvic floor contraction x 10 2: Multi hip extension 40# 2 x 15 each 3: Multi hip flexion 25# 2 x 15, each 4: Multi hip abduction 25# 2 x 15 each 5: *single leg heel raise x 20 each 6: * SLS x 20 seconds each 7: * SL bridge 2 x 10 alternating 8: * Sidelying hip abduction 2 x 10 each (alternating) 9: * Singe leg sit to stand 2 x 10 each (alternating) 10: * IT band stretch with strap 2 x 30 seconds each Skilled Intervention: Patient was educated in proper exercise technique and purpose for exercises. Reviewed and educated patient on additions/changes for home exercise program as above (*). Skilled judgment was used in selection of appropriate interventions. Correct performance of therapeutic exercises was facilitated with verbal and visual cuing. Neuromuscular Re-Education: 1: Knack: Patient education how to perform knack technique. Squeeze before you sneeze The pelvic floor muscles are important to many aspects of our lives. One of the most important involves protecting against incontinence or the unwanted loss of urine. The pelvic floor muscles contract to close the urethra to prevent any urine leakage. This becomes especially difficult for the pelvic floor muscles to do when there is increased pressure forced upon them during activities such as sneezing, coughing, laughing, getting up from a chair, etc. Handout provided Skilled Intervention: Patient education as noted. Billing Therapeutic Exercise Treatment Minutes: 35 Neuromuscular Re-Education Treatment Minutes: 3 Skilled Treatment Time Minutes (timed and untimed codes): 40 Total Session Time (minutes): 40 Session Start Time : 1333 Session Stop Time : 1413 Kemal Koch PT, DPT [facility] 11-26-2024 History of Presen t illness Narrative Program_ID:[id number] Access Code: [email or web address] URL: [email or web address] Date: 11-26-2024 Prepared By: Kemal Koch Program Notes Exercises - Supine Figure 4 Piriformis Stretch - x daily - 4 x weekly - 1 sets - 2 reps - Supine Hip Internal and External Rotation - x daily - 4 x weekly - 1 sets - 10 reps - Supine Bridge - x daily - 2 x weekly - 2 sets - 10 reps - Clam with Resistance - x daily - 2 x weekly - 2 sets - 10 reps Patient Education - cc Pelvic Floor - Diaphragmatic Breathing Images from the original note were not included. Episode Visit Count: 4 Therapist That Will Accept/Oversee The Plan Of Care: Kemal Koch PT, RONIT Start of Care Date: 10/15/24 Patient Identified by Name and Date of : Yes REHABILITATION AND SPORTS THERAPY PHYSICAL THERAPY PROGRESS REPORT PLAN OF CARE UPDATE: Assessment: Tanna Frye demonstrates significant improvement in altered sexual function and moderate improvement in compromised bladder function. The patient has met 4/10 goals and has progressed towards each other goal. Patient continues to present with impairments in coordination, strength, and symptom management that interfere with bladder function, altered sexual function . Current prognosis is Good due to: current objective clinical presentation, good overall health status, Prognosis may be limited due to, good support system/ coping skills chronic nature of impairments . The patient demonstrates improvement with urgency and urinary leakage. She had no pain with intercourse. The patient will benefit from continued skilled therapy services to meet the updated goals for this plan of care as noted below. Addressed 11/26/2024 Goals for Episode of Care: established 10/15/24 [place] in home exercise program. - Progressing Patient will demonstrate increase in bilateral gluteals strength to 4+/5 during manual muscle testing in order to improve function for prior functional tasks. - Progressing Patient will increase flexibility of bilateral JULIO to WNL to improve ability to maintain proper posture. - Progressing Patient to urinate every 2-4 hours total of 5-9x per day to demonstrate normalized bladder function. - Met Patient reports nocturia <1 times to demonstrate normalized bladder function. - Progressing Patient reports 90% less bladder leaks with urgency to avoid incontinent episodes. - 50% Progressing Patient reports 85% improvement in bladder leaks while coughing/sneezing, lifting, and exercise compared to evaluation in order to increase bladder and bowel function in activities of daily living. - 50% progressing Patient reports increased water intake to 66 ounces/day to promote bladder and bowel health. - Met Patient to limit bladder irritants to 32 ounces to promote bladder health and reduce urinary urge episodes. - Met Coordinate pelvic floor with thoracic diaphragm during Functional mobility and change in position to decreasing incontinence and/or pain. - Met Patient Goals: stop urinary leakage Time Frame for Goals and Treatment : 01/07/25 Planned Interventions, Frequency, and Duration: 1x/week, 8 weeks Total Number of Visits Planned: 8 Patient to be seen for Therapeutic exercise (31799), Neuromuscular re-education (50553), Manual therapy (80195), Therapeutic activities (15533), Self-group home management (36472), Gait Training (86830) PLAN FOR NEXT VISIT: Ciara technique. Continue strengthening B LE and core. Internal 12/17/2024. Assess SUBJECTIVE: The patient reports bladder sees a huge change. She has minimal leakage. She had no pain with intercourse. Functional Limitations: bladder function, altered sexual function Pain: Pain Additional Pain Information : Specific pain level not discussed in order to focus on movement/functional goals PROMIS Scales 11/11/2024 10/08/2024 Higher is Better Phys Func - T Score 56 (within normal limits) Phys Func - Percentile 73 Self-Eff Symptom - T Score 48 (Average) 50 (Average) Self-Eff Symptom - Percentile 42 50 10/08/2024 Lower is Better Pain Interference - T Score 56 (mild) Pain Interference - Percentile 27 T-scores: mean of general population = 50. 5 points is clinically meaningfully difference Percentiles provide an indication of how the patient's score ranks in relation to the general population. Higher percentile rankings indicate better function/quality of life. 50th percentile is the average of the general population and indicates half of respondents had a worse score. OBJECTIVE MEASURES WITH LEVEL OF FUNCTION: Pelvic Floor Urgency: Sometimes Frequency of Urgency Episodes: 1x per day, but been able to supress the urge for about 1 hour Urinary Incontinence: 1x every couple days with less leakage overall Nocturia (times per night) : 1x (except last night was 3x due to milk in the evening) Daytime Frequency (hours): every 2-4 hours; unless she has coffee Fluid Intake: Water, Coffee Water : 66 Coffee: 32 Pelvic Floor Muscle Assessment Consent for pelvic assessment/testing and treatment: Patient was educated regarding pelvic floor physical therapy assessment/treatment which may include pelvic floor and girdle muscle assessment externally or internally (vaginal or rectal approach)., Patient verbalized consent for the above treatment approaches today. Patient understands they have control of the treatment and an opportunity to stop treatment at any time. LE Strength R Hip Extension: 4-/5 R Hip Flexion (L2): 4+/5 R Hip ABduction: 4-/5 R Hip ADduction: 4/5 R Hip Internal Rotation: 5/5 R Hip External Rotation: 5/5 R Knee Extension (L3): 5/5 R Knee Flexion: 5/5 R Ankle Dorsiflexion (L4): 5/5 L Hip Extension: 4-/5 L Hip Flexion (L2): 4+/5 L Hip ABduction: 4-/5 L Hip ADduction: 4/5 L Hip Internal Rotation: 5/5 L Hip External Rotation: 5/5 L Knee Extension (L3): 5/5 L Knee Flexion: 5/5 L Ankle Dorsiflexion (L4): 5/5 TREATMENT: Therapeutic Exercise: 1: Assessment of goals 2: * Prifiormis stretch 2 x 30 seconds each 3: * Supine hip internal and external rotation 5 x 5 second hold 4: * Bridge + TA 2 x 10 with 5 second hold 5: * Clams pink band 2 x 10 with 1-2 second hold 6: Multi hip extension 40# 2 x 10 each 7: Multi hip flexion 25# 2 x 10, each 8: Multi hip abduction # 2 x 10 each 9: Cable mid row + TA 30# 2 x 10 each 10: Cable shoulder extension 25# 2 x 10 each 11: Cable palloff 17.5# 2 x 10 each Skilled Intervention: Patient was educated in proper exercise technique and purpose for exercises. Reviewed and educated patient on additions/changes for home exercise program as above (*). Skilled judgment was used in selection of appropriate interventions. Correct performance of therapeutic exercises was facilitated with verbal and visual cuing. Billing Therapeutic Exercise Treatment Minutes: 40 Skilled Treatment Time Minutes (timed and untimed codes): 42 Total Session Time (minutes): 44 Session Start Time : 1103 Session Stop Time : 1147 Kemal Koch PT, DPT documented in this encounter [facility] 11-26-2024 Note HNO ID: [id number] Author: KEMAL KOCH PT, DPT Service: ? Author Type: Physical Therapist Type: Progress Notes Filed: 11/26/2024 12:06 Note Text: Episode Visit Count: 4 Therapist That Will Accept/Oversee The Plan Of Care: Kemal Koch PT, DPT Start of Care Date: 10/15/24 Patient Identified by Name and Date of : Yes REHABILITATION AND SPORTS THERAPY PHYSICAL THERAPY PROGRESS REPORT PLAN OF CARE UPDATE: Assessment: Tanna Frye demonstrates significant improvement in altered sexual function and moderate improvement in compromised bladder function. The patient has met 4/10 goals and has progressed towards each other goal. Patient continues to present with impairments in coordination, strength, and symptom management that interfere with bladder function, altered sexual function . Current prognosis is Good due to: current objective clinical presentation, good overall health status, Prognosis may be limited due to, good support system/ coping skills chronic nature of impairments . The patient demonstrates improvement with urgency and urinary leakage. She had no pain with intercourse. The patient will benefit from continued skilled therapy services to meet the updated goals for this plan of care as noted below. Addressed 11/26/2024 Goals for Episode of Care: established 10/15/24 [place] in home exercise program. - Progressing Patient will demonstrate increase in bilateral gluteals strength to 4+/5 during manual muscle testing in order to improve function for prior functional tasks. - Progressing Patient will increase flexibility of bilateral JULIO to WNL to improve ability to maintain proper posture. - Progressing Patient to urinate every 2-4 hours total of 5-9x per day to demonstrate normalized bladder function. - Met Patient reports nocturia <1 times to demonstrate normalized bladder function. - Progressing Patient reports 90% less bladder leaks with urgency to avoid incontinent episodes. - 50% Progressing Patient reports 85% improvement in bladder leaks while coughing/sneezing, lifting, and exercise compared to evaluation in order to increase bladder and bowel function in activities of daily living. - 50% progressing Patient reports increased water intake to 66 ounces/day to promote bladder and bowel health. - Met Patient to limit bladder irritants to 32 ounces to promote bladder health and reduce urinary urge episodes. - Met Coordinate pelvic floor with thoracic diaphragm during Functional mobility and change in position to decreasing incontinence and/or pain. - Met Patient Goals: stop urinary leakage Time Frame for Goals and Treatment : 01/07/25 Planned Interventions, Frequency, and Duration: 1x/week, 8 weeks Total Number of Visits Planned: 8 Patient to be seen for Therapeutic exercise (26709), Neuromuscular re-education (57589), Manual therapy (66842), Therapeutic activities (91184), Self-group home management (91263), Gait Training ([id number]) PLAN FOR NEXT VISIT: Ciara technique. Continue strengthening B LE and core. Internal 12/17/2024. Assess SUBJECTIVE: The patient reports bladder sees a huge change. She has minimal leakage. She had no pain with intercourse. Functional Limitations: bladder function, altered sexual function Pain: Pain Additional Pain Information : Specific pain level not discussed in order to focus on movement/functional goals PROMIS Scales 11/11/2024 10/08/2024 Higher is Better Phys Func - T Score 56 (within normal limits) Phys Func - Percentile 73 Self-Eff Symptom - T Score 48 (Average) 50 (Average) Self-Eff Symptom - Percentile 42 50 10/08/2024 Lower is Better Pain Interference - T Score 56 (mild) Pain Interference - Percentile 27 T-scores: mean of general population = 50. 5 points is clinically meaningfully difference Percentiles provide an indication of how the patient's score ranks in relation to the general population. Higher percentile rankings indicate better function/quality of life. 50th percentile is the average of the general population and indicates half of respondents had a worse score. OBJECTIVE MEASURES WITH LEVEL OF FUNCTION: Pelvic Floor Urgency: Sometimes Frequency of Urgency Episodes: 1x per day, but been able to supress the urge for about 1 hour Urinary Incontinence: 1x every couple days with less leakage overall Nocturia (times per night) : 1x (except last night was 3x due to milk in the evening) Daytime Frequency (hours): every 2-4 hours; unless she has coffee Fluid Intake: Water, Coffee Water : 66 Coffee: 32 Pelvic Floor Muscle Assessment Consent for pelvic assessment/testing and treatment: Patient was educated regarding pelvic floor physical therapy assessment/treatment which may include pelvic floor and girdle muscle assessment externally or internally (vaginal or rectal approach)., Patient verbalized consent for the above treatment approaches (more content not included)... [facility] 11-19-2024 History of Presen t illness Narrative Program_ID:[id number] Access Code: [email or web address] URL: [email or web address] Date: 11-19-2024 Prepared By: Kemal Koch Program Notes Exercises - Supine Transversus Abdominis Bracing - Hands on Stomach - 1 x daily - 7 x weekly - 2 sets - 10 reps - Bent Knee Fallouts - x daily - 2 x weekly - 2 sets - 10 reps - Supine March - x daily - 2 x weekly - 2 sets - 10 reps Patient Education - cc Pelvic Floor - Diaphragmatic Breathing Episode Visit Count: 3 Therapist That Will Accept/Oversee The Plan Of Care: Kemal Koch PT, DPT Start of Care Date: 10/15/24 Patient Identified by Name and Date of : Yes REHABILITATION AND SPORTS THERAPY PHYSICAL THERAPY TREATMENT NOTE ASSESSMENT: Tanna Frye tolerated the session with no issues. She demonstrated decrease pain with internal pelvic floor muscles. She was provided with significant education for deep core canister. She was able to improve diaphragmatic breathing and transverse abdominis with verbal, visual, and tactile cues. She has a flare rib cage which makes it difficult to manage intra-abdominal pressure. The patient will continue to benefit from ongoing skilled physical therapy to progress toward set goals. PLAN FOR NEXT VISIT: Re-eval next visit. Assess Add Piriformis stretch to HEP. Internal 12/17/2024 SUBJECTIVE: The patient reports she has cut back a coffee (2 cups of coffee) and notes she isn't urinating as often. She is able to distract her mind. She has increased water intake as well. Pain: Pain Additional Pain Information : Specific pain level not discussed in order to focus on movement/functional goals OBJECTIVE MEASURES WITH LEVEL OF FUNCTION: Pelvic Floor Muscle Assessment Consent for pelvic assessment/testing and treatment: Patient was educated regarding pelvic floor physical therapy assessment/treatment which may include pelvic floor and girdle muscle assessment externally or internally (vaginal or rectal approach)., Patient verbalized consent for the above treatment approaches today. Patient understands they have control of the treatment and an opportunity to stop treatment at any time. Appearance: General Observations General Observations: rib flare > 90 flare Pelvic Floor Muscle Assessment: PERFECT Power: 3 Endurance: 10 Fast Reps: 10 Breathing Pattern : belly breath Diaphragmatic Breathing : Fair Pelvic Floor Manual Assessment Superficial transverse perineal: Left (-09/24) Deep transverse perineal: Left (1-210) Obturator internus: Left (1-210; cramping) TREATMENT: Therapeutic Exercise: 1: * DB 2: * DB + TA x 10 3: * Knee fall out x 10 each 4: * TA Marches 2 x 10 each Skilled Intervention: Patient was educated in proper exercise technique and purpose for exercises. Reviewed and educated patient on additions/changes for home exercise program as above (*). Skilled judgment was used in selection of appropriate interventions. Correct performance of therapeutic exercises was facilitated with verbal, visual, and tactile cuing. Manual Therapy: 1: Internal pelvic floor assessment 2: Prolonged hold at left superficial perineal transverse, left deep perineal transverse, left OI. 3: External release of OI, left (little to no pain) Skilled Intervention: Manual skills to improve joint mobility, ROM, and decrease pain. Utilized anatomy knowledge of the therapist, and assessment of patient's response to intervention. Self-Fci Management: 1: Deep Core: Patient educated on deep core canister for intraabdominal pressure management which includes diaphragm, transverse abdominis, pelvic floor muscles, and low back muscles. Each muscle has to coordinate with one another. When you inhale, the diaphragm descends and contracts while transverse abdominis and pelvic floor muscles length and relax. When you exhale, the transverse abdominis and pelvic floor muscles return to normal resting tone. However, if you exhale with contraction of transverse abdominis and pelvic floor muscles shortens and the diaphragm ascends. If one of these muscles are not functioning properly, it can disrupt the management of your intraabdominal pressure. Skilled Intervention: Provided written instruction for home program to facilitate proper performance and compliance. Billing Therapeutic Exercise Treatment Minutes: 21 Manual TherapyTreatment Minutes: 15 Self-Care/Home Management Treatment Minutes: 5 Skilled Treatment Time Minutes (timed and untimed codes): 43 Total Session Time (minutes): 43 Session Start Time : 1107 Session Stop Time : 1150 Kemal Koch PT, DPT documented in this encounter [facility] 11-19-2024 Note HNO ID: [id number] Author: KEMAL KOCH PT, DPT Service: ? Author Type: Physical Therapist Type: Progress Notes Filed: 11/19/2024 12:13 Note Text: Episode Visit Count: 3 Therapist That Will Accept/Oversee The Plan Of Care: Kemal Koch PT, DPT Start of Care Date: 10/15/24 Patient Identified by Name and Date of : Yes REHABILITATION AND SPORTS THERAPY PHYSICAL THERAPY TREATMENT NOTE ASSESSMENT: Tanna Frye tolerated the session with no issues. She demonstrated decrease pain with internal pelvic floor muscles. She was provided with significant education for deep core canister. She was able to improve diaphragmatic breathing and transverse abdominis with verbal, visual, and tactile cues. She has a flare rib cage which makes it difficult to manage intra-abdominal pressure. The patient will continue to benefit from ongoing skilled physical therapy to progress toward set goals. PLAN FOR NEXT VISIT: Re-eval next visit. Assess Add Piriformis stretch to HEP. Internal 12/17/2024 SUBJECTIVE: The patient reports she has cut back a coffee (2 cups of coffee) and notes she isn't urinating as often. She is able to distract her mind. She has increased water intake as well. Pain: Pain Additional Pain Information : Specific pain level not discussed in order to focus on movement/functional goals OBJECTIVE MEASURES WITH LEVEL OF FUNCTION: Pelvic Floor Muscle Assessment Consent for pelvic assessment/testing and treatment: Patient was educated regarding pelvic floor physical therapy assessment/treatment which may include pelvic floor and girdle muscle assessment externally or internally (vaginal or rectal approach)., Patient verbalized consent for the above treatment approaches today. Patient understands they have control of the treatment and an opportunity to stop treatment at any time. Appearance: General Observations General Observations: rib flare > 90 flare Pelvic Floor Muscle Assessment: PERFECT Power: 3 Endurance: 10 Fast Reps: 10 Breathing Pattern : belly breath Diaphragmatic Breathing : Fair Pelvic Floor Manual Assessment Superficial transverse perineal: Left (-09/24) Deep transverse perineal: Left (-2) Obturator internus: Left (-09/24; cramping) TREATMENT: Therapeutic Exercise: 1: * DB 2: * DB + TA x 10 3: * Knee fall out x 10 each 4: * TA Marches 2 x 10 each Skilled Intervention: Patient was educated in proper exercise technique and purpose for exercises. Reviewed and educated patient on additions/changes for home exercise program as above (*). Skilled judgment was used in selection of appropriate interventions. Correct performance of therapeutic exercises was facilitated with verbal, visual, and tactile cuing. Manual Therapy: 1: Internal pelvic floor assessment 2: Prolonged hold at left superficial perineal transverse, left deep perineal transverse, left OI. 3: External release of OI, left (little to no pain) Skilled Intervention: Manual skills to improve joint mobility, ROM, and decrease pain. Utilized anatomy knowledge of the therapist, and assessment of patient's response to intervention. Self-Fci Management: 1: Deep Core: Patient educated on deep core canister for intraabdominal pressure management which includes diaphragm, transverse abdominis, pelvic floor muscles, and low back muscles. Each muscle has to coordinate with one another. When you inhale, the diaphragm descends and contracts while transverse abdominis and pelvic floor muscles length and relax. When you exhale, the transverse abdominis and pelvic floor muscles return to normal resting tone. However, if you exhale with contraction of transverse abdominis and pelvic floor muscles shortens and the diaphragm ascends. If one of these muscles are not functioning properly, it can disrupt the management of your intraabdominal pressure. Skilled Intervention: Provided written instruction for home program to facilitate proper performance and compliance. Billing Therapeutic Exercise Treatment Minutes: 21 Manual TherapyTreatment Minutes: 15 Self-Care/Home Management Treatment Minutes: 5 Skilled Treatment Time Minutes (timed and untimed codes): 43 Total Session Time (minutes): 43 Session Start Time : 1107 Session Stop Time : 1150 Kemal Koch PT, DPT [facility] 11-12-2024 Note HNO ID: [id number] Author: KEMAL KOCH PT, DPT Service: ? Author Type: Physical Therapist Type: Progress Notes Filed: 11/12/2024 13:14 Note Text: Episode Visit Count: 2 Therapist That Will Accept/Oversee The Plan Of Care: Kemal Koch PT, DPT Start of Care Date: 10/15/24 Patient Identified by Name and Date of : Yes REHABILITATION AND SPORTS THERAPY PHYSICAL THERAPY TREATMENT NOTE ASSESSMENT: Tanna Frye tolerated the session with no issues. She demonstrated increased tenderness to the left side of her pelvic floor. She demonstrates referred concordant pain of left superficial transverse perineal to left buttock. She had difficulty with lengthening her pelvic floor which is a tightness and coordination difficulty. She drinks 50/50 bladder irritants to water intake which I believe is irritating her bladder. I recommended the patient to increase water intake and limit bladder irritants to 30 ounces or less. The patient will continue to benefit from ongoing skilled physical therapy to progress toward set goals. PLAN FOR NEXT VISIT: manual release of pelvic floor muscles (left) Assess rib flare and core. DB and stretches to HEP. Lubrication handout. Ask about urge and water intake SUBJECTIVE: The patient reports with bladder, the urine sprays to the left. Pain: Pain Pain Level: 0 OBJECTIVE MEASURES WITH LEVEL OF FUNCTION: Pelvic Floor Muscle Assessment Consent for pelvic assessment/testing and treatment: Patient was educated regarding pelvic floor physical therapy assessment/treatment which may include pelvic floor and girdle muscle assessment externally or internally (vaginal or rectal approach)., Patient verbalized consent for the above treatment approaches today. Patient understands they have control of the treatment and an opportunity to stop treatment at any time. (difficulty with lengthening; slight PFC) Involuntary Contraction: No Pelvic Floor Manual Assessment Pelvic Floor Tenderness/Hyperactivity: Tested Vaginally in Tested Vaginally in : Supine/hooklying Superficial transverse perineal: Left (10 to 08/24; referred pain to left gluteal) Ischiocavernosus: Left (5/10 stinging pain) Deep transverse perineal: Left (2/10 to 0/10) Obturator internus: Left (3/10 to 0/10) TREATMENT: Manual Therapy: 1: Internal pelvic floor assessment 2: Prolonged hold at left superficial perineal transverse, left deep perineal transverse, left compressor, left OI. Skilled Intervention: Manual skills to improve joint mobility, ROM, and decrease pain. Utilized anatomy knowledge of the therapist, and assessment of patient's response to intervention. Self-Fci Management: 1: Void: Patient educated on going to the bathroom every 2-4 hours and a total of 5-8 times in 24 hours. 2: Water Intake: Patient education was provided to drink half their body weight in ounces with 2/3 of this fluid being water. Severe reduction in fluids can result in a concentration of urine which irritates the bladder which increases incontinence and/or urgency. I recommended the patient to drink a total of 95 ounces; 64 ounces of water; 31 ounces of other fluids. 3: Glass of water before coffee 4: Just In Case: Patient educated on how using the bathroom just in case trains the bladder it needs to be empty more frequently. 5: Bladder Emptying: Patient educated on bladder emptying. The bladder is a muscle itself and his job is to contract and eliminate urine. If the patient uses her pelvic floor muscles to assist with eliminating urine, then the bladder may become weak, and it may cause spasms to her pelvic floor muscles. Patient encouraged to stop straining and using pelvic floor muscles to assist with eliminating urine. Bladder emptying tips: relaxation, privacy, sitting with feet supported, double voiding, leaning forward. Handout provided 6: Squatty Potty: Position yourself in a squat-like position; elevate your feet on a stool or books or purchase a Squatty Potty. Leaning forward and resting your elbows or hands on your knees will further bring you into this position. Anatomically, we are designed to empty our bowels better in a squat position vs seated. This allows your puborectalis muscle to relax around your rectum to allow the rectum to open and straighten slightly to pass stool. Do not strain! Excessively pushing and straining can put immense pressure on your pelvic floor muscles, pelvic organs, and your cardiovascular system and cause damage over time. 7: Use of pelvic model to identified muscles that were tight/referring pain 8: Assessed bladder and bowel log (on scanned documents) Skilled Intervention: Provided written instruction for home program to facilitate proper performance and compliance. Billing Manual TherapyTreatment Minutes: 15 Self-Care/Home Management Treatment Minutes: 32 Skilled Treatment Time Minutes (timed and untimed cod (more content not included)... [facility] 11-12-2024 History of Presen t illness Narrative Episode Visit Count: 2 Therapist That Will Accept/Oversee The Plan Of Care: Kemal Koch, PT, DPT Start of Care Date: 10/15/24 Patient Identified by Name and Date of : Yes REHABILITATION AND SPORTS THERAPY PHYSICAL THERAPY TREATMENT NOTE ASSESSMENT: Tanna Frye tolerated the session with no issues. She demonstrated increased tenderness to the left side of her pelvic floor. She demonstrates referred concordant pain of left superficial transverse perineal to left buttock. She had difficulty with lengthening her pelvic floor which is a tightness and coordination difficulty. She drinks 50/50 bladder irritants to water intake which I believe is irritating her bladder. I recommended the patient to increase water intake and limit bladder irritants to 30 ounces or less. The patient will continue to benefit from ongoing skilled physical therapy to progress toward set goals. PLAN FOR NEXT VISIT: manual release of pelvic floor muscles (left) Assess rib flare and core. DB and stretches to HEP. Lubrication handout. Ask about urge and water intake SUBJECTIVE: The patient reports with bladder, the urine sprays to the left. Pain: Pain Pain Level: 0 OBJECTIVE MEASURES WITH LEVEL OF FUNCTION: Pelvic Floor Muscle Assessment Consent for pelvic assessment/testing and treatment: Patient was educated regarding pelvic floor physical therapy assessment/treatment which may include pelvic floor and girdle muscle assessment externally or internally (vaginal or rectal approach)., Patient verbalized consent for the above treatment approaches today. Patient understands they have control of the treatment and an opportunity to stop treatment at any time. (difficulty with lengthening; slight PFC) Involuntary Contraction: No Pelvic Floor Manual Assessment Pelvic Floor Tenderness/Hyperactivity: Tested Vaginally in Tested Vaginally in : Supine/hooklying Superficial transverse perineal: Left (4/10 to /10; referred pain to left gluteal) Ischiocavernosus: Left (5/10 stinging pain) Deep transverse perineal: Left (2/10 to 0/10) Obturator internus: Left (3/10 to 0/10) TREATMENT: Manual Therapy: 1: Internal pelvic floor assessment 2: Prolonged hold at left superficial perineal transverse, left deep perineal transverse, left compressor, left OI. Skilled Intervention: Manual skills to improve joint mobility, ROM, and decrease pain. Utilized anatomy knowledge of the therapist, and assessment of patient's response to intervention. Self-Fci Management: 1: Void: Patient educated on going to the bathroom every 2-4 hours and a total of 5-8 times in 24 hours. 2: Water Intake: Patient education was provided to drink half their body weight in ounces with 2/3 of this fluid being water. Severe reduction in fluids can result in a concentration of urine which irritates the bladder which increases incontinence and/or urgency. I recommended the patient to drink a total of 95 ounces; 64 ounces of water; 31 ounces of other fluids. 3: Glass of water before coffee 4: Just In Case: Patient educated on how using the bathroom just in case trains the bladder it needs to be empty more frequently. 5: Bladder Emptying: Patient educated on bladder emptying. The bladder is a muscle itself and his job is to contract and eliminate urine. If the patient uses her pelvic floor muscles to assist with eliminating urine, then the bladder may become weak, and it may cause spasms to her pelvic floor muscles. Patient encouraged to stop straining and using pelvic floor muscles to assist with eliminating urine. Bladder emptying tips: relaxation, privacy, sitting with feet supported, double voiding, leaning forward. Handout provided 6: Squatty Potty: Position yourself in a squat-like position; elevate your feet on a stool or books or purchase a Squatty Potty. Leaning forward and resting your elbows or hands on your knees will further bring you into this position. Anatomically, we are designed to empty our bowels better in a squat position vs seated. This allows your puborectalis muscle to relax around your rectum to allow the rectum to open and straighten slightly to pass stool. Do not strain! Excessively pushing and straining can put immense pressure on your pelvic floor muscles, pelvic organs, and your cardiovascular system and cause damage over time. 7: Use of pelvic model to identified muscles that were tight/referring pain 8: Assessed bladder and bowel log (on scanned documents) Skilled Intervention: Provided written instruction for home program to facilitate proper performance and compliance. Billing Manual TherapyTreatment Minutes: 15 Self-Care/Home Management Treatment Minutes: 32 Skilled Treatment Time Minutes (timed and untimed codes): 49 Total Session Time (minutes): 49 Session Start Time : 1100 Session Stop Time : 1149 Kemal Koch PT DPMindi documented in this encounter [facility] 10-23-2024 Evaluation note Diagnosis Onset Date Resolution Contact with or exposure to other viral diseases noneactive October 23, 2024 1:35pm [facility] Work Phone: [phone] Evaluation note* Diagnosis Onset Date Resolution Status Admit Date Contact with or exposure to other viral diseases noneactive October 23, 2024 1:35pm Preventative health care acute January 16, 2025 2:53pm Anxiety chronic January 16, 2025 2:53pm Hypertension chronic January 16 2:53pm [facility] Work Phone: 1(112) 546-242203-03-2025 History of Present illness Narrative* Kemal Koch PT DPT - 10/15/2024 12:26 PM EST Program_ID:[id number] Access Code: [email or web address] URL: [email or web address] Date: 10-15-2024 Prepared By: Kemal Koch Program Notes Exercises - Long Sitting Plantar Fascia Stretch with Towel - 1 x daily - 7 x weekly - 2 sets - 30 reps - Long Sitting Calf Stretch with Strap - 1 x daily - 7 x weekly - 2 sets - 30 reps - Soleus Stretch on Wall - 1 x daily - 7 x weekly - 2 sets - 30 reps * Kemal Koch PT, DPT - 10/15/2024 11:41 AM EST Images from the original note were not included. Episode Visit Count: 1 Therapist That Will Accept/Oversee The Plan Of Care: Kemal Koch PT, DPT Start of Care Date: 10/15/24 Patient Identified by Name and Date of : Yes REHABILITATION AND SPORTS THERAPY PHYSICAL THERAPY EVALUATION PLAN OF CARE: Assessment: Tanna Frye presents with chief complaint of urinary incontinence that interferes with bladder function, altered sexual function . The patient presents with impairments in ADL's, flexibility, posture, range of motion, strength, symptom management, and tissue tenderness. Patient did not complete the PROMIS (Patient Reported Outcome Measures Information System). Prognosis for therapy is Good due to: current objective clinical presentation, good overall health status, Prognosis maybe limited due to, good support system/ coping skills chronic nature of impairments . The patient demonstrates urinary leakage with urge and stress incontinence. She has weak gluteals and rearfoot valgus. The patient will benefit from skilled therapy services to meet the goals established for this plan of care as noted below. Goals for Episode of Care: established 10/15/24 [place] in home exercise program. Patient will demonstrate increase in bilateral gluteals strength to 4+/5 during manual muscle testing in order to improve function for prior functional tasks. Patient will increase flexibility of bilateral JULIO to WNL to improve ability to maintain proper posture. Patient to urinate every 2-4 hours total of 5-9x per day to demonstrate normalized bladder function. Patient reports nocturia <1 times to demonstrate normalized bladder function. Patient reports 90% less bladder/bowel leaks with urgency to avoid incontinent episodes. Patient reports 85% improvement in bladder/bowel leaks while coughing/sneezing, lifting, and exercise compared to evaluation in order to increase bladder and bowel function in activities of daily living. Patient reports increased water intake to 66 ounces/day to promote bladder and bowel health. Patient to limit bladder irritants to 32 ounces to promote bladder health and reduce urinary urge episodes. Coordinate pelvic floor with thoracic diaphragm during Functional mobility and change in position to decreasing incontinence and/or pain. Patient Goals: stop urinary leakage Time Frame for Goals and Treatment : 01/07/25 Planned Interventions, Frequency, and Duration: Current Frequency: 1x/week Duration: 12 weeks Total Number of Visits Planned: 12 Planned Treatment Interventions: Therapeutic exercise (63901), Neuromuscular re- education (20796), Manual therapy (74430), Therapeutic activities (69791), Self- group home management (99897), Gait Training (14865) PLAN FOR NEXT VISIT: Bladder and bowel logs. Internal assessment. Update pelvic goals and update HEP. Assess rib flare and core Patient demonstrates good understanding of plan of care and treatment. The above goals and plan of care were discussed and agreed upon by patient/family. SUBJECTIVE: The patient reports she has had 2 babies and has bad urinary incontinence. It became worse after she had her 3 year old. She has watched videos on youtube: SLR with kegels. She has pain with intercourse as well. She is going to get vaginal ultrasound and bloodwork. She is still whenever 2 year would like to snuggle. She states it is only for comfort. She had preclampsia with both kids. She had her first november 2017 and her second november of 2021. She has terrible brain fog, headachesprior to starting her period, and getting irritated more quickly. She may try vitamin D, B6, and B12 after bloodwork. She used to hav regular menstral cycles but now it is every 2-3 weeks. She gets alot of cramping on uterus. 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 / Current Exercise: SLR with kegels Home Environment Patient Lives With: Spouse, Family ( and 2 kids) Home Type: Multi-Level Number Of Stairs To Bed/Bath: 15 Stairs to Bed/Bath with: Unilateral Rail Intake Information: Prescription present Previous Treatment: Self prescribed exercises Falls Interview: No positive findings with falls interview Pain: Pain Pain Level: 0 PROMIS Scales 10/08/2024 Higher is Better Self-Eff Symptom - T Score 50 (Average) Self-Eff Symptom - Percentile 50 10/08/2024 Lower is Better Pain Interference - T Score 56 (mild) Pain Interference - Percentile 27 T-scores: mean of general population = 50. 5 points is clinically meaningfully difference Percentiles provide an indication of how the patient's score ranks in relation to the general population. Higher percentile rankings indicate better function/quality of life. 50th percentile is the average of the general population and indicates half of respondents had a worse score. OBJECTIVE MEASURES WITH LEVEL OF FUNCTION: Posture / Alignment R LE Anatomical Alignment Non Weight-Bearing: R Rearfoot valgus L LE Anatomical Alignment Non Weight-Bearing: L Rearfoot valgus Pelvic Floor Menstruation: every 2-3 weeks; used to be regular prior to second Control Method: none Births: 2 Vaginal Delivery: Standard, Tearing (1st: 2nd degree; 2nd: 1st degree) Birthing Position : Supine Currently ?: Yes Aggravates Pain: (cycle) Alleviates Pain: (none) Pain with penetration: Superficial, Pain with orgasm History of low back pain: No History of Hip Pain: None Urinary/Bowel History : Urinary History, Bowel History Difficulty starting stream: No slow or intermittent stream: No strains to void: Sometimes Incomplete emptying: Sometimes Spraying: (not sure) Diversion of stream: (not sure) Hesitancy: No Stress Incontinence: Cough, Sneeze, Laughing, Lifting, Walking Post Void Dribble: Few drops of urine Urgency: Yes Frequency of Urgency Episodes: at least 1x per day Urinary Incontinence: unsure Nocturia (times per night) : usually 2x (before midnight and around 3am; or 1 and 5pm) Daytime Frequency (hours): in the morning urgnecy at home (every 20-30 minutes) Bladder Padding: poise pad all the time Enuresis: No Perception of need to urinate: Sometimes Difficulty evacuating / Excessive Straining: Sometimes Incomplete emptying: No Bowel Movement Frequency: 1x per day Bloating / abdominal pain: Sometimes Rectal Bleeding/history of hemorrhoids: hemmorroids when Fecal incontinence: No Incontinence with Gas: No Ability to Control Gas: No Decreased warning time: No Bowel Padding: none Daily Dietary Fiber/ Food Intake: fiber supplement 2x per week (help colesterol) Bowel Aides / Supplements: none LE AROM R Ankle Dorsiflexion: 12 Degrees (soleus DF: 12) L Ankle Dorsiflexion: 2 Degrees (soleus DF: 12) LE Flexibility Flexibility: Hamstring Flexibility R Hamstring Flexibility: WNL L Hamstring Flexibility: WNL LE Strength R Hip Extension: 4-/5 R Hip Flexion (L2): 4+/5 R Hip ABduction: 4+/5 R Hip ADduction: 4+/5 R Hip Internal Rotation: 4+/5 R Hip External Rotation: 4+/5 R Knee Extension (L3): 5/5 R Knee Flexion: 4+/5 R Ankle Dorsiflexion (L4): 4+/5 L Hip Extension: 4-/5 L Hip Flexion (L2): 4+/5 L Hip ABduction: 4+/5 L Hip ADduction: 4+/5 L Hip Internal Rotation: 4+/5 L Hip External Rotation: 4+/5 L Knee Extension (L3): 5/5 L Knee Flexion: 4+/5 L Ankle Dorsiflexion (L4): 4+/5 Special Tests - Hip and Spine Hip and Spine Special Tests: JULIO Test, FADDIR Test JULIO Test: Right Positive, Left Positive FADDIR Test: Right Negative, Left Negative Education: Education Learning Preferences: Demonstration, Explanation, Performance, Printed Materials Barriers: None Learning/educational needs: Plan of Care, Home exercise program, Posture, Health promotion, Lifestyle changes Education Provided: Yes, see treatment interventions for education provided Education Provided To: Patient Education Mode/Type: Demonstration, Explanation/Discussion, Literature/Printed Materials, Performance Response to Education/Teach Back: States/Identifies, Return Demonstration TREATMENT: PT Treatment Interventions: Therapeutic Exercise, Self-Fci Management Evaluation Therapeutic Exercise: 1: * Plantar fascia stretch with towel 2 x 30 seconds each 2: * Soleus stretch with towel 2 x 30 seconds, each 3: * Gastroc stretch 2 x 30 seconds each Skilled Intervention: Patient was educated in proper exercise technique and purpose for exercises. Reviewed and educated patient on additions/changes for home exercise program as above (*). Skilled judgment was used in selection of appropriate interventions. Correct performance of therapeutic exercises was facilitated with verbal and visual cuing. Self-Fci Management: 1: Bladder Muscle: Recommended the patient to stop using pelvic floor muscles to eliminate urine. The bladder is a muscle and it's function is to eliminate urine. If the patient uses his/her pelvic floor muscles to assist, the bladder muscle becomes weak. 2: Bladder Log: Patient education on how to complete a bladder diary for 3 days over the next week.The patient is to record each bathroom break, time, type of fluid consumed with ounces, amount of urine (large/medium/small), urgency present or not, urinary leakage (large/,medium/small), and activity during leakage episode. 3: Bowel Log: Patient education on bowel diary to complete 3 days over the next week. Patient to document all bowel movements with time, if urgency was present, amount (small/medium/large), and bristol score. 4: Internal assessment: Patient education for an pelvic floor internal assessment which may includevaginal approach to check patient's pelvic floor tightness/strength next session. Use of pelvic model with verbal and visual cues. Verbal constent always obtained for internal assessment and patient u nderstands they have control of the treatment and an opportunity to stop treatment at any time. 5: Continue with bloodwork due to plantar fasciitis can be related to hypothyroidism 6: Awareness of standing posture to avoid posterior pelvic tilt in standing position Skilled Intervention: Provided written instruction for home program to facilitate proper performance and compliance. Billing * Evaluation Low Complexity: 1 Unit Therapeutic Exercise Treatment Minutes: 5 Self-Care/Home Management Treatment Minutes: 8 Skilled Treatment Time Minutes (timed and untimed codes): 37 Total Session Time (minutes): 37 Session Start Time : 1148 Session Stop Time : 1225 Kemal Koch PT, DPT documented [facility] NoteHNO ID: [id number] Author: KEMAL KOCH PT, DPT Service: ? Author Type: Physical Therapist Type: Progress Notes Filed: 10/15/2024 13:31 Note Text: Episode Visit Count: 1 Therapist That Will Accept/Oversee The Plan Of Care: Kemal Koch PT, DPT Start of Care Date: 10/15/24 Patient Identified by Name and Date of : Yes REHABILITATION AND SPORTS THERAPY PHYSICAL THERAPY EVALUATION PLAN OF CARE: Assessment: Tanna Frye presents with chief complaint of urinary incontinence that interferes with bladder function, altered sexual function . The patient presents with impairments in ADL's, flexibility, posture, range of motion, strength, symptom management, and tissue tenderness. Patient did not complete the PROMIS? (Patient Reported Outcome Measures Information System). Prognosis for therapy is Good due to: current objective clinical presentation, good overall health status, Prognosis may be limited due to, good support system/ coping skills chronic nature of impairments . The patient demonstrates urinary leakage with urge and stress incontinence. She has weak gluteals and rearfoot valgus. The patient will benefit from skilled therapy services to meet the goals established for this plan of care as noted below. Goals for Episode of Care: established 10/15/24 [place] in home exercise program. Patient will demonstrate increase in bilateral gluteals strength to 4+/5 during manual muscle testing in order to improve function for prior functional tasks. Patient will increase flexibility of bilateral JULIO to WNL to improve ability to maintain proper posture. Patient to urinate every 2-4 hours total of 5-9x per day to demonstrate normalized bladder function. Patient reports nocturia <1 times to demonstrate normalized bladder function. Patient reports 90% less bladder/bowel leaks with urgency to avoid incontinent episodes. Patient reports 85% improvement in bladder/bowel leaks while coughing/sneezing, lifting, and exercise compared to evaluation in order to increase bladder and bowel function in activities of daily living. Patient reports increased water intake to 66 ounces/day to promote bladder and bowel health. Patient to limit bladder irritants to 32 ounces to promote bladder health and reduce urinary urge episodes. Coordinate pelvic floor with thoracic diaphragm during Functional mobility and change in position to decreasing incontinence and/or pain. Patient Goals: stop urinary leakage Time Frame for Goals and Treatment : 01/07/25 Planned Interventions, Frequency, and Duration: Current Frequency: 1x/week Duration: 12 weeks Total Number of Visits Planned: 12 Planned Treatment Interventions: Therapeutic exercise (73960), Neuromuscular re-education (47317), Manual therapy (24446), Therapeutic activities (72975), Self-group home management (03014), Gait Training (41050) PLAN FOR NEXT VISIT: Bladder and bowel logs. Internal assessment. Update pelvic goals and update HEP. Assess rib flare and core Patient demonstrates good understanding of plan of care and treatment. The above goals and plan of care were discussed and agreed upon by patient/family. SUBJECTIVE: The patient reports she has had 2 babies and has bad urinary incontinence. It became worse after she had her 3 year old. She has watched videos on youtube: SLR with kegels. She has pain with intercourse as well. She is going to get vaginal ultrasound and bloodwork. She is still whenever 2 year would like to snuggle. She states it is only for comfort. She had preclampsia with both kids. She had her first november 2017 and her second november of 2021. She has terrible brain fog, headaches prior to starting her period, and getting irritated more quickly. She may try vitamin D, B6, and B12 after bloodwork. She used to hav regular menstral cycles but now it is every 2-3 weeks. She gets a lot of cramping on uterus. 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 / Current Exercise: SLR with [employer] Home Environment Patient Lives With: Spouse, Family ( and 2 kids) Home Type: Multi-Level Number Of Stairs To Bed/Bath: 15 Stairs to Bed/Bath with: Unilateral Rail Intake Information: Prescription present Previous Treatment: Self prescribed exercises Falls Interview: No positive findings with falls interview Pain: Pain Pain Level: 0 PROMIS Scales 10/08/2024 Higher is Better Self-Eff Symptom - T Score 50 (Average) Self-Eff Symptom - Percentile 50 10/08/2024 Lower is Better Pain Interference - T Score 56 (mild) Pain Interference (more content not included)...[facility]02-25-2025 Instructions* Patient Instructions* Shena Jenkins, PAULINE.[facility] - 10/09/2024 10:03 AM EST Check blood work. Schedule pelvic ultrasound. Start Nuvaring. Here are some resources for reliable information on menopause. Trustable websites: -[place] Menopause Society- now called the Menopause Society (has multiple short videos fromspecialists around the world, geared towards patients and doctors). Website is menopause.org. https://www.[employer]und Exchange[employer].com/@MenopauseSociety. -[facility] menopause websites: Provides locations, clinician names: https://FiPath.[facility].org/services/menopause-treatment Conversational articles and videos: https://health.[facility].org/navigating-menopause/ Formal health education page: https://The Spoken Thoughtorg/health/diseases/83688-auepcopus [facility] page: https://FiPath.[facility].org/landing/faagvb-mtijkpwafrliy-czoxig-[facility] General women's health info: -The [facility] Health Library and Health Essentials sections unlocks lots of info: https://FiPath.[facility].org/health/diseases -Speaking of women's health (has searchable page for multiple brief articles): Https://[employer]/ Podcast/Video from [employer]: [facility] videos, several can be found by going into [employer] and putting in the search termsSalem Regional Medical Center Menopause [place], or use links below: Mood, sleep, hotflashes and hormones with colleagues from sleep and behavoiral health programs 2022: https://www.Refund Exchangeube.com/watch?v=Oaw_1aTQzEg General discussion about hormones pre and post menopause 2021: https://www.Refund Exchangeube.com/watch?v=u4CfHOnX6W7 Older one from 2020 about menopause (still accurate info): https://www.Refund Exchangeube.com/watch?v=0attQg4HgWG [place] Menopause Society- now called the Menopause Society (has multiple short videos from several of us on different topics, geared towards patients and doctors) https://www.[employer]und Exchangeube.com/@MenopauseSociety documented in this encounterSalem [facility]02-25-2025 History of Present illness Narrative* Shena Jenkins APRN.KULWINDER - 10/09/2024 9:30 AM EST OGI MENOPAUSE CONSULT Tanna Frye is an 44 year old here to discuss debo-menopause. HPI: States mom went through menopause early as well as sisters. Menses every 2- 3 weeks, heavy flow, clotting. Lasting 4-8 days, using pads, changing every 1-2 hours on heavy days. 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 No control. Sexually active. Reports brain fog is horrible. C/o rage and son has been telling her she is yelling a lot lately. C/o headaches as well and has had menstrual headaches in the past. Still nursing 3 year old daughter but it is infrequent and just for daughter's comfort. Last pap: 04/2024- normal per patient Last mammo:07/2022-normal per patient HORMONAL HEALTH QUESTIONNAIRE SYMPTOMS Any sxs (even if mild): VMS; mood concerns; sexual concerns; alopecia; weight gain; new or change of PETTIT; AUB; UI; urinary frequency; Brain fog/memory concerns Bothersome sxs: weight gain; new or change of PETTIT; AUB; UI; Brain fog/memory concerns Symptom duration: <1 yr Sexual health hx: dyspareunia; decreased libido Are sexual symptoms bothersome? A little Sexual symptom duration: >5 yrs Potential contributing factors: dyspareunia; depression or anxiety; relationship with partner; lifestress; fatigue; menopausal symptoms Sxs improve on vacation? No Previously tried/offered: vitamins and supplements HORMONAL HISTORY Uterus in situ? Yes Cervix in situ? Yes Ovaries in situ? Yes LMP: Within the last year, about once monthly; 09/28/24 Regular menses in past? Yes Age of menarche: 6-11 G 5 P 2 FLB: Yes; Age: 37 Infertility hx or tx? Yes Current hormone use: No Past hormone use: Yes; transdermal cream/gel Duration of exogenous hormone use: 1-5 years Tolerated? Well Unintended acceptable? No Chance of unintended : No RISK ASSESSMENT (see link for full ROS) Relevant PMH: active gallbladder problems; HTN Relevant Fam Hx: [place]; breast cancer; dementia Prior BMD: Never Prior breast biopsy: No Current tobacco use: No Alcohol use per week: Doesn't drink Substance use: Denies use of narcotics, cannabis, or illicit drugs Other hormonal concerns? Perimenopause *NOTE - Questionnaire responses within the last 30 days are represented in black ink; Responses between 31-365 days are represented in blue ink. The ASCVD Risk score (Ana FUNES, et al., 2019) failed to calculate for the following reasons: Cannot find a previous HDL lab Cannot find a previous total cholesterol lab Last 14 BP Last 14 Encounter BP Readings: Date: BP: 09/05/2024 126/78 02/22/2016 122/78 06/03/2015 132/98 10/10/2014 128/78 10/03/2014 128/90 07/30/2013 118/80 07/19/2013 120/78 11/08/2012 120/96 01/16/2012 122/80 08/31/2011 128/80 12/25/2008 114/84 07/22/2006 84/56 PAST MEDICAL HISTORY Diagnosis Date Generalized anxiety disorder PP NEGATIVE MEDICAL HISTORY PAST SURGICAL HISTORY Procedure Laterality Date COLONOSCOPY FLX DX W/COLLJ SPEC WHEN PFRMD 10/30/2014 repeat in 3 years EGD TRANSORAL BIOPSY SINGLE/MULTIPLE 10/30/2014 REMOVAL GALLBLADDER Review of Systems: Urinary: No burning with urination, blood in urine or incontinence and No change in vaginal discharge, burning, dryness or itching Bowel: No blood in stool, pain with BM, tarry stool, persistent diarrhea or constipation Breast: No breast lumps, nipple d/c, overlying skin changes, redness or skin retraction OBJECTIVE: General Appearance:pleasant, alert, and in no acute distress. Skin: Normal color Neck: Full range of motion Lungs:Unlabored on RA ASSESSMENT: 1. Perimenopausal symptoms (Primary) - Discussed menopause vs debo-menopause. - Discussed treatment/management options for symptoms, including CHC vs SSRI/SNRI. - Etonogestrel-Ethinyl Estradiol (NUVARING) 0.12-0.015 mg/24 hr vaginal ring; 1 Each as directed. INSERT ONE(1) RING VAGINALLY AND LEAVE IN PLACE FOR THREE WEEKS, THEN REMOVE FOR 1 WEEK. Dispense: 1 Each; Refill: 11 2. Menometrorrhagia - Discussed possible causes of abnormal bleeding. - Recommend pelvic ultrasound to further evaluate. - US FEMALE PELVIS TRANSVAG; Future - THYROID STIMULATING HORMONE; Future - COMPLETE BLOOD COUNT; Future 3. Brain fog - VITAMIN D 25 HYDROXY; Future - VITAMIN B6/PYRIDOXIN; Future - VITAMIN B12; Future 4. Mood changes - VITAMIN D 25 HYDROXY; Future - VITAMIN B6/PYRIDOXIN; Future - VITAMIN B12; Future I spent a total of 30 minutes on the date of the service which included preparing to see the patient, [id number] patient care, completing clinical documentation, counseling and educating the patient/family/caregiver, and ordering medications, tests, or procedures. Consultation requested by Randall Machuca APRN.CNP for an opinion regarding debo- menopause. My final recommendations will be communicated back to the requesting physician by way of shared Medical recordor letter to requesting physician via US mail. Shena Jenkins APRN.KULWINDER documented in this encounterSalem [facility]02-25-2025 NoteHNO ID: [id number] Author: SHENA JENKINS APRN.KULWINDER Service: ? Author Type: Nurse Practitioner Type: Progress Notes Filed: 10/09/2024 10:04 Note Text: OGI MENOPAUSE CONSULT Tanna Frye is an 44 year old here to discuss debo-menopause. HPI: States mom went through menopause early as well as sisters. Menses every 2-3 weeks, heavy flow, clotting. Lasting 4-8 days, using pads, changing every 1-2 hours on heavy days. 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 No control. Sexually active. Reports brain fog is horrible. C/o rage and son has been telling her she is yelling a lot lately. C/o headaches as well and has had menstrual headaches in the past. Still nursing 3 year old daughter but it is infrequent and just for daughter's comfort. Last pap: 04/2024- normal per patient Last mammo:07/2022-normal per patient HORMONAL HEALTH QUESTIONNAIRE SYMPTOMS Any sxs (even if mild): VMS; mood concerns; sexual concerns; alopecia; weight gain; new or change of PETTIT; AUB; UI; urinary frequency; Brain fog/memory concerns Bothersome sxs: weight gain; new or change of PETTIT; AUB; UI; Brain fog/memory concerns Symptom duration: <1 yr Sexual health hx: dyspareunia; decreased libido Are sexual symptoms bothersome? A little Sexual symptom duration: >5 yrs Potential contributing factors: dyspareunia; depression or anxiety; relationship with partner; life stress; fatigue; menopausal symptoms Sxs improve on vacation? No Previously tried/offered: vitamins and supplements HORMONAL HISTORY Uterus in situ? Yes Cervix in situ? Yes Ovaries in situ? Yes LMP: Within the last year, about once monthly; 09/28/24 Regular menses in past? Yes Age of menarche: 6-11 G 5 P 2 FLB: Yes; Age: 37 Infertility hx or tx? Yes Current hormone use: No Past hormone use: Yes; transdermal cream/gel Duration of exogenous hormone use: 1-5 years Tolerated? Well Unintended acceptable? No Chance of unintended : No RISK ASSESSMENT (see link for full ROS) Relevant PMH: active gallbladder problems; HTN Relevant Fam Hx: [place]; breast cancer; dementia Prior BMD: Never Prior breast biopsy: No Current tobacco use: No Alcohol use per week: Doesn't drink Substance use: Denies use of narcotics, cannabis, or illicit drugs Other hormonal concerns? Perimenopause *NOTE - Questionnaire responses within the last 30 days are represented in black ink; Responses between 31-365 days are represented in blue ink. The ASCVD Risk score (Ana DK, et al., 2019) failed to calculate for the following reasons: Cannot find a previous HDL lab Cannot find a previous total cholesterol lab Last 14 BP Last 14 Encounter BP Readings: Date: BP: 09/05/2024 126/78 02/22/2016 122/78 06/03/2015 132/98 10/10/2014 128/78 10/03/2014 128/90 07/30/2013 118/80 07/19/2013 120/78 11/08/2012 120/96 01/16/2012 122/80 08/31/2011 128/80 12/25/2008 114/84 07/22/2006 84/56 PAST MEDICAL HISTORY Diagnosis Date Generalized anxiety disorder PP NEGATIVE MEDICAL HISTORY PAST SURGICAL HISTORY Procedure Laterality Date COLONOSCOPY FLX DX W/COLLJ SPEC WHEN PFRMD 10/30/2014 repeat in 3 years EGD TRANSORAL BIOPSY SINGLE/MULTIPLE 10/30/2014 REMOVAL GALLBLADDER Review of Systems: Urinary: No burning with urination, blood in urine or incontinence and No change in vaginal discharge, burning, dryness or itching Bowel: No blood in stool, pain with BM, tarry stool, persistent diarrhea or constipation Breast: No breast lumps, nipple d/c, overlying skin changes, redness or skin retraction OBJECTIVE: General Appearance:pleasant, alert, and in no acute distress. Skin: Normal color Neck: Full range of motion Lungs:Unlabored on RA ASSESSMENT: 1. Perimenopausal symptoms (Primary) - Discussed menopause vs debo-menopause. - Discussed treatment/management options for symptoms, including CHC vs SSRI/SNRI. - Etonogestrel-Ethinyl Estradiol (NUVARING) 0.12-0.015 mg/24 hr vaginal ring; 1 Each as directed. INSERT ONE(1) RING VAGINALLY AND LEAVE IN PLACE FOR THREE WEEKS, THEN REMOVE FOR 1 WEEK. Dispense: 1 Each; Refill: 11 2. Menometrorrhagia - Discussed possible causes of abnormal bleeding. - Recommend pelvic ultrasound to further evaluate. - US FEMALE PELVIS TRANSVAG; Future - THYROID STIMULATING HORMONE; Future - COMPLETE BLOOD COUNT; Future 3. Brain fog - VITAMIN D 25 HYDROXY; Future - VITAMIN B6/PYRIDOXIN; Future - VITAMIN B12; Future 4. Mood changes - VITAMIN D 25 HYDROXY; Future - VITAMIN B6/PYRIDOXIN; Future - VITAMIN B12; Future I spent a total of 30 minutes on the date of the service which included preparing to see the patient, cowo-[id number] patient care, completing clinical documentation, counseling and educating the patient/family/caregiver, and ordering medications, tests, or procedures. Consultation requested by Randall Machuca APRN.CNP for an opinion regarding debo-menopause. (more content not included)...[facility] 09-05-2024 Instructions* Patient Instructions* Randall Machuca APRN.CNP - 09/05/2024 9:57 AM EST Images from the original note were not included. Pelvic Floor Physical Therapy Call [phone] for an appointment for pelvic floor physical therapy (order placed today). Today we discussed pelvic floor physical therapy (PFPT) and the many ways it can help your condition. These sessions are typically covered by insurance and under the umbrella of PT coverage. If you don't know about the details regarding your coverage, we recommend calling your insurance company. Physical therapists at [facility] are specially trained to rehabilitate the pelvic floor muscles. The pelvic floor muscles may become weak, tight or spastic as a result of disuse, surgery or trauma. The therapist evaluates each individual and develops a plan of care specifically to your needsand goals. The initial appointment is a 60 minute session called evaluate and treat where you andthe therapist discuss your symptoms and goals for treatment - every plan is different! Pelvic Floor PT includes below and much more: -Behavioral Retraining -Patient Education -Stretches -Strengthening- abdominal, pelvic floor, hip, lower back -Neuromuscular Re-education -Manual -Soft tissue work -Dry needling -Taping / Strapping -Teaching self treatment options -Home Exercise Programs -Electrical stimulation -Biofeedback We currently have 48 pelvic floor physical therapists and 15 different locations in [facility] system. You can get more information at [email or web address] [facility] -- [facility] -- [facility] -- [facility] [place], [facility] -- [facility] -- [facility] [place], [facility] [place] -- [facility] -- [facility] -- [facility] -- [facility] -- [facility] -- [facility] -- [facility], [facility] [place] -- [facility], [facility] -- [facility] [place], [facility] --[facility] [place] -- [facility] -- [facility] [place] -- [facility] Microscopic Hematuria (Microscopic Blood in the Urine) You had a urine sample that showed a microscopic amount of blood in the urine. In women, it is rareto find a cancer that is causing this. Most often, the urine sample is contaminated by cells in theregion of the vulva. Gross hematuria signifies visible blood in the urine, whereas microscopic hematuria signifies blood noted on a microscopic urinalysis test (urine examined under a microscope, noton a urine dipstick test) There are many potential causes for hematuria, including kidney stones, infection, urinary tract tumors/cancers, trauma, blood thinning medications, strenuous exercise, diet (beets), medications, false positive on a urine dipstick test and in some cases, we never find the cause. Additional tests are recommended, unless you are under the age of 50 and don't have any risk factors for kidney or bladder cancer. To make sure there is no concerning cause for this blood, two tests are usually recommended: cystoscopy (camera study in the bladder) and imaging of the kidneys and ureters. If you had these tests already and they were normal, here is what we recommend next: 1. Obtain a urine sample with your primary care doctor once a year. Make sure the urine is sent to the lab for Urinalysis with Microscopy. 2. If there is a sudden increase in the amount of microscopic blood, please return to our office for a cystoscopy and imaging again. 3. If the amount of blood in the urine is gone, there is no need for further testing. 4. If the amount of blood in the urine is stable, continue checking the urine once a year. 5. If you still have the microscopic blood in the urine in 5 years, we should do a cystoscopy and imaging again. Overactive Bladder What is an overactive bladder? Overactive bladder represents a collection of symptoms that include: Urinary urgency -failure to be able to postpone the need to urinate Frequency of urination -the need to urinate at least eight times per day Urge incontinence -leakage of urine when one gets the urge to urinate Nocturia -the need to get up and urinate at least two times per night What causes an overactive bladder? Urine leakage and bladder control problems can have many possible causes that include: Weak pelvic muscles -muscles that have become stretched and weak due to and childbirth, which in turn have let the bladder sag out of position and have stretched the opening of the urethra causing urine leakage. Nerve damage -sending signals to the brain and bladder to empty at the wrong time. Diseases that can cause nerve damage include diabetes, Parkinson's, multiple sclerosis, and stroke. Traumas that cancause nerve damage include pelvic or back surgery, herniated disc, and radiation. Medications, alcohol, and caffeine -these products can dull the nerves, affecting the signal to thebrain, resulting in bladder overflow. Diuretics and caffeine can cause rapid bladder filling and may cause bladder leakage. Infection -a urinary tract infection (UTI) can irritate bladder nerves and cause the bladder to squeeze without warning. Excess weight -being overweight puts pressure on the bladder and contributes to urge incontinence. Estrogen deficiency after menopause -may contribute to loss of urine due to urgency. Ask your doctor if vaginal-only estrogen therapy is right for you. This is different from systemic hormone therapy, which is absorbed throughout the body. How is overactive bladder treated? Bladder over activity is a very common condition. It is very treatable, but requires assistance from both the doctor and the patient. Treatment can range from behavioral modification techniques to drugs to procedures. If you move on to medications or procedures, it is important to continue to use the behavioral modification techniques to increase your chances of treatment success. What behavioral modification techniques can you do to help your overactive bladder? Keep a log During a typical day, write down your fluid intake, the number of times that you urinate, the number of accidents and when they occur (after coughing, sneezing, laughing, because you were not able toreach the bathroom in time, etc.). Monitor your diet Eliminate or decrease foods or beverages that may worsen bladder symptoms. These include: Alcoholic beverages Cantaloupe [place] and spicy foods Apples & apple juice [place] fruit Chocolate Tea & Coffee (including decaffeinated) Grapes Sugars: especially artificial sweeteners, saccharin, aspartame, sucrose, lactose, fructose, corn sweeteners, honey Carbonated beverages Guava Cranberries & cranberry juice Peaches Tomatoes & tomato juice Pineapple Vitamin B complex Milk products: milk, cheese, yogurt, cottage cheese, ice cream Plums Vinegar Strawberries Maintain bowel regularity Constipation can place added pressure on the bladder and have a negative effect on bladder function. By keeping healthy bowel habits, you may be able to avoid constipation and help to lessen bladder symptoms. The following are some suggestions for maintain bowel regularity: Increase fiber intake by eating foods such as beans, pasta, oatmeal, bran cereal, whole wheat bread, and fresh fruits and vegetable. Every morning take 2 tablespoons of this mixture: 1 cup applesauce, 1 cup unprocessed wheat bran, and cup prune juice. Exercise to maintain regular bowel movements. If you continue to have bowel problems, see your doctor. Maintain a healthy weight Being overweight can add pressure on your bladder, which may contribute to bladder problems. If youare overweight, weight loss can reduce pressure on your bladder. Stop smoking Cigarette smoking is irritating to the bladder muscle. Repeated coughing spasms due to smoker's cough can cause urine leakage. Drink non-irritating fluids People with bladder symptoms often drink fewer liquids so they don't have to urinate as often. You should drink about 3 to 4 glasses of liquids per day. Try to spread them out as evenly as possible throughout the day. Drinking fewer fluids causes you to produce more concentrated (dark yellow, strong-smelling) urine. Highly concentrated urine is irritating to the bladder and may actually cause more frequent urination. Limit your intake starting 2 or 3 hours before going to bed. Decrease or eliminate beverages that might worse bladder symptoms (see list under 2). Begin bladder retraining When you have overactive bladder, over time your bladder muscles become conditioned to react in a certain way. By retraining these muscles, you can hold urine better. Bladder retraining involves working with a healthcare professional to learn how to resist or inhibit the feeling of urgency, postpone voiding, and urinate according to a timetable (rather than in response to a feeling of urgency). To begin bladder training, you should start with your current voiding interval. For example, if youurinate every hour on average, this would be your current voiding interval. Once the beginning voiding interval has been established, you train your bladder to urinate on schedule. For example, you will need to urinate every 2 hours while awake with no voiding in between the interval. If you develop urgency in between the voiding intervals, immediately sit down in a comfortable position, take slow deep breaths in and out of your mouth, and try to imagine yourself in a favorite vacation spot or use some other relaxation technique until the urge passes -then proceed to the bathroom. Empty the bladder around the clock at first. Don't wait until the last minute. For example, start every 2 hours, and if you have remained dry, then increase the time between urinations. If you are wet, then decrease that time to every hour, and gradually increase the time between bathroom visits. If you normally go every hour, try to increase it to 1 hour and 15 minutes between visits. When you can maintain your new schedule without accident for 1 to 2 weeks, try increasing the time between bathroom visits by an additional 15 minutes until you reach an interval you feel comfortablewith. The goal is to reach an interval of 2 to 4 hours between bathroom visits. Stick to the schedule as much as possible. Control the urge The byrne to bladder retraining is developing the ability to control urinary urges. When you experience a sudden urge, the following strategies may help: Stop what you are doing and stay put. Sit down when possible, or stand quietly. Remain very still. When you are still, it is easier to control your urge. Squeeze your pelvic floor muscles quickly several times. Do not relax fully in between. Relax the rest of your body. Take a few deep breaths to help you relax and let go of your tension. Concentrate on suppressing the urge feeling. Wait until the urge subsides. Walk to the bathroom at a normal pace. Do not martinez. Continue squeezing your pelvic floor muscles quickly while you walk. Be patient An entire bladder retraining program usually takes at least 6 to 8 weeks to produce results. Talk to your doctor about the best way to manage the symptoms of overactive bladder. He or she may recommend a combination of overactive bladder medication and bladder retraining to help you achieve the best outcome. Drug treatments Drugs can work very well to return normal function to the bladder. The type selected is based on the specific bladder control problem. Treatment usually begins at a low dose followed by a gradual dose increase. The intent is to use the lowest effective dose, which in turn will reduce the risk of experience side effects. Ask your doctor about the risks and benefits of using the following commonly prescribed drugs: Oxybutynin (Ditropan), Oxybutynin XL (Ditropan XL), Oxybutynin TDDS (Oxytrol) Oxybutynin Gel (Gelnique) Tolterodine (Detrol) Solifenacin (Vesicare) Fesoterodine (Toviaz) Darifenacin (Enablex) Trospium (Sanctura XR) Mirabegron (Myrbetriq) Procedures Percutaneous Tibial Nerve Stimulation (PTNS) This is an office-based procedure that electrically stimulates the nerves that control the bladder.An acupuncture needle is placed at the ankle and stimulation is delivered for 30 minutes. These sessions occur once per week for twelve weeks followed by monthly maintenance therapy. Bladder Injections This is an office-based procedure where botulinum toxin (Botox) is injected into the bladder to help it relax. Injections are given about twice per year. Rarely, these injections may cause trouble urinating. Sacral Nerve stimulation Sacral nerve stimulation is a therapy that electrically stimulates the nerves that control the bladder. A small device (a neurotransmitter) is implanted under the skin in the upper buttock area. The device sends mild electrical impulses through a lead (a wire) close to the sacral nerve (a nerve located in the lower back). The impulses, in turn, help provide bladder control. The therapy is tested with an office nerve test. If the nerve test is successful, the implant is placed. Useful Internet resources Https://[email or web address]/ https://www.niddk.nih.gov/health-information https://www.Belief[employer]workssforp[employer].org/ Bladder Training Program for Overactive Bladder & Urge Incontinence: Definition: Overactive bladder is described as involuntary contractions of the bladder, occurring at inappropriate times without the person's permission. These bladder contractions, or spasms, can lead to feelings of urinary frequency, urgency, pelvic discomfort or pressure and the loss of urine (incontinence). Urge incontinence is described as the involuntary loss of urine associated with a sudden urge to urinate, the sensation of a full bladder or without any sensation at all. This can happen anytime throughout the day or night and is not usually associated with activity (laugh, cough, sneeze). The goals of this bladder retraining program are to improve voluntary control of the bladder and decrease or eliminate symptoms such as frequency, urgency & incontinence. These goals are accomplished by a combination of medication (bladder relaxants ), pelvic muscle exercises, changes in diet & changes in urinary habits. This program requires diligence and dedication on the part of the patient. In certain cases, a program of electrical stimulation and/or biofeedback may be implemented. Bladder Training Program: Pelvic Muscle Exercises (Kegel): These exercises serve two purposes: they strengthen the supporting structures of the bladder and urethra and they help reduce or eliminate stress incontinence (loss of urine associated with laugh, cough, sneeze, etc). They also start a reflex which causes bladder relaxation and stops involuntary bladder contractions. The easiest way to learn which pelvic muscles to exercise is first to identify these muscles by stopping and starting the stream of urine. Once you have the feel of tere these muscles, practice tere and holding for about 10 seconds and then relax for 10 seconds. Repeat these [id number] times and do this at least 4 times daily. Try not to contract the abdominal muscles while tere the pelvic floor muscles. Do not continue to start and stop the urinary stream; use this technique only initially to identify the pelvic floor muscles. Quick Flicks: When you get an urge to urinate, quickly contract your pelvic muscles (quick kegels). This will start a reflex to relax the bladder. Then, you will be able to hold off on going to urinate and slowly retrain the bladder to accommodate more urine. This will help to eliminate frequency and urgency. Fluid Restriction: The less you drink, the less urine your body makes. By decreasing your daily fluid intake, you can increase the time until the critical volume of urine is reaches that triggers an urge to urinate. Normal, healthy patients should be able to restrict their fluid intake to 4-6 eight ounce glasses daily. If nighttime frequency and urgency are a problem for you, you should limit your fluid intake in the evenings after dinner (within 3 hours of bedtime). This will help to reduce your nightly urine production, allowing you to sleep better. You should avoid caffeinated beverages such as coffee, tea, iced tea, etc. Try to drink caffeine-free tea (herbal tea) as well as decaffeinated coffee. Also avoid alcohol and wine as these also increase urine production and cause frequent urination. Changing Urinary Habits: Try to progressively delay the urge to urinate over the next several weeks. When you sense an urge to urinate, delay going to the bathroom and perform the pelvic muscle exercises described previously. Try each week to wait a little longer before urinating once the urge is noticeable. This process will help to retrain your bladder, so that it learns to accommodate more urine progressively. Continue to urinate at regular intervals throughout the day, without waiting until you are too full. The final goal should be normal urination every 3-4 hours without significant discomfort. Bladder Diary: You may be asked to keep a voiding diary/log. Record each time that you urinate for a typical 48-72hour period. You may also be asked to measure the amount of urine each time. You should also recordany episodes of incontinence (urine loss) or bladder pain. Common Bladder Irritants (to avoid): Alcoholic beverages: Artificial sweeteners and colors/dyes Tomatoes Beer Chocolate Spicy foods Wine [place] syrup [place] juices and fruit Caffeine: Sugar Carbonated fluids Soft drinks with caffeine Coffee Tea (including green tea) Medicines with caffeine Medication: You may be prescribed medication to help relax the bladder and reduce the involuntary contractions.There are several different medications which may be used, all with similar side effects. The common side effects include constipation, dry mouth, excessive thirst, blurred vision, flushing and dizzin ess. If you experience bothersome side effects, please call your doctor's office immediately so that the dose can be adjusted or another medication can be prescribed. If you have glaucoma, constipation or bowel problems, difficulty urinating or problems with your heart rhythm, you may not be able to take these medications. - Discussed conservative management of CHARITO, including kegel exercises, formal pelvic floor physicaltherapy +/- biofeedback, OTC vaginal inserts, and pessary with anti incontinence knob. We also discussed surgical management with bulking agents and synthetic mid urethral slings. WHAT YOU NEED TO KNOW ABOUT URINARY STRESS INCONTINENCE What is stress urinary incontinence? Stress urinary incontinence is one type of uncontrollable leaking of urine. Stress refers to a physical force, such as a cough or sneeze rather than emotional stress. Women who have mild symptoms of stress incontinence may sometimes have a small spurt of urine loss with a strong force like a bad cough or many sneezes. When stress incontinence becomes more severe, leakage occurs more frequently and more easily, even with minor exertion. Mild stress incontinence is very common and if symptoms occur infrequently enough not to be bothersome, treatment may not be necessary. However, when leakage becomes a social or hygienic problem, or if a woman limits her activities to avoid leakage, then treatment can help. What causes stress urinary incontinence? Many factors may work together to cause stress urinary incontinence. Normally, the pelvic muscles and connective tissue (ligaments) help to support the urinary bladder and urethra (the tube that empties the bladder). Stress incontinence occurs when abdominal pressure forces urine past the urethra. This force may happen because there is a weakness of the urethra, because the urethra has lost some support, or both. Weakness of the urethra may be due to nerve or muscle damage. Loss of pelvic support commonly occurs at the time of vaginal childbirth. Other factors are important too, because some women have stress incontinence even if they have not had a baby or if they had a delivery. Some factors that increase pressure on the bladder and urethra can cause or aggravate stress incontinence. These factors include chronic lung conditions that cause frequent coughing, bowel problems such as constipation and excessive straining during bowel movements, and obesity. Who is affected by stress urinary incontinence? Many women first experience stress urinary incontinence during , although symptoms usuallyresolve after delivery. For some women, stress incontinence may occur later in life, after menopause. What are the symptoms of stress urinary incontinence? The typical symptom of stress urinary incontinence is the sudden loss of a spurt of urine with or immediately after a physical force like coughing, sneezing, or jumping. Urinary frequency is not necessarily affected. Uncomplicated stress incontinence is not usually associated with symptoms of urgency (not being able to hold urine and feeling as if leakage may occur on the way to the bathroom). Ifthere is a large amount of urine loss as if the bladder is emptying completely, or if the leakage is delayed after a physical force, then a different type of urinary incontinence may be the cause. Itis also possible to have a combination of types of incontinence. (Physicians call this mixed inconti nence.) How do you find out if you have stress urinary incontinence? If you have any of the symptoms mentioned above, see your physician. In addition to a physical examination and urine testing for infection, you may need to undergo testing of bladder function called urodynamics. This test involves making pressure measurements of the bladder and urethra while the bladder is being filled with fluid using a thin catheter. What is the treatment for stress urinary incontinence? There are many treatment options available for stress urinary incontinence. The choice of treatmentdepends partly on the severity of symptoms. Usually, simpler treatments are tried first and more advanced treatment, such as surgery, is reserved for symptoms that have not improved or resolved. Exercise Pelvic muscle exercises are often effective, especially for mild symptoms of stress incontinence. Like all exercise programs, the most benefit is obtained when the exercises are done consistently. Medication Medication is sometimes used to treat stress incontinence. For example, some antihistamines increase muscle tone around the urethra and are effective for some women with stress incontinence. Devices There are several relatively new devices that are either worn in the vagina, to support the bladderand urethra, or over the urethra to block urine leakage. These devices may be especially useful forwomen who have occasional urine loss with specific activities, and so need protection only part of the time. Surgery If simpler measures are not effective or if stress incontinence is severe, surgery may be recommended. The goal of surgery is to support or suspend the bladder and urethra, and so prevent urine leakage. There are many different procedures, including ones that can be performed with minimally invasive techniques using laparoscopy. Copyright [id number] [facility]. All rights reserved documented in this encounterSalem [facility] Medical Center01-22-2025 NoteHNO ID: [id number] Author: RANDALL MACHUCA APRN.KULWINDER Service: ? Author Type: Nurse Practitioner Type: Progress Notes Filed: 09/05/2024 11:26 Note Text: Female Pelvic Medicine AND Reconstructive Surgery Consult CHIEF COMPLAINT: Tanna Frye is a 44 year old female who presents for consultation requested by Dr. wilkinson for an opinion regarding Hematuria. HISTORY OF PRESENT ILLNESS: Pt has concerns with hematuria. Pt also has concerns with urge and stress incontinence. Patient presents today with symptoms of stress urinary incontinence. Patient reports she leaks with exercise when she lifts something heavy. cough laugh sneeze. She has not had a sling procedure in the past. She has done kegels exercises for this problem. She does wear pads for this problem. Her symptoms have been going on since the of her children.. She is here for an evaluation and to discuss her options. Her pcp just mentioned it to her she's had it for 7 years. She works at a [email or web address]. Getting worse. Leaks cough, laugh, sneeze running picking up heavy things. She also reports frequency, at least every hour. Also feel she doesn't fully empty doesn't always feel relieved Leaks with urge sometimes She is up 1 to 2-3 times at night. Stress urinary incontinence is way more bothersome than the urinary frequency, urgency. She states she has always has overactive bladder symptoms her whole life. Has 2 young kids; drinks caffeine several cups of coffee daily. She also expresses interest in discussing perimenopause with a provider. She is starting to have symptoms. States her mother and sister went through menopause early. Patient presents with microscopic hematuria. Her risk factors are as follows: >35 years of age? Yes History of smoking? No Prior gross Hematuria? Yes Occupational exposure to benzenes? No Occupational exposure to aromatic amines? No History of heavy non-narcotic analgesic use? No History of urologic disease (I.e. kidney disease)? No History of recurrent uti? No History of pelvic radiation? No Prior use of alkylating agents ex. Cyclophosphamide? No Prior use of aristolochoic acid (ex. Herbal medicines)? No History of indwelling foreign body ex. Arias? 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 LMP: 09/04/2024; Menopause no: Menstrual history: Spotting/bleeding between periods; Deliveries: normal vaginal History of third or fourth degree laceration: No Weight of largest baby: 7lbs 12oz Sexual function Sexually active: Sexual dysfunction: pain PFDI-20 Do you: Usually experience pressure in the lower abdomen? Yes, somewhat bothersome (2) Usually experience heaviness or dullness in the pelvic area? Yes, somewhat bothersome (2) Usually have a bulge or something falling out that you can see or feel in your vaginal area? No (0) Ever have to push on the vagina or around the rectum to have or complete a bowel movement? Yes, not at all bothersome (1) Usually experience a feeling of incomplete bladder emptying? Yes, moderately bothersome (3) Ever have to push up on a bulge in the vaginal area with your fingers to start or complete urination? No (0) Feel you need to strain too hard to have a bowel movement? Yes, somewhat bothersome (2) Feel you have not completely emptied your bowels at the end of a bowel movement? Yes, not at all bothersome (1) Usually lose stool beyond your control if your stool is well formed? No (0) Usually lose stool beyond your control if your stool is loose? No (0) Usually lose gas from the rectum beyond your control? Yes, somewhat bothersome (2) Usually have pain when you pass your stool? Yes, somewhat bothersome (2) Experience a strong sense of urgency and have to martinez to the bathroom to have a bowel movement? Yes, somewhat bothersome (2) Does part of your bowel ever pass through the rectum and bulge outside during or after a bowel movement? No (0) Usually experience frequent urination? Yes, quite a bit bothersome (4) Usually experience urine leakage associated with a feeling of urgency, that is, a strong sensation of needing to go to the bathroom? Yes, quite a bit bothersome (4) Usually experience urine leakage related to coughing, sneezing or laughing? Yes, quite a bit bothersome (4) Usually experience small amounts of urine leakage (that is, drops)? Yes, quite a bit bothersome (4) Usually experience difficulty emptying your bladder? Yes, quite a bit bothersome (4) Usually experience pain or discomfort in the lower abdomen or genital region? Yes, not at all bothersome (1) Do you have pain associated with your prolapse (not pressure or fullness) No PAST SURGICAL HISTORY Procedure Laterality Date COLONOSCOPY FLX DX W/COLLJ SPEC WHEN PFRMD 10/30/2014 repeat in 3 years EGD TRANSORAL BIOPSY SINGLE/MULTIPLE 10/30/2014 LANDEN (more content not included)...[facility]01-22-2025 History of Present illness Narrative* Randall Machuca, PAULINE.SAMPLE STEAMER - 09/05/2024 9:56 AM EST Female Pelvic Medicine & Reconstructive Surgery Consult CHIEF COMPLAINT: Tanna Frye is a 44 year old female who presents for consultation requested by Dr. wilkinson for an opinion regarding Hematuria. HISTORY OF PRESENT ILLNESS: Pt has concerns with hematuria. Pt also has concerns with urge and stress incontinence. Patient presents today with symptoms of stress urinary incontinence. Patient reports she leaks withexercise when she lifts something heavy. cough laugh sneeze. She has not had a sling procedure in the past. She has done kegels exercises for this problem. She does wear pads for this problem. Her symptoms have been going on since the of her children.. She is here for an evaluation and to discuss her options. Her pcp just mentioned it to her she's had it for 7 years. She works at a [email or web address]. Getting worse. Leaks cough, laugh, sneeze running picking up heavy things. She also reports frequency, at least every hour. Also feel she doesn't fully empty doesn't always feel relieved Leaks with urge sometimes She is up 1 to 2-3 times at night. Stress urinary incontinence is way more bothersome than the urinary frequency, urgency. She states she has always has overactive bladder symptoms her whole life. Has 2 young kids; drinks caffeine several cups of coffee daily. She also expresses interest in discussing perimenopause with a provider. She is starting to have symptoms. States her mother and sister went through menopause early. Patient presents with microscopic hematuria. Her risk factors are as follows: >35 years of age? Yes History of smoking? No Prior gross Hematuria? Yes Occupational exposure to benzenes? No Occupational exposure to aromatic amines? No History of heavy non-narcotic analgesic use? No History of urologic disease (I.e. kidney disease)? No History of recurrent uti? No History of pelvic radiation? No Prior use of alkylating agents ex. Cyclophosphamide? No Prior use of aristolochoic acid (ex. Herbal medicines)? No History of indwelling foreign body ex. Arias? 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 LMP: 09/04/2024; Menopause no: Menstrual history: Spotting/bleeding between periods; Deliveries: normal vaginal History of third or fourth degree laceration: No Weight of largest baby: 7lbs 12oz Sexual function Sexually active: Sexual dysfunction: pain PFDI-20 Do you: Usually experience pressure in the lower abdomen? Yes, somewhat bothersome (2) Usually experience heaviness or dullness in the pelvic area? Yes, somewhat bothersome (2) Usually have a bulge or something falling out that you can see or feel in your vaginal area? No (0) Ever have to push on the vagina or around the rectum to have or complete a bowel movement? Yes, notat all bothersome (1) Usually experience a feeling of incomplete bladder emptying? Yes, moderately bothersome (3) Ever have to push up on a bulge in the vaginal area with your fingers to start or complete urination? No (0) Feel you need to strain too hard to have a bowel movement? Yes, somewhat bothersome (2) Feel you have not completely emptied your bowels at the end of a bowel movement? Yes, not at all bothersome (1) Usually lose stool beyond your control if your stool is well formed? No (0) Usually lose stool beyond your control if your stool is loose? No (0) Usually lose gas from the rectum beyond your control? Yes, somewhat bothersome (2) Usually have pain when you pass your stool? Yes, somewhat bothersome (2) Experience a strong sense of urgency and have to martinez to the bathroom to have a bowel movement? Yes, somewhat bothersome (2) Does part of your bowel ever pass through the rectum and bulge outside during or after a bowel movement? No (0) Usually experience frequent urination? Yes, quite a bit bothersome (4) Usually experience urine leakage associated with a feeling of urgency, that is, a strong sensation of needing to go to the bathroom? Yes, quite a bit bothersome (4) Usually experience urine leakage related to coughing, sneezing or laughing? Yes, quite a bit bothersome (4) Usually experience small amounts of urine leakage (that is, drops)? Yes, quite a bit bothersome (4) Usually experience difficulty emptying your bladder? Yes, quite a bit bothersome (4) Usually experience pain or discomfort in the lower abdomen or genital region? Yes, not at all bothersome (1) Do you have pain associated with your prolapse (not pressure or fullness) No PAST SURGICAL HISTORY Procedure Laterality Date COLONOSCOPY FLX DX W/COLLJ SPEC WHEN PFRMD 10/30/2014 repeat in 3 years EGD TRANSORAL BIOPSY SINGLE/MULTIPLE 10/30/2014 REMOVAL GALLBLADDER PAST MEDICAL HISTORY Diagnosis Date Generalized anxiety disorder PP NEGATIVE MEDICAL HISTORY FAMILY HISTORY Problem Relation Age of Onset Coronary Artery Disease Mother Breast Cancer Mother Diabetes Father Coronary Artery Disease Father Cancer Sister BCC Skin Cancer Niece Current Outpatient Medications Medication Sig vit,calc78/iron/folic (PRENATABS FA ORAL) DAILY etonogestrel/ethinyl estradiol(NUVARING 0.12 MG -0.015 MG/24 HR VAGINAL) Insert one(1) ring vaginally and leave in place for three weeks, then remove for 1 week. No current facility-administered medications for this visit. ALLERGIES Allergen Reactions Dust Other: See Comments Pollen SOCIAL HISTORY Social History Tobacco Use Smoking status: Former Current packs/day: 0.00 Types: Cigarettes Quit date: 07/19/2004 Years since quittin.1 Substance Use Topics Alcohol use: Yes Comment: occasional Drug use: No Occupation: [employer] Status: Abuse History: Have you been the victim of emotional abuse? This can include being humiliated or insulted. No Have you ever been the victim of physical abuse? This can include being hit, kicked or beaten or having someone make serious threats against your life. No Have you been the victim of sexual abuse? This can include any unwanted sexual experiences. No REVIEW OF SYSTEMS General: Negative for unintentional weight loss, fever, chills, or weakness. Skin: Negative for rash or itching. Psychiatric: Negative for depression. Reports normal stress. Neurologic: Negative for new headache or syncope. Endocrine: Negative for sweating, cold intolerance or heat intolerance. Cardiovascular: Negative for recent chest pain, chest pressure or chest discomfort. Hematologic/Lymphatic: Negative for easy bruising or excessive bleeding. Respiratory: Negative for wheezing, shortness of breath or persistent cough. Gastrointestinal: Negative for persistent abdominal pain. Negative for anorexia, persistent nausea and/or vomiting. Musculoskeletal: Negative for muscle pain, back pain, joint pain or stiffness. I have confirmed and edited as necessary, the PFSH and ROS obtained by others. Randall Machuca APRN.SAMPLE STEAMER Fishing Floats Assembler offered: Patient declines. SENSITIVE EXAM: The sensitive examination was discussed with the Patient or Patient's Authorized Traffic Engineering Director. As applicable, any other physician, advance practice provider, medical student, or other health professional student that will be observing or involved in the sensitive examination for educational or training purposes was discussed with the Patient or Authorized Traffic Engineering Director. The Patient or Authorized Traffic Engineering Director has agreed to proceed with the sensitive examination. (Sensitive examination includes inspection and/or palpation of the breasts, pelvis, prostate and anorectal regions). OBJECTIVE: BP 126/78 Ht 5' 4 (1.63m) Wt 197 lb (89.4kg) LMP 09/04/2024 BMI 33.80 kg/(m^2). Physical Exam Constitutional: BMI - Body mass index is 33.81 kg/m . General Appearance: Well appearing, alert, in no acute distress, well-hydrated, well nourished. Skin: Skin color, texture, turgor normal, no suspicious rashes or lesions Lungs: Lungs clear to auscultation Heart: RRR Breasts: Deferred Abdomen: Abdomen soft, non-tender Pelvic: External Genitalia: No lesions or other abnormalities, menstruating POP-Q: Prolapse Noted: No Vaginal epithelium: WNL Cervix: Normal Urethra: Normal, + cough stress test Bimanual: No tenderness, No masses Rectovaginal: Deferred Levator Ani Contraction: 2+ Levator Ani Tone: normal Levator Ani Tenderness: Yes, mild tenderness L>R, left OI Saddle Sensory Exam (S2-4): normal UA results: abnormal Bladder scan: PVR 170 mL PVR Procedure Note In dorsal lithotomy position. The straight catheter was lubricated with sterile lubricating jelly, then inserted without difficulty into the patient's urethra. The residual volume was noted to be 170cc. The patient tolerated well. URINE POC GLUCOSE UA (POCT) Negative 09/05/2024 BILIRUBIN UA (POCT) Negative 09/05/2024 KETONE UA (POCT) Negative 09/05/2024 SPECIFIC GRAVITY UA (POCT) 1.015 09/05/2024 HEMOGLOBIN/BLOOD UA (POCT) Large 09/05/2024 PH UA (POCT) 7.0 09/05/2024 PROTEIN UA (POCT) Negative 09/05/2024 UROBILINOGEN UA (POCT) 0.2 09/05/2024 NITRITE UA (POCT) Negative 09/05/2024 LEUKOCYTES UA (POCT) Negative 09/05/2024 COLOR UA (POCT) Yellow 09/05/2024 CLARITY UA (POCT) Clear 09/05/2024 IMPRESSION: Tanna Frye is a 44 year old female with Stress Urinary Incontinence, Overactive Bladder Syndrome, Hematuria. Assessment & Plan Microscopic hematuria Will send UA today. Proceed with cystoscopy and CT if positive findings Orders: UA DIP, URINE (POC) URINALYSIS, WITH MICROSCOPIC CHARITO (stress urinary incontinence, female) - Discussed conservative management of CHARITO, including kegel exercises, formal pelvic floor physicaltherapy +/- biofeedback, OTC vaginal inserts, and pessary with anti incontinence knob. We also discussed surgical management with bulking agents and synthetic mid urethral slings. - Start pelvic floor physical therapy - FU in 2-3 months. Advanced therapies discussed in detail. Orders: CONSULT TO PHYSICAL THERAPY; Future OAB (overactive bladder) We discussed the patient's options for her OAB which include expectant management, behavioral modification and bladder training, pelvic floor rehabilitation, anticholinergic medications, Myrbetriq (aB3 adrenergic agonist), or a combination of these treatment modalities. We also discussed the option of sacroneuromodulation (Interstim), UrgentPC or Intravesical Botox. We discussed the importance of decreasing/eliminating her caffeine intake to help improve her urgency and frequency. The patient was counseled on the importance of kegel exercises for urge control. She was given a handout on OAB,bladder training and pelvic floor exercises. She will plan to review the OAB packet of information and plan conservative efforts at this time. She is not interested in medication. Encouraged lifestyle modifications and PT. Stress urinary incontinence is her biggest issue. Orders: CONSULT TO PHYSICAL THERAPY; Future Perimenopausal symptoms Wishes to discuss perimenopausal symptoms; consult placed Orders: CONSULT TO WOMEN'S HEALTH; Future Encounter for urine test Orders: UA DIP, URINE (POC) I spent a total of 53 minutes on the date of the service which included preparing to see the patient, [id number] patient care, completing clinical documentation, obtaining and/or reviewing separately obtained history, performing a medically appropriate examination, counseling and educating the pat ient/family/caregiver, and ordering medications, tests, or procedures. My final recommendations will be communicated back to the requesting physician by way of shared Medical record or letter via US mail. Randall Machuca APRN.KULWINDER documented in this encounterSalem Regional Medical Center11-25-2024 [facility] Medical Records Department [address] [place] [address] History Physical Exam 07/09/24 0901 MR#: [id number] Acct: [id number] Name: TANNA FRYE Rep #: [id number] : 1980 44 From: Justin Friend DO PCP: Dr. Michelle Lombardo MD Status:[facility] Location: [place] [address] HPI - General General Date of Admission: 07/09/24 Date of Service: 07/09/24 Chief Complaint: Screening colonoscopy HPI Narrative TANNA FRYE, is a 44 F who presents today for surveillance colonoscopy. She had a colonoscopy 3 years ago. She is on a 3-year recall due to history of adenomatous polyps. She is not having abdominal pain, fever, chest pain or shortness of breath. Overall she is very good health. [facility] Medical History (Updated 07/05/24 @ 10:59 by Doug Yoder) Suprapubic discomfort Personal history of colon polyps, unspecified Abnormal urinalysis Colon cancer screening Preventative health care Encounter for preventative adult health care examination Right shoulder pain MRSA infection History of premature rupture of membranes (PPROM) History of pre-term labor Superficial varicosities Autoimmune disease Vitamin D deficiency GERD (gastroesophageal reflux disease) Hormone deficiency Preeclampsia Hx of migraine headaches History of gallstones H/O emotional problems History of UTI Seasonal allergies Seasonal allergies Incontinence Limb weakness Anemia Arthritis Hemorrhoid Anxiety Home Medications ???Medication ???Instructions ???Recorded ???Last Taken ???Type multivitamin 1 tab PO DAILY 09/28/23 Unknown History collagen powder 1 sc PO DAILY 05/14/24 Unknown History magnesium chloride 64 mg 64 mg PO DAILY 05/14/24 Unknown History (magnesium chloride) tablet omega-3 fatty acids 1,250 mg 1,250 mg PO QDAY 05/15/24 07/04/24 History capsule vitamin C 30 mg-zinc citrate 1.1 1 tab PO QDAY 05/15/24 Unknown History mg-elderberry 25 mg chewable tablet Allergy/AdvReac Type Severity Reaction Status Date / Time adhesive tape Allergy Mild blisters Verified 07/05/24 10:49 Family History Mother Breast cancer Cancer skin Arthritis Anxiety BLOOD TRANSFUSION Myocardial infarction Father Diabetes CAD (coronary artery disease) Hypertension Heart disease Anesthesia complication Myocardial infarction High cholesterol Sister Cancer Skin cancer Surgical History Hx of colonoscopy H/O removal of cyst S/P cholecystectomy S/P dilation and curettage S/P wisdom tooth extraction Social History adopted: No household members: family housing: house number of children: 2 current occupational status: employed current occupation: [employer] pets and animals: Yes pets and animals: cat(s) sexually active: Yes Smoking Status: Former smoker second hand exposure: No alcohol intake: current alcohol intake frequency: holidays/special occasions only substance use type: does not use well-balanced diet: daily or most days caffeine: Yes Type: coffee Number of servings: 10 eating out: 1-3 times/week what type of physical activity do you participate in: none frequency: does not exercise seatbelt use: always do you feel safe at home: Yes additional social history: - [employer]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 [employer] ROS Review of Systems ROS Unobtainable: other Constitutional Constitutional: Denies fatigue, fever(s), poor appetite, weight gain or weight loss ENT HEENT: Denies mouth lesions Cardiovascular Cardiovascular: Denies abdominal bloating, abdominal edema or abdominal pain Respiratory/Chest Respiratory/Chest: Denies change in mental status, change in phlegm color, chest congestion or chest tightness Gastrointestinal Gastrointestinal: Denies belching, bloating, change in bowel habits, change in stool character, chewing difficulty, coffee ground emesis, constipation, cramping, diarrhea, dyspepsia, dysphagia, early satiety, excessive flatus, fecal incontinence, heartburn, hematemesis, hematochezia, hemorrhoids, loose stools, melena, nausea, odynophagia, rectal bleeding, tenesmus, vomiting or weight changes Genitourinary Genitourinary: Denies abdominal discomfort, burning urination or itching Musculoskeletal Musculoskeletal: Reports as per HPI; Denies muscle weakness or myalgias Integumentary Integumentary: Denies jaundice Neurologic Neurologic: Denies lack of coordination or weakness Psychiatric Psychiatric: Denies confusion, depression, memory loss, mood swings, paranoia or suicidal ideation Endocrine Endocrinology: Denies systems reviewed and no addt'l complaints, except as documented Hematologic/Lymphatic Hematologic/Lymphatic: Denies anemia, eas (more content not included)...[facility] [id number] NotePap Smear Specimen AdequacyJune 2021 9:30amComment.Satisfactory for evaluation. Endocervical and/or squamous metaplasticcells (endocervical component)are present.[id number] Work Phone: Comment on above:Satisfactory for evaluation. Endocervical and/or squamous metaplasticcells (endocervical component)are present.Evaluation noteNo assessment information availableWSCCI Hospital [facility] Work Phone: Evaluation note* Diagnosis Onset Date Resolution Status Anxiety chronic Hypertension chronic [facility] Work Phone: Evaluation note* Diagnosis Onset Date Resolution Status Anxiety chronic Hypertension chronic acute [facility] Work Phone: Evaluation note* Diagnosis Onset Date Resolution Status Anxiety chronic Hypertension chronic resolved [facility] Work Phone: Evaluation note* Diagnosis Onset Date Resolution Status Anxiety chronic Hypertension chronic Healthcare maintenance nonea ctive resolved [facility] Work Phone: Evaluation note* Diagnosis Onset Date Resolution Status Colon cancer screening acute Preventative health care acu te [facility] Work Phone: Evaluation note* Diagnosis Microscopic hematuria- Primary CHARITO (stress urinary incontinence, female) Female stress incontinence OAB (overactive bladder) Hypertonicity of bladder Perimenopausal symptoms Symptomatic menopausal or female climacteric states Encounter for urine test Laboratory examination, unspecified [facility] Perimenopausal symptoms- Primary Symptomatic menopausal or female climacteric states Menometrorrhagia Excessive or frequent menstruation Brain fog Mood changes Unspecified episodic mood disorder [facility] Weakness- Primary Other malaise and fatigue CHARITO (stress urinary incontinence, female) Female stress incontinence OAB (overactive bladder) Hypertonicity of bladder [facility] Weakness- Primary Other malaise and fatigue CHARITO (stress urinary incontinence, female) Female stress incontinence [facility] Diagnosis Weakness- Primary Other malaise and fatigue CHARITO (stress urinary incontinence, female) Female stress incontinence [facility] Diagnosis Weakness- Primary Other malaise and fatigue CHARITO (stress urinary incontinence, female) Female stress incontinence [facility] (narrative)No reason for referral information availableHind [facility] Services Work Phone: Summary Purpose Family History No Family History Records Found Relationship Condition Age at Onset Recorded Date/T jonel mother Malignant neoplasm of breast Unknown Malignant neoplasm Unknown Arthritis Unknown Anxiety Unknown Unknown Myocardial infarction Unknown father Diabetes mellitus Unknown Coronary artery disease Unknown Hypertension Unknown Cardiac disease Unknown Complication of anesthesia Unknown High blood cholesterol Unknown sister Malignant neoplasm Unknown Malignant neoplasm of skin Unknown Advance Directives No Advanced Directives Records Found Advance Directive Response Recorded Date/ Time Advance Directives No August 21, 2021 1:30pm Living Will No August 21 1:30pm Power of Hand Singer No August 21 022 1:30pm Advance Directive Response Recorded Date/ Time Advance Directives No August 21, 2021 1:30pm Living Will No December 10, 2021 4:01pm Power of Hand Singer No December 10 4:01pm Advance Directive Response Recorded Date/ Time Advance Directives No September 20, 2023 1:33pm Living Will No September 20 1:33pm Power of Hand Singer No September 20, 2023 1:33pm Advance Directive Response Recorded Date/ Time Advance Directives No September 20, 2023 2:33pm Chief Complaint and Reason for Visit Chief Complaint AB TEST HRA LABWORK COVID AB TESTING Chief Complaint AB TEST HRA LABWORK COVID AB TESTING WELLNESS CHECK UP Reason for Visit Anxiety Hypertension Chief Complaint AB TEST HRA LABWORK COVID AB TESTING WELLNESS CHECK UP INDUCTION OF LABOR Reason for Visit Anxiety Hypertension Chief Complaint WELLNESS CHECK UP INDUCTION OF LABOR Reason for Visit Anxiety Hypertension Chief Complaint WELLNESS CHECK UP INDUCTION OF LABOR R SHOULDER PAIN/RX HERE Reason for Visit Anxiety Hypertension Chief Complaint WELLNESS CHECK UP INDUCTION OF LABOR R SHOULDER PAIN/RX HERE Reason for Visit Anxiety Hypertension Healthcare maintenance Chief Complaint YEARLY Reason for Visit Colon cancer screeni Preventative health care Chief Complaint Admit Date COUGH, CONGESTION, FEVER October 23 1:35pm YEARLY January 16, 2025 2:53p m Reason for Visit Admit Date Contact with or exposure to other viral diseases October 23, 2024 1:35pm Reason for Visit Admit Date Contact with or exposure to other viral diseases October 23, 2024 1:35pm Preventative health care January 16, 2025 2:53pm Anxiety January 16, 2025 2:53p m Hypertension January 16, 2025 2:53p m Reason for Referral Specialty Diagnoses / Procedures Referred By Contac t Referred To Contact PHYSICAL THERAPY Diagnoses CHARITO (stress urinary incontinence, female) OAB (overactive bladder) Procedures CONSULT TO PHYSICAL THERAPY PHYSICAL THERAPY EVALUATION HIGH COMPLEX 45 MINS Randall Machuca APRN.[employer] [address] [place] [address] Kemal Koch, PT, DPT [address] [place] [address] Referral ID Status Reason Start Date Expiration Date Visits Requested Visits Authorized [id number] Pending Review Auto-Generat ed Referral 09/05/2024 09/05/2025 1 1 Specialty Diagnoses / Procedures Referred By Contac t Referred To Contact Diagnoses Perimenopausal symptoms Procedures CONSULT TO [facility]'S HEALTH OFFICE[facility] MDM 60 MINUTES Randall Machuca APRN.[employer] [address] [place] [address] Referral ID Status Reason Start Date Expiration Date Visits Requested Visits Authorized [id number] Authorized PCP Requested Referral Auto-Generate d Referral 09/05/2024 09/05/2025 1 1 Additional Source Comments INFORMATION SOURCE (unrecogn ized section and content) DATE CREATED AUTHOR 01/25/2021 [facility] DATE CREATED AUTHOR AUTHOR'S ORGANIZ ATION 10/10/2024 [facility] DATE CREATED AUTHOR AUTHOR'S ORGANIZ ATION 01/22/2025 [facility] DATE CREATED AUTHOR AUTHOR'S ORGANIZ ATION 03/01/2025 [facility] Goals (unrecognized section and content) Goals may be documented in a n alternate sectionGoals may be documented in an alternate sectionGoals may be documented in an alternate sectionGoals may be documented in an alternate sectionGoals may be documented in an alternate sectionGoals may be documented in an alternate sectionGoals may be documented in an alternate sectionGoals may be documented in an alternate sectionGoals may be documented in an alternate section Care Teams (unrecognized sec tion and content) Team Status: Active Member Role Status Dates No Primary Care Physician Family Provider Active Dr. Michelle Lombardo MD Primary Care Provider Active Team Status: Inactive Member Role Status Dates Dr. Michelle Lombardo MD Primary Care P christineder, Attending Provider, Referring Provider Active Team Status: Inactive Member Role Status Dates Dr. Michelle Lombardo MD Primary Care Provider, Atten ding Provider Active Team Status: Active Member Role Status Dates Dr. Michelle Lombardo MD Primary Care Provider Active Team Status: Inactive Member Role Status Dates Dr. Michelle Lombardo MD Primary Care Provider Active Start: October 23, 2024 End: October 23, 2024 Dr. Michelle Lombardo MD Referring Provider Active Start: October 23, 2024 End: October 23, 2024 Ken DESOUZA, PA Attending Provider Active Start: October 23, 2024 End: October 23, 2024 Team Status: Inactive Member Role Status Dates Dr. Michelle Lombardo MD Primary Care Provider Active Start: January 16, 2025 End: January 16, 2025 Dr. Michelle Lombardo MD Attending Provider Active Start: January 16, 2025 End: January 16, 2025 Dr. Michelle Lombardo MD Referring Provider Active Start: January 16, 2025 End: January 16, 2025 Team Status: Inactive Member Role Status Dates Dr. Michelle Lombardo MD Primary Care Provider Active Start: January 18, 2025 End: January 18, 2025 Dr. Michelle Lombardo MD Attending Provider Active Start: January 18, 2025 End: January 18, 2025 Dr. Michelle Lombardo MD Referring Provider Active Start: January 18, 2025 End: January 18, 2025 Source Comments (unrecognize d section and content) In the event this informatio n is protected by the Federal Confidentiality of Alcohol and Drug Abuse Patient Records regulations: The Federal rules restrict any use of the information to criminally investigate or prosecute any alcohol or drug abuse patient.[facility] the event this information is protected by the Federal Confidentiality of Alcohol and Drug Abuse Patient Records regulations: The Federal rules restrict any use of the information to criminally investigate or prosecute any alcohol or drug abuse patient.[facility] CenterIn the event this information is protected by the Federal Confidentiality of Alcohol and Drug Abuse Patient Records regulations: The Federal rules restrict any use of the information to criminally investigate or prosecute any alcohol or drug abuse patient.[facility] CenterIn the event this information is protected by the Federal Confidentiality of Alcohol and Drug Abuse Patient Records regulations: The Federal rules restrict any use of the information to criminally investigate or prosecute any alcohol or drug abuse patient.[facility] CenterIn the event this information is protected by the Federal Confidentiality of Alcohol and Drug Abuse Patient Records regulations: The Federal rules restrict any use of the information to criminally investigate or prosecute any alcohol or drug abuse patient.[facility] CenterIn the event this information is protected by the Federal Confidentiality of Alcohol and Drug Abuse Patient Records regulations: The Federal rules restrict any use of the information to criminally investigate or prosecute any alcohol or drug abuse patient.[facility] CenterIn the event this information is protected by the Federal Confidentiality of Alcohol and Drug Abuse Patient Records regulations: The Federal rules restrict any use of the information to criminally investigate or prosecute any alcohol or drug abuse patient.[facility] Reason for Visit (unrecogniz ed section and content) Reason Comments Physical Therapy Specialty Diagnoses / Procedures Referred By Contac t Referred To Contact PHYSICAL THERAPY Diagnoses CHARITO (stress urinary incontinence, female) OAB (overactive bladder) Procedures CONSULT TO PHYSICAL THERAPY PHYSICAL THERAPY EVALUATION HIGH COMPLEX 45 MINS Randall Machuca APRN.[employer] [address] [place] [address] Phone: tel: fax: Kemal Koch, PT, DPT [address] [place] [address] Phone: tel: fax: Referral ID Status Reason Start Date Expiration Date Visits Requested Visits Authorized [id number] Authorized Auto-Generat ed Referral 08/15/2024 08/14/2025 30 30 Reason Comments Consult Reason Comments Follow Up perimenopause Specialty Diagnoses / Procedures Referred By Contac t Referred To Contact Diagnoses Perimenopausal symptoms Procedures CONSULT TO WOMEN'S HEALTH OFFICE/OUTPATIENT [facility] 60 MINUTES Randall Machuca, PAULINE.[employer] [address] [place] [address] Phone: tel: fax: Referral ID Status Reason Start Date Expiration Date V isits Requested Visits Authorized [id number] Closed PCP Requested Referral Auto-Generated Referral 09/05/2024 09/05/2025 1 1 Reason Comments PT Eval FOR RECORDS PERTAINING TO PATIENTS WHO ARE [...] BE BASED ON THE PRIMARY CLINICAL RECORDS. [facility] [employer] [facility] provides no warranty or guarantee of the accuracy or completeness of information in this document.
[2025-07-25 08:58] VITALS: BP 148/106; PULSE 82; RESP 18; TEMP 36.9; O2SAT 98
== END 2025-07-25 08:59 | disposition home or self-care (01) ==
PROVIDERS: Emergency Provider Emergency Medicine; PCP Internal Medicine; Visit Provider Emergency Medicine
DX: M79.661 Pain in right lower leg (principal); Z87.891 Personal history of nicotine dependence
CPT/HCPCS: 93971; 99282